=== PATIENT | male | born 1950 | race Hispanic/Latino ===

== ENCOUNTER 2019-02-09 10:57 | Inpatient (IN) | payer MEDICARE ==
[2019-02-09] MEDS ORDERED: SODIUM CHLORIDE 0.9% 500 ML 500 ML IV ONE (11:39)
[2019-02-09] MEDS ORDERED: SODIUM CHLORIDE 0.9% 1000 ML 2,000 ML ONE (11:43)
--- NOTE | 2019-02-09 11:48 | Emergency Department Report ---
ED Shortness of Breath HPI - General Chief Complaint: Nausea/Vomiting/Diarrhea Stated Complaint: FEVER/HYPOTENSION Time Seen by Provider: 02/09/19 11:35 Source: EMS Mode of arrival: Stretcher Limitations: No Limitations - History of Present Illness Initial Comments: 68-year-old male with history of hypertension, resting tremor, hairy cell leukemia (in remission) presents to ED with complaint of shortness of breath 3 days. Patient reports fever, denies cough. He reports episode of chest and abdominal pain 2 days ago which has resolved. Patient states pain was all across his chest and abdomen. He denies any leg pain or swelling. Reports episodes of nausea and vomiting. EMS reports patient was hypotensive, with O2 sats 93% on room air MD Complaint: shortness of breath -: days(s) (3) Severity: moderate Consistency: constant Improves With: nothing Worsens With: lying flat Associated Symptoms: chest pain, fever, nausea/vomiting - Related Data Home Oxygen Therapy: No Home Medications Medication Instructions Recorded Confirmed Last Taken Aspirin [Aspirin BABY CHEW TAB] 81 mg PO QDAY 02/09/19 02/09/19 02/09/19 Desvenlafaxine Succinate 100 mg PO QDAY 02/09/19 02/09/19 02/09/19 [Desvenlafaxine Succinate ER] Doxazosin Mesylate [Cardura] 2.5 mg PO DAILY 02/09/19 02/09/19 02/09/19 Finasteride [Proscar] 5 mg PO QHS 02/09/19 02/09/19 02/09/19 Propranolol HCl 20 mg PO QDAY 02/09/19 02/09/19 02/09/19 Trazodone HCl 150 mg PO QHS 02/09/19 02/09/19 02/09/19 Allergies Allergy/AdvReac Type Severity Reaction Status Date / Time cefepime Allergy Rash Verified 02/10/19 11:24 ED Review of Systems ROS: Stated complaint: FEVER/HYPOTENSION Other details as noted in HPI Comment: All other systems reviewed and negative Constitutional: fever Respiratory: orthopnea, shortness of breath. denies: cough Cardiovascular: chest pain Gastrointestinal: nausea, vomiting Musculoskeletal: other (denies leg pain and swelling) ED Past Medical Hx - Past Medical History Previous Medical History?: Yes Hx Hypertension: Yes - Surgical History Past Surgical History?: No - Social History Smoking Status: Unknown if ever smoked Substance Use Type: None - Medications Home Medications: Home Medications Medication Instructions Recorded Confirmed Last Taken Type Aspirin [Aspirin BABY CHEW TAB] 81 mg PO QDAY 02/09/19 02/09/19 02/09/19 History Desvenlafaxine Succinate 100 mg PO QDAY 02/09/19 02/09/19 02/09/19 History [Desvenlafaxine Succinate ER] Doxazosin Mesylate [Cardura] 2.5 mg PO DAILY 02/09/19 02/09/19 02/09/19 History Finasteride [Proscar] 5 mg PO QHS 02/09/19 02/09/19 02/09/19 History Propranolol HCl 20 mg PO QDAY 02/09/19 02/09/19 02/09/19 History Trazodone HCl 150 mg PO QHS 02/09/19 02/09/19 02/09/19 History ED Physical Exam - General Limitations: No Limitations General appearance: alert - Head Head exam: Present: atraumatic, normocephalic - Eye Eye exam: Present: normal appearance - ENT ENT exam: Present: mucous membranes dry - Neck Neck exam: Present: normal inspection - Respiratory Respiratory exam: Present: decreased breath sounds (right lung field), other (tachypneic) - Cardiovascular Cardiovascular Exam: Present: normal rhythm, tachycardia - GI/Abdominal GI/Abdominal exam: Present: soft. Absent: distended, tenderness - Extremities Exam Extremities exam: Present: normal inspection. Absent: pedal edema, calf tenderness - Neurological Exam Neurological exam: Present: alert, oriented X3 - Psychiatric Psychiatric exam: Present: normal affect, normal mood - Skin Skin exam: Present: warm, dry, intact, normal color ED Course Vital Signs 02/09/19 02/09/19 02/09/19 11:00 11:31 11:38 Temperature 98.9 F Pulse Rate 106 H 103 H Respiratory 30 H 24 Rate Blood Pressure 120/95 Blood Pressure 68/41 [Right] O2 Sat by Pulse 95 97 95 Oximetry 02/09/19 02/09/19 02/09/19 11:50 12:48 13:37 Temperature Pulse Rate 114 H 93 H 87 Respiratory 20 18 33 H Rate Blood Pressure 78/46 Blood Pressure 70/38 75/40 [Right] O2 Sat by Pulse 2 L 95 98 Oximetry 02/09/19 02/09/19 02/09/19 14:04 15:26 16:00 Temperature 98.3 F Pulse Rate 82 92 H Respiratory 16 12 Rate Blood Pressure Blood Pressure 82/62 99/40 [Right] O2 Sat by Pulse 97 97 Oximetry - Reevaluation(s) Reevaluation #1: 02/09/19 13:22 Pt states he has had PCN before and is not allergic. States had cefepime in the past and developed a rash. - Central Line Placement Right Femoral Consent Obtained: verbal consent Time Out Performed: Yes Patient Placed on Monitor/Pulse Ox: Yes Prep: mask, gown, gloves Central Line Prep: Chlorhexidine scrub, sterile drapes applied Local Anesthesia Used: Lidocaine 1% Amount of Anesthesia Used (mls): 3 Ultrasound Used for Placement: No Central Line Lumen Inserted: triple Bloods Obtained for Lab: No Central Line Position: good blood return, all ports aspirated, flus, sutured in place with nyl Dressing Applied: Tegaderm Patient Tolerated Procedure: well Complications: none ED Medical Decision Making - Lab Data Result diagrams: 02/10/19 04:30 02/10/19 04:30 - EKG Data -: EKG Interpreted by [facility] EKG shows normal: sinus rhythm, axis, QRS complexes Rate: tachycardia (rate 110) - Radiology Data Radiology results: report reviewed, image reviewed - Medical Decision Making 68-year-old male presents to ED with complaint of shortness of breath. Patient denies any chest pain at this time, although reports he had generalized chest and abdominal pain 2 days ago, which has currently resolved. Patient with O2 sats of 92% on room air, tachypneic on exam. Patient hypotensive, tachycardic, afebrile. Sepsis alert was called, patient given 30/kg normal saline bolus due to his hypotension. Patient denies history of congestive heart failure. Blood pressure did not respond to saline bolus, so right femoral central line was placed, and levofed was initiated. WBCs normal, however, bandemia present. Patient also shows signs of acute renal failure, with normal potassium. Lactic acid is 5.3. Platelet count is 63. Patient reports previous history of thrombocytopenia when he was diagnosed with hairy cell leukemia, which he reports is currently in remission. Blood culture, urine cultures sent. Zosyn administered due to patient's cefepime allergy. Chest x-ray shows no infiltrates, pulmonary edema, or effusion. Patient was however, placed on BiPAP, due to his tachypnea and mild respiratory distress. Unable to obtain CTA chest with contrast to rule out PE, so VQ scan was ordered. CT chest without contrast also ordered to evaluate for infiltrate or edema not seen on plain film. CT abdomen and pelvis without contrast also ordered due to history of vomiting, although no emesis or abdominal pain here in the ED currently. Patient will require admission, and has been signed out to Dr. Curiel, hospitalist, who agrees to follow-up on his pending radiologic studies. - Differential Diagnosis PE, CHF, infection Critical Care Time: Yes Critical care time in (mins) excluding proc time.: 35 Critical care attestation.: If time is entered above; I have spent that time in minutes in the direct care of this critically ill patient, excluding procedure time. Critical Care Time: 35 minutes ED Disposition Clinical Impression: Thrombocytopenia, Acute respiratory failure with hypoxia, Acute renal failure, Lactic acidosis, Hypotension Disposition: OP ADMIT IP TO THIS HOSP Is pt being admited?: Yes Condition: Stable Time of Disposition: 14:40
[2019-02-09] MEDS ORDERED: SODIUM CHLORIDE 0.9% 1000 ML IV SOLN IV ONE (12:19)
[2019-02-09 12:24] LABS: Hematocrit 40.3 % (35.5-45.6); Hemoglobin 13.3 gm/dl (11.8-15.2); Mean Corpuscular HGB Conc 33 % (32-34); Mean Corpuscular Volume 84 fl (84-94); Red Blood Count 4.78 M/mm3 (3.65-5.03); Red Cell Distribution Width 15.1 % (13.2-15.2)
[2019-02-09 12:25] LABS: Platelet Count 63 K/mm3 (140-440)
[2019-02-09 12:33] LABS: INR 1.29 (0.87-1.13)
--- NOTE | 2019-02-09 12:40 | XRay Report ---
CHEST 1 VIEW INDICATION: possible Sepsis. COMPARISON: None. FINDINGS: Support devices: None. Heart: Normal. Lungs/Pleura: Minimal bibasilar opacities may be atelectatic. Lungs are otherwise clear. No significa nt effusion, no pneumothorax. IMPRESSION: 1. Presumed atelectatic changes in the bases. Signer Name: Carroll Vega MD Signed: 02/09/2019 12:35 PM Workstation Name: [id number]
[2019-02-09 13:18] LABS: Alanine Aminotransferase 12 units/L (7-56); Albumin 3.1 g/dL (3.9-5); BUN/Creatinine Ratio 13; Blood Urea Nitrogen 59 mg/dL (9-20); Calcium 8.4 mg/dL (8.4-10.2); Hemolysis Index 16
[2019-02-09] MEDS ORDERED: PIPERACIL/TAZOBACTA 4.5/NS 100 4.5 GM/100 ML VIAL IV ONE (13:19)
[2019-02-09] MEDS ORDERED: NORepinephrine/NS 4 MG-250 ML 4 MG/250 ML BAG IV ONE (13:19)
[2019-02-09] MEDS: NORepinephrine/NS 4 MG-250 ML 4 MG/250 ML BAG IV SCH ×3 (13:26→20:45)
--- NOTE | 2019-02-09 14:24 | History and Physical Report ---
History of Present Illness Chief complaint: Im hurting, and I cant breathe History of present illness: 68 YO Male with HTN, Obesity, Hairy Cell Leukemia(In remission) presents to ED for evaluatio. Pt on NIPPV and unable to provide history at time of my evaluation. Pt history taken from ED staff as medical record. As per staff, patient reports shortness of breath over the past 3 days with persistent symptoms over the same time frame. pt also reports subjective fever, and abdominal pain. Pt localized left flank as source of pain. Pain is associated with nausea and multiple episodes of vomiting. EMS notified and upon arrival the patient found to be in distress and transported to [facility]. Pt seen and evaluated in ED and found to have Severe Sepsis complicated by Shock with blood pressure of 68/41. Pt initiated on sepsis protocol. Pt treated with IVF resuscitation as well as pressor support. Pt found to have worsening dypsnea after fluid resuscitation which resulted in Acute Hypoxemic Respiratory Failure. Pt init iated on NIPPV and admitted to ICU. No further history obtainable. All listed medication reconciled at time of admission. No further history obtainable. Past History Past Medical History: other (see hpi) Past Surgical History: No surgical history, Other (reviewed) Social history: single. denies: smoking, alcohol abuse, prescription drug abuse Family history: no significant family history (reviewed) Medications and Allergies Allergies Allergy/AdvReac Type Severity Reaction Status Date / Time cefepime Allergy Unknown Verified 02/09/19 11:34 Home Medications Medication Instructions Recorded Confirmed Last Taken Type Aspirin [Aspirin BABY CHEW TAB] 81 mg PO QDAY 02/09/19 02/09/19 02/09/19 History Desvenlafaxine Succinate 100 mg PO QDAY 02/09/19 02/09/19 02/09/19 History [Desvenlafaxine Succinate ER] Doxazosin Mesylate [Cardura] 2.5 mg PO DAILY 02/09/19 02/09/19 02/09/19 History Finasteride [Proscar] 5 mg PO QHS 02/09/19 02/09/19 02/09/19 History Propranolol HCl 20 mg PO QDAY 02/09/19 02/09/19 02/09/19 History Trazodone HCl 150 mg PO QHS 02/09/19 02/09/19 02/09/19 History Active Meds: Active Medications Norepinephrine (Levophed Drip 4 Mg/Ns 250 Ml) 4 mg in 250 mls @ 7.5 mls/hr IV TITR REY; Protocol Last Titration: 02/09/19 13:51 Dose: 20 mcg/min, 75 mls/hr Documented by: Review of Systems ROS unobtainable: due to mental status Exam - Constitutional Vitals: Temp Pulse Resp BP Pulse Ox 98.9 F 82 16 82/62 97 02/09/19 11:00 02/09/19 14:04 02/09/19 14:04 02/09/19 14:04 02/09/19 14:04 General appearance: Present: severe distress - EENT Eyes: Present: PERRL ENT: hearing intact, clear oral mucosa - Neck Neck: Present: supple, normal ROM - Respiratory Respiratory effort: labored Respiratory: bilateral: diminished, rhonchi - Cardiovascular Rhythm: other (tachycardia, hypotension) Heart Sounds: Present: S1 & S2. Absent: rub, click - Extremities Extremities: pulses symmetrical, No edema Peripheral Pulses: abnormal (capillary refill greater than 3.5 seconds) - Abdominal General gastrointestinal: Present: soft, non-tender, non-distended, normal bowel sounds Male genitourinary: Present: normal - Integumentary Integumentary: Present: clear, dry, clammy, decreased turgor - Musculoskeletal Musculoskeletal: generalized weakness - Psychiatric Psychiatric: no appropriate mood/affect, no intact judgment & insight, no memory intact - Neurologic Neurologic: CNII-XII intact, no focal deficits, moves all extremities, no gait normal Results - Labs CBC & Chem 7: 02/09/19 Unknown 02/09/19 Unknown Labs: Abnormal lab results 02/09/19 02/09/19 02/09/19 Range/Units Unknown Unknown Unknown Plt Count 63 L (140-440) K/mm3 PT 15.8 H (12.2-14.9) Sec. INR 1.29 H (0.87-1.13) Carbon Dioxide 19 L (22-30) mmol/L BUN 59 H (9-20) mg/dL Creatinine 4.4 H (0.8-1.5) mg/dL Glucose 101 H (75-100) mg/dL Lactic Acid (0.7-2.0) mmol/L AST < 5 L (5-40) units/L NT-Pro-B Natriuret Pep (0-900) pg/mL Total Protein 5.1 L (6.3-8.2) g/dL Albumin 3.1 L (3.9-5) g/dL 02/09/19 02/09/19 Range/Units Unknown Unknown Plt Count (140-440) K/mm3 PT (12.2-14.9) Sec. INR (0.87-1.13) Carbon Dioxide (22-30) mmol/L BUN (9-20) mg/dL Creatinine (0.8-1.5) mg/dL Glucose (75-100) mg/dL Lactic Acid 5.30 H* (0.7-2.0) mmol/L AST (5-40) units/L NT-Pro-B Natriuret Pep 6998 H (0-900) pg/mL Total Protein (6.3-8.2) g/dL Albumin (3.9-5) g/dL Assessment and Plan - Patient Problems (1) Sepsis Current Visit: Yes Status: Acute Qualifiers: Sepsis acute organ dysfunction status: with acute organ dysfunction Severe sepsis shock status: with septic shock Plan to address problem: Sepsis protocol: Admit to ICU, IV antibiotic therapy, IVF resuscitation therapy, serial lactic acid, monitor uop q shift, IV pressor support, Pulmonary team co nsulted, CBC, CMP, urinalysis, CT Abdomen/Pelvis, CT chest, Chest x ray, blood cultures. The high probability of a clinically significant, sudden or life threatening deterioration of the [cardiac, renal, pulmonary, renal, ID] system(s) required my full and direct attention, intervention and personal management. The aggregate critical care time was [95] minutes. This time is in addition to time spent performing reported procedures but includes the following: [x] Data Review and interpretation [x] Patient assessment and monitoring of vital signs [x] Documentation [x] Medication orders and management (2) KEVIN (acute kidney injury) Current Visit: Yes Status: Acute Plan to address problem: IVF resuscitation therapy, Nephrology consulted, monitor uop q shift, urine electrolytes, (3) Acidosis Current Visit: Yes Status: Acute Plan to address problem: IVF resuscitation therapy, IV bicarbonate, supportive care. (4) UTI (urinary tract infection) Current Visit: Yes Status: Acute Qualifiers: Encounter type: initial encounter Plan to address problem: IV antibiotic therapy, urinalysis, CBC,CMP, (5) Urinary obstruction Current Visit: Yes Status: Acute Plan to address problem: 7MM Left UPJ obstructing stone with mild hydronephrosis, supportive care. IR consulted pending perc nephrostomy tube placement, Urology consulted. (6) CHF (congestive heart failure) Current Visit: Yes Status: Acute Qualifiers: Heart failure type: systolic Plan to address problem: Cardiology consulted in ED, IV ionotropic support, continue current care, monitor daily weight, uop q shift, echo, (7) Acute respiratory failure with hypoxia Current Visit: Yes Status: Acute Plan to address problem: Supplemental oxygen, ABG, pulse oximetry, CT chest, NIPPV as clinically in dicated, nebulizer therapy prn, chest x ray. (8) Lactic acidosis Current Visit: Yes Status: Acute Plan to address problem: Treat sepsis, serial lactic acid, IV bicarbonate, supportive care. (9) DVT prophylaxis Current Visit: Yes Status: Acute Plan to address problem: SCD to BLE while in bed, prophylactic heparin
[2019-02-09] MEDS ORDERED: ONDANSETRON 4 MG/2 ML INJ IV PRN (14:29)
[2019-02-09 14:56] LABS: Band Neutrophils # (Manual) 2.1 K/mm3; Basophils % (Manual) 0 % (0.0-1.8); Eosinophils % (Manual) 0 % (0.0-4.3); Large Platelets Few; Platelet Estimate Consistent w Auto; Total Cells Counted 100
[2019-02-09] MEDS ORDERED: VANCOMYCIN PHARMACY TO DOSE IV SCH (15:00)
[2019-02-09] MEDS ORDERED: VANCOMYCIN 2,000 MG in SODIUM CHLORIDE 0.9% 500 ML 500 ML IV ONE (15:29)
--- NOTE | 2019-02-09 15:35 | Cat Scan Report ---
CT CHEST WITHOUT CONTRAST INDICATION / CLINICAL INFORMATION: Shortness of breath. TECHNIQUE: Axial CT images were obtained through the chest without contrast. Sagittal and coronal reformatted im ages. All CT scans at this location are performed using CT dose reduction for ALARA by means of autom ated exposure control. COMPARISON: None available. FINDINGS: HEART: No significant abnormality. THORACIC AORTA: No significant abnormality. MEDIASTINUM and NINO: No significant abnormality. Calcified right hilar lymph nodes are noted. LUNGS: Mild deep dependent subpleural atelectatic changes in both lower lobes. No evidence for inters titial lung disease, mass or infiltrate. PLEURA: No significant pleural effusion. No pneumothorax. SKELETAL SYSTEM: Osteopenia. Moderate multilevel thoracic spondylosis. UPPER ABDOMEN: No significant abnormality. ADDITIONAL FINDINGS: None. IMPRESSION: No acute process is identified in the chest. CT ABDOMEN AND PELVIS WITHOUT CONTRAST HISTORY: Abdominal pain COMPARISON: None. TECHNIQUE: Axial CT images were obtained through the abdomen and pelvis without IV contrast. Sagittal and coronal reformatted images. All CT scans at this location are performed using CT dose reduction for ALARA by means of automated exposure control. FINDINGS: CT ABDOMEN: Liver: No significant abnormality. Biliary: No significant abnormality. Spleen: No significant abnormality. Unenlarged. Pancreas: No significant abnormality. Adrenals: 1 cm fat-containing lesion in the right adrenal gland is most consistent with a small lipom a or less likely a myelolipoma. The left adrenal gland is normal. Kidneys: The kidneys are normal size, contour and position. Bilateral renal stones are identified, le ft greater than right. There are approximately 3 or 4 punctate stones in the right kidney. Approximat christian 10 stones are identified in the left kidney ranging from 1 mm to 4 mm. A 7-8mm calculus is identi fied at the left ureteropelvic junction resulting in mild left hydronephrosis. The ureters are normal course and caliber. The bladder is decompressed with a Agarwal catheter. Lymphatics: No lymphadenopathy. Vasculature: No significant abnormality. Bowel/Peritoneum: No obstruction or focal inflammation. Mild diverticulosis of the distal colon is no onofre.. No free air. No free fluid. Normal appendix. CT PELVIS: : No significant abnormality. Osseous Structures: Osteopenia. Moderate multilevel lumbar spondylosis. Chronic compression deformity at L2 is suspected. Additional Findings: None IMPRESSION: Bilateral nephrolithiasis. 7-8 mm stone at the left ureteropelvic junction, mildly obstructing. No acute inflammatory process is identified. Signer Name: Yinka De Los Santos Jr, MD Signed: 02/09/2019 3:31 PM Workstation Name: [id number]
[2019-02-09 15:56] LABS: Creatinine,Urine 350.2 mg/dL (0.1-20.0)
[2019-02-09 15:59] LABS: Bacteria,Urine 1+ /HPF (Negative); Bilirubin,Urine NEG (Negative); Blood,Urine LG (Negative); Color,Urine Amber (Yellow)
[2019-02-09 16:02] LABS: RBC,Urine > 182.0 /HPF (0.0-6.0)
--- NOTE | 2019-02-09 16:36 | Nuclear Medicine Report ---
NUCLEAR MEDICINE VENTILATION/PERFUSION LUNG SCAN INDICATION: Shortness of breath. TECHNIQUE: 15 mCi of Xe-133 were given by inhalation. 5 mCi of Tc-99m MAA were given by IV. COMPARISON: CT chest without contrast from earlier today. FINDINGS: VENTILATION: No significant ventilation defects. PERFUSION: No significant perfusion defects. ADDITIONAL FINDINGS: None. IMPRESSION: Low probability for pulmonary embolism. Signer Name: Tulio Warren MD Signed: 02/09/2019 4:32 PM Workstation Name: [id number]
[2019-02-09] MEDS ORDERED: SODIUM BICARB 8.4% 50 MEQ/50 ML SYRINGE IV ONE (17:52)
--- NOTE | 2019-02-09 18:33 | Consultation ---
History of Present Illness - Reason for Consult Consult date: 02/09/19 left hydronephrosis - History of Present Illness Patient presents to history of hypertension, hairy cell leukemia, a single episode of a kidney stone previously, shortness of breath, fatigue, episodic nausea and vomiting and intermittent abdominal pain. He presented with sepsis and hypotension requiring Levophed drip. A CT scan of the abdomen and pelvis was performed which straight an obstructing 7 mm stone at the left UPJ. Minimal inflammatory stranding is present. Additionally, the patient has acute renal failure Patient is currently on broad-spectrum antibiotics. Past History Past Medical History: other (see hpi) Past Surgical History: No surgical history, Other (reviewed) Social history: single. denies: smoking, alcohol abuse, prescription drug abuse Family history: no significant family history (reviewed) Medications and Allergies Allergies Allergy/AdvReac Type Severity Reaction Status Date / Time cefepime Allergy Unknown Verified 02/09/19 11:34 Home Medications Medication Instructions Recorded Confirmed Last Taken Type Aspirin [Aspirin BABY CHEW TAB] 81 mg PO QDAY 02/09/19 02/09/19 02/09/19 History Desvenlafaxine Succinate 100 mg PO QDAY 02/09/19 02/09/19 02/09/19 History [Desvenlafaxine Succinate ER] Doxazosin Mesylate [Cardura] 2.5 mg PO DAILY 02/09/19 02/09/19 02/09/19 History Finasteride [Proscar] 5 mg PO QHS 02/09/19 02/09/19 02/09/19 History Propranolol HCl 20 mg PO QDAY 02/09/19 02/09/19 02/09/19 History Trazodone HCl 150 mg PO QHS 02/09/19 02/09/19 02/09/19 History Active Meds: Active Medications Acetaminophen (Tylenol) 650 mg PO Q4H PRN PRN Reason: Pain MILD(1-3)/Fever >100.5/KAMARA Aspirin (Baby Aspirin) 81 mg PO QDAY REY Finasteride (Proscar) 5 mg PO QHS REY Heparin Sodium (Porcine) (Heparin) 5,000 unit SUB-Q Q12HR REY Norepinephrine (Levophed Drip 4 Mg/Ns 250 Ml) 4 mg in 250 mls @ 7.5 mls/hr IV TITR REY; Protocol Last Titration: 02/09/19 18:12 Dose: 16 mcg/min, 60 mls/hr Documented by: Sodium Chloride (Nacl 0.9% 1000 Ml) 1,000 mls @ 125 mls/hr IV DIRECT REY Levofloxacin/Dextrose (Levaquin 750mg/150ml) 750 mg in 150 mls @ 100 mls/hr IV ONCE ONE; Protocol Stop: 02/09/19 19:29 Last Admin: 02/09/19 18:00 Dose: 100 mls/hr Documented by: Levofloxacin/Dextrose (Levaquin 500mg/100ml) 500 mg in 100 mls @ 66.667 mls/hr IV Q48H REY; Protocol Miscellaneous Medication (Desvenlafaxine Succinate [Desvenlafaxine Succinate Er]) 100 mg PO QDAY REY Ondansetron HCl (Zofran) 4 mg IV Q8H PRN PRN Reason: Nausea And Vomiting Sodium Chloride (Sodium Chloride Flush Syringe 10 Ml) 10 ml IV BID REY Sodium Chloride (Sodium Chloride Flush Syringe 10 Ml) 10 ml IV PRN PRN PRN Reason: LINE FLUSH Trazodone HCl (Desyrel) 150 mg PO QHS REY Review of Systems All systems: negative Exam - Constitutional Vitals: Temp Pulse Resp BP Pulse Ox 98.3 F 79 21 104/65 97 02/09/19 16:00 02/09/19 18:00 02/09/19 18:00 02/09/19 18:00 02/09/19 18:00 General appearance: Present: no acute distress - EENT Eyes: Present: EOM intact ENT: hearing intact - Neck Neck: Present: supple, normal ROM - Respiratory Respiratory effort: normal - Extremities Extremities: no ischemia - Abdominal General gastrointestinal: Present: soft Male genitourinary: Present: deferred - Rectal Rectal Exam: deferred - Psychiatric Psychiatric: appropriate mood/affect, cooperative Results - Labs CBC & Chem 7: 02/09/19 Unknown 02/09/19 Unknown Labs: Abnormal lab results 02/09/19 02/09/19 02/09/19 Range/Units 07:28 13:50 15:20 Plt Count (140-440) K/mm3 Lymphocytes % (Manual) (13.4-35.0) % Nucleated RBC % (0.0-0.9) % Lymphocytes # (Manual) (1.2-5.4) K/mm3 PT (12.2-14.9) Sec. INR (0.87-1.13) Carbon Dioxide (22-30) mmol/L BUN (9-20) mg/dL Creatinine (0.8-1.5) mg/dL Glucose (75-100) mg/dL Lactic Acid 3.50 H* (0.7-2.0) mmol/L AST (5-40) units/L NT-Pro-B Natriuret Pep (0-900) pg/mL Total Protein (6.3-8.2) g/dL Albumin (3.9-5) g/dL Urine WBC (Auto) 35.0 H (0.0-6.0) /HPF Urine Creatinine 350.2 H (0.1-20.0) mg/dL 02/09/19 02/09/19 02/09/19 Range/Units 17:13 Unknown Unknown Plt Count 63 L (140-440) K/mm3 Lymphocytes % (Manual) 2.0 L (13.4-35.0) % Nucleated RBC % 1.0 H (0.0-0.9) % Lymphocytes # (Manual) 0.1 L (1.2-5.4) K/mm3 PT 15.8 H (12.2-14.9) Sec. INR 1.29 H (0.87-1.13) Carbon Dioxide (22-30) mmol/L BUN (9-20) mg/dL Creatinine (0.8-1.5) mg/dL Glucose (75-100) mg/dL Lactic Acid 2.10 H* (0.7-2.0) mmol/L AST (5-40) units/L NT-Pro-B Natriuret Pep (0-900) pg/mL Total Protein (6.3-8.2) g/dL Albumin (3.9-5) g/dL Urine WBC (Auto) (0.0-6.0) /HPF Urine Creatinine (0.1-20.0) mg/dL 02/09/19 02/09/19 02/09/19 Range/Units Unknown Unknown Unknown Plt Count (140-440) K/mm3 Lymphocytes % (Manual) (13.4-35.0) % Nucleated RBC % (0.0-0.9) % Lymphocytes # (Manual) (1.2-5.4) K/mm3 PT (12.2-14.9) Sec. INR (0.87-1.13) Carbon Dioxide 19 L (22-30) mmol/L BUN 59 H (9-20) mg/dL Creatinine 4.4 H (0.8-1.5) mg/dL Glucose 101 H (75-100) mg/dL Lactic Acid 5.30 H* (0.7-2.0) mmol/L AST < 5 L (5-40) units/L NT-Pro-B Natriuret Pep 6998 H (0-900) pg/mL Total Protein 5.1 L (6.3-8.2) g/dL Albumin 3.1 L (3.9-5) g/dL Urine WBC (Auto) (0.0-6.0) /HPF Urine Creatinine (0.1-20.0) mg/dL - Imaging and Cardiology CT scan - abdomen: report reviewed, image reviewed CT scan - pelvis: report reviewed, image reviewed Assessment and Plan We'll plan on placing left nephrostomy tube. The risks and benefits discussed with the patient including risk of bleeding given his decreased platelets.
[2019-02-09] MEDS ORDERED: MIDAZOLAM 2 MG/2 ML INJ ONE (18:42)
[2019-02-09] MEDS ORDERED: fentaNYL 100 MCG/2 ML INJ ONE (18:42)
[2019-02-09] MEDS ORDERED: SODIUM CHLORIDE IRRI 500 ML 500 ML IR ONE (18:43)
[2019-02-09] MEDS ORDERED: LIDOCAINE (2%) 20 MG/1 ML VIAL 20 ML MDV INFILTRATI ONE (18:43)
[2019-02-09] MEDS ORDERED: SODIUM CHLORIDE 0.9% 250ML 0 ML ONE (18:44)
--- NOTE | 2019-02-09 19:44 | Operative Report ---
Operative Report Operative Report: Exam: Ultrasound and fluoroscopic guided placement of left nephrostomy tube Clinical indication: Patient with obstructing left UPJ stone and sepsis Date: 02/09/2019 Procedure: Following an explanation of the risks, benefits and alternatives; written informed consent was obtained. The patient was brought to the angiographic suite and placed in prone position on the examination table. Initial ultrasound evaluation of the patient's left kidney demonstrated moderate left hydronephrosis. The patient's left back and flank were prepped and draped in the usual sterile fashion. 1% lidocaine was used for anesthesia. Under ultrasound guidance, a posterior middle calyx was cannulated with a 15 cm 21-gauge needle. A 0.018 guidewire was advanced to the renal pelvis. The needle was removed and an Accustick transition dilator placed over the guidewire and advanced to the renal pelvis. The trocar and guidewire were removed. A gentle injection of contrast was performed which demonstrates opacification of the renal pelvis and calyces. A 0.035 guidewire was then advanced through the Accustick transition dilator past the obstructing stone into the bladder. The transition dilator was removed and a vertebral catheter advanced over the guidewire to the bladder. Contrast was injected which demonstrates prompt opacification of the bladder with drainage and the Agarwal catheter. A 0.035 guidewire was then advanced through the vertebral catheter. The vertebral catheter was removed and following serial dilation over the guidewire under fluoroscopy, an 8 Sinhala nephrostomy tube was advanced over the guidewire under fluoroscopy. The pigtail was formed around the stone. There was prompt return of bloody urine. A sample was sent for laboratory analysis. Contrast was injected which demonstrates prompt opacification of the renal calyces and pelvis to demonstrate appropriate positioning of the nephrostomy tube. The catheter was securely fastened of the skin surface using 3-0 Ethilon suture and a stay fix device. A sterile dressing was applied. The catheter was then placed to dependent drainage. The patient tolerated the procedure well. There were no immediate post procedure complications. A minimal amount of sedation was utilized secondary to patient's cardiopulmonary status. Continuous cardiopulmonary monitoring was utilized. Impression: Ultrasound and fluoroscopic guided placement of left nephrostomy tube with a sample of urine sent for laboratory analysis.
[2019-02-09] MEDS: SODIUM CHLORIDE 0.9% 1000 ML 1,000 ML IV SCH (20:32)
[2019-02-09] MEDS: traZODone 100 MG TAB PO SCH (21:43)
[2019-02-09] MEDS: FINASTERIDE 5 MG TAB PO SCH (21:43)
[2019-02-09] MEDS: HEPARIN 5,000 UNIT/1 ML VIAL SUB-Q SCH (21:43)
[2019-02-09] MEDS ORDERED: TRAZODONE HCL 150 MG PO SCH (22:00)
[2019-02-10] MEDS: NORepinephrine/NS 4 MG-250 ML 4 MG/250 ML BAG IV SCH ×3 (01:09→08:00)
--- NOTE | 2019-02-10 01:47 | Consultation ---
History of Present Illness - Reason for Consult Consult date: 02/09/19 Sepsis / hydro / stone Requesting physician: YADY SMITH - History of Present Illness 68 yo w/ c/o abd/chest pain past few days then 2 days left flank pain. pt w/ Bip unable give all history. hypotensions. started onpressors. admit to ICU. pain mod w/ some rad left anterior. h/o stone several years ago. tx by Dr. Santamaria for bph/incont. stopped meds recent.. Past History Past Medical History: other (see hpi) Past Surgical History: No surgical history, Other (reviewed) Social history: single. denies: smoking, alcohol abuse, prescription drug abuse Family history: no significant family history (reviewed) Medications and Allergies Allergies Allergy/AdvReac Type Severity Reaction Status Date / Time cefepime Allergy Unknown Verified 02/09/19 11:34 Home Medications Medication Instructions Recorded Confirmed Last Taken Type Aspirin [Aspirin BABY CHEW TAB] 81 mg PO QDAY 02/09/19 02/09/19 02/09/19 History Desvenlafaxine Succinate 100 mg PO QDAY 02/09/19 02/09/19 02/09/19 History [Desvenlafaxine Succinate ER] Doxazosin Mesylate [Cardura] 2.5 mg PO DAILY 02/09/19 02/09/19 02/09/19 History Finasteride [Proscar] 5 mg PO QHS 02/09/19 02/09/19 02/09/19 History Propranolol HCl 20 mg PO QDAY 02/09/19 02/09/19 02/09/19 History Trazodone HCl 150 mg PO QHS 02/09/19 02/09/19 02/09/19 History Active Meds: Active Medications Acetaminophen (Tylenol) 650 mg PO Q4H PRN PRN Reason: Pain MILD(1-3)/Fever >100.5/KAMARA Aspirin (Baby Aspirin) 81 mg PO QDAY [facility] Finasteride (Proscar) 5 mg PO QHS [facility] Last Admin: 02/09/19 21:43 Dose: 5 mg Documented by: Heparin Sodium (Porcine) (Heparin) 5,000 unit SUB-Q Q12HR [facility] Last Admin: 02/09/19 21:43 Dose: 5,000 unit Documented by: Norepinephrine (Levophed Drip 4 Mg/Ns 250 Ml) 4 mg in 250 mls @ 7.5 mls/hr IV TITR REY; Protocol Last Admin: 02/10/19 01:09 Dose: 16 mcg/min, 60 mls/hr Documented by: Sodium Chloride (Nacl 0.9% 1000 Ml) 1,000 mls @ 125 mls/hr IV DIRECT REY Last Admin: 02/09/19 20:32 Dose: 125 mls/hr Documented by: Levofloxacin/Dextrose (Levaquin 500mg/100ml) 500 mg in 100 mls @ 66.667 mls/hr IV Q48H [facility]; Protocol Miscellaneous Medication (Desvenlafaxine Succinate [Desvenlafaxine Succinate Er]) 100 mg PO QDAY REY Ondansetron HCl (Zofran) 4 mg IV Q8H PRN PRN Reason: Nausea And Vomiting Last Admin: 02/09/19 20:27 Dose: 4 mg Documented by: Sodium Chloride (Sodium Chloride Flush Syringe 10 Ml) 10 ml IV BID [facility] Last Admin: 02/09/19 23:42 Dose: 10 ml Documented by: Sodium Chloride (Sodium Chloride Flush Syringe 10 Ml) 10 ml IV PRN PRN PRN Reason: LINE FLUSH Trazodone HCl (Desyrel) 150 mg PO QHS [facility] Last Admin: 02/09/19 21:43 Dose: 150 mg Documented by: Review of Systems Constitutional: fever, chills, fatigue, malaise, no weight loss, no weight gain Ears, nose, mouth and throat: no ear pain, no ear discharge, no tinnitis, no nose pain Cardiovascular: chest pain (resolved), shortness of breath Respiratory: no cough, no cough with sputum, no congestion Gastrointestinal: nausea, vomiting, no diarrhea, no constipation, no melena, no hematochezia, no loss of appetite Genitourinary Male: flank pain, urinary frequency, incontinence, kidney stones Rectal: no pain, no incontinence, no itching Musculoskeletal: low back pain, no neck stiffness, no neck pain Neurological: no head injury, no transient paralysis, no paralysis Psychiatric: no anxiety, no memory loss, no change in sleep habits Endocrine: no cold intolerance, no heat intolerance, no polyphagia, no excessive thirst Hematologic/Lymphatic: no easy bruising, no easy bleeding Allergic/Immunologic: no urticaria, no allergic rhinitis, no persistent infections Exam - Constitutional Vitals: Temp Pulse Resp BP Pulse Ox 99.4 F 152 H 35 H 93/57 94 02/09/19 20:30 02/10/19 01:00 02/10/19 01:00 02/10/19 01:00 02/10/19 01:00 General appearance: Present: no acute distress, mild distress - EENT Eyes: Present: PERRL, EOM intact ENT: hearing intact, clear oral mucosa, dentition normal - Neck Neck: Present: supple - Respiratory Respiratory effort: labored - Extremities Extremities: no ischemia, No edema - Abdominal General gastrointestinal: Present: soft, non-tender Male genitourinary: Present: normal (cather pink ting urine) - Integumentary Integumentary: Present: clear, warm, dry - Psychiatric Psychiatric: appropriate mood/affect Results - Labs CBC & Chem 7: 02/09/19 Unknown 02/09/19 Unknown Labs: Abnormal lab results 02/09/19 02/09/19 02/09/19 Range/Units 07:28 13:50 15:20 Plt Count (140-440) K/mm3 Lymphocytes % (Manual) (13.4-35.0) % Nucleated RBC % (0.0-0.9) % Lymphocytes # (Manual) (1.2-5.4) K/mm3 PT (12.2-14.9) Sec. INR (0.87-1.13) Carbon Dioxide (22-30) mmol/L BUN (9-20) mg/dL Creatinine (0.8-1.5) mg/dL Glucose (75-100) mg/dL Lactic Acid 3.50 H* (0.7-2.0) mmol/L AST (5-40) units/L NT-Pro-B Natriuret Pep (0-900) pg/mL Total Protein (6.3-8.2) g/dL Albumin (3.9-5) g/dL Urine WBC (Auto) 35.0 H (0.0-6.0) /HPF Urine Creatinine 350.2 H (0.1-20.0) mg/dL 02/09/19 02/09/19 02/09/19 Range/Units 17:13 21:53 Unknown Plt Count 63 L (140-440) K/mm3 Lymphocytes % (Manual) 2.0 L (13.4-35.0) % Nucleated RBC % 1.0 H (0.0-0.9) % Lymphocytes # (Manual) 0.1 L (1.2-5.4) K/mm3 PT (12.2-14.9) Sec. INR (0.87-1.13) Carbon Dioxide (22-30) mmol/L BUN (9-20) mg/dL Creatinine (0.8-1.5) mg/dL Glucose (75-100) mg/dL Lactic Acid 2.10 H* 3.00 H* (0.7-2.0) mmol/L AST (5-40) units/L NT-Pro-B Natriuret Pep (0-900) pg/mL Total Protein (6.3-8.2) g/dL Albumin (3.9-5) g/dL Urine WBC (Auto) (0.0-6.0) /HPF Urine Creatinine (0.1-20.0) mg/dL 02/09/19 02/09/19 02/09/19 Range/Units Unknown Unknown Unknown Plt Count (140-440) K/mm3 Lymphocytes % (Manual) (13.4-35.0) % Nucleated RBC % (0.0-0.9) % Lymphocytes # (Manual) (1.2-5.4) K/mm3 PT 15.8 H (12.2-14.9) Sec. INR 1.29 H (0.87-1.13) Carbon Dioxide 19 L (22-30) mmol/L BUN 59 H (9-20) mg/dL Creatinine 4.4 H (0.8-1.5) mg/dL Glucose 101 H (75-100) mg/dL Lactic Acid 5.30 H* (0.7-2.0) mmol/L AST < 5 L (5-40) units/L NT-Pro-B Natriuret Pep (0-900) pg/mL Total Protein 5.1 L (6.3-8.2) g/dL Albumin 3.1 L (3.9-5) g/dL Urine WBC (Auto) (0.0-6.0) /HPF Urine Creatinine (0.1-20.0) mg/dL 02/09/19 Range/Units Unknown Plt Count (140-440) K/mm3 Lymphocytes % (Manual) (13.4-35.0) % Nucleated RBC % (0.0-0.9) % Lymphocytes # (Manual) (1.2-5.4) K/mm3 PT (12.2-14.9) Sec. INR (0.87-1.13) Carbon Dioxide (22-30) mmol/L BUN (9-20) mg/dL Creatinine (0.8-1.5) mg/dL Glucose (75-100) mg/dL Lactic Acid (0.7-2.0) mmol/L AST (5-40) units/L NT-Pro-B Natriuret Pep 6998 H (0-900) pg/mL Total Protein (6.3-8.2) g/dL Albumin (3.9-5) g/dL Urine WBC (Auto) (0.0-6.0) /HPF Urine Creatinine (0.1-20.0) mg/dL Assessment and Plan SEPSIS LEFT UPJ STONE / HYDRO HYPOTENSION - Admit from ER to ICU - Disc w/ Dr. Smith late today , since on pressors, ICU pt will need eval for nephrostomy tube placement. - Dr. Davidson was consulted and Left Nephrostomy tube placed - When improved antegrade stent then future outpt treatment of stone discussed w/ pt.
[2019-02-10] MEDS: SODIUM CHLORIDE 0.9% 1000 ML 1,000 ML IV SCH ×7 (04:14→20:55)
[2019-02-10] MEDS: ACETAMINOPHEN 325 MG TAB PO PRN (04:23)
[2019-02-10 04:45] LABS: Hematocrit 37.3 % (35.5-45.6); Hemoglobin 12.5 gm/dl (11.8-15.2); Mean Corpuscular HGB Conc 34 % (32-34); Mean Corpuscular Volume 84 fl (84-94); Red Blood Count 4.42 M/mm3 (3.65-5.03)
[2019-02-10 05:14] LABS: Alanine Aminotransferase 17 units/L (7-56); Albumin 2.3 g/dL (3.9-5); BUN/Creatinine Ratio 17; Blood Urea Nitrogen 60 mg/dL (9-20); Calcium 7.4 mg/dL (8.4-10.2)
[2019-02-10 05:29] LABS: Basophils % (Manual) 0 % (0.0-1.8); Eosinophils % (Manual) 0 % (0.0-4.3); Large Platelets 1+; Platelet Estimate Appears Decreased; RBC Morphology Normal; Total Cells Counted 100
[2019-02-10 05:40] LABS: Platelet Count 30 K/mm3 (140-440)
--- NOTE | 2019-02-10 08:49 | Progress Note ---
Assessment and Plan Assessment and plan: Sepsis due to complicated UTI Admitted to ICU Continue Levaquin consult ID Septic shock On Levophed KEVIN (acute kidney injury) IVF resuscitation therapy, Nephrology consulted, monitor uop q shift, urine electrolytes, Metabolic Acidosis due to KEVIN IVF resuscitation therapy, IV bicarbonate, supportive care. Complicated UTI On Levaquin IV antibiotic therapy, urinalysis, CBC,CMP, Urinary obstruction 7MM Left UPJ obstructing stone with mild hydronephrosis, supportive care. IR consulted s/p left perc nephrostomy tube placement, Urology consulted. CHF (congestive heart failure) Cardiology consulted in ED, IV ionotropic support, continue current care, monitor daily weight, uop q shift, echo, Acute respiratory failure with hypoxia Supplemental oxygen, ABG, pulse oximetry, CT chest, NIPPV as clinically indicated, nebulizer therapy prn, chest x ray. Lactic acidosis due to sepsis Treat sepsis, serial lactic acid, IV bicarbonate, supportive care. DVT prophylaxis SCD to BLE while in bed, prophylactic heparin The high probability of a clinically significant, sudden or life threatening deterioration of the [3] system(s) required my full and direct attention, intervention and personal management. The aggregate critical care time was [35] minutes. This time is in addition to time spent performing reported procedures but includes the following: [] Data Review and interpretation [] Patient assessment and monitoring of vital signs [] Documentation [] Medication orders and management History Interval history: Generalized weakness Shortness of breath improved Fever Hospitalist Physical - Physical exam Narrative exam: Gen: Not in acute distress, lying in bed, obese, ill looking HEENT: Normocephalic, atraumatic Neck: supple, no JVD Heart: S1 and S2 reg, no murmurs, rubs or gallop Lungs: Clear to auscultation, no rhonchi, no wheeze Abd: soft, non tender, non distended, normal BS, left nephrostomy tube Ext: No edema, no clubbing, no cyanosis Neuro: Awake, alert, oriented X 3, no focal neurological signs - Constitutional Vitals: Temp Pulse Resp BP Pulse Ox 101.5 F H 110 H 30 H 73/50 96 02/10/19 04:00 02/10/19 06:15 02/10/19 06:15 02/10/19 06:15 02/10/19 08:36 General appearance: Present: no acute distress, mild distress Results - Labs CBC & Chem 7: 02/10/19 04:30 02/10/19 04:30 Labs: Laboratory Last Values WBC 7.5 K/mm3 (4.5-11.0) 02/10/19 04:30 RBC 4.42 M/mm3 (3.65-5.03) 02/10/19 04:30 Hgb 12.5 gm/dl (11.8-15.2) 02/10/19 04:30 Hct 37.3 % (35.5-45.6) 02/10/19 04:30 MCV 84 fl (84-94) 02/10/19 04:30 MCH 28 pg (28-32) 02/10/19 04:30 MCHC 34 % (32-34) 02/10/19 04:30 RDW 15.0 % (13.2-15.2) 02/10/19 04:30 Plt Count 30 K/mm3 (140-440) L 02/10/19 04:30 Eos % (Auto) Territory Manager 02/10/19 04:30 Add Manual Diff Complete 02/10/19 04:30 Total Counted 100 02/10/19 04:30 Seg Neutrophils % Territory Manager 02/09/19 Unknown Seg Neuts % (Manual) 75.0 % (40.0-70.0) H 02/10/19 04:30 Band Neutrophils % 13.0 % 02/10/19 04:30 Lymphocytes % (Manual) 5.0 % (13.4-35.0) L 02/10/19 04:30 Reactive Lymphs % (Man) 0 % 02/10/19 04:30 Monocytes % (Manual) 7.0 % (0.0-7.3) 02/10/19 04:30 Eosinophils % (Manual) 0 % (0.0-4.3) 02/10/19 04:30 Basophils % (Manual) 0 % (0.0-1.8) 02/10/19 04:30 Metamyelocytes % 0 % 02/10/19 04:30 Myelocytes % 0 % 02/10/19 04:30 Promyelocytes % 0 % 02/10/19 04:30 Blast Cells % 0 % 02/10/19 04:30 Nucleated RBC % Not Reportable 02/10/19 04:30 Seg Neutrophils # Man 5.6 K/mm3 (1.8-7.7) 02/10/19 04:30 Band Neutrophils # 1.0 K/mm3 02/10/19 04:30 Lymphocytes # (Manual) 0.4 K/mm3 (1.2-5.4) L 02/10/19 04:30 Abs React Lymphs (Man) 0.0 K/mm3 02/10/19 04:30 Monocytes # (Manual) 0.5 K/mm3 (0.0-0.8) 02/10/19 04:30 Eosinophils # (Manual) 0.0 K/mm3 (0.0-0.4) 02/10/19 04:30 Basophils # (Manual) 0.0 K/mm3 (0.0-0.1) 02/10/19 04:30 Metamyelocytes # 0.0 K/mm3 02/10/19 04:30 Myelocytes # 0.0 K/mm3 02/10/19 04:30 Promyelocytes # 0.0 K/mm3 02/10/19 04:30 Blast Cells # 0.0 K/mm3 02/10/19 04:30 WBC Morphology Not Reportable 02/10/19 04:30 Hypersegmented Neuts Not Reportable 02/10/19 04:30 Hyposegmented Neuts Not Reportable 02/10/19 04:30 Hypogranular Neuts Not Reportable 02/10/19 04:30 Smudge Cells Not Reportable 02/10/19 04:30 Toxic Granulation Not Reportable 02/10/19 04:30 Toxic Vacuolation Not Reportable 02/10/19 04:30 Dohle Bodies Not Reportable 02/10/19 04:30 Pelger-Huet Anomaly Not Reportable 02/10/19 04:30 Jagdish Rods Not Reportable 02/10/19 04:30 Platelet Estimate Appears decreased 02/10/19 04:30 Clumped Platelets Not Reportable 02/10/19 04:30 Plt Clumps, EDTA Not Reportable 02/10/19 04:30 Large Platelets 1+ 02/10/19 04:30 Giant Platelets Not Reportable 02/10/19 04:30 Platelet Satelliting Not Reportable 02/10/19 04:30 Plt Morphology Comment Not Reportable 02/10/19 04:30 RBC Morphology Normal 02/10/19 04:30 Dimorphic RBCs Not Reportable 02/10/19 04:30 Polychromasia Not Reportable 02/10/19 04:30 Hypochromasia Not Reportable 02/10/19 04:30 Poikilocytosis Not Reportable 02/10/19 04:30 Anisocytosis Not Reportable 02/10/19 04:30 Microcytosis Not Reportable 02/10/19 04:30 Macrocytosis Not Reportable 02/10/19 04:30 Spherocytes Not Reportable 02/10/19 04:30 Pappenheimer Bodies Not Reportable 02/10/19 04:30 Sickle Cells Not Reportable 02/10/19 04:30 Target Cells Not Reportable 02/10/19 04:30 Tear Drop Cells Not Reportable 02/10/19 04:30 Ovalocytes Not Reportable 02/10/19 04:30 Helmet Cells Not Reportable 02/10/19 04:30 [place] Bodies Not Reportable 02/10/19 04:30 Mora Rings Not Reportable 02/10/19 04:30 Buckeye Cells Not Reportable 02/10/19 04:30 Bite Cells Not Reportable 02/10/19 04:30 Crenated Cell Not Reportable 02/10/19 04:30 Elliptocytes Not Reportable 02/10/19 04:30 Acanthocytes (Spur) Not Reportable 02/10/19 04:30 Rouleaux Not Reportable 02/10/19 04:30 Hemoglobin C Crystals Not Reportable 02/10/19 04:30 Schistocytes Not Reportable 02/10/19 04:30 Malaria parasites Not Reportable 02/10/19 04:30 Arnie Bodies Not Reportable 02/10/19 04:30 Hem Pathologist Commnt No 02/10/19 04:30 PT 15.8 Sec. (12.2-14.9) H 02/09/19 Unknown INR 1.29 (0.87-1.13) H 02/09/19 Unknown POC ABG pH 7.356 (7.35-7.45) 02/09/19 17:29 POC ABG pCO2 37.1 (35-45) 02/09/19 17:29 POC ABG pO2 97 (80-105) 02/09/19 17:29 POC ABG HCO3 20.8 (22-26 mml/L) 02/09/19 17:29 POC ABG Total CO2 22 (23-27mmol/L) 02/09/19 17:29 POC ABG O2 Sat 97 02/09/19 17:29 POC ABG Base Excess -5 ((-2) - (+3)mmol/L) 02/09/19 17:29 VBG pH 7.379 (7.320-7.420) 02/09/19 11:45 FiO2 28 % 02/09/19 17:29 Sodium 145 mmol/L (137-145) 02/10/19 04:30 Potassium 3.5 mmol/L (3.6-5.0) L 02/10/19 04:30 Chloride 106.3 mmol/L (98-107) 02/10/19 04:30 Carbon Dioxide 21 mmol/L (22-30) L 02/10/19 04:30 Anion Gap 21 mmol/L 02/10/19 04:30 BUN 60 mg/dL (9-20) H 02/10/19 04:30 Creatinine 3.6 mg/dL (0.8-1.5) H 02/10/19 04:30 Estimated GFR 17 ml/min 02/10/19 04:30 BUN/Creatinine Ratio 17 % 02/10/19 04:30 Glucose 67 mg/dL (75-100) L 02/10/19 04:30 Lactic Acid 2.10 mmol/L (0.7-2.0) H* 02/10/19 06:38 Calcium 7.4 mg/dL (8.4-10.2) L 02/10/19 04:30 Total Bilirubin 1.40 mg/dL (0.1-1.2) H 02/10/19 04:30 AST 31 units/L (5-40) 02/10/19 04:30 ALT 17 units/L (7-56) 02/10/19 04:30 Alkaline Phosphatase 67 units/L (35-129) 02/10/19 04:30 Troponin T 0.017 ng/mL (0.00-0.029) 02/09/19 Unknown NT-Pro-B Natriuret Pep 6998 pg/mL (0-900) H 02/09/19 Unknown Total Protein 5.2 g/dL (6.3-8.2) L 02/10/19 04:30 Albumin 2.3 g/dL (3.9-5) L 02/10/19 04:30 Albumin/Globulin Ratio 0.8 % 02/10/19 04:30 Urine Color Madeline (Yellow) 02/09/19 07:28 Urine Turbidity Cloudy (Clear) 02/09/19 07:28 Urine pH 5.0 (5.0-7.0) 02/09/19 07:28 Ur Specific [place] 1.019 (1.003-1.030) 02/09/19 07:28 Urine Protein 100 mg/dl mg/dL (Negative) 02/09/19 07:28 Urine Glucose (UA) Neg mg/dL (Negative) 02/09/19 07:28 Urine Ketones Neg mg/dL (Negative) 02/09/19 07:28 Urine Blood Lg (Negative) 02/09/19 07:28 Urine Nitrite Neg (Negative) 02/09/19 07:28 Urine Bilirubin Neg (Negative) 02/09/19 07:28 Urine Urobilinogen 4.0 mg/dL (<2.0) 02/09/19 07:28 Ur Leukocyte Esterase Mod (Negative) 02/09/19 07:28 Urine WBC (Auto) 35.0 /HPF (0.0-6.0) H 02/09/19 07:28 Urine RBC (Auto) > 182.0 /HPF (0.0-6.0) 02/09/19 07:28 U Epithel Cells (Auto) 1.0 /HPF (0-13.0) 02/09/19 07:28 Urine Bacteria (Auto) 1+ /HPF (Negative) 02/09/19 07:28 Urine Creatinine 350.2 mg/dL (0.1-20.0) H 02/09/19 15:20 Urine Sodium 46 mmol/L 02/09/19 15:20 Blood Type A POSITIVE 02/09/19 17:15 Antibody Screen Negative 02/09/19 17:15 Active Medications - Current Medications Current Medications: Generic Name Dose Route Start Last Admin Trade Name Freq PRN Reason Stop Dose Admin Acetaminophen 650 mg 02/09/19 14:29 02/10/19 04:23 Tylenol PO 650 mg Q4H PRN Administration Pain MILD(1-3)/Fever >100.5/KAMARA Aspirin 81 mg 02/10/19 10:00 Baby Aspirin PO QDAY REY Finasteride 5 mg 02/09/19 22:00 02/09/19 21:43 Proscar PO 5 mg QHS REY Administration Heparin Sodium (Porcine) 5,000 unit 02/09/19 22:00 02/09/19 21:43 Heparin SUB-Q 5,000 unit Q12HR REY Administration Norepinephrine 4 mg in 250 mls @ 7.5 mls/hr 02/09/19 13:25 02/10/19 08:00 Levophed Drip 4 Mg/Ns 250 Ml IV 30 mcg/min TITR REY 112.5 mls/hr Administration Protocol 2 MCG/MIN Sodium Chloride 1,000 mls @ 125 mls/hr 02/09/19 15:00 02/10/19 04:14 Nacl 0.9% 1000 Ml IV 125 mls/hr DIRECT REY Administration Levofloxacin/Dextrose 500 mg in 100 mls @ 66.667 mls/hr 02/11/19 18:00 Levaquin 500mg/100ml IV Q48H REY Protocol Sodium Chloride 1,000 mls @ 999 mls/hr 02/10/19 09:00 Nacl 0.9% 1000 Ml IV 02/10/19 10:59 Q1H REY As Directed Miscellaneous Medication 100 mg 02/10/19 10:00 Desvenlafaxine Succinate [Desvenlafaxine Succinate Er] PO QDAY REY Ondansetron HCl 4 mg 02/09/19 14:29 02/09/19 20:27 Zofran IV 4 mg Q8H PRN Administration Nausea And Vomiting Sodium Chloride 10 ml 02/09/19 22:00 02/09/19 23:42 Sodium Chloride Flush Syringe 10 Ml IV 10 ml BID REY Administration Sodium Chloride 10 ml 02/09/19 14:29 Sodium Chloride Flush Syringe 10 Ml IV PRN PRN LINE FLUSH Trazodone HCl 150 mg 02/09/19 22:00 02/09/19 21:43 Desyrel PO 150 mg QHS REY Administration
[2019-02-10] MEDS: ASPIRIN 81 MG TAB CHEW PO SCH (09:04)
[2019-02-10] MEDS: HEPARIN 5,000 UNIT/1 ML VIAL SUB-Q SCH (09:05)
[2019-02-10] MEDS ORDERED: PANTOPRAZOLE 40 MG INJ IV SCH (10:00)
[2019-02-10] MEDS ORDERED: DESVENLAFAXINE SUCCINATE 100 MG PO SCH (10:00)
[2019-02-10] MEDS: NORepinephrine 8 MG in SODIUM CHLORIDE 0.9% 250ML 242 ML IV SCH ×3 (10:17→19:30)
[2019-02-10] MEDS: FAMOTIDINE 20 MG/2 ML INJ IV SCH (10:44)
[2019-02-10] MEDS ORDERED: VASOPRESSIN 20 UNIT in SODIUM CHLORIDE 0.9% 100 ML IV SCH (11:00)
--- NOTE | 2019-02-10 11:15 | Progress Note ---
Assessment and Plan 68 year old male with left UPJ obstruction on pressors s/p L PCN. 150 mL output overnight. Some hawk urine in bag. Suboptimal ability to flush tube. Obtaining XRAY of abdomen. Will continue to monitor output. Subjective Date of service: 02/10/19 Principal diagnosis: Left hydronephrosis Interval history: Reviewed CT scan with left renal stone at UPJ. Stone manipulated during procedure and pulled out of UPJ. Flushed suboptimally today when attempted to flush at bedside. 150 mL hawk urine present in bag. Objective - Constitutional Vitals: Vital Signs - 12hr 02/09/19 02/09/19 02/09/19 23:15 23:30 23:45 Temperature Pulse Rate 147 H 153 H 112 H Pulse Rate [ From Monitor] Respiratory 32 H 27 H 38 H Rate Blood Pressure 104/57 113/56 96/55 O2 Sat by Pulse 96 96 96 Oximetry 02/10/19 02/10/19 02/10/19 00:00 00:04 00:15 Temperature 99.9 F H Pulse Rate 129 H 128 H 127 H Pulse Rate [ 120 H From Monitor] Respiratory 30 H 41 H 35 H Rate Blood Pressure 94/64 94/64 95/56 O2 Sat by Pulse 96 96 96 Oximetry 02/10/19 02/10/19 02/10/19 00:30 00:38 00:45 Temperature Pulse Rate 124 H 88 125 H Pulse Rate [ From Monitor] Respiratory 39 H 26 H 33 H Rate Blood Pressure 87/50 101/52 80/43 O2 Sat by Pulse 96 99 94 Oximetry 02/10/19 02/10/19 02/10/19 00:50 01:00 01:15 Temperature Pulse Rate 89 152 H 130 H Pulse Rate [ From Monitor] Respiratory 26 H 35 H 35 H Rate Blood Pressure 101/52 93/57 97/50 O2 Sat by Pulse 99 94 94 Oximetry 02/10/19 02/10/19 02/10/19 01:30 01:46 02:00 Temperature Pulse Rate 123 H 120 H 124 H Pulse Rate [ From Monitor] Respiratory 34 H 39 H 36 H Rate Blood Pressure 86/51 87/32 86/57 O2 Sat by Pulse 97 96 97 Oximetry 02/10/19 02/10/19 02/10/19 02:16 02:30 02:45 Temperature Pulse Rate 134 H 129 H 137 H Pulse Rate [ From Monitor] Respiratory 17 38 H 31 H Rate Blood Pressure 64/37 95/54 91/48 O2 Sat by Pulse 97 95 98 Oximetry 02/10/19 02/10/19 02/10/19 03:00 03:15 03:30 Temperature Pulse Rate 153 H 128 H 129 H Pulse Rate [ From Monitor] Respiratory 42 H 43 H 36 H Rate Blood Pressure 84/50 89/51 88/41 O2 Sat by Pulse 96 97 95 Oximetry 02/10/19 02/10/19 02/10/19 03:45 04:00 04:15 Temperature 101.5 F H Pulse Rate 120 H 157 H 118 H Pulse Rate [ 116 H From Monitor] Respiratory 35 H 38 H 25 H Rate Blood Pressure 85/47 91/53 79/55 O2 Sat by Pulse 96 97 95 Oximetry 02/10/19 02/10/19 02/10/19 04:30 04:46 05:00 Temperature Pulse Rate 121 H 152 H 115 H Pulse Rate [ From Monitor] Respiratory 41 H 39 H 36 H Rate Blood Pressure 75/44 75/44 80/51 O2 Sat by Pulse 98 97 97 Oximetry 02/10/19 02/10/19 02/10/19 05:15 05:30 05:45 Temperature Pulse Rate 129 H 110 H 111 H Pulse Rate [ From Monitor] Respiratory 36 H 32 H 33 H Rate Blood Pressure 86/51 85/58 89/51 O2 Sat by Pulse 98 97 97 Oximetry 02/10/19 02/10/19 02/10/19 06:00 06:15 06:30 Temperature Pulse Rate 110 H 110 H 117 H Pulse Rate [ From Monitor] Respiratory 33 H 30 H 34 H Rate Blood Pressure 82/45 73/50 80/53 O2 Sat by Pulse 97 97 97 Oximetry 02/10/19 02/10/19 02/10/19 06:45 07:00 07:15 Temperature Pulse Rate 110 H 112 H 107 H Pulse Rate [ From Monitor] Respiratory 31 H 31 H 30 H Rate Blood Pressure 87/53 80/50 82/53 O2 Sat by Pulse 98 98 98 Oximetry 02/10/19 02/10/19 02/10/19 07:30 07:45 08:00 Temperature 99.7 F H Pulse Rate 109 H 101 H 117 H Pulse Rate [ 106 H From Monitor] Respiratory 31 H 27 H 19 Rate Blood Pressure 88/52 96/59 84/51 O2 Sat by Pulse 97 97 98 Oximetry 02/10/19 02/10/19 02/10/19 08:16 08:30 08:36 Temperature Pulse Rate 110 H 114 H Pulse Rate [ From Monitor] Respiratory 18 24 Rate Blood Pressure 94/61 99/55 O2 Sat by Pulse 97 96 96 Oximetry 02/10/19 08:45 Temperature Pulse Rate 117 H Pulse Rate [ From Monitor] Respiratory 29 H Rate Blood Pressure 95/52 O2 Sat by Pulse 97 Oximetry General appearance: Present: no acute distress - Respiratory Respiratory effort: labored, other (tachypnea) - Gastrointestinal General gastrointestinal: Present: other (hawk urine) - Labs CBC & Chem 7: 02/10/19 04:30 02/10/19 04:30 Labs: Abnormal lab results 02/09/19 02/09/19 02/09/19 Range/Units 04:30 07:28 13:50 Plt Count (140-440) K/mm3 Seg Neuts % (Manual) (40.0-70.0) % Lymphocytes % (Manual) (13.4-35.0) % Nucleated RBC % (0.0-0.9) % Lymphocytes # (Manual) (1.2-5.4) K/mm3 PT (12.2-14.9) Sec. INR (0.87-1.13) Potassium (3.6-5.0) mmol/L Carbon Dioxide (22-30) mmol/L BUN (9-20) mg/dL Creatinine (0.8-1.5) mg/dL Glucose (75-100) mg/dL Lactic Acid 2.40 H* 3.50 H* (0.7-2.0) mmol/L Calcium (8.4-10.2) mg/dL Total Bilirubin (0.1-1.2) mg/dL AST (5-40) units/L NT-Pro-B Natriuret Pep (0-900) pg/mL Total Protein (6.3-8.2) g/dL Albumin (3.9-5) g/dL Urine WBC (Auto) 35.0 H (0.0-6.0) /HPF Urine Creatinine (0.1-20.0) mg/dL 02/09/19 02/09/19 02/09/19 Range/Units 15:20 17:13 21:53 Plt Count (140-440) K/mm3 Seg Neuts % (Manual) (40.0-70.0) % Lymphocytes % (Manual) (13.4-35.0) % Nucleated RBC % (0.0-0.9) % Lymphocytes # (Manual) (1.2-5.4) K/mm3 PT (12.2-14.9) Sec. INR (0.87-1.13) Potassium (3.6-5.0) mmol/L Carbon Dioxide (22-30) mmol/L BUN (9-20) mg/dL Creatinine (0.8-1.5) mg/dL Glucose (75-100) mg/dL Lactic Acid 2.10 H* 3.00 H* (0.7-2.0) mmol/L Calcium (8.4-10.2) mg/dL Total Bilirubin (0.1-1.2) mg/dL AST (5-40) units/L NT-Pro-B Natriuret Pep (0-900) pg/mL Total Protein (6.3-8.2) g/dL Albumin (3.9-5) g/dL Urine WBC (Auto) (0.0-6.0) /HPF Urine Creatinine 350.2 H (0.1-20.0) mg/dL 02/09/19 02/09/19 02/09/19 Range/Units Unknown Unknown Unknown Plt Count 63 L (140-440) K/mm3 Seg Neuts % (Manual) (40.0-70.0) % Lymphocytes % (Manual) 2.0 L (13.4-35.0) % Nucleated RBC % 1.0 H (0.0-0.9) % Lymphocytes # (Manual) 0.1 L (1.2-5.4) K/mm3 PT 15.8 H (12.2-14.9) Sec. INR 1.29 H (0.87-1.13) Potassium (3.6-5.0) mmol/L Carbon Dioxide 19 L (22-30) mmol/L BUN 59 H (9-20) mg/dL Creatinine 4.4 H (0.8-1.5) mg/dL Glucose 101 H (75-100) mg/dL Lactic Acid (0.7-2.0) mmol/L Calcium (8.4-10.2) mg/dL Total Bilirubin (0.1-1.2) mg/dL AST < 5 L (5-40) units/L NT-Pro-B Natriuret Pep (0-900) pg/mL Total Protein 5.1 L (6.3-8.2) g/dL Albumin 3.1 L (3.9-5) g/dL Urine WBC (Auto) (0.0-6.0) /HPF Urine Creatinine (0.1-20.0) mg/dL 02/09/19 02/09/19 02/10/19 Range/Units Unknown Unknown 04:30 Plt Count 30 L (140-440) K/mm3 Seg Neuts % (Manual) 75.0 H (40.0-70.0) % Lymphocytes % (Manual) 5.0 L (13.4-35.0) % Nucleated RBC % (0.0-0.9) % Lymphocytes # (Manual) 0.4 L (1.2-5.4) K/mm3 PT (12.2-14.9) Sec. INR (0.87-1.13) Potassium (3.6-5.0) mmol/L Carbon Dioxide (22-30) mmol/L BUN (9-20) mg/dL Creatinine (0.8-1.5) mg/dL Glucose (75-100) mg/dL Lactic Acid 5.30 H* (0.7-2.0) mmol/L Calcium (8.4-10.2) mg/dL Total Bilirubin (0.1-1.2) mg/dL AST (5-40) units/L NT-Pro-B Natriuret Pep 6998 H (0-900) pg/mL Total Protein (6.3-8.2) g/dL Albumin (3.9-5) g/dL Urine WBC (Auto) (0.0-6.0) /HPF Urine Creatinine (0.1-20.0) mg/dL 02/10/19 02/10/19 02/10/19 Range/Units 04:30 06:38 08:44 Plt Count (140-440) K/mm3 Seg Neuts % (Manual) (40.0-70.0) % Lymphocytes % (Manual) (13.4-35.0) % Nucleated RBC % (0.0-0.9) % Lymphocytes # (Manual) (1.2-5.4) K/mm3 PT (12.2-14.9) Sec. INR (0.87-1.13) Potassium 3.5 L (3.6-5.0) mmol/L Carbon Dioxide 21 L (22-30) mmol/L BUN 60 H (9-20) mg/dL Creatinine 3.6 H (0.8-1.5) mg/dL Glucose 67 L (75-100) mg/dL Lactic Acid 2.10 H* 2.50 H* (0.7-2.0) mmol/L Calcium 7.4 L (8.4-10.2) mg/dL Total Bilirubin 1.40 H (0.1-1.2) mg/dL AST (5-40) units/L NT-Pro-B Natriuret Pep (0-900) pg/mL Total Protein 5.2 L (6.3-8.2) g/dL Albumin 2.3 L (3.9-5) g/dL Urine WBC (Auto) (0.0-6.0) /HPF Urine Creatinine (0.1-20.0) mg/dL Medications & Allergies - Medications Allergies/Adverse Reactions: Allergies cefepime Allergy (Verified 02/09/19 11:34) Unknown Home Medications: Home Medications Medication Instructions Recorded Confirmed Last Taken Type Aspirin [Aspirin BABY CHEW TAB] 81 mg PO QDAY 02/09/19 02/09/19 02/09/19 History Desvenlafaxine Succinate 100 mg PO QDAY 02/09/19 02/09/19 02/09/19 History [Desvenlafaxine Succinate ER] Doxazosin Mesylate [Cardura] 2.5 mg PO DAILY 02/09/19 02/09/19 02/09/19 History Finasteride [Proscar] 5 mg PO QHS 02/09/19 02/09/19 02/09/19 History Propranolol HCl 20 mg PO QDAY 02/09/19 02/09/19 02/09/19 History Trazodone HCl 150 mg PO QHS 02/09/19 02/09/19 02/09/19 History Active Medications: Generic Name Dose Route Start Last Admin Trade Name Freq PRN Reason Stop Dose Admin Acetaminophen 650 mg 02/09/19 14:29 02/10/19 04:23 Tylenol PO 650 mg Q4H PRN Administration Pain MILD(1-3)/Fever >100.5/KAMARA Aspirin 81 mg 02/10/19 10:00 02/10/19 09:04 Baby Aspirin PO 81 mg QDAY REY Administration Famotidine 20 mg 02/10/19 11:00 02/10/19 10:44 Pepcid IV 20 mg DAILY REY Administration Finasteride 5 mg 02/09/19 22:00 02/09/19 21:43 Proscar PO 5 mg QHS REY Administration Sodium Chloride 1,000 mls @ 125 mls/hr 02/09/19 15:00 02/10/19 04:14 Nacl 0.9% 1000 Ml IV 125 mls/hr DIRECT REY Administration Levofloxacin/Dextrose 500 mg in 100 mls @ 66.667 mls/hr 02/11/19 18:00 Levaquin 500mg/100ml IV Q48H REY Protocol Norepinephrine 8 mg/ Sodium 250 mls @ 3.75 mls/hr 02/10/19 11:00 02/10/19 11:02 Chloride IV 22 mcg/min TITR REY 41.25 mls/hr Titration Protocol 2 MCG/MIN Sodium Chloride 1,000 mls @ 999 mls/hr 02/10/19 11:00 02/10/19 11:01 Nacl 0.9% 1000 Ml IV 02/10/19 12:59 999 mls/hr Q1H REY Administration As Directed Vasopressin 20 unit/ Sodium 101 mls @ 9.09 mls/hr 02/10/19 11:00 Chloride IV TITR REY Protocol 0.03 UNITS/MIN Desmopressin Acetate 20 mcg/ 55 mls @ 100 mls/hr 02/10/19 11:05 Sodium Chloride IV 02/10/19 11:34 ONCE ONE Miscellaneous Medication 100 mg 02/10/19 10:00 Desvenlafaxine Succinate [Desvenlafaxine Succinate Er] PO QDAY REY Ondansetron HCl 4 mg 02/09/19 14:29 02/09/19 20:27 Zofran IV 4 mg Q8H PRN Administration Nausea And Vomiting Sodium Chloride 10 ml 02/09/19 22:00 02/10/19 09:04 Sodium Chloride Flush Syringe 10 Ml IV 10 ml BID REY Administration Sodium Chloride 10 ml 02/09/19 14:29 Sodium Chloride Flush Syringe 10 Ml IV PRN PRN LINE FLUSH Trazodone HCl 150 mg 02/09/19 22:00 02/09/19 21:43 Desyrel PO 150 mg QHS REY Administration
--- NOTE | 2019-02-10 11:54 | XRay Report ---
ABDOMEN SINGLE VIEW HISTORY: left renal stone, left PCN. COMPARISON: CT abdomen and pelvis without contrast 03/12/2019 FINDINGS: Lung bases are clear. Nonobstructive bowel gas pattern. A left nephrostomy tube is identi fied at the L3 level. A subcentimeter left upper pole calculus correlates with a calculus identified on the recent CT and a 7 mm medial calculus at the L3 level correlates with a 9 mm calculus identifie d at the UPJ on the previous CT. A 2 to 3 cm opacity more lateral at the level of the kidney is new c ompared to the previous CT. IMPRESSION: A residual 9 mm calculus at the left UPJ. A 2 to 3 cm opacity at the level of the kidney is of uncertain etiology but probably represents contrast in the central kidney or an opacity in the colon. Signer Name: Merrill Burt MD Signed: 02/10/2019 11:50 AM Workstation Name: [id number]
[2019-02-10] MEDS ORDERED: DESMOPRESSIN ACETATE 20 MCG in SODIUM CHLORIDE 0.9% 50 ML IV ONE (12:00)
--- NOTE | 2019-02-10 12:02 | Consultation ---
History of Present Illness Consult date: 02/10/19 Consult reason: congestive heart failure History of present illness: This is a 68-year old male who is admitted to CCU with Sepsis, severe thromb ocytopenia, hypoxia, nephrolithiasis status post left nephrostomy tube and acute renal failure. Patient is also on pressors for support. A cardiac consultation has been requested for CHF evaluation. This is no prior cardiac history. There is no evidence of interstitial edema on his chest x-ray. He has no lower extremity edema. An ECG is multifocal atrial tachycardia. Past History Past Medical History: other (see hpi) Past Surgical History: No surgical history, Other (reviewed) Social history: single. denies: smoking, alcohol abuse, prescription drug abuse Family history: no significant family history (reviewed) Medications and Allergies Allergies Allergy/AdvReac Type Severity Reaction Status Date / Time cefepime Allergy Rash Verified 02/10/19 11:24 Home Medications Medication Instructions Recorded Confirmed Last Taken Type Aspirin [Aspirin BABY CHEW TAB] 81 mg PO QDAY 02/09/19 02/09/19 02/09/19 History Desvenlafaxine Succinate 100 mg PO QDAY 02/09/19 02/09/19 02/09/19 History [Desvenlafaxine Succinate ER] Doxazosin Mesylate [Cardura] 2.5 mg PO DAILY 02/09/19 02/09/19 02/09/19 History Finasteride [Proscar] 5 mg PO QHS 02/09/19 02/09/19 02/09/19 History Propranolol HCl 20 mg PO QDAY 02/09/19 02/09/19 02/09/19 History Trazodone HCl 150 mg PO QHS 02/09/19 02/09/19 02/09/19 History Active Meds: Active Medications Acetaminophen (Tylenol) 650 mg PO Q4H PRN PRN Reason: Pain MILD(1-3)/Fever >100.5/KAMARA Last Admin: 02/10/19 04:23 Dose: 650 mg Documented by: Aspirin (Baby Aspirin) 81 mg PO QDAY [facility] Last Admin: 02/10/19 09:04 Dose: 81 mg Documented by: Famotidine (Pepcid) 20 mg IV DAILY [facility] Last Admin: 02/10/19 10:44 Dose: 20 mg Documented by: Finasteride (Proscar) 5 mg PO QHS [facility] Last Admin: 02/09/19 21:43 Dose: 5 mg Documented by: Sodium Chloride (Nacl 0.9% 1000 Ml) 1,000 mls @ 125 mls/hr IV DIRECT REY Last Admin: 02/10/19 04:14 Dose: 125 mls/hr Documented by: Levofloxacin/Dextrose (Levaquin 500mg/100ml) 500 mg in 100 mls @ 66.667 mls/hr IV Q48H REY; Protocol Norepinephrine 8 mg/ Sodium (Chloride) 250 mls @ 3.75 mls/hr IV TITR REY; Protocol Last Titration: 02/10/19 11:02 Dose: 22 mcg/min, 41.25 mls/hr Documented by: Sodium Chloride (Nacl 0.9% 1000 Ml) 1,000 mls @ 999 mls/hr IV Q1H [facility] Stop: 02/10/19 12:59 Last Admin: 02/10/19 11:01 Dose: 999 mls/hr Documented by: Vasopressin 20 unit/ Sodium (Chloride) 101 mls @ 9.09 mls/hr IV TITR REY; Protocol Desmopressin Acetate 20 mcg/ (Sodium Chloride) 55 mls @ 100 mls/hr IV ONCE ONE Stop: 02/10/19 12:32 Miscellaneous Medication (Desvenlafaxine Succinate [Desvenlafaxine Succinate Er]) 100 mg PO QDAY [facility] Ondansetron HCl (Zofran) 4 mg IV Q8H PRN PRN Reason: Nausea And Vomiting Last Admin: 02/09/19 20:27 Dose: 4 mg Documented by: Sodium Chloride (Sodium Chloride Flush Syringe 10 Ml) 10 ml IV BID [facility] Last Admin: 02/10/19 09:04 Dose: 10 ml Documented by: Sodium Chloride (Sodium Chloride Flush Syringe 10 Ml) 10 ml IV PRN PRN PRN Reason: LINE FLUSH Trazodone HCl (Desyrel) 150 mg PO QHS [facility] Last Admin: 02/09/19 21:43 Dose: 150 mg Documented by: Physical Examination Vital Signs Temp Pulse Resp BP Pulse Ox 98.9 F 106 H 30 H 120/95 95 02/09/19 11:00 02/09/19 11:00 02/09/19 11:00 02/09/19 11:00 02/09/19 11:00 General appearance: no acute distress HEENT: Positive: PERRL Neck: Positive: trachea midline Cardiac: Positive: Irregularly Regular Lungs: Positive: Decreased Breath Sounds Results 02/10/19 04:30 02/10/19 04:30 Cardiac Enzymes 02/09/19 02/10/19 Range/Units Unknown 04:30 AST < 5 L 31 (5-40) units/L Coagulation 02/09/19 Range/Units Unknown PT 15.8 H (12.2-14.9) Sec. INR 1.29 H (0.87-1.13) CBC 02/09/19 02/10/19 Range/Units Unknown 04:30 WBC 7.4 7.5 (4.5-11.0) K/mm3 RBC 4.78 4.42 (3.65-5.03) M/mm3 Hgb 13.3 12.5 (11.8-15.2) gm/dl Hct 40.3 37.3 (35.5-45.6) % Plt Count 63 L 30 L (140-440) K/mm3 Comprehensive Metabolic Panel 02/09/19 02/10/19 Range/Units Unknown 04:30 Sodium 142 145 (137-145) mmol/L Potassium 3.7 3.5 L (3.6-5.0) mmol/L Chloride 101.0 106.3 (98-107) mmol/L Carbon Dioxide 19 L 21 L (22-30) mmol/L BUN 59 H 60 H (9-20) mg/dL Creatinine 4.4 H 3.6 H (0.8-1.5) mg/dL Glucose 101 H 67 L (75-100) mg/dL Calcium 8.4 7.4 L (8.4-10.2) mg/dL AST < 5 L 31 (5-40) units/L ALT 12 17 (7-56) units/L Alkaline Phosphatase 57 67 (35-129) units/L Total Protein 5.1 L 5.2 L (6.3-8.2) g/dL Albumin 3.1 L 2.3 L (3.9-5) g/dL
[2019-02-10] MEDS ORDERED: SODIUM CHLORIDE 0.9% 500 ML 500 ML IV ONE (12:11)
--- NOTE | 2019-02-10 12:16 | Consultation ---
History of Present Illness - Reason for Consult Consult date: 02/10/19 Bilateral Hydronephrosis, with sepsis Requesting physician: YADY SMITH Past History Past Medical History: other (see hpi) Past Surgical History: No surgical history, Other (reviewed) Social history: single. denies: smoking, alcohol abuse, prescription drug abuse Family history: no significant family history (reviewed) Medications and Allergies Allergies Allergy/AdvReac Type Severity Reaction Status Date / Time cefepime Allergy Rash Verified 02/10/19 11:24 Home Medications Medication Instructions Recorded Confirmed Last Taken Type Aspirin [Aspirin BABY CHEW TAB] 81 mg PO QDAY 02/09/19 02/09/19 02/09/19 History Desvenlafaxine Succinate 100 mg PO QDAY 02/09/19 02/09/19 02/09/19 History [Desvenlafaxine Succinate ER] Doxazosin Mesylate [Cardura] 2.5 mg PO DAILY 02/09/19 02/09/19 02/09/19 History Finasteride [Proscar] 5 mg PO QHS 02/09/19 02/09/19 02/09/19 History Propranolol HCl 20 mg PO QDAY 02/09/19 02/09/19 02/09/19 History Trazodone HCl 150 mg PO QHS 02/09/19 02/09/19 02/09/19 History Active Meds: Active Medications Acetaminophen (Tylenol) 650 mg PO Q4H PRN PRN Reason: Pain MILD(1-3)/Fever >100.5/KAMARA Last Admin: 02/10/19 04:23 Dose: 650 mg Documented by: Aspirin (Baby Aspirin) 81 mg PO QDAY [facility] Last Admin: 02/10/19 09:04 Dose: 81 mg Documented by: Famotidine (Pepcid) 20 mg IV DAILY [facility] Last Admin: 02/10/19 10:44 Dose: 20 mg Documented by: Finasteride (Proscar) 5 mg PO QHS [facility] Last Admin: 02/09/19 21:43 Dose: 5 mg Documented by: Sodium Chloride (Nacl 0.9% 1000 Ml) 1,000 mls @ 125 mls/hr IV DIRECT [facility] Last Admin: 02/10/19 12:08 Dose: 125 mls/hr Documented by: Levofloxacin/Dextrose (Levaquin 500mg/100ml) 500 mg in 100 mls @ 66.667 mls/hr IV Q48H RE[facility]; Protocol Norepinephrine 8 mg/ Sodium (Chloride) 250 mls @ 3.75 mls/hr IV TITR REY; Protocol Last Titration: 02/10/19 11:02 Dose: 22 mcg/min, 41.25 mls/hr Documented by: Sodium Chloride (Nacl 0.9% 1000 Ml) 1,000 mls @ 999 mls/hr IV Q1H REY Stop: 02/10/19 12:59 Last Admin: 02/10/19 11:01 Dose: 999 mls/hr Documented by: Vasopressin 20 unit/ Sodium (Chloride) 101 mls @ 9.09 mls/hr IV TITR REY; Protocol Desmopressin Acetate 20 mcg/ (Sodium Chloride) 55 mls @ 100 mls/hr IV ONCE ONE Stop: 02/10/19 12:32 Last Admin: 02/10/19 12:09 Dose: 100 mls/hr Documented by: Sodium Chloride (Nacl 0.9% 500 Ml) 500 mls @ 0 mls/hr IV ONCE ONE Stop: 02/10/19 12:12 Miscellaneous Medication (Desvenlafaxine Succinate [Desvenlafaxine Succinate Er]) 100 mg PO QDAY REY Ondansetron HCl (Zofran) 4 mg IV Q8H PRN PRN Reason: Nausea And Vomiting Last Admin: 02/09/19 20:27 Dose: 4 mg Documented by: Sodium Chloride (Sodium Chloride Flush Syringe 10 Ml) 10 ml IV BID [facility] Last Admin: 02/10/19 09:04 Dose: 10 ml Documented by: Sodium Chloride (Sodium Chloride Flush Syringe 10 Ml) 10 ml IV PRN PRN PRN Reason: LINE FLUSH Trazodone HCl (Desyrel) 150 mg PO QHS [facility] Last Admin: 02/09/19 21:43 Dose: 150 mg Documented by: Exam - Constitutional Vitals: Temp Pulse Resp BP Pulse Ox 99.7 F H 110 H 29 H 88/53 98 02/10/19 08:00 02/10/19 11:30 02/10/19 11:30 02/10/19 11:30 02/10/19 11:30 Results - Labs CBC & Chem 7: 02/10/19 04:30 02/10/19 04:30 Labs: Abnormal lab results 02/09/19 02/09/19 02/09/19 Range/Units 04:30 07:28 13:50 Plt Count (140-440) K/mm3 Seg Neuts % (Manual) (40.0-70.0) % Lymphocytes % (Manual) (13.4-35.0) % Nucleated RBC % (0.0-0.9) % Lymphocytes # (Manual) (1.2-5.4) K/mm3 PT (12.2-14.9) Sec. INR (0.87-1.13) Potassium (3.6-5.0) mmol/L Carbon Dioxide (22-30) mmol/L BUN (9-20) mg/dL Creatinine (0.8-1.5) mg/dL Glucose (75-100) mg/dL Lactic Acid 2.40 H* 3.50 H* (0.7-2.0) mmol/L Calcium (8.4-10.2) mg/dL Total Bilirubin (0.1-1.2) mg/dL AST (5-40) units/L NT-Pro-B Natriuret Pep (0-900) pg/mL Total Protein (6.3-8.2) g/dL Albumin (3.9-5) g/dL Urine WBC (Auto) 35.0 H (0.0-6.0) /HPF Urine Creatinine (0.1-20.0) mg/dL 02/09/19 02/09/19 02/09/19 Range/Units 15:20 17:13 21:53 Plt Count (140-440) K/mm3 Seg Neuts % (Manual) (40.0-70.0) % Lymphocytes % (Manual) (13.4-35.0) % Nucleated RBC % (0.0-0.9) % Lymphocytes # (Manual) (1.2-5.4) K/mm3 PT (12.2-14.9) Sec. INR (0.87-1.13) Potassium (3.6-5.0) mmol/L Carbon Dioxide (22-30) mmol/L BUN (9-20) mg/dL Creatinine (0.8-1.5) mg/dL Glucose (75-100) mg/dL Lactic Acid 2.10 H* 3.00 H* (0.7-2.0) mmol/L Calcium (8.4-10.2) mg/dL Total Bilirubin (0.1-1.2) mg/dL AST (5-40) units/L NT-Pro-B Natriuret Pep (0-900) pg/mL Total Protein (6.3-8.2) g/dL Albumin (3.9-5) g/dL Urine WBC (Auto) (0.0-6.0) /HPF Urine Creatinine 350.2 H (0.1-20.0) mg/dL 02/09/19 02/09/19 02/09/19 Range/Units Unknown Unknown Unknown Plt Count 63 L (140-440) K/mm3 Seg Neuts % (Manual) (40.0-70.0) % Lymphocytes % (Manual) 2.0 L (13.4-35.0) % Nucleated RBC % 1.0 H (0.0-0.9) % Lymphocytes # (Manual) 0.1 L (1.2-5.4) K/mm3 PT 15.8 H (12.2-14.9) Sec. INR 1.29 H (0.87-1.13) Potassium (3.6-5.0) mmol/L Carbon Dioxide 19 L (22-30) mmol/L BUN 59 H (9-20) mg/dL Creatinine 4.4 H (0.8-1.5) mg/dL Glucose 101 H (75-100) mg/dL Lactic Acid (0.7-2.0) mmol/L Calcium (8.4-10.2) mg/dL Total Bilirubin (0.1-1.2) mg/dL AST < 5 L (5-40) units/L NT-Pro-B Natriuret Pep (0-900) pg/mL Total Protein 5.1 L (6.3-8.2) g/dL Albumin 3.1 L (3.9-5) g/dL Urine WBC (Auto) (0.0-6.0) /HPF Urine Creatinine (0.1-20.0) mg/dL 02/09/19 02/09/19 02/10/19 Range/Units Unknown Unknown 04:30 Plt Count 30 L (140-440) K/mm3 Seg Neuts % (Manual) 75.0 H (40.0-70.0) % Lymphocytes % (Manual) 5.0 L (13.4-35.0) % Nucleated RBC % (0.0-0.9) % Lymphocytes # (Manual) 0.4 L (1.2-5.4) K/mm3 PT (12.2-14.9) Sec. INR (0.87-1.13) Potassium (3.6-5.0) mmol/L Carbon Dioxide (22-30) mmol/L BUN (9-20) mg/dL Creatinine (0.8-1.5) mg/dL Glucose (75-100) mg/dL Lactic Acid 5.30 H* (0.7-2.0) mmol/L Calcium (8.4-10.2) mg/dL Total Bilirubin (0.1-1.2) mg/dL AST (5-40) units/L NT-Pro-B Natriuret Pep 6998 H (0-900) pg/mL Total Protein (6.3-8.2) g/dL Albumin (3.9-5) g/dL Urine WBC (Auto) (0.0-6.0) /HPF Urine Creatinine (0.1-20.0) mg/dL 02/10/19 02/10/19 02/10/19 Range/Units 04:30 06:38 08:44 Plt Count (140-440) K/mm3 Seg Neuts % (Manual) (40.0-70.0) % Lymphocytes % (Manual) (13.4-35.0) % Nucleated RBC % (0.0-0.9) % Lymphocytes # (Manual) (1.2-5.4) K/mm3 PT (12.2-14.9) Sec. INR (0.87-1.13) Potassium 3.5 L (3.6-5.0) mmol/L Carbon Dioxide 21 L (22-30) mmol/L BUN 60 H (9-20) mg/dL Creatinine 3.6 H (0.8-1.5) mg/dL Glucose 67 L (75-100) mg/dL Lactic Acid 2.10 H* 2.50 H* (0.7-2.0) mmol/L Calcium 7.4 L (8.4-10.2) mg/dL Total Bilirubin 1.40 H (0.1-1.2) mg/dL AST (5-40) units/L NT-Pro-B Natriuret Pep (0-900) pg/mL Total Protein 5.2 L (6.3-8.2) g/dL Albumin 2.3 L (3.9-5) g/dL Urine WBC (Auto) (0.0-6.0) /HPF Urine Creatinine (0.1-20.0) mg/dL
--- NOTE | 2019-02-10 12:26 | Progress Note ---
Subjective Date of service: 02/10/19 Principal diagnosis: Left hydronephrosis Interval history: NEW TO OUR SERVICE 68-year-old male with history of hypertension, resting tremor, hairy cell [facility] (in remission) presents to ED with complaint of shortness of breath 3 days. Patient reports fever, denies cough. He reports episode of chest and abdominal pain 2 days ago which has resolved. Patient states pain was all across his chest and abdomen. He denies any leg pain or swelling. Reports episodes of nausea and vomiting. EMS reports patient was hypotensive, with O2 sats 93% on room air. h/o stone several years ago. tx by Dr. Santamaria for bph/incont. stopped meds recent. abd soft palma---bloody, no clots CTAP---bilat renal stone, left ureteral stone perc placed by Dr. Davidson A/p spoke with Drs. Wheeler & Meena will proceed with cysto , stent thrombocytopenia Objective - Constitutional Vitals: Vital Signs - 12hr 02/10/19 02/10/19 02/10/19 00:30 00:38 00:45 Temperature Pulse Rate 124 H 88 125 H Pulse Rate [ From Monitor] Respiratory 39 H 26 H 33 H Rate Blood Pressure 87/50 101/52 80/43 O2 Sat by Pulse 96 99 94 Oximetry 02/10/19 02/10/19 02/10/19 00:50 01:00 01:15 Temperature Pulse Rate 89 152 H 130 H Pulse Rate [ From Monitor] Respiratory 26 H 35 H 35 H Rate Blood Pressure 101/52 93/57 97/50 O2 Sat by Pulse 99 94 94 Oximetry 02/10/19 02/10/19 02/10/19 01:30 01:46 02:00 Temperature Pulse Rate 123 H 120 H 124 H Pulse Rate [ From Monitor] Respiratory 34 H 39 H 36 H Rate Blood Pressure 86/51 87/32 86/57 O2 Sat by Pulse 97 96 97 Oximetry 02/10/19 02/10/19 02/10/19 02:16 02:30 02:45 Temperature Pulse Rate 134 H 129 H 137 H Pulse Rate [ From Monitor] Respiratory 17 38 H 31 H Rate Blood Pressure 64/37 95/54 91/48 O2 Sat by Pulse 97 95 98 Oximetry 02/10/19 02/10/19 02/10/19 03:00 03:15 03:30 Temperature Pulse Rate 153 H 128 H 129 H Pulse Rate [ From Monitor] Respiratory 42 H 43 H 36 H Rate Blood Pressure 84/50 89/51 88/41 O2 Sat by Pulse 96 97 95 Oximetry 02/10/19 02/10/19 02/10/19 03:45 04:00 04:15 Temperature 101.5 F H Pulse Rate 120 H 157 H 118 H Pulse Rate [ 116 H From Monitor] Respiratory 35 H 38 H 25 H Rate Blood Pressure 85/47 91/53 79/55 O2 Sat by Pulse 96 97 95 Oximetry 02/10/19 02/10/19 02/10/19 04:30 04:46 05:00 Temperature Pulse Rate 121 H 152 H 115 H Pulse Rate [ From Monitor] Respiratory 41 H 39 H 36 H Rate Blood Pressure 75/44 75/44 80/51 O2 Sat by Pulse 98 97 97 Oximetry 02/10/19 02/10/19 02/10/19 05:15 05:30 05:45 Temperature Pulse Rate 129 H 110 H 111 H Pulse Rate [ From Monitor] Respiratory 36 H 32 H 33 H Rate Blood Pressure 86/51 85/58 89/51 O2 Sat by Pulse 98 97 97 Oximetry 02/10/19 02/10/19 02/10/19 06:00 06:15 06:30 Temperature Pulse Rate 110 H 110 H 117 H Pulse Rate [ From Monitor] Respiratory 33 H 30 H 34 H Rate Blood Pressure 82/45 73/50 80/53 O2 Sat by Pulse 97 97 97 Oximetry 02/10/19 02/10/19 02/10/19 06:45 07:00 07:15 Temperature Pulse Rate 110 H 112 H 107 H Pulse Rate [ From Monitor] Respiratory 31 H 31 H 30 H Rate Blood Pressure 87/53 80/50 82/53 O2 Sat by Pulse 98 98 98 Oximetry 02/10/19 02/10/19 02/10/19 07:30 07:45 08:00 Temperature 99.7 F H Pulse Rate 109 H 101 H 117 H Pulse Rate [ 106 H From Monitor] Respiratory 31 H 27 H 19 Rate Blood Pressure 88/52 96/59 84/51 O2 Sat by Pulse 97 97 98 Oximetry 02/10/19 02/10/19 02/10/19 08:16 08:30 08:36 Temperature Pulse Rate 110 H 114 H Pulse Rate [ From Monitor] Respiratory 18 24 Rate Blood Pressure 94/61 99/55 O2 Sat by Pulse 97 96 96 Oximetry 02/10/19 02/10/19 02/10/19 08:45 09:00 09:15 Temperature Pulse Rate 117 H 98 H 106 H Pulse Rate [ From Monitor] Respiratory 29 H 32 H 29 H Rate Blood Pressure 95/52 96/57 92/59 O2 Sat by Pulse 97 98 98 Oximetry 02/10/19 02/10/19 02/10/19 09:30 09:45 10:00 Temperature Pulse Rate 115 H 106 H 116 H Pulse Rate [ From Monitor] Respiratory 32 H 31 H 31 H Rate Blood Pressure 99/55 99/56 99/62 O2 Sat by Pulse 98 98 97 Oximetry 02/10/19 02/10/19 02/10/19 10:15 10:30 10:45 Temperature Pulse Rate 107 H 119 H 106 H Pulse Rate [ From Monitor] Respiratory 29 H 29 H 16 Rate Blood Pressure 94/53 100/58 99/60 O2 Sat by Pulse 97 98 97 Oximetry 02/10/19 02/10/19 02/10/19 11:00 11:16 11:30 Temperature Pulse Rate 107 H 108 H 110 H Pulse Rate [ From Monitor] Respiratory 23 12 29 H Rate Blood Pressure 92/61 85/53 88/53 O2 Sat by Pulse 97 98 98 Oximetry - Labs CBC & Chem 7: 02/10/19 04:30 02/10/19 04:30 Labs: Abnormal lab results 02/09/19 02/09/19 02/09/19 Range/Units 04:30 07:28 13:50 Plt Count (140-440) K/mm3 Seg Neuts % (Manual) (40.0-70.0) % Lymphocytes % (Manual) (13.4-35.0) % Nucleated RBC % (0.0-0.9) % Lymphocytes # (Manual) (1.2-5.4) K/mm3 PT (12.2-14.9) Sec. INR (0.87-1.13) Potassium (3.6-5.0) mmol/L Carbon Dioxide (22-30) mmol/L BUN (9-20) mg/dL Creatinine (0.8-1.5) mg/dL Glucose (75-100) mg/dL Lactic Acid 2.40 H* 3.50 H* (0.7-2.0) mmol/L Calcium (8.4-10.2) mg/dL Total Bilirubin (0.1-1.2) mg/dL AST (5-40) units/L NT-Pro-B Natriuret Pep (0-900) pg/mL Total Protein (6.3-8.2) g/dL Albumin (3.9-5) g/dL Urine WBC (Auto) 35.0 H (0.0-6.0) /HPF Urine Creatinine (0.1-20.0) mg/dL 02/09/19 02/09/19 02/09/19 Range/Units 15:20 17:13 21:53 Plt Count (140-440) K/mm3 Seg Neuts % (Manual) (40.0-70.0) % Lymphocytes % (Manual) (13.4-35.0) % Nucleated RBC % (0.0-0.9) % Lymphocytes # (Manual) (1.2-5.4) K/mm3 PT (12.2-14.9) Sec. INR (0.87-1.13) Potassium (3.6-5.0) mmol/L Carbon Dioxide (22-30) mmol/L BUN (9-20) mg/dL Creatinine (0.8-1.5) mg/dL Glucose (75-100) mg/dL Lactic Acid 2.10 H* 3.00 H* (0.7-2.0) mmol/L Calcium (8.4-10.2) mg/dL Total Bilirubin (0.1-1.2) mg/dL AST (5-40) units/L NT-Pro-B Natriuret Pep (0-900) pg/mL Total Protein (6.3-8.2) g/dL Albumin (3.9-5) g/dL Urine WBC (Auto) (0.0-6.0) /HPF Urine Creatinine 350.2 H (0.1-20.0) mg/dL 02/09/19 02/09/19 02/09/19 Range/Units Unknown Unknown Unknown Plt Count 63 L (140-440) K/mm3 Seg Neuts % (Manual) (40.0-70.0) % Lymphocytes % (Manual) 2.0 L (13.4-35.0) % Nucleated RBC % 1.0 H (0.0-0.9) % Lymphocytes # (Manual) 0.1 L (1.2-5.4) K/mm3 PT 15.8 H (12.2-14.9) Sec. INR 1.29 H (0.87-1.13) Potassium (3.6-5.0) mmol/L Carbon Dioxide 19 L (22-30) mmol/L BUN 59 H (9-20) mg/dL Creatinine 4.4 H (0.8-1.5) mg/dL Glucose 101 H (75-100) mg/dL Lactic Acid (0.7-2.0) mmol/L Calcium (8.4-10.2) mg/dL Total Bilirubin (0.1-1.2) mg/dL AST < 5 L (5-40) units/L NT-Pro-B Natriuret Pep (0-900) pg/mL Total Protein 5.1 L (6.3-8.2) g/dL Albumin 3.1 L (3.9-5) g/dL Urine WBC (Auto) (0.0-6.0) /HPF Urine Creatinine (0.1-20.0) mg/dL 02/09/19 02/09/19 02/10/19 Range/Units Unknown Unknown 04:30 Plt Count 30 L (140-440) K/mm3 Seg Neuts % (Manual) 75.0 H (40.0-70.0) % Lymphocytes % (Manual) 5.0 L (13.4-35.0) % Nucleated RBC % (0.0-0.9) % Lymphocytes # (Manual) 0.4 L (1.2-5.4) K/mm3 PT (12.2-14.9) Sec. INR (0.87-1.13) Potassium (3.6-5.0) mmol/L Carbon Dioxide (22-30) mmol/L BUN (9-20) mg/dL Creatinine (0.8-1.5) mg/dL Glucose (75-100) mg/dL Lactic Acid 5.30 H* (0.7-2.0) mmol/L Calcium (8.4-10.2) mg/dL Total Bilirubin (0.1-1.2) mg/dL AST (5-40) units/L NT-Pro-B Natriuret Pep 6998 H (0-900) pg/mL Total Protein (6.3-8.2) g/dL Albumin (3.9-5) g/dL Urine WBC (Auto) (0.0-6.0) /HPF Urine Creatinine (0.1-20.0) mg/dL 02/10/19 02/10/19 02/10/19 Range/Units 04:30 06:38 08:44 Plt Count (140-440) K/mm3 Seg Neuts % (Manual) (40.0-70.0) % Lymphocytes % (Manual) (13.4-35.0) % Nucleated RBC % (0.0-0.9) % Lymphocytes # (Manual) (1.2-5.4) K/mm3 PT (12.2-14.9) Sec. INR (0.87-1.13) Potassium 3.5 L (3.6-5.0) mmol/L Carbon Dioxide 21 L (22-30) mmol/L BUN 60 H (9-20) mg/dL Creatinine 3.6 H (0.8-1.5) mg/dL Glucose 67 L (75-100) mg/dL Lactic Acid 2.10 H* 2.50 H* (0.7-2.0) mmol/L Calcium 7.4 L (8.4-10.2) mg/dL Total Bilirubin 1.40 H (0.1-1.2) mg/dL AST (5-40) units/L NT-Pro-B Natriuret Pep (0-900) pg/mL Total Protein 5.2 L (6.3-8.2) g/dL Albumin 2.3 L (3.9-5) g/dL Urine WBC (Auto) (0.0-6.0) /HPF Urine Creatinine (0.1-20.0) mg/dL Medications & Allergies - Medications Allergies/Adverse Reactions: Allergies cefepime Allergy (Verified 02/10/19 11:24) Rash Home Medications: Home Medications Medication Instructions Recorded Confirmed Last Taken Type Aspirin [Aspirin BABY CHEW TAB] 81 mg PO QDAY 02/09/19 02/09/19 02/09/19 History Desvenlafaxine Succinate 100 mg PO QDAY 02/09/19 02/09/19 02/09/19 History [Desvenlafaxine Succinate ER] Doxazosin Mesylate [Cardura] 2.5 mg PO DAILY 02/09/19 02/09/19 02/09/19 History Finasteride [Proscar] 5 mg PO QHS 02/09/19 02/09/19 02/09/19 History Propranolol HCl 20 mg PO QDAY 02/09/19 02/09/19 02/09/19 History Trazodone HCl 150 mg PO QHS 02/09/19 02/09/19 02/09/19 History Active Medications: Generic Name Dose Route Start Last Admin Trade Name Freq PRN Reason Stop Dose Admin Acetaminophen 650 mg 02/09/19 14:29 02/10/19 04:23 Tylenol PO 650 mg Q4H PRN Administration Pain MILD(1-3)/Fever >100.5/KAMARA Aspirin 81 mg 02/10/19 10:00 02/10/19 09:04 Baby Aspirin PO 81 mg QDAY REY Administration Famotidine 20 mg 02/10/19 11:00 02/10/19 10:44 Pepcid IV 20 mg DAILY REY Administration Finasteride 5 mg 02/09/19 22:00 02/09/19 21:43 Proscar PO 5 mg QHS REY Administration Sodium Chloride 1,000 mls @ 125 mls/hr 02/09/19 15:00 02/10/19 12:08 Nacl 0.9% 1000 Ml IV 125 mls/hr DIRECT REY Administration Levofloxacin/Dextrose 500 mg in 100 mls @ 66.667 mls/hr 02/11/19 18:00 Levaquin 500mg/100ml IV Q48H REY Protocol Norepinephrine 8 mg/ Sodium 250 mls @ 3.75 mls/hr 02/10/19 11:00 02/10/19 11:02 Chloride IV 22 mcg/min TITR REY 41.25 mls/hr Titration Protocol 2 MCG/MIN Sodium Chloride 1,000 mls @ 999 mls/hr 02/10/19 11:00 02/10/19 11:01 Nacl 0.9% 1000 Ml IV 02/10/19 12:59 999 mls/hr Q1H REY Administration As Directed Vasopressin 20 unit/ Sodium 101 mls @ 9.09 mls/hr 02/10/19 11:00 Chloride IV TITR REY Protocol 0.03 UNITS/MIN Desmopressin Acetate 20 mcg/ 55 mls @ 100 mls/hr 02/10/19 12:00 02/10/19 12:09 Sodium Chloride IV 02/10/19 12:32 100 mls/hr ONCE ONE Administration Sodium Chloride 500 mls @ 0 mls/hr 02/10/19 12:11 Nacl 0.9% 500 Ml IV 02/10/19 12:12 ONCE ONE As Directed Miscellaneous Medication 100 mg 02/10/19 10:00 Desvenlafaxine Succinate [Desvenlafaxine Succinate Er] PO QDAY REY Ondansetron HCl 4 mg 02/09/19 14:29 02/09/19 20:27 Zofran IV 4 mg Q8H PRN Administration Nausea And Vomiting Sodium Chloride 10 ml 02/09/19 22:00 02/10/19 09:04 Sodium Chloride Flush Syringe 10 Ml IV 10 ml BID REY Administration Sodium Chloride 10 ml 02/09/19 14:29 Sodium Chloride Flush Syringe 10 Ml IV PRN PRN LINE FLUSH Trazodone HCl 150 mg 02/09/19 22:00 02/09/19 21:43 Desyrel PO 150 mg QHS REY Administration
--- NOTE | 2019-02-10 12:54 | Ultrasound Report ---
. ULTRASOUND RENAL INDICATION / CLINICAL INFORMATION: Left percutaneous nephrostomy tube displacement. COMPARISON: CT abdomen and pelvis dated 02/09/2019 FINDINGS: RIGHT KIDNEY: Length = 13.4 cm. [normal > 9 cm] - Parenchymal Thickness = 1.7 cm. [normal > 1.5 cm] - Echogenicity: Increased - Hydronephrosis: None. - Cyst or mass: No significant abnormality. - Stones: None seen. LEFT KIDNEY: Length = 14.5 cm. [normal > 9 cm] - Parenchymal Thickness = 1.5 cm. [normal > 1.5 cm] - Echogenicity: Increased - Hydronephrosis: None. - Cyst or mass: No significant abnormality. - Stones: None seen. URINARY BLADDER: Empty FREE FLUID: None. ADDITIONAL FINDINGS: No nephrostomy tube is identified on ultrasound. There is suggestion of echogeni c material in the visualized left ureter which may represent gas bubbles or less likely a ureteral st ent. Please correlate with the patient's history. IMPRESSION: Nonspecific renal parenchymal disease. No nephrostomy tube is visualized. See above. Signer Name: Yinka De Los Santos Jr, MD Signed: 02/10/2019 12:49 PM Workstation Name: [id number]
--- NOTE | 2019-02-10 13:39 | Consultation ---
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 Pain was mainly located in the left flank region. Patient was noted to have severe sepsis. CT abdomen and pelvis revealed findings of left- sided hydronephrosis with partially obstructive calculus. He was seen by interventional radiology and underwent left-sided nephrostomy tube placement. Is also being seen by urology concerns about possible displacement of his left nephrostomy. He shouldn't currently is in ICU, in septic shock, on pressors, on levofloxacin. He received 1 dose of Zosyn in the ER. Currently seems to have a rash. Review of Systems: General: fever, chills HEENT: no new visual disturbance Respiratory: No cough, sputum, hemoptysis. shortness of breath + Cardiovascular: No chest pain, syncope Gastrointestinal: No nausea, vomiting or diarrhea Genitourinary: No dysuria or hematuria. Left flank pain Musculoskeletal: No new or worsening neck pain or back pain Neurologic: No headaches, seizures Hematologic: No easy bruising or bleeding Endocrine: No night sweats or acute weight loss Skin: negative for jaundice. 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 denies: smoking, alcohol abuse, prescription drug abuse Family history: no significant family history (reviewed), hypertension Medications and Allergies Allergies Allergy/AdvReac Type Severity Reaction Status Date / Time cefepime Allergy Rash Verified 02/10/19 11:24 Home Medications Medication Instructions Recorded Confirmed Last Taken Type Aspirin [Aspirin BABY CHEW TAB] 81 mg PO QDAY 02/09/19 02/09/19 02/09/19 History Desvenlafaxine Succinate 100 mg PO QDAY 02/09/19 02/09/19 02/09/19 History [Desvenlafaxine Succinate ER] Doxazosin Mesylate [Cardura] 2.5 mg PO DAILY 02/09/19 02/09/19 02/09/19 History Finasteride [Proscar] 5 mg PO QHS 02/09/19 02/09/19 02/09/19 History Propranolol HCl 20 mg PO QDAY 02/09/19 02/09/19 02/09/19 History Trazodone HCl 150 mg PO QHS 02/09/19 02/09/19 02/09/19 History Active Meds: Active Medications Acetaminophen (Tylenol) 650 mg PO Q4H PRN PRN Reason: Pain MILD(1-3)/Fever >100.5/KAMARA Last Admin: 02/10/19 04:23 Dose: 650 mg Documented by: Aspirin (Baby Aspirin) 81 mg PO QDAY [facility] Last Admin: 02/10/19 09:04 Dose: 81 mg Documented by: Famotidine (Pepcid) 20 mg IV DAILY [facility] Last Admin: 02/10/19 10:44 Dose: 20 mg Documented by: Finasteride (Proscar) 5 mg PO QHS [facility] Last Admin: 02/09/19 21:43 Dose: 5 mg Documented by: Sodium Chloride (Nacl 0.9% 1000 Ml) 1,000 mls @ 125 mls/hr IV DIRECT [facility] Last Admin: 02/10/19 12:08 Dose: 125 mls/hr Documented by: Levofloxacin/Dextrose (Levaquin 500mg/100ml) 500 mg in 100 mls @ 66.667 mls/hr IV Q48H [facility]; Protocol Norepinephrine 8 mg/ Sodium (Chloride) 250 mls @ 3.75 mls/hr IV TITR [facility]; Protocol Last Titration: 02/10/19 11:02 Dose: 22 mcg/min, 41.25 mls/hr Documented by: Vasopressin 20 unit/ Sodium (Chloride) 101 mls @ 9.09 mls/hr IV TITR [facility]; Protocol Ondansetron HCl (Zofran) 4 mg IV Q8H PRN PRN Reason: Nausea And Vomiting Last Admin: 02/09/19 20:27 Dose: 4 mg Documented by: Sodium Chloride (Sodium Chloride Flush Syringe 10 Ml) 10 ml IV BID [facility] Last Admin: 02/10/19 09:04 Dose: 10 ml Documented by: Sodium Chloride (Sodium Chloride Flush Syringe 10 Ml) 10 ml IV PRN PRN PRN Reason: LINE FLUSH Trazodone HCl (Desyrel) 150 mg PO QHS [facility] Last Admin: 02/09/19 21:43 Dose: 150 mg Documented by: Physical Examination - Physical Exam Narrative exam: Physical Exam: Constitutional: Alert, cooperative. No acute distress Head, Ears, Nose: Normocephalic, atraumatic. External ears, nose normal Eyes: Conjunctivae/corneas clear. No icterus. No ptosis. Neck: Supple, no meningeal signs Oral: no thrush Cardiovascular: S1, S2 normal. Respiratory: Good air entry, clear to auscultation bilaterally GI: Soft, non-tender; bowel sounds normal. No peritoneal signs. Left nephrostomy tube + Musculoskeletal: No pedal edema, no cyanosis. Skin: erythematous rash, blanchable on upper trunk and face. no abscess Hem/Lymphatic: No palpable cervical or supraclavicular nodes. No lymphangitis Psych: Mood ok. Affect normal Neurological: Awake, alert, oriented. No gross abnormality - Constitutional Vitals: Vital Signs Temp Pulse Resp BP Pulse Ox 99.7 F H 102 H 27 H 106/68 97 02/10/19 08:00 02/10/19 13:15 02/10/19 13:15 02/10/19 13:15 02/10/19 13:15 Temperature -Last 24 Hours Temperature 99.7 F Temperature 101.5 F Temperature 99.9 F Temperature 99.4 F Temperature 98.3 F Results - Labs CBC & Chem 7: 02/10/19 04:30 02/10/19 04:30 Labs: Abnormal lab results 02/09/19 02/09/19 02/09/19 Range/Units 04:30 07:28 13:50 Plt Count (140-440) K/mm3 Seg Neuts % (Manual) (40.0-70.0) % Lymphocytes % (Manual) (13.4-35.0) % Nucleated RBC % (0.0-0.9) % Lymphocytes # (Manual) (1.2-5.4) K/mm3 Potassium (3.6-5.0) mmol/L Carbon Dioxide (22-30) mmol/L BUN (9-20) mg/dL Creatinine (0.8-1.5) mg/dL Glucose (75-100) mg/dL Lactic Acid 2.40 H* 3.50 H* (0.7-2.0) mmol/L Calcium (8.4-10.2) mg/dL Total Bilirubin (0.1-1.2) mg/dL Total Protein (6.3-8.2) g/dL Albumin (3.9-5) g/dL Urine WBC (Auto) 35.0 H (0.0-6.0) /HPF Urine Creatinine (0.1-20.0) mg/dL 02/09/19 02/09/19 02/09/19 Range/Units 15:20 17:13 21:53 Plt Count (140-440) K/mm3 Seg Neuts % (Manual) (40.0-70.0) % Lymphocytes % (Manual) (13.4-35.0) % Nucleated RBC % (0.0-0.9) % Lymphocytes # (Manual) (1.2-5.4) K/mm3 Potassium (3.6-5.0) mmol/L Carbon Dioxide (22-30) mmol/L BUN (9-20) mg/dL Creatinine (0.8-1.5) mg/dL Glucose (75-100) mg/dL Lactic Acid 2.10 H* 3.00 H* (0.7-2.0) mmol/L Calcium (8.4-10.2) mg/dL Total Bilirubin (0.1-1.2) mg/dL Total Protein (6.3-8.2) g/dL Albumin (3.9-5) g/dL Urine WBC (Auto) (0.0-6.0) /HPF Urine Creatinine 350.2 H (0.1-20.0) mg/dL 02/09/19 02/10/19 02/10/19 Range/Units Unknown 04:30 04:30 Plt Count 30 L (140-440) K/mm3 Seg Neuts % (Manual) 75.0 H (40.0-70.0) % Lymphocytes % (Manual) 2.0 L 5.0 L (13.4-35.0) % Nucleated RBC % 1.0 H (0.0-0.9) % Lymphocytes # (Manual) 0.1 L 0.4 L (1.2-5.4) K/mm3 Potassium 3.5 L (3.6-5.0) mmol/L Carbon Dioxide 21 L (22-30) mmol/L BUN 60 H (9-20) mg/dL Creatinine 3.6 H (0.8-1.5) mg/dL Glucose 67 L (75-100) mg/dL Lactic Acid (0.7-2.0) mmol/L Calcium 7.4 L (8.4-10.2) mg/dL Total Bilirubin 1.40 H (0.1-1.2) mg/dL Total Protein 5.2 L (6.3-8.2) g/dL Albumin 2.3 L (3.9-5) g/dL Urine WBC (Auto) (0.0-6.0) /HPF Urine Creatinine (0.1-20.0) mg/dL 02/10/19 02/10/19 Range/Units 06:38 08:44 Plt Count (140-440) K/mm3 Seg Neuts % (Manual) (40.0-70.0) % Lymphocytes % (Manual) (13.4-35.0) % Nucleated RBC % (0.0-0.9) % Lymphocytes # (Manual) (1.2-5.4) K/mm3 Potassium (3.6-5.0) mmol/L Carbon Dioxide (22-30) mmol/L BUN (9-20) mg/dL Creatinine (0.8-1.5) mg/dL Glucose (75-100) mg/dL Lactic Acid 2.10 H* 2.50 H* (0.7-2.0) mmol/L Calcium (8.4-10.2) mg/dL Total Bilirubin (0.1-1.2) mg/dL Total Protein (6.3-8.2) g/dL Albumin (3.9-5) g/dL Urine WBC (Auto) (0.0-6.0) /HPF Urine Creatinine (0.1-20.0) mg/dL - Imaging and Cardiology Chest x-ray: report reviewed, image reviewed (no pneumonia) CT scan - abdomen: report reviewed, image reviewed (left UPJ stone, partially obstructive) CT scan - chest: report reviewed, image reviewed (no pneumonia seen) Assessment and Plan Cultures: 02/09/2019 Blood culture: GNR in both sets 02/09/2019 urine culture: in process A/P: 68-year-old male with hypertension, obesity, hairy cell leukemia currently belie jostin to be in remission, admitted with: 1) Septic shock, GNR bacteremia, UTI, left hydronephrosis: s/p L nephrostomy by IR on 02/09/2019. Urology also following. 2) Acute renal failure: renally dose abx. 3) Rash? from Zosyn given h/o Cefepime allergy. 4) Acute thrombocytopenia: ?sepsis related. Monitor. Recs: - started IV Aztreonam 1 gm q12 hrs - added 1 dose of IV Amikacin to cover for MDR till culture results available - continue levofloxacin renally adjusted - avoid cefepime and zosyn due to rash d/w Dr. Aguilar and with ICU pharmacist. Mel Tuttle MD, FACP [facility] ([facility] C: [phone] O: [phone] F: [phone]
[2019-02-10] MEDS ORDERED: AMIKACIN 500 MG/2 ML IV ONE (14:00)
--- NOTE | 2019-02-10 14:59 | Anesthesia Consultation ---
Anesthesia Consult and Med Hx Date of service: 02/10/19 - Airway Anesthetic Teeth Evaluation: Poor ROM Head & Neck: Adequate Mental/Hyoid Distance: Inadequate Mallampati Class: Class II - Pulmonary Exam CTA: Yes (SOB. On O2 via nasal cannula.) - Cardiac Exam Cardiac Exam: RRR Anesthetic Concerns: Tachypnea with shortness of breath - Pre-Operative Health Status ASA Pre-Surgery Classification: ASA3 Proposed Anesthetic Plan: General - Pulmonary Hx Smoking: No SOB: Yes Home Oxygen Therapy: No Hx Sleep Apnea: No - Cardiovascular System Hx Hypertension: Yes (Denied Hx. of CHF) - Central Nervous System Hx Psychiatric Problems: Yes (Depression) - Gastrointestinal Hx Gastroesophageal Reflux Disease: No - Endocrine Hx Renal Disease: Yes (BPH; Hx. of Kidney Stones) Hx Insulin Dependent Diabetes: No - Other Systems Hx Alcohol Use: No Hx Cancer: Yes (hairy cell leukemia (in remission)) Hx Obesity: Yes (BMI 34.7) - Additional Comments Anesthesia Medical History Comments: Echocardiogram result pending.
[2019-02-10] MEDS ORDERED: AMIKACIN 500 MG in SODIUM CHLORIDE 0.9% 100 ML IV ONE (15:00)
--- NOTE | 2019-02-10 15:05 | Anesthesia Day of Surgery ---
Anesthesia Day of Surgery - Day of Surgery Patient Examined: Yes Patient H&P Reviewed: Yes Patient is NPO: Yes Cardiac Clearance: No Pulmonary Clearance: No
[2019-02-10] MEDS: AZTREONAM/NS 1 GM/50 ML 1 GM/50 ML VIAL IV SCH ×2 (15:27→21:03)
[2019-02-10] MEDS: MORPHINE 2 MG/1 ML INJ IV PRN ×2 (16:23→19:26)
[2019-02-10] MEDS ORDERED: fentaNYL 100 MCG/2 ML INJ ONE (17:22)
[2019-02-10] MEDS ORDERED: PROPOFOL 200 MG/20 ML VIAL IV ONE (17:22)
[2019-02-10] MEDS ORDERED: SODIUM CHLORIDE P/F VIAL 10 ML 10 ML ONE (17:25)
[2019-02-10] MEDS ORDERED: ETOMIDATE 20 MG/10 ML INJ IV ONE (17:30)
[2019-02-10] MEDS ORDERED: VASOPRESSIN 20 UNIT/1 ML INJ ONE (17:30)
[2019-02-10] MEDS ORDERED: ceFAZolin 1 GM VIAL ONE ×2 (17:36)
[2019-02-10] MEDS ORDERED: WATER FOR IRRIG STERILE 2000 ML IR ONE (17:49)
--- NOTE | 2019-02-10 17:59 | Post Operative Note ---
Date of procedure: 02/10/19 Pre-op diagnosis: bilat renal stone, left ureteral stone Post-op diagnosis: same Procedure: cysto, rpg, bilat stent---6x 24cm Anesthesia: CHERI Surgeon: MONIE WEEMS Estimated blood loss: none Pathology: none Condition: stable Disposition: PACU (pt has 20F 3way palma with plug)
--- NOTE | 2019-02-10 18:15 | Operative Report ---
PREOPERATIVE DIAGNOSIS: Left ureteral stone, left hydronephrosis, bilateral renal stones, status post left nephrostomy tube placement and dislodgement. POSTOPERATIVE DIAGNOSIS: Left ureteral stone, left hydronephrosis, bilateral renal stones, status post left nephrostomy tube placement and dislodgement. PROCEDURE: Cystoscopy, bilateral retrograde pyelograms, bilateral double-J stent placement (6-Russian 24 cm with a short internal string). SURGEON: Frederic Perez MD ANESTHESIA: General. ESTIMATED BLOOD LOSS: Minimal. FLUIDS: Crystalloid. COMPLICATIONS: No complications. INDICATIONS: This patient is a 68-year-old gentleman we were consulted. He was in the Emergency Room hypotensive and septic. He has thrombocytopenia. He has had a hairy cell leukemia, has been in remission, platelet count of 60. CT revealed bilateral renal stones, left hydronephrosis with proximal ureteral stone. Based on this, he underwent nephrostomy tube placement by Dr. Davidson. further evaluation overnight determined catheter was not draining. Nephrostogram, it was dislodged. His platelet count was now 30. Interventional Radiology was uncomfortable proceeding with manipulation again and therefore after discussion with Dr. Wheeler and Dr. Robledo, the care worker, we agreed to proceed with surgical intervention. Risks, benefits, and complications were explained to the patient. DESCRIPTION OF PROCEDURE: The patient was taken to the operative suite, placed in a supine position. After adequate general anesthesia, he was placed in a dorsal lithotomy position, prepped and draped in a sterile fashion. Pancystourethroscopy was performed with a 22-Russian Storz cystoscope, no acute urethral abnormalities. Prostate, mild trilobar obstruction. Bladder, mild trabeculation. Both ureteral orifices in normal position. Urine was sent for culture. Bilateral retrograde pyelograms were obtained with an 8 Russian Paramjit catheter and 8 mL of contrast. There was still contrast in the left renal pelvis. Nephrostomy tube could be seen in malposition. Small stones could be appreciated bilaterally. A 0.035 Glidewire was placed on the right side; 6-Russian 24 cm double-J stent was placed. Similar procedure was done on the right without difficulty. Fluoroscopy confirmed adequate position. A 20-Russian 3-way catheter site port plug was inserted, 10 mL cystogram to confirm adequate position was performed and position was confirmed. Rectal exam was benign. The patient tolerated the procedure well. JOB# [id number] MERY/RON
--- NOTE | 2019-02-10 18:17 | Fluoroscopy Report ---
Retrograde myelogram INDICATION: Left ureteral stone, hydronephrosis FINDINGS: Intraoperative spot images were obtained. The initial image shows collection of contrast pr ojecting at expected location of the left kidney. Pigtail catheter projects in the left abdomen at th e level of the kidney lateral to the collecting system. On injection of contrast into the left ureter there are filling defects noted in the left renal pelvi s possibly representing clot. There is a 8 mm radiopacity projecting over the left renal pelvis possi walter representing a stone within the pelvis. No discrete filling defects are seen within either ureter There is injection of contrast into the right collecting system with questionable tiny filling defect at the level the renal pelvis. Final images show placement of bilateral double-J ureteral stents. IMPRESSION: There is diffuse filling defect in the left renal pelvis possibly representing clot. There is an 8 mm stone injecting in the left renal pelvis. There is a pigtail catheter which projects lateral to the left renal collecting system. The distal en d of the catheter does not appear to be in the collecting system. Bilateral double-J ureteral stents were placed Fluoroscopy Time: 18 seconds. Fluoroscopy Images: 5. Signer Name: Sher Ryan MD Signed: 02/10/2019 6:12 PM Workstation Name: [id number]
[2019-02-10] MEDS ORDERED: dexAMETHasone 20 MG/5 ML VIAL ONE (18:49)
[2019-02-10] MEDS ORDERED: ONDANSETRON 4 MG/2 ML INJ ONE (18:49)
--- NOTE | 2019-02-10 20:15 | Consultation ---
History of Present Illness - Reason for Consult Consult date: 02/10/19 acute renal failure - History of Present Illness The patient is a 68 YO male with history significant for HTN, Obesity, Hairy Cell Leukemia(in remission) who presented to [facility] ED on 02/09/2019 with complaints of feeling unwell, generalized weakness, shortness of breath, subjective fever, N, V and abdominal pain of [address] abdomen and pelvis showed left-sided hydronephrosis with partially obstructive calculus. He underwent left-sided nephrostomy tube placement. The nephrostomy tube appears to be dislodged. Currently he is in ICU being treated for septic shock with multiple pressors and Levofloxacin. Urology planned to place ureteral stents. Labs significant for creat 4.4 and Lactate 5.3. Nephrology was consulted for further evaluation. Past History Past Medical History: cancer, hypertension, other (hypertension, obesity, hairy cell leukemia currently believed to be in remission) Past Surgical History: No surgical history, Other (reviewed) Social history: single. denies: smoking, alcohol abuse, prescription drug abuse Family history: no significant family history (reviewed), hypertension Medications and Allergies Allergies Allergy/AdvReac Type Severity Reaction Status Date / Time cefepime Allergy Rash Verified 02/10/19 11:24 Home Medications Medication Instructions Recorded Confirmed Last Taken Type Aspirin [Aspirin BABY CHEW TAB] 81 mg PO QDAY 02/09/19 02/09/19 02/09/19 History Desvenlafaxine Succinate 100 mg PO QDAY 02/09/19 02/09/19 02/09/19 History [Desvenlafaxine Succinate ER] Doxazosin Mesylate [Cardura] 2.5 mg PO DAILY 02/09/19 02/09/19 02/09/19 History Finasteride [Proscar] 5 mg PO QHS 02/09/19 02/09/19 02/09/19 History Propranolol HCl 20 mg PO QDAY 02/09/19 02/09/19 02/09/19 History Trazodone HCl 150 mg PO QHS 02/09/19 02/09/19 02/09/19 History Active Meds: Active Medications Acetaminophen (Tylenol) 650 mg PO Q4H PRN PRN Reason: Pain MILD(1-3)/Fever >100.5/KAMARA Last Admin: 02/10/19 04:23 Dose: 650 mg Documented by: Aspirin (Baby Aspirin) 81 mg PO QDAY [facility] Last Admin: 02/10/19 09:04 Dose: 81 mg Documented by: Famotidine (Pepcid) 20 mg IV DAILY [facility] Last Admin: 02/10/19 10:44 Dose: 20 mg Documented by: Finasteride (Proscar) 5 mg PO QHS [facility] Last Admin: 02/09/19 21:43 Dose: 5 mg Documented by: Sodium Chloride (Nacl 0.9% 1000 Ml) 1,000 mls @ 125 mls/hr IV DIRECT REY Last Admin: 02/10/19 12:08 Dose: 125 mls/hr Documented by: Levofloxacin/Dextrose (Levaquin 500mg/100ml) 500 mg in 100 mls @ 66.667 mls/hr IV Q48H [facility]; Protocol Norepinephrine 8 mg/ Sodium (Chloride) 250 mls @ 3.75 mls/hr IV TITR [facility]; Protocol Last Titration: 02/10/19 15:39 Dose: 26 mcg/min, 48.75 mls/hr Documented by: Vasopressin 20 unit/ Sodium (Chloride) 101 mls @ 9.09 mls/hr IV TITR REY; Protocol Last Titration: 02/10/19 15:39 Dose: 0 units/min, 0 mls/hr Documented by: Aztreonam (Azactam/Ns 1 Gm/50 Ml) 1 gm in 50 mls @ 50 mls/hr IV Q12HR [facility]; Protocol Last Admin: 02/10/19 15:27 Dose: 50 mls/hr Documented by: Morphine Sulfate (Morphine) 2 mg IV Q4H PRN PRN Reason: Pain, Moderate (4-6) Last Admin: 02/10/19 19:26 Dose: 2 mg Documented by: Ondansetron HCl (Zofran) 4 mg IV Q8H PRN PRN Reason: Nausea And Vomiting Last Admin: 02/09/19 20:27 Dose: 4 mg Documented by: Sodium Chloride (Sodium Chloride Flush Syringe 10 Ml) 10 ml IV BID [facility] Last Admin: 02/10/19 09:04 Dose: 10 ml Documented by: Sodium Chloride (Sodium Chloride Flush Syringe 10 Ml) 10 ml IV PRN PRN PRN Reason: LINE FLUSH Trazodone HCl (Desyrel) 150 mg PO QHS [facility] Last Admin: 02/09/19 21:43 Dose: 150 mg Documented by: Review of Systems Constitutional: fever, chills, anorexia, fatigue, weakness, poor appetite, no weight loss, no weight gain Cardiovascular: shortness of breath, no chest pain, no edema, no syncope, no lightheadedness, no leg edema Respiratory: shortness of breath, no cough Gastrointestinal: abdominal pain, nausea, vomiting, constipation, no diarrhea Genitourinary Male: no dysuria, no hematuria Musculoskeletal: muscle weakness, no muscle cramps Integumentary: no rash, no jaundice Neurological: no convulsions, no change in speech, no change in mentation Exam - Vital Signs Vital signs: Vital Signs Temp Pulse Resp BP Pulse Ox 98.9 F 106 H 30 H 120/95 95 02/09/19 11:00 02/09/19 11:00 02/09/19 11:00 02/09/19 11:00 02/09/19 11:00 - General Appearance General appearance: well-developed, well-nourished, appears stated age, obese, other (tachypnea noted) EENT: ATNC, PERRL, mucous membranes dry, hearing intact, vision intact Neck: Present: neck supple, trachea midline Respiratory: Clear to Ascultation Heart: regular, S1S2, no murmurs Gastrointestinal: Present: normoactive bowel sounds, obese. Absent: tenderness, distended Integumentary: no rash, warm and dry Neurologic: no focal deficit, no asterixis, alert and oriented x3 Musculoskeletal: Present: other (no edema) Psychiatric: cooperative Results - Lab Results 02/10/19 04:30 02/10/19 04:30 Most recent lab results Calcium 7.4 mg/dL (8.4-10.2) L 02/10/19 04:30 Urine Creatinine 350.2 mg/dL (0.1-20.0) H 02/09/19 15:20 Urine Sodium 46 mmol/L 02/09/19 15:20 Assessment and Plan 1. Acute kidney injury: Vasomotor KEVIN in the setting of septic shock. Patient is on multiple pressors. CT abdomen showed b/l nephrolithiasis. Renal US was negative for hydronephrosis. Continue IV fluids. Monitor renal function. Avoid nephrotoxic agents. Meds dosage based on GFR. 2. FEN: Metabolic acidosis, monitor. Monitor lytes. 3. Bilateral nephrolithiasis: S/p L perc nephrostomy tube, now dislodged. Plan to place bilateral ureteral stent. Followed by Urologist. 4. Septic shock: On multiple pressors and Abx.
[2019-02-10] MEDS: traZODone 100 MG TAB PO SCH (21:03)
[2019-02-10] MEDS: FINASTERIDE 5 MG TAB PO SCH (21:03)
--- NOTE | 2019-02-10 21:06 | Post Anesthesia Evaluation ---
- Post Anesthesia Evaluation Patient Participated: Yes Airway Patent: Yes Stable Respiratory Function: Yes Nausea/Vomiting: No Temp > 96.8F: Yes Pain Manageable: Yes Adequeate Hydration: Yes Anesthesia Complications: No Block Receding Appropriately: Not Applicable Patient on Ventilator: No
[2019-02-11] MEDS: NORepinephrine 8 MG in SODIUM CHLORIDE 0.9% 250ML 242 ML IV SCH ×4 (00:28→17:22)
[2019-02-11] MEDS: SODIUM CHLORIDE 0.9% 1000 ML 1,000 ML IV SCH ×6 (04:51→17:21)
[2019-02-11 05:50] LABS: Hemoglobin 11.4 gm/dl (11.8-15.2); Mean Corpuscular HGB Conc 33 % (32-34); Mean Corpuscular Volume 85 fl (84-94); Red Cell Distribution Width 15.4 % (13.2-15.2)
[2019-02-11 05:59] LABS: Platelet Count 52 K/mm3 (140-440)
[2019-02-11 06:12] LABS: Calcium 7.2 mg/dL (8.4-10.2)
--- NOTE | 2019-02-11 08:32 | Event Note ---
Date: 02/11/19 [id number]
--- NOTE | 2019-02-11 09:16 | Progress Note ---
Assessment and Plan Assessment and plan: Sepsis due to complicated UTI Admitted to ICU Continue Levaquin consulted ID discussed with ID Physician Septic shock On Levophed drip KEVIN (acute kidney injury) due to ATN improving IVF resuscitation therapy, Nephrology consulted, monitor uop q shift, urine electrolytes, Metabolic Acidosis due to KEVIN IVF resuscitation therapy, IV bicarbonate, supportive care. Complicated UTI On Levaquin, Aztreonam IV antibiotic therapy, urinalysis, CBC,CMP, Urinary obstruction 7MM Left UPJ obstructing stone with mild hydronephrosis, supportive care. IR consulted s/p left perc nephrostomy tube placement, Urology consulted. CHF (congestive heart failure) Cardiology consulted in ED, IV ionotropic support, continue current care, monitor daily weight, uop q shift, echo, Acute respiratory failure with hypoxia Supplemental oxygen, ABG, pulse oximetry, CT chest, NIPPV as clinically indicated, nebulizer therapy prn, chest x ray. Lactic acidosis due to sepsis Treat sepsis, serial lactic acid, IV bicarbonate, supportive care. DVT prophylaxis SCD to BLE while in bed, prophylactic heparin The high probability of a clinically significant, sudden or life threatening deterioration of the [3] system(s) required my full and direct attention, intervention and personal management. The aggregate critical care time was [34] minutes. This time is in addition to time spent performing reported procedures but includes the following: [] Data Review and interpretation [] Patient assessment and monitoring of vital signs [] Documentation [] Medication orders and management History Interval history: Generalized weakness Still has Shortness of breath Fever improved Hospitalist Physical - Physical exam Narrative exam: Gen: Not in acute distress, lying in bed, obese, ill looking HEENT: Normocephalic, atraumatic Neck: supple, no JVD Heart: S1 and S2 reg, no murmurs, rubs or gallop Lungs: Clear to auscultation, no rhonchi, no wheeze Abd: soft, non tender, non distended, normal BS, left nephrostomy tube Ext: No edema, no clubbing, no cyanosis Neuro: Awake, alert, oriented X 3, no focal neurological signs - Constitutional Vitals: Temp Pulse Resp BP Pulse Ox 99.5 F 91 H 21 125/81 97 02/11/19 08:00 02/11/19 06:45 02/11/19 06:45 02/11/19 06:45 02/11/19 08:35 General appearance: Present: no acute distress Results - Labs CBC & Chem 7: 02/11/19 04:55 02/11/19 04:55 Labs: Laboratory Last Values WBC 7.1 K/mm3 (4.5-11.0) 02/11/19 04:55 RBC 4.10 M/mm3 (3.65-5.03) 02/11/19 04:55 Hgb 11.4 gm/dl (11.8-15.2) L 02/11/19 04:55 Hct 35.0 % (35.5-45.6) L 02/11/19 04:55 MCV 85 fl (84-94) 02/11/19 04:55 MCH 28 pg (28-32) 02/11/19 04:55 MCHC 33 % (32-34) 02/11/19 04:55 RDW 15.4 % (13.2-15.2) H 02/11/19 04:55 Plt Count 52 K/mm3 (140-440) L 02/11/19 04:55 Eos % (Auto) [employer] Service Technician 02/10/19 04:30 Add Manual Diff Complete 02/10/19 04:30 Total Counted 100 02/10/19 04:30 Seg Neutrophils % Retail Service Technician 02/09/19 Unknown Seg Neuts % (Manual) 75.0 % (40.0-70.0) H 02/10/19 04:30 Band Neutrophils % 13.0 % 02/10/19 04:30 Lymphocytes % (Manual) 5.0 % (13.4-35.0) L 02/10/19 04:30 Reactive Lymphs % (Man) 0 % 02/10/19 04:30 Monocytes % (Manual) 7.0 % (0.0-7.3) 02/10/19 04:30 Eosinophils % (Manual) 0 % (0.0-4.3) 02/10/19 04:30 Basophils % (Manual) 0 % (0.0-1.8) 02/10/19 04:30 Metamyelocytes % 0 % 02/10/19 04:30 Myelocytes % 0 % 02/10/19 04:30 Promyelocytes % 0 % 02/10/19 04:30 Blast Cells % 0 % 02/10/19 04:30 Nucleated RBC % Not Reportable 02/10/19 04:30 Seg Neutrophils # Man 5.6 K/mm3 (1.8-7.7) 02/10/19 04:30 Band Neutrophils # 1.0 K/mm3 02/10/19 04:30 Lymphocytes # (Manual) 0.4 K/mm3 (1.2-5.4) L 02/10/19 04:30 Abs React Lymphs (Man) 0.0 K/mm3 02/10/19 04:30 Monocytes # (Manual) 0.5 K/mm3 (0.0-0.8) 02/10/19 04:30 Eosinophils # (Manual) 0.0 K/mm3 (0.0-0.4) 02/10/19 04:30 Basophils # (Manual) 0.0 K/mm3 (0.0-0.1) 02/10/19 04:30 Metamyelocytes # 0.0 K/mm3 02/10/19 04:30 Myelocytes # 0.0 K/mm3 02/10/19 04:30 Promyelocytes # 0.0 K/mm3 02/10/19 04:30 Blast Cells # 0.0 K/mm3 02/10/19 04:30 WBC Morphology Not Reportable 02/10/19 04:30 Hypersegmented Neuts Not Reportable 02/10/19 04:30 Hyposegmented Neuts Not Reportable 02/10/19 04:30 Hypogranular Neuts Not Reportable 02/10/19 04:30 Smudge Cells Not Reportable 02/10/19 04:30 Toxic Granulation Not Reportable 02/10/19 04:30 Toxic Vacuolation Not Reportable 02/10/19 04:30 Dohle Bodies Not Reportable 02/10/19 04:30 Pelger-Huet Anomaly Not Reportable 02/10/19 04:30 Jagdish Rods Not Reportable 02/10/19 04:30 Platelet Estimate Appears decreased 02/10/19 04:30 Clumped Platelets Not Reportable 02/10/19 04:30 Plt Clumps, EDTA Not Reportable 02/10/19 04:30 Large Platelets 1+ 02/10/19 04:30 Giant Platelets Not Reportable 02/10/19 04:30 Platelet Satelliting Not Reportable 02/10/19 04:30 Plt Morphology Comment Not Reportable 02/10/19 04:30 RBC Morphology Normal 02/10/19 04:30 Dimorphic RBCs Not Reportable 02/10/19 04:30 Polychromasia Not Reportable 02/10/19 04:30 Hypochromasia Not Reportable 02/10/19 04:30 Poikilocytosis Not Reportable 02/10/19 04:30 Anisocytosis Not Reportable 02/10/19 04:30 Microcytosis Not Reportable 02/10/19 04:30 Macrocytosis Not Reportable 02/10/19 04:30 Spherocytes Not Reportable 02/10/19 04:30 Pappenheimer Bodies Not Reportable 02/10/19 04:30 Sickle Cells Not Reportable 02/10/19 04:30 Target Cells Not Reportable 02/10/19 04:30 Tear Drop Cells Not Reportable 02/10/19 04:30 Ovalocytes Not Reportable 02/10/19 04:30 Helmet Cells Not Reportable 02/10/19 04:30 [place] Bodies Not Reportable 02/10/19 04:30 [place] Rings Not Reportable 02/10/19 04:30 Nathan Cells Not Reportable 02/10/19 04:30 Bite Cells Not Reportable 02/10/19 04:30 Crenated Cell Not Reportable 02/10/19 04:30 Elliptocytes Not Reportable 02/10/19 04:30 Acanthocytes (Spur) Not Reportable 02/10/19 04:30 Rouleaux Not Reportable 02/10/19 04:30 Hemoglobin C Crystals Not Reportable 02/10/19 04:30 Schistocytes Not Reportable 02/10/19 04:30 Malaria parasites Not Reportable 02/10/19 04:30 Arnie Bodies Not Reportable 02/10/19 04:30 Hem Pathologist Commnt No 02/10/19 04:30 PT 15.8 Sec. (12.2-14.9) H 02/09/19 Unknown INR 1.29 (0.87-1.13) H 02/09/19 Unknown POC ABG pH 7.356 (7.35-7.45) 02/09/19 17:29 POC ABG pCO2 37.1 (35-45) 02/09/19 17:29 POC ABG pO2 97 (80-105) 02/09/19 17:29 POC ABG HCO3 20.8 (22-26 mml/L) 02/09/19 17:29 POC ABG Total CO2 22 (23-27mmol/L) 02/09/19 17:29 POC ABG O2 Sat 97 02/09/19 17:29 POC ABG Base Excess -5 ((-2) - (+3)mmol/L) 02/09/19 17:29 VBG pH 7.379 (7.320-7.420) 02/09/19 11:45 FiO2 28 % 02/09/19 17:29 Sodium 147 mmol/L (137-145) H 02/11/19 04:55 Potassium 4.0 mmol/L (3.6-5.0) 02/11/19 04:55 Chloride 113.5 mmol/L (98-107) H 02/11/19 04:55 Carbon Dioxide 16 mmol/L (22-30) L 02/11/19 04:55 Anion Gap 22 mmol/L 02/11/19 04:55 BUN 54 mg/dL (9-20) H 02/11/19 04:55 Creatinine 2.1 mg/dL (0.8-1.5) H 02/11/19 04:55 Estimated GFR 31 ml/min 02/11/19 04:55 BUN/Creatinine Ratio 26 % 02/11/19 04:55 Glucose 114 mg/dL (75-100) H 02/11/19 04:55 Lactic Acid 2.50 mmol/L (0.7-2.0) H* 02/10/19 08:44 Calcium 7.2 mg/dL (8.4-10.2) L 02/11/19 04:55 Phosphorus 3.90 mg/dL (2.5-4.5) 02/11/19 04:55 Magnesium 1.80 mg/dL (1.7-2.3) 02/11/19 04:55 Total Bilirubin 1.40 mg/dL (0.1-1.2) H 02/10/19 04:30 AST 31 units/L (5-40) 02/10/19 04:30 ALT 17 units/L (7-56) 02/10/19 04:30 Alkaline Phosphatase 67 units/L (35-129) 02/10/19 04:30 Troponin T 0.017 ng/mL (0.00-0.029) 02/09/19 Unknown NT-Pro-B Natriuret Pep 6998 pg/mL (0-900) H 02/09/19 Unknown Total Protein 5.2 g/dL (6.3-8.2) L 02/10/19 04:30 Albumin 2.3 g/dL (3.9-5) L 02/10/19 04:30 Albumin/Globulin Ratio 0.8 % 02/10/19 04:30 Urine Color Madeline (Yellow) 02/09/19 07:28 Urine Turbidity Cloudy (Clear) 02/09/19 07:28 Urine pH 5.0 (5.0-7.0) 02/09/19 07:28 Ur Specific [place] 1.019 (1.003-1.030) 02/09/19 07:28 Urine Protein 100 mg/dl mg/dL (Negative) 02/09/19 07:28 Urine Glucose (UA) Neg mg/dL (Negative) 02/09/19 07:28 Urine Ketones Neg mg/dL (Negative) 02/09/19 07:28 Urine Blood Lg (Negative) 02/09/19 07:28 Urine Nitrite Neg (Negative) 02/09/19 07:28 Urine Bilirubin Neg (Negative) 02/09/19 07:28 Urine Urobilinogen 4.0 mg/dL (<2.0) 02/09/19 07:28 Ur Leukocyte Esterase Mod (Negative) 02/09/19 07:28 Urine WBC (Auto) 35.0 /HPF (0.0-6.0) H 02/09/19 07:28 Urine RBC (Auto) > 182.0 /HPF (0.0-6.0) 02/09/19 07:28 U Epithel Cells (Auto) 1.0 /HPF (0-13.0) 02/09/19 07:28 Urine Bacteria (Auto) 1+ /HPF (Negative) 02/09/19 07:28 Urine Creatinine 350.2 mg/dL (0.1-20.0) H 02/09/19 15:20 Urine Sodium 46 mmol/L 02/09/19 15:20 Blood Type A NEGATIVE 02/09/19 17:15 Antibody Screen Negative 02/09/19 17:15 Active Medications - Current Medications Current Medications: Generic Name Dose Route Start Last Admin Trade Name Freq PRN Reason Stop Dose Admin Acetaminophen 650 mg 02/09/19 14:29 02/10/19 04:23 Tylenol PO 650 mg Q4H PRN Administration Pain MILD(1-3)/Fever >100.5/AKMARA Aspirin 81 mg 02/10/19 10:00 02/10/19 09:04 Baby Aspirin PO 81 mg QDAY REY Administration Famotidine 20 mg 02/10/19 11:00 02/10/19 10:44 Pepcid IV 20 mg DAILY REY Administration Finasteride 5 mg 02/09/19 22:00 02/10/19 21:03 Proscar PO 5 mg QHS REY Administration Sodium Chloride 1,000 mls @ 125 mls/hr 02/09/19 15:00 02/11/19 04:51 Nacl 0.9% 1000 Ml IV 125 mls/hr DIRECT REY Administration Levofloxacin/Dextrose 500 mg in 100 mls @ 66.667 mls/hr 02/11/19 18:00 Levaquin 500mg/100ml IV Q48H REY Protocol Norepinephrine 8 mg/ Sodium 250 mls @ 3.75 mls/hr 02/10/19 11:00 02/11/19 08:32 Chloride IV 24 mcg/min TITR REY 45 mls/hr Titration Protocol 2 MCG/MIN Vasopressin 20 unit/ Sodium 101 mls @ 9.09 mls/hr 02/10/19 11:00 02/10/19 15:39 Chloride IV 0 units/min TITR REY 0 mls/hr Titration Protocol 0.03 UNITS/MIN Aztreonam 1 gm in 50 mls @ 50 mls/hr 02/10/19 15:00 02/10/19 21:03 Azactam/Ns 1 Gm/50 Ml IV 50 mls/hr Q12HR REY Administration Protocol Morphine Sulfate 2 mg 02/10/19 15:48 02/10/19 19:26 Morphine IV 2 mg Q4H PRN Administration Pain, Moderate (4-6) Ondansetron HCl 4 mg 02/09/19 14:29 02/09/19 20:27 Zofran IV 4 mg Q8H PRN Administration Nausea And Vomiting Sodium Chloride 10 ml 02/09/19 22:00 02/10/19 21:03 Sodium Chloride Flush Syringe 10 Ml IV 10 ml BID REY Administration Sodium Chloride 10 ml 02/09/19 14:29 Sodium Chloride Flush Syringe 10 Ml IV PRN PRN LINE FLUSH Trazodone HCl 150 mg 02/09/19 22:00 02/10/19 21:03 Desyrel PO 150 mg QHS REY Administration
[2019-02-11] MEDS: ASPIRIN 81 MG TAB CHEW PO SCH (10:19)
[2019-02-11] MEDS: FAMOTIDINE 20 MG/2 ML INJ IV SCH (10:20)
[2019-02-11] MEDS: AZTREONAM/NS 1 GM/50 ML 1 GM/50 ML VIAL IV SCH (10:20)
--- NOTE | 2019-02-11 10:47 | Consultation ---
REFERRED BY: Justen Day MD REASON FOR CONSULTATION: Thrombocytopenia. HISTORY OF PRESENT ILLNESS: I saw the patient, a 68-year-old male in the medical floor. The patient's sister was present in the room. The patient has a history of hairy cell leukemia, the patient states in 2018 and he went to [facility] and received chemotherapy. He does not remember the name of the physician. The patient came to the hospital as he was not feeling well, had nausea, vomiting, abdominal pain, fever and shortness of breath. As the BP was low, he came to the hospital. The patient also has a history of left hydronephrosis. Past history of hypertension and obesity. He was in ICU because of septic shock, was on pressors, antibiotics and on BiPAP support. PAST MEDICAL HISTORY: Includes hairy cell leukemia, hypertension and obesity. PAST SURGICAL HISTORY: Nil significant. SOCIAL HISTORY: Single, no history of tobacco usage. FAMILY HISTORY: Hypertension. ALLERGIES: CEFEPIME. HOME MEDICATIONS: Include aspirin, Cardura and Proscar. PHYSICAL EXAMINATION: VITAL SIGNS: Temperature 97.7, pulse 99, respirations 18, BP 115/72. The patient is on BiPAP. HEENT: No pallor, no icterus. NECK: No neck lymph nodes. HEART: S1, S2. LUNGS: Clear to auscultation anteriorly. ABDOMEN: Soft. EXTREMITIES: No calf tenderness. NEUROLOGIC: Alert, awake. LABORATORY DATA: White cell 7, hemoglobin 11.4, MCV 85, platelets 52. Potassium 4, creatinine 2.1, creatinine was higher in the past. Calcium 7.2, bilirubin 1.4. RADIOLOGY: CT chest, abdomen and pelvis was done. This shows nephrolithiasis, otherwise nil acute. Spleen is not enlarged. CT chest was also negative. ASSESSMENT AND PLAN: 1. Thrombocytopenia. This may be secondary to consumption/infection. The patient was on pressors. Supportive care for now. No bleeding at this time. 2. Renal impairment, being followed by Nephrology. 3. Nephrolithiasis, status post nephrostomy tube placement, which was dislodged. Urology followup for the ureteral stent. 4. Seen by ID team and Nephrology team. 5. Radiologically, there is no mention of splenomegaly. 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 We will follow the patient during inpatient stay. Follow the trend and he would need to be followed in the outpatient setting. JOB# [id number] KM/RON
--- NOTE | 2019-02-11 12:18 | Progress Note ---
Assessment and Plan Acute renal failure Severe sepsis due to complicated UTI Hypotension requiring pressor support Mild cardiomyopathy, LVEF 45-50% MAT - resolved Hairy cell leukemia in remission Thrombocytopenia Wheezing Recommendations: Continue supportive care Caution with overhydration Inhaler therapy for wheezing per pulmonary Follow-up on CXR findings from today No new cardiac recommendations Subjective Date of service: 02/11/19 Principal diagnosis: Left hydronephrosis Interval history: Patient denies chest pain Patient has audible wheezing on exam this morning Objective Vital Signs Temp Pulse Pulse Resp BP Pulse Ox 02/11/19 11:30 94 H 32 H 133/78 96 02/11/19 11:15 94 H 30 H 132/80 95 02/11/19 11:00 87 28 H 132/80 97 02/11/19 10:45 93 H 33 H 133/79 96 02/11/19 10:30 89 31 H 126/78 96 02/11/19 10:15 92 H 32 H 141/95 97 02/11/19 10:00 101 H 28 H 141/95 95 02/11/19 09:45 90 31 H 129/79 97 02/11/19 09:30 88 33 H 135/78 96 02/11/19 09:15 93 H 28 H 128/75 97 02/11/19 09:01 89 33 H 134/84 96 02/11/19 08:45 89 31 H 127/85 95 02/11/19 08:35 97 02/11/19 08:30 91 H 25 H 127/85 95 02/11/19 08:15 93 H 31 H 110/80 97 02/11/19 08:00 99.5 F 85 21 121/81 95 02/11/19 07:45 81 20 135/77 96 02/11/19 07:30 98 H 28 H 132/85 97 02/11/19 07:15 90 22 134/79 96 02/11/19 07:00 87 22 121/75 95 02/11/19 06:45 91 H 21 125/81 96 02/11/19 06:30 85 20 130/77 97 02/11/19 06:15 96 H 23 130/84 96 02/11/19 06:00 80 21 119/76 95 02/11/19 05:45 81 18 115/74 96 02/11/19 05:30 91 H 21 122/77 96 02/11/19 05:15 92 H 20 130/78 96 02/11/19 05:00 94 H 20 119/73 96 02/11/19 04:45 85 20 116/70 95 02/11/19 04:30 87 20 113/71 96 02/11/19 04:15 90 21 121/79 96 02/11/19 04:04 99 H 18 115/72 95 02/11/19 04:00 97.7 F 86 21 115/72 96 02/11/19 03:45 94 H 21 120/72 96 02/11/19 03:30 94 H 22 113/72 94 02/11/19 03:15 87 22 110/67 96 02/11/19 03:00 95 H 24 120/71 95 02/11/19 02:45 94 H 23 117/68 96 02/11/19 02:30 91 H 22 115/68 96 02/11/19 02:15 90 23 110/67 96 02/11/19 02:00 94 H 23 109/68 95 02/11/19 01:45 97 H 23 102/67 96 02/11/19 01:30 93 H 22 114/62 95 02/11/19 01:15 93 H 24 105/65 95 02/11/19 01:00 93 H 22 108/66 95 02/11/19 00:45 98 H 24 112/72 95 02/11/19 00:32 115 H 02/11/19 00:30 96 H 23 107/64 94 02/11/19 00:15 96 H 22 103/65 94 02/11/19 00:00 98.5 F 96 H 22 100/62 94 02/10/19 23:45 97 H 21 107/63 94 02/10/19 23:30 95 H 22 103/62 95 02/10/19 23:20 101 H 22 120/70 96 02/10/19 23:15 109 H 26 H 120/70 96 02/10/19 23:00 108 H 25 H 115/72 97 02/10/19 22:45 102 H 24 105/68 97 02/10/19 22:30 105 H 25 H 112/59 97 02/10/19 22:15 106 H 25 H 101/64 97 02/10/19 22:00 103 H 26 H 115/59 97 02/10/19 21:45 106 H 26 H 112/67 96 02/10/19 21:30 104 H 25 H 115/61 96 02/10/19 21:25 97.7 F 104 H 25 H 115/59 97 02/10/19 21:15 97.7 F 105 H 26 H 113/68 97 02/10/19 21:00 105 H 28 H 110/66 97 02/10/19 20:55 97.7 F 104 H 27 H 110/66 104 H 02/10/19 20:45 108 H 29 H 127/68 97 02/10/19 20:41 98.7 F 109 H 24 127/68 97 02/10/19 20:40 97 02/10/19 20:30 26 H 127/68 98 02/10/19 20:29 30 H 120/71 99 02/10/19 20:15 112 H 31 H 120/71 99 02/10/19 20:05 98.7 F 02/10/19 20:00 117 H 24 118/69 99 02/10/19 19:45 117 H 30 H 120/71 99 02/10/19 19:31 121 H 16 120/66 99 02/10/19 19:26 26 H 02/10/19 19:15 106 H 35 H 130/74 99 02/10/19 18:56 112 H 28 H 127/80 97 02/10/19 18:51 98.8 F 109 H 20 124/82 97 02/10/19 18:46 108 H 25 H 115/73 94 02/10/19 18:31 119 H 31 H 123/82 97 02/10/19 18:26 121 H 31 H 131/77 97 02/10/19 18:21 124 H 29 H 126/77 97 02/10/19 18:16 99.1 F 124 H 37 H 132/79 97 02/10/19 16:23 24 02/10/19 16:00 98.6 F 121 H 108 H 35 H 126/64 98 02/10/19 15:45 96 H 27 H 118/62 98 02/10/19 15:30 25 H 122/65 98 02/10/19 15:15 129 H 31 H 110/60 97 02/10/19 15:00 24 103/70 98 02/10/19 14:45 27 H 103/70 98 02/10/19 14:30 97 H 28 H 96/62 99 02/10/19 14:15 114 H 31 H 77/39 97 02/10/19 14:00 106 H 17 116/59 97 02/10/19 13:45 111 H 21 116/59 98 02/10/19 13:30 101 H 31 H 110/66 99 02/10/19 13:15 102 H 27 H 106/68 97 02/10/19 13:00 84/60 99 02/10/19 12:45 98/56 99 02/10/19 12:30 102/60 98 02/10/19 12:15 102 H 15 96/59 97 - Physical Examination HEENT: Positive: PERRL Neck: Positive: neck supple, trachea midline Cardiac: Positive: Reg Rate and Rhythm Lungs: Positive: Wheezes Abdomen: Positive: Soft - Labs and Meds CBC 02/11/19 Range/Units 04:55 WBC 7.1 (4.5-11.0) K/mm3 RBC 4.10 (3.65-5.03) M/mm3 Hgb 11.4 L (11.8-15.2) gm/dl Hct 35.0 L (35.5-45.6) % Plt Count 52 L (140-440) K/mm3 Comprehensive Metabolic Panel 02/11/19 Range/Units 04:55 Sodium 147 H (137-145) mmol/L Potassium 4.0 (3.6-5.0) mmol/L Chloride 113.5 H (98-107) mmol/L Carbon Dioxide 16 L (22-30) mmol/L BUN 54 H (9-20) mg/dL Creatinine 2.1 H (0.8-1.5) mg/dL Glucose 114 H (75-100) mg/dL Calcium 7.2 L (8.4-10.2) mg/dL
--- NOTE | 2019-02-11 12:23 | Progress Note ---
Assessment and Plan Obstructive nephrolithiasis s/p left nephrostomy tube Multifocal Atrial tachycardia Sepsis Severe Thrombocytopenia Hx of Leukemia prior chemotherapy Shortness of breath Echocardiogram shows evidence of moderate pulmonary hypertension, RVSP of 47 mmHG. LVEF 45-50%. We will repeat a chest x-ray. Medical treatment for the multifocal atrial tachycardia will be diltiazem, which we will start once the patient is hemodynamically stable and has been weaned off pressors. Subjective Date of service: 02/11/19 Principal diagnosis: Left hydronephrosis Interval history: Noted short of breath with active wheezing on exam. Patient denies chest pain. Remains on IV pressors for support. Objective Vital Signs Temp Pulse Pulse Resp BP Pulse Ox 02/11/19 11:30 94 H 32 H 133/78 96 02/11/19 11:15 94 H 30 H 132/80 95 02/11/19 11:00 87 28 H 132/80 97 02/11/19 10:45 93 H 33 H 133/79 96 02/11/19 10:30 89 31 H 126/78 96 02/11/19 10:15 92 H 32 H 141/95 97 02/11/19 10:00 101 H 28 H 141/95 95 02/11/19 09:45 90 31 H 129/79 97 02/11/19 09:30 88 33 H 135/78 96 02/11/19 09:15 93 H 28 H 128/75 97 02/11/19 09:01 89 33 H 134/84 96 02/11/19 08:45 89 31 H 127/85 95 02/11/19 08:35 97 02/11/19 08:30 91 H 25 H 127/85 95 02/11/19 08:15 93 H 31 H 110/80 97 02/11/19 08:00 99.5 F 85 21 121/81 95 02/11/19 07:45 81 20 135/77 96 02/11/19 07:30 98 H 28 H 132/85 97 02/11/19 07:15 90 22 134/79 96 02/11/19 07:00 87 22 121/75 95 02/11/19 06:45 91 H 21 125/81 96 02/11/19 06:30 85 20 130/77 97 02/11/19 06:15 96 H 23 130/84 96 02/11/19 06:00 80 21 119/76 95 02/11/19 05:45 81 18 115/74 96 02/11/19 05:30 91 H 21 122/77 96 02/11/19 05:15 92 H 20 130/78 96 02/11/19 05:00 94 H 20 119/73 96 02/11/19 04:45 85 20 116/70 95 02/11/19 04:30 87 20 113/71 96 02/11/19 04:15 90 21 121/79 96 02/11/19 04:04 99 H 18 115/72 95 02/11/19 04:00 97.7 F 86 21 115/72 96 02/11/19 03:45 94 H 21 120/72 96 02/11/19 03:30 94 H 22 113/72 94 02/11/19 03:15 87 22 110/67 96 02/11/19 03:00 95 H 24 120/71 95 02/11/19 02:45 94 H 23 117/68 96 02/11/19 02:30 91 H 22 115/68 96 02/11/19 02:15 90 23 110/67 96 02/11/19 02:00 94 H 23 109/68 95 02/11/19 01:45 97 H 23 102/67 96 02/11/19 01:30 93 H 22 114/62 95 02/11/19 01:15 93 H 24 105/65 95 02/11/19 01:00 93 H 22 108/66 95 02/11/19 00:45 98 H 24 112/72 95 02/11/19 00:32 115 H 02/11/19 00:30 96 H 23 107/64 94 02/11/19 00:15 96 H 22 103/65 94 02/11/19 00:00 98.5 F 96 H 22 100/62 94 02/10/19 23:45 97 H 21 107/63 94 02/10/19 23:30 95 H 22 103/62 95 02/10/19 23:20 101 H 22 120/70 96 02/10/19 23:15 109 H 26 H 120/70 96 02/10/19 23:00 108 H 25 H 115/72 97 02/10/19 22:45 102 H 24 105/68 97 02/10/19 22:30 105 H 25 H 112/59 97 02/10/19 22:15 106 H 25 H 101/64 97 02/10/19 22:00 103 H 26 H 115/59 97 02/10/19 21:45 106 H 26 H 112/67 96 02/10/19 21:30 104 H 25 H 115/61 96 02/10/19 21:25 97.7 F 104 H 25 H 115/59 97 02/10/19 21:15 97.7 F 105 H 26 H 113/68 97 02/10/19 21:00 105 H 28 H 110/66 97 02/10/19 20:55 97.7 F 104 H 27 H 110/66 104 H 02/10/19 20:45 108 H 29 H 127/68 97 02/10/19 20:41 98.7 F 109 H 24 127/68 97 02/10/19 20:40 97 02/10/19 20:30 26 H 127/68 98 02/10/19 20:29 30 H 120/71 99 02/10/19 20:15 112 H 31 H 120/71 99 02/10/19 20:05 98.7 F 02/10/19 20:00 117 H 24 118/69 99 02/10/19 19:45 117 H 30 H 120/71 99 02/10/19 19:31 121 H 16 120/66 99 02/10/19 19:26 26 H 02/10/19 19:15 106 H 35 H 130/74 99 02/10/19 18:56 112 H 28 H 127/80 97 02/10/19 18:51 98.8 F 109 H 20 124/82 97 02/10/19 18:46 108 H 25 H 115/73 94 02/10/19 18:31 119 H 31 H 123/82 97 02/10/19 18:26 121 H 31 H 131/77 97 02/10/19 18:21 124 H 29 H 126/77 97 02/10/19 18:16 99.1 F 124 H 37 H 132/79 97 02/10/19 16:23 24 02/10/19 16:00 98.6 F 121 H 108 H 35 H 126/64 98 02/10/19 15:45 96 H 27 H 118/62 98 02/10/19 15:30 25 H 122/65 98 02/10/19 15:15 129 H 31 H 110/60 97 02/10/19 15:00 24 103/70 98 02/10/19 14:45 27 H 103/70 98 02/10/19 14:30 97 H 28 H 96/62 99 02/10/19 14:15 114 H 31 H 77/39 97 02/10/19 14:00 106 H 17 116/59 97 02/10/19 13:45 111 H 21 116/59 98 02/10/19 13:30 101 H 31 H 110/66 99 02/10/19 13:15 102 H 27 H 106/68 97 02/10/19 13:00 84/60 99 02/10/19 12:45 98/56 99 02/10/19 12:30 102/60 98 - Physical Examination General: Other (mild distress) HEENT: Positive: PERRL Cardiac: Positive: Reg Rate and Rhythm Lungs: Positive: Decreased Breath Sounds, Wheezes Neuro: Positive: Grossly Intact - Labs and Meds CBC 02/11/19 Range/Units 04:55 WBC 7.1 (4.5-11.0) K/mm3 RBC 4.10 (3.65-5.03) M/mm3 Hgb 11.4 L (11.8-15.2) gm/dl Hct 35.0 L (35.5-45.6) % Plt Count 52 L (140-440) K/mm3 Comprehensive Metabolic Panel 02/11/19 Range/Units 04:55 Sodium 147 H (137-145) mmol/L Potassium 4.0 (3.6-5.0) mmol/L Chloride 113.5 H (98-107) mmol/L Carbon Dioxide 16 L (22-30) mmol/L BUN 54 H (9-20) mg/dL Creatinine 2.1 H (0.8-1.5) mg/dL Glucose 114 H (75-100) mg/dL Calcium 7.2 L (8.4-10.2) mg/dL
--- NOTE | 2019-02-11 12:26 | Progress Note ---
Assessment and Plan 68 y/o obese male admitted with sepsis secondary to urinary obstruction, s/p percutaneous nephrostomy tube and stent placement on yesterday. 1. Sepsis: hypotension now most likely related to this and volume depletion. Understand that patient has systolic heart failure but if baseline BP is known, would be helpful. For now will try to at least match output from [place]. 2. Abx therapy, IMS has consulted ID 3. IMS consulted Heme regarding the platelets and Hairy Cell Leukemia 4. Appreciate cardiology note CCT 31 minutes. Subjective Date of service: 02/11/19 Principal diagnosis: Left hydronephrosis Interval history: Had stents placed yesterday. Had improved output and renal function. Still on levophed. Objective - Constitutional Vitals: Vital Signs - 12hr 02/11/19 02/11/19 02/11/19 00:30 00:32 00:45 Temperature Pulse Rate 96 H 115 H 98 H Respiratory 23 24 Rate Blood Pressure 107/64 112/72 O2 Sat by Pulse 94 95 Oximetry 02/11/19 02/11/19 02/11/19 01:00 01:15 01:30 Temperature Pulse Rate 93 H 93 H 93 H Respiratory 22 24 22 Rate Blood Pressure 108/66 105/65 114/62 O2 Sat by Pulse 95 95 95 Oximetry 02/11/19 02/11/19 02/11/19 01:45 02:00 02:15 Temperature Pulse Rate 97 H 94 H 90 Respiratory 23 23 23 Rate Blood Pressure 102/67 109/68 110/67 O2 Sat by Pulse 96 95 96 Oximetry 02/11/19 02/11/19 02/11/19 02:30 02:45 03:00 Temperature Pulse Rate 91 H 94 H 95 H Respiratory 22 23 24 Rate Blood Pressure 115/68 117/68 120/71 O2 Sat by Pulse 96 96 95 Oximetry 02/11/19 02/11/19 02/11/19 03:15 03:30 03:45 Temperature Pulse Rate 87 94 H 94 H Respiratory 22 22 21 Rate Blood Pressure 110/67 113/72 120/72 O2 Sat by Pulse 96 94 96 Oximetry 02/11/19 02/11/19 02/11/19 04:00 04:04 04:15 Temperature 97.7 F Pulse Rate 86 99 H 90 Respiratory 21 18 21 Rate Blood Pressure 115/72 115/72 121/79 O2 Sat by Pulse 96 95 96 Oximetry 02/11/19 02/11/19 02/11/19 04:30 04:45 05:00 Temperature Pulse Rate 87 85 94 H Respiratory 20 20 20 Rate Blood Pressure 113/71 116/70 119/73 O2 Sat by Pulse 96 95 96 Oximetry 02/11/19 02/11/19 02/11/19 05:15 05:30 05:45 Temperature Pulse Rate 92 H 91 H 81 Respiratory 20 21 18 Rate Blood Pressure 130/78 122/77 115/74 O2 Sat by Pulse 96 96 96 Oximetry 02/11/19 02/11/19 02/11/19 06:00 06:15 06:30 Temperature Pulse Rate 80 96 H 85 Respiratory 21 23 20 Rate Blood Pressure 119/76 130/84 130/77 O2 Sat by Pulse 95 96 97 Oximetry 02/11/19 02/11/19 02/11/19 06:45 07:00 07:15 Temperature Pulse Rate 91 H 87 90 Respiratory 21 22 22 Rate Blood Pressure 125/81 121/75 134/79 O2 Sat by Pulse 96 95 96 Oximetry 02/11/19 02/11/19 02/11/19 07:30 07:45 08:00 Temperature 99.5 F Pulse Rate 98 H 81 85 Respiratory 28 H 20 21 Rate Blood Pressure 132/85 135/77 121/81 O2 Sat by Pulse 97 96 95 Oximetry 02/11/19 02/11/19 02/11/19 08:15 08:30 08:35 Temperature Pulse Rate 93 H 91 H Respiratory 31 H 25 H Rate Blood Pressure 110/80 127/85 O2 Sat by Pulse 97 95 97 Oximetry 02/11/19 02/11/19 02/11/19 08:45 09:01 09:15 Temperature Pulse Rate 89 89 93 H Respiratory 31 H 33 H 28 H Rate Blood Pressure 127/85 134/84 128/75 O2 Sat by Pulse 95 96 97 Oximetry 02/11/19 02/11/19 02/11/19 09:30 09:45 10:00 Temperature Pulse Rate 88 90 101 H Respiratory 33 H 31 H 28 H Rate Blood Pressure 135/78 129/79 141/95 O2 Sat by Pulse 96 97 95 Oximetry 02/11/19 02/11/19 02/11/19 10:15 10:30 10:45 Temperature Pulse Rate 92 H 89 93 H Respiratory 32 H 31 H 33 H Rate Blood Pressure 141/95 126/78 133/79 O2 Sat by Pulse 97 96 96 Oximetry 02/11/19 02/11/19 02/11/19 11:00 11:15 11:30 Temperature Pulse Rate 87 94 H 94 H Respiratory 28 H 30 H 32 H Rate Blood Pressure 132/80 132/80 133/78 O2 Sat by Pulse 97 95 96 Oximetry General appearance: Present: no acute distress, obese - EENT Eyes: PERRL, EOM intact ENT: hearing intact - Neck Neck: supple, other (large neck) - Respiratory Respiratory effort: normal Respiratory: negative: diminished - Cardiovascular Rhythm: regular Heart Sounds: Present: S1 & S2 - Gastrointestinal General gastrointestinal: Present: soft, non-tender, non-distended, normal bowel sounds Rectal Exam: deferred - Genitourinary Male genitourinary: deferred - Labs CBC & Chem 7: 02/11/19 04:55 02/11/19 04:55 Labs: Abnormal lab results 02/11/19 02/11/19 Range/Units 04:55 04:55 Hgb 11.4 L (11.8-15.2) gm/dl Hct 35.0 L (35.5-45.6) % RDW 15.4 H (13.2-15.2) % Plt Count 52 L (140-440) K/mm3 Sodium 147 H (137-145) mmol/L Chloride 113.5 H (98-107) mmol/L Carbon Dioxide 16 L (22-30) mmol/L BUN 54 H (9-20) mg/dL Creatinine 2.1 H (0.8-1.5) mg/dL Glucose 114 H (75-100) mg/dL Calcium 7.2 L (8.4-10.2) mg/dL Medications & Allergies - Medications Allergies/Adverse Reactions: Allergies cefepime Allergy (Verified 02/10/19 11:24) Rash Home Medications: Home Medications Medication Instructions Recorded Confirmed Last Taken Type Aspirin [Aspirin BABY CHEW TAB] 81 mg PO QDAY 02/09/19 02/09/19 02/09/19 History Desvenlafaxine Succinate 100 mg PO QDAY 02/09/19 02/09/19 02/09/19 History [Desvenlafaxine Succinate ER] Doxazosin Mesylate [Cardura] 2.5 mg PO DAILY 02/09/19 02/09/19 02/09/19 History Finasteride [Proscar] 5 mg PO QHS 02/09/19 02/09/19 02/09/19 History Propranolol HCl 20 mg PO QDAY 02/09/19 02/09/19 02/09/19 History Trazodone HCl 150 mg PO QHS 02/09/19 02/09/19 02/09/19 History Active Medications: Generic Name Dose Route Start Last Admin Trade Name Freq PRN Reason Stop Dose Admin Acetaminophen 650 mg 02/09/19 14:29 02/10/19 04:23 Tylenol PO 650 mg Q4H PRN Administration Pain MILD(1-3)/Fever >100.5/KAMARA Aspirin 81 mg 02/10/19 10:00 02/11/19 10:19 Baby Aspirin PO 81 mg QDAY REY Administration Famotidine 20 mg 02/10/19 11:00 02/11/19 10:20 Pepcid IV 20 mg DAILY REY Administration Finasteride 5 mg 02/09/19 22:00 02/10/19 21:03 Proscar PO 5 mg QHS REY Administration Sodium Chloride 1,000 mls @ 125 mls/hr 02/09/19 15:00 02/11/19 04:51 Nacl 0.9% 1000 Ml IV 125 mls/hr DIRECT REY Administration Levofloxacin/Dextrose 500 mg in 100 mls @ 66.667 mls/hr 02/11/19 18:00 Levaquin 500mg/100ml IV Q48H REY Protocol Norepinephrine 8 mg/ Sodium 250 mls @ 3.75 mls/hr 02/10/19 11:00 02/11/19 11:36 Chloride IV 18 mcg/min TITR REY 33.75 mls/hr Titration Protocol 2 MCG/MIN Vasopressin 20 unit/ Sodium 101 mls @ 9.09 mls/hr 02/10/19 11:00 02/10/19 15:39 Chloride IV 0 units/min TITR REY 0 mls/hr Titration Protocol 0.03 UNITS/MIN Aztreonam 1 gm in 50 mls @ 50 mls/hr 02/10/19 15:00 02/11/19 10:20 Azactam/Ns 1 Gm/50 Ml IV 50 mls/hr Q12HR REY Administration Protocol Sodium Chloride 1,000 mls @ 999 mls/hr 10/23/19 12:00 Nacl 0.9% 1000 Ml IV 02/11/19 13:59 Q1H REY As Directed Sodium Chloride 1,000 mls @ 999 mls/hr 02/11/19 14:00 Nacl 0.9% 1000 Ml IV 02/11/19 15:59 Q1H REY As Directed Morphine Sulfate 2 mg 02/10/19 15:48 02/10/19 19:26 Morphine IV 2 mg Q4H PRN Administration Pain, Moderate (4-6) Ondansetron HCl 4 mg 02/09/19 14:29 02/09/19 20:27 Zofran IV 4 mg Q8H PRN Administration Nausea And Vomiting Sodium Chloride 10 ml 02/09/19 22:00 02/11/19 10:21 Sodium Chloride Flush Syringe 10 Ml IV 10 ml BID REY Administration Sodium Chloride 10 ml 02/09/19 14:29 Sodium Chloride Flush Syringe 10 Ml IV PRN PRN LINE FLUSH Trazodone HCl 150 mg 02/09/19 22:00 02/10/19 21:03 Desyrel PO 150 mg QHS REY Administration
[2019-02-11] MEDS ORDERED: ALBUTEROL 2.5 MG/3 ML NEBU IH ONE (13:01)
[2019-02-11] MEDS ORDERED: IPRATROPIUM 0.02% NEBU 2.5 ML IH ONE (13:02)
--- NOTE | 2019-02-11 13:43 | XRay Report ---
CHEST 1 VIEW INDICATION: Shortness of breath and wheezing. COMPARISON: 02/09/2019 FINDINGS: Support devices: None. Heart: Borderline heart size. Lungs/Pleura: Mild central pulmonary venous congestion is suspected. The lungs are generally clear. N o consolidation, pleural effusion or pneumothorax is identified. Additional findings: None. IMPRESSION: Borderline heart size. Mild pulmonary venous congestion. Signer Name: Yinka De Los Santos Jr, MD Signed: 02/11/2019 1:38 PM Workstation Name: [id number]
--- NOTE | 2019-02-11 15:37 | Progress Note ---
Assessment and Plan Cultures: 02/09/2019 Blood culture: GNR in both sets 02/09/2019 urine culture: GNR A/P: 68-year-old male with hypertension, obesity, hairy cell leukemia currently believed to be in remission, admitted with: 1) Septic shock, GNR bacteremia, UTI, left hydronephrosis: s/p L nephrostomy by IR on 02/09/2019. Urology also following. 2) Acute renal failure: renally dose abx. 3) Rash? from Zosyn given h/o Cefepime allergy. 4) Acute thrombocytopenia: ?sepsis related v/s h/o hairy cell leukemia. Monitor. Recs: - given improvement in renal function, increase IV Aztreonam dose to 2 gm q12 hrs - continue levofloxacin renally adjusted till culture results available - avoid cefepime and zosyn due to rash Mel Tuttle MD, FACP [facility] ([facility]) C: [phone] O: [phone] F: [phone] Subjective Date of service: 02/11/19 Principal diagnosis: Left hydronephrosis Interval history: No fever. Patient states he is feeling better. Also weaned off pressors. Making urine. Objective - Exam Narrative Exam: Physical Exam: Constitutional: Alert, cooperative. No acute distress Head, Ears, Nose: Normocephalic, atraumatic. External ears, nose normal Eyes: Conjunctivae/corneas clear. No icterus. No ptosis. Neck: Supple, no meningeal signs Oral: no thrush Cardiovascular: S1, S2 normal. Respiratory: Good air entry, clear to auscultation bilaterally GI: Soft, non-tender; bowel sounds normal. No peritoneal signs. Left nephrostomy tube +, Agarwal + Musculoskeletal: No pedal edema, no cyanosis. Skin: erythematous rash, blanchable on upper trunk and face. no abscess Hem/Lymphatic: No palpable cervical or supraclavicular nodes. No lymphangitis Psych: Mood ok. Affect normal Neurological: Awake, alert, oriented. No gross abnormality - Constitutional Vitals: Vital Signs Temp Pulse Resp BP Pulse Ox 97.9 F 91 H 29 H 117/61 96 02/11/19 12:00 02/11/19 15:15 02/11/19 15:15 02/11/19 15:15 02/11/19 15:18 Temperature -Last 24 Hours Temperature 97.9 F Temperature 99.5 F Temperature 97.7 F Temperature 98.5 F Temperature 97.7 F Temperature 97.7 F Temperature 97.7 F Temperature 98.7 F Temperature 98.7 F Temperature 98.8 F Temperature 99.1 F Temperature 98.6 F - Labs CBC & Chem 7: 02/11/19 04:55 02/11/19 04:55 Labs: Abnormal lab results 02/11/19 02/11/19 Range/Units 04:55 04:55 Hgb 11.4 L (11.8-15.2) gm/dl Hct 35.0 L (35.5-45.6) % RDW 15.4 H (13.2-15.2) % Plt Count 52 L (140-440) K/mm3 Sodium 147 H (137-145) mmol/L Chloride 113.5 H (98-107) mmol/L Carbon Dioxide 16 L (22-30) mmol/L BUN 54 H (9-20) mg/dL Creatinine 2.1 H (0.8-1.5) mg/dL Glucose 114 H (75-100) mg/dL Calcium 7.2 L (8.4-10.2) mg/dL
[2019-02-11] MEDS: ACETAMINOPHEN 325 MG TAB PO PRN (16:52)
--- NOTE | 2019-02-11 18:00 | Progress Note ---
Assessment and Plan 1. Acute kidney injury: Vasomotor KEVIN in the setting of septic shock. CT abdomen showed b/l nephrolithiasis. Renal US was negative for hydronephrosis. Continue IV fluids. Renal function is improving. Monitor renal function. Avoid nephrotoxic agents. Meds dosage based on GFR. 2. FEN: Metabolic acidosis, start on bicarbonate drip. Hypernatremia, monitor. Monitor lytes. 3. Bilateral nephrolithiasis: S/p bilateral ureteral stent. Followed by Urologist. S/p L perc nephrostomy tube, now dislodged. 4. Septic shock: On Levophed and Abx. 5. Respiratory distress: On BIPAP. Examination: General appearance: well-developed, well-nourished, appears stated age, obese, on BIPAP, tachypnea noted HEENT: ATNC, PERRL, hearing intact, vision intact Neck: neck supple, trachea midline Respiratory: Clear to Ascultation Heart: regular, S1S2, no murmur Gastrointestinal: normoactive bowel sounds, obese, not tender Integumentary: no rash, warm and dry Neurologic: no focal deficit, no asterixis, alert and oriented x3 Musculoskeletal: no edema Psychiatric: cooperative Subjective Date of service: 02/11/19 Principal diagnosis: Left hydronephrosis Interval history: Patient was seen and examined at the bedside. Doing better today. Objective - Vital Signs Vital signs: Vital Signs - 12hr 02/11/19 02/11/19 02/11/19 06:15 06:30 06:45 Temperature Pulse Rate 96 H 85 91 H Pulse Rate [ Bilateral] Respiratory 23 20 21 Rate Respiratory Rate [Bilateral ] Blood Pressure 130/84 130/77 125/81 O2 Sat by Pulse 96 97 96 Oximetry 02/11/19 02/11/19 02/11/19 07:00 07:15 07:30 Temperature Pulse Rate 87 90 98 H Pulse Rate [ Bilateral] Respiratory 22 22 28 H Rate Respiratory Rate [Bilateral ] Blood Pressure 121/75 134/79 132/85 O2 Sat by Pulse 95 96 97 Oximetry 02/11/19 02/11/19 02/11/19 07:45 08:00 08:15 Temperature 99.5 F Pulse Rate 81 90 93 H Pulse Rate [ Bilateral] Respiratory 20 21 31 H Rate Respiratory Rate [Bilateral ] Blood Pressure 135/77 121/81 110/80 O2 Sat by Pulse 96 95 97 Oximetry 02/11/19 02/11/19 02/11/19 08:30 08:35 08:45 Temperature Pulse Rate 91 H 89 Pulse Rate [ Bilateral] Respiratory 25 H 31 H Rate Respiratory Rate [Bilateral ] Blood Pressure 127/85 127/85 O2 Sat by Pulse 95 97 95 Oximetry 02/11/19 02/11/19 02/11/19 09:01 09:15 09:30 Temperature Pulse Rate 89 93 H 88 Pulse Rate [ Bilateral] Respiratory 33 H 28 H 33 H Rate Respiratory Rate [Bilateral ] Blood Pressure 134/84 128/75 135/78 O2 Sat by Pulse 96 97 96 Oximetry 02/11/19 02/11/19 02/11/19 09:45 10:00 10:15 Temperature Pulse Rate 90 101 H 92 H Pulse Rate [ Bilateral] Respiratory 31 H 28 H 32 H Rate Respiratory Rate [Bilateral ] Blood Pressure 129/79 141/95 141/95 O2 Sat by Pulse 97 95 97 Oximetry 02/11/19 02/11/19 02/11/19 10:30 10:45 11:00 Temperature Pulse Rate 89 93 H 87 Pulse Rate [ Bilateral] Respiratory 31 H 33 H 28 H Rate Respiratory Rate [Bilateral ] Blood Pressure 126/78 133/79 132/80 O2 Sat by Pulse 96 96 97 Oximetry 02/11/19 02/11/19 02/11/19 11:15 11:30 11:45 Temperature Pulse Rate 94 H 94 H 89 Pulse Rate [ Bilateral] Respiratory 30 H 32 H 31 H Rate Respiratory Rate [Bilateral ] Blood Pressure 132/80 133/78 125/74 O2 Sat by Pulse 95 96 97 Oximetry 02/11/19 02/11/19 02/11/19 12:00 12:01 12:15 Temperature 97.9 F Pulse Rate 84 88 89 Pulse Rate [ Bilateral] Respiratory 30 H 30 H Rate Respiratory Rate [Bilateral ] Blood Pressure 126/78 129/74 O2 Sat by Pulse 97 97 Oximetry 02/11/19 02/11/19 02/11/19 12:30 12:45 13:00 Temperature Pulse Rate 95 H 92 H 85 Pulse Rate [ Bilateral] Respiratory 30 H 31 H 25 H Rate Respiratory Rate [Bilateral ] Blood Pressure 132/74 124/85 132/89 O2 Sat by Pulse 96 96 97 Oximetry 02/11/19 02/11/19 02/11/19 13:14 13:15 13:30 Temperature Pulse Rate 90 99 H Pulse Rate [ 106 H Bilateral] Respiratory 33 H 32 H Rate Respiratory 20 Rate [Bilateral ] Blood Pressure 120/81 129/74 O2 Sat by Pulse 97 95 Oximetry 02/11/19 02/11/19 02/11/19 13:45 14:01 14:15 Temperature Pulse Rate 101 H 109 H 100 H Pulse Rate [ Bilateral] Respiratory 30 H 29 H 32 H Rate Respiratory Rate [Bilateral ] Blood Pressure 129/74 124/70 125/75 O2 Sat by Pulse 96 94 95 Oximetry 02/11/19 02/11/19 02/11/19 14:30 14:45 15:00 Temperature Pulse Rate 94 H 94 H 101 H Pulse Rate [ Bilateral] Respiratory 29 H 28 H 31 H Rate Respiratory Rate [Bilateral ] Blood Pressure 124/72 121/68 110/62 O2 Sat by Pulse 96 96 95 Oximetry 02/11/19 02/11/19 02/11/19 15:15 15:18 15:30 Temperature Pulse Rate 92 H 86 Pulse Rate [ Bilateral] Respiratory 27 H 23 Rate Respiratory Rate [Bilateral ] Blood Pressure 117/67 102/63 O2 Sat by Pulse 96 96 95 Oximetry 02/11/19 02/11/19 02/11/19 15:45 16:00 16:15 Temperature 100.0 F H Pulse Rate 82 84 81 Pulse Rate [ Bilateral] Respiratory 22 24 22 Rate Respiratory Rate [Bilateral ] Blood Pressure 101/60 101/63 107/62 O2 Sat by Pulse 95 95 95 Oximetry 02/11/19 02/11/19 02/11/19 16:30 16:45 17:00 Temperature Pulse Rate 89 83 85 Pulse Rate [ Bilateral] Respiratory 30 H 30 H 29 H Rate Respiratory Rate [Bilateral ] Blood Pressure 119/74 117/75 115/77 O2 Sat by Pulse 95 95 96 Oximetry 02/11/19 17:15 Temperature Pulse Rate 81 Pulse Rate [ Bilateral] Respiratory 32 H Rate Respiratory Rate [Bilateral ] Blood Pressure 117/76 O2 Sat by Pulse 97 Oximetry - Lab 02/11/19 04:55 02/11/19 04:55 Most recent lab results Calcium 7.2 mg/dL (8.4-10.2) L 02/11/19 04:55 Phosphorus 3.90 mg/dL (2.5-4.5) 02/11/19 04:55 Magnesium 1.80 mg/dL (1.7-2.3) 02/11/19 04:55 Urine Creatinine 350.2 mg/dL (0.1-20.0) H 02/09/19 15:20 Urine Sodium 46 mmol/L 02/09/19 15:20 Medications & Allergies - Medications Allergies/Adverse Reactions: Allergies cefepime Allergy (Verified 02/10/19 11:24) Rash Home Medications: Home Medications Medication Instructions Recorded Confirmed Last Taken Type Aspirin [Aspirin BABY CHEW TAB] 81 mg PO QDAY 02/09/19 02/09/19 02/09/19 History Desvenlafaxine Succinate 100 mg PO QDAY 02/09/19 02/09/19 02/09/19 History [Desvenlafaxine Succinate ER] Doxazosin Mesylate [Cardura] 2.5 mg PO DAILY 02/09/19 02/09/19 02/09/19 History Finasteride [Proscar] 5 mg PO QHS 02/09/19 02/09/19 02/09/19 History Propranolol HCl 20 mg PO QDAY 02/09/19 02/09/19 02/09/19 History Trazodone HCl 150 mg PO QHS 02/09/19 02/09/19 02/09/19 History Active Medications: Generic Name Dose Route Start Last Admin Trade Name Freq PRN Reason Stop Dose Admin Acetaminophen 650 mg 02/09/19 14:29 02/11/19 16:52 Tylenol PO 650 mg Q4H PRN Administration Pain MILD(1-3)/Fever >100.5/KAMARA Albuterol/Ipratropium 1 ampul 02/11/19 20:00 Duoneb *Not For Prn Use* IH TIDRT REY Aspirin 81 mg 02/10/19 10:00 02/11/19 10:19 Baby Aspirin PO 81 mg QDAY REY Administration Famotidine 20 mg 02/10/19 11:00 02/11/19 10:20 Pepcid IV 20 mg DAILY REY Administration Finasteride 5 mg 02/09/19 22:00 02/10/19 21:03 Proscar PO 5 mg QHS REY Administration Sodium Chloride 1,000 mls @ 125 mls/hr 02/09/19 15:00 02/11/19 17:21 Nacl 0.9% 1000 Ml IV 125 mls/hr DIRECT REY Administration Levofloxacin/Dextrose 500 mg in 100 mls @ 66.667 mls/hr 02/11/19 18:00 02/11/19 17:21 Levaquin 500mg/100ml IV 66.667 mls/hr Q48H REY Administration Protocol Norepinephrine 8 mg/ Sodium 250 mls @ 3.75 mls/hr 02/10/19 11:00 02/11/19 17:22 Chloride IV 10 mcg/min TITR REY 18.75 mls/hr Administration Protocol 2 MCG/MIN Vasopressin 20 unit/ Sodium 101 mls @ 9.09 mls/hr 02/10/19 11:00 02/10/19 15:39 Chloride IV 0 units/min TITR REY 0 mls/hr Titration Protocol 0.03 UNITS/MIN Aztreonam 2 gm in 100 mls @ 100 mls/hr 02/11/19 22:00 Azactam/Ns 2 Gm/100 Ml IV Q12HR [facility] Protocol Morphine Sulfate 2 mg 02/10/19 15:48 02/10/19 19:26 Morphine IV 2 mg Q4H PRN Administration Pain, Moderate (4-6) Ondansetron HCl 4 mg 02/09/19 14:29 02/09/19 20:27 Zofran IV 4 mg Q8H PRN Administration Nausea And Vomiting Sodium Chloride 10 ml 02/09/19 22:00 02/11/19 10:21 Sodium Chloride Flush Syringe 10 Ml IV 10 ml BID REY Administration Sodium Chloride 10 ml 02/09/19 14:29 Sodium Chloride Flush Syringe 10 Ml IV PRN PRN LINE FLUSH Trazodone HCl 150 mg 02/09/19 22:00 02/10/19 21:03 Desyrel PO 150 mg QHS REY Administration
[2019-02-11] MEDS: IPRATROPIUM/ALBUTEROL SULFATE 3 ML AMPUL.NEB IH SCH (20:11)
[2019-02-11] MEDS: traZODone 100 MG TAB PO SCH (21:14)
[2019-02-11] MEDS: FINASTERIDE 5 MG TAB PO SCH (21:15)
[2019-02-11] MEDS: SODIUM BICARBONATE 75 MEQ in /WATER, STERILE 1,000 SYR IV SCH (21:20)
[2019-02-11] MEDS ORDERED: AZTREONAM/NS 2 GM/100 ML 2 GM/100 ML VIAL IV SCH (22:00)
[2019-02-12] MEDS: NORepinephrine 8 MG in SODIUM CHLORIDE 0.9% 250ML 242 ML IV SCH (05:15)
[2019-02-12 06:14] LABS: Calcium 7.8 mg/dL (8.4-10.2)
--- NOTE | 2019-02-12 06:35 | Hem/Onc Progress Note ---
Assessment and Plan 1. Thrombocytopenia. This may be secondary to consumption/infection. The patient was on pressors. Supportive care for now. No bleeding at this time. 2. Renal impairment, being followed by Nephrology. 3. Nephrolithiasis, status post nephrostomy tube placement, which was dislodged. Urology followup for the ureteral stent. 4. Seen by ID team and Nephrology team. 5. Radiologically, there is no mention of splenomegaly. 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 We will follow the patient during inpatient stay. Follow the trend and he would need to be followed in the outpatient setting. pt received 3 platelets transfusions pt appears SOB - Patient Problems (1) Thrombocytopenia Current Visit: Yes Status: Acute Subjective Date of service: 02/12/19 Principal diagnosis: low platelets Interval history: s/p plt transfusion Objective - Exam Narrative Exam: Pain - none now General appearance - awake Performance status limited self care - on o2 Eyes - no icterus ENT - no thrush LNs cervical not palpable Neck - no LN Respiratory Normal Breath sounds - CTA anteriorly CVS S1 S2 + Extremities no calf tenderness General GI Soft Rectal deferred male - deferred Skin warm Musculoskeletal moves limbs neuro - awake - Constitutional Vitals: Last Vital Signs Temp 99.9 F H 02/12/19 04:00 Pulse 67 02/12/19 05:00 Resp 32 H 02/12/19 05:00 BP 117/59 02/12/19 05:00 Pulse Ox 97 02/12/19 05:00 - Labs Lab Results: Laboratory Results - last 24 hr 02/09/19 02/12/19 17:15 05:10 Sodium 148 H Potassium 3.8 Chloride 114.9 H Carbon Dioxide 21 L Anion Gap 16 BUN 46 H Creatinine 1.4 Estimated GFR 50 BUN/Creatinine Ratio 33 Glucose 150 H Calcium 7.8 L Blood Type A NEGATIVE Antibody Screen Negative Medications & Allergies - Medications Allergies/Adverse Reactions: Allergies cefepime Allergy (Verified 02/10/19 11:24) Rash Home Medications: Home Medications Medication Instructions Recorded Confirmed Last Taken Type Aspirin [Aspirin BABY CHEW TAB] 81 mg PO QDAY 02/09/19 02/09/19 02/09/19 History Desvenlafaxine Succinate 100 mg PO QDAY 02/09/19 02/09/19 02/09/19 History [Desvenlafaxine Succinate ER] Doxazosin Mesylate [Cardura] 2.5 mg PO DAILY 02/09/19 02/09/19 02/09/19 History Finasteride [Proscar] 5 mg PO QHS 02/09/19 02/09/19 02/09/19 History Propranolol HCl 20 mg PO QDAY 02/09/19 02/09/19 02/09/19 History Trazodone HCl 150 mg PO QHS 02/09/19 02/09/19 02/09/19 History Active Medications: Generic Name Dose Route Start Last Admin Trade Name Freq PRN Reason Stop Dose Admin Acetaminophen 650 mg 02/09/19 14:29 02/11/19 16:52 Tylenol PO 650 mg Q4H PRN Administration Pain MILD(1-3)/Fever >100.5/KAMARA Albuterol/Ipratropium 1 ampul 02/11/19 20:00 02/11/19 20:11 Duoneb *Not For Prn Use* IH 1 ampul TIDRT REY Administration Aspirin 81 mg 02/10/19 10:00 02/11/19 10:19 Baby Aspirin PO 81 mg QDAY REY Administration Famotidine 20 mg 02/10/19 11:00 02/11/19 10:20 Pepcid IV 20 mg DAILY REY Administration Finasteride 5 mg 02/09/19 22:00 02/11/19 21:15 Proscar PO 5 mg QHS REY Administration Levofloxacin/Dextrose 500 mg in 100 mls @ 66.667 mls/hr 02/11/19 18:00 02/11/19 17:21 Levaquin 500mg/100ml IV 66.667 mls/hr Q48H REY Administration Protocol Norepinephrine 8 mg/ Sodium 250 mls @ 3.75 mls/hr 02/10/19 11:00 02/12/19 05:15 Chloride IV 10 mcg/min TITR REY 18.75 mls/hr Administration Protocol 2 MCG/MIN Vasopressin 20 unit/ Sodium 101 mls @ 9.09 mls/hr 02/10/19 11:00 02/10/19 15:39 Chloride IV 0 units/min TITR REY 0 mls/hr Titration Protocol 0.03 UNITS/MIN Aztreonam 2 gm in 100 mls @ 100 mls/hr 02/11/19 22:00 02/11/19 21:24 Azactam/Ns 2 Gm/100 Ml IV 100 mls/hr Q12HR REY Administration Protocol Sodium Bicarbonate 75 meq/ 75 mls @ 75 mls/hr 02/11/19 19:00 02/11/19 21:20 Sterile Water IV 75 mls/hr DIRECT REY Administration Morphine Sulfate 2 mg 02/10/19 15:48 02/10/19 19:26 Morphine IV 2 mg Q4H PRN Administration Pain, Moderate (4-6) Ondansetron HCl 4 mg 02/09/19 14:29 02/09/19 20:27 Zofran IV 4 mg Q8H PRN Administration Nausea And Vomiting Sodium Chloride 10 ml 02/09/19 22:00 02/11/19 21:21 Sodium Chloride Flush Syringe 10 Ml IV 10 ml BID REY Administration Sodium Chloride 10 ml 02/09/19 14:29 Sodium Chloride Flush Syringe 10 Ml IV PRN PRN LINE FLUSH Trazodone HCl 150 mg 02/09/19 22:00 02/11/19 21:14 Desyrel PO 150 mg QHS REY Administration
[2019-02-12] MEDS: IPRATROPIUM/ALBUTEROL SULFATE 3 ML AMPUL.NEB IH SCH ×3 (08:10→19:59)
--- NOTE | 2019-02-12 08:49 | Progress Note ---
Assessment and Plan Assessment and plan: Sepsis due to complicated UTI Admitted to ICU Continue Levaquin ID Physician following Septic shock On Levophed drip KEVIN (acute kidney injury) due to ATN improving Cr 1.4 today IVF resuscitation therapy, Nephrology consulted, monitor uop q shift, urine electrolytes, Metabolic Acidosis due to KEVIN IVF resuscitation therapy, IV bicarbonate, supportive care. Complicated UTI On Levaquin, Aztreonam IV antibiotic therapy, urinalysis, CBC,CMP, Urinary obstruction 7MM Left UPJ obstructing stone with mild hydronephrosis, supportive care. IR consulted s/p left perc nephrostomy tube placement, Urology consulted. CHF (congestive heart failure) Cardiology consulted in ED, IV ionotropic support, continue current care, monitor daily weight, uop q shift, echo, Acute respiratory failure with hypoxia Supplemental oxygen, ABG, pulse oximetry, CT chest, NIPPV as clinically indicated, nebulizer therapy prn, chest x ray. Lactic acidosis due to sepsis Treat sepsis, serial lactic acid, IV bicarbonate, supportive care. DVT prophylaxis SCD to BLE while in bed, prophylactic heparin The high probability of a clinically significant, sudden or life threatening deterioration of the [3] system(s) required my full and direct attention, intervention and personal management. The aggregate critical care time was [32] minutes. This time is in addition to time spent performing reported procedures but includes the following: [] Data Review and interpretation [] Patient assessment and monitoring of vital signs [] Documentation [] Medication orders and management History Interval history: Generalized weakness Still has Shortness of breath Fever Hospitalist Physical - Physical exam Narrative exam: Gen: Not in acute distress, lying in bed, obese, ill looking HEENT: Normocephalic, atraumatic Neck: supple, no JVD Heart: S1 and S2 reg, no murmurs, rubs or gallop Lungs: Clear to auscultation, no rhonchi, no wheeze Abd: soft, non tender, non distended, normal BS, left nephrostomy tube Ext: No edema, no clubbing, no cyanosis Neuro: Awake, alert, oriented X 3, no focal neurological signs - Constitutional Vitals: Temp Pulse Resp BP Pulse Ox 100.0 F H 91 H 32 H 113/73 98 02/12/19 08:00 02/12/19 08:01 02/12/19 08:01 02/12/19 08:01 02/12/19 08:01 General appearance: Present: no acute distress, obese Results - Labs CBC & Chem 7: 02/11/19 04:55 02/12/19 05:10 Labs: Laboratory Last Values WBC 7.1 K/mm3 (4.5-11.0) 02/11/19 04:55 RBC 4.10 M/mm3 (3.65-5.03) 02/11/19 04:55 Hgb 11.4 gm/dl (11.8-15.2) L 02/11/19 04:55 Hct 35.0 % (35.5-45.6) L 02/11/19 04:55 MCV 85 fl (84-94) 02/11/19 04:55 MCH 28 pg (28-32) 02/11/19 04:55 MCHC 33 % (32-34) 02/11/19 04:55 RDW 15.4 % (13.2-15.2) H 02/11/19 04:55 Plt Count 52 K/mm3 (140-440) L 02/11/19 04:55 Eos % (Auto) [employer] Walker 02/10/19 04:30 Add Manual Diff Complete 02/10/19 04:30 Total Counted 100 02/10/19 04:30 Seg Neutrophils % Circuit Walker 02/09/19 Unknown Seg Neuts % (Manual) 75.0 % (40.0-70.0) H 02/10/19 04:30 Band Neutrophils % 13.0 % 02/10/19 04:30 Lymphocytes % (Manual) 5.0 % (13.4-35.0) L 02/10/19 04:30 Reactive Lymphs % (Man) 0 % 02/10/19 04:30 Monocytes % (Manual) 7.0 % (0.0-7.3) 02/10/19 04:30 Eosinophils % (Manual) 0 % (0.0-4.3) 02/10/19 04:30 Basophils % (Manual) 0 % (0.0-1.8) 02/10/19 04:30 Metamyelocytes % 0 % 02/10/19 04:30 Myelocytes % 0 % 02/10/19 04:30 Promyelocytes % 0 % 02/10/19 04:30 Blast Cells % 0 % 02/10/19 04:30 Nucleated RBC % Not Reportable 02/10/19 04:30 Seg Neutrophils # Man 5.6 K/mm3 (1.8-7.7) 02/10/19 04:30 Band Neutrophils # 1.0 K/mm3 02/10/19 04:30 Lymphocytes # (Manual) 0.4 K/mm3 (1.2-5.4) L 02/10/19 04:30 Abs React Lymphs (Man) 0.0 K/mm3 02/10/19 04:30 Monocytes # (Manual) 0.5 K/mm3 (0.0-0.8) 02/10/19 04:30 Eosinophils # (Manual) 0.0 K/mm3 (0.0-0.4) 02/10/19 04:30 Basophils # (Manual) 0.0 K/mm3 (0.0-0.1) 02/10/19 04:30 Metamyelocytes # 0.0 K/mm3 02/10/19 04:30 Myelocytes # 0.0 K/mm3 02/10/19 04:30 Promyelocytes # 0.0 K/mm3 02/10/19 04:30 Blast Cells # 0.0 K/mm3 02/10/19 04:30 WBC Morphology Not Reportable 02/10/19 04:30 Hypersegmented Neuts Not Reportable 02/10/19 04:30 Hyposegmented Neuts Not Reportable 02/10/19 04:30 Hypogranular Neuts Not Reportable 02/10/19 04:30 Smudge Cells Not Reportable 02/10/19 04:30 Toxic Granulation Not Reportable 02/10/19 04:30 Toxic Vacuolation Not Reportable 02/10/19 04:30 Dohle Bodies Not Reportable 02/10/19 04:30 Pelger-Huet Anomaly Not Reportable 02/10/19 04:30 Jagdish Rods Not Reportable 02/10/19 04:30 Platelet Estimate Appears decreased 02/10/19 04:30 Clumped Platelets Not Reportable 02/10/19 04:30 Plt Clumps, EDTA Not Reportable 02/10/19 04:30 Large Platelets 1+ 02/10/19 04:30 Giant Platelets Not Reportable 02/10/19 04:30 Platelet Satelliting Not Reportable 02/10/19 04:30 Plt Morphology Comment Not Reportable 02/10/19 04:30 RBC Morphology Normal 02/10/19 04:30 Dimorphic RBCs Not Reportable 02/10/19 04:30 Polychromasia Not Reportable 02/10/19 04:30 Hypochromasia Not Reportable 02/10/19 04:30 Poikilocytosis Not Reportable 02/10/19 04:30 Anisocytosis Not Reportable 02/10/19 04:30 Microcytosis Not Reportable 02/10/19 04:30 Macrocytosis Not Reportable 02/10/19 04:30 Spherocytes Not Reportable 02/10/19 04:30 Pappenheimer Bodies Not Reportable 02/10/19 04:30 Sickle Cells Not Reportable 02/10/19 04:30 Target Cells Not Reportable 02/10/19 04:30 Tear Drop Cells Not Reportable 02/10/19 04:30 Ovalocytes Not Reportable 02/10/19 04:30 Helmet Cells Not Reportable 02/10/19 04:30 Pay[place]-Larned Bodies Not Reportable 02/10/19 04:30 [place] Rings Not Reportable 02/10/19 04:30 [place] Cells Not Reportable 02/10/19 04:30 Bite Cells Not Reportable 02/10/19 04:30 Crenated Cell Not Reportable 02/10/19 04:30 Elliptocytes Not Reportable 02/10/19 04:30 Acanthocytes (Spur) Not Reportable 02/10/19 04:30 Rouleaux Not Reportable 02/10/19 04:30 Hemoglobin C Crystals Not Reportable 02/10/19 04:30 Schistocytes Not Reportable 02/10/19 04:30 Malaria parasites Not Reportable 02/10/19 04:30 Arnie Bodies Not Reportable 02/10/19 04:30 Hem Pathologist Commnt No 02/10/19 04:30 PT 15.8 Sec. (12.2-14.9) H 02/09/19 Unknown INR 1.29 (0.87-1.13) H 02/09/19 Unknown POC ABG pH 7.356 (7.35-7.45) 02/09/19 17:29 POC ABG pCO2 37.1 (35-45) 02/09/19 17:29 POC ABG pO2 97 (80-105) 02/09/19 17:29 POC ABG HCO3 20.8 (22-26 mml/L) 02/09/19 17:29 POC ABG Total CO2 22 (23-27mmol/L) 02/09/19 17:29 POC ABG O2 Sat 97 02/09/19 17:29 POC ABG Base Excess -5 ((-2) - (+3)mmol/L) 02/09/19 17:29 VBG pH 7.379 (7.320-7.420) 02/09/19 11:45 FiO2 28 % 02/09/19 17:29 Sodium 148 mmol/L (137-145) H 02/12/19 05:10 Potassium 3.8 mmol/L (3.6-5.0) 02/12/19 05:10 Chloride 114.9 mmol/L (98-107) H 02/12/19 05:10 Carbon Dioxide 21 mmol/L (22-30) L 02/12/19 05:10 Anion Gap 16 mmol/L 02/12/19 05:10 BUN 46 mg/dL (9-20) H 02/12/19 05:10 Creatinine 1.4 mg/dL (0.8-1.5) 02/12/19 05:10 Estimated GFR 50 ml/min 02/12/19 05:10 BUN/Creatinine Ratio 33 % 02/12/19 05:10 Glucose 150 mg/dL (75-100) H 02/12/19 05:10 POC Glucose 146 (70-105) H 02/11/19 12:05 Lactic Acid 2.50 mmol/L (0.7-2.0) H* 02/10/19 08:44 Calcium 7.8 mg/dL (8.4-10.2) L 02/12/19 05:10 Phosphorus 3.90 mg/dL (2.5-4.5) 02/11/19 04:55 Magnesium 1.80 mg/dL (1.7-2.3) 02/11/19 04:55 Total Bilirubin 1.40 mg/dL (0.1-1.2) H 02/10/19 04:30 AST 31 units/L (5-40) 02/10/19 04:30 ALT 17 units/L (7-56) 02/10/19 04:30 Alkaline Phosphatase 67 units/L (35-129) 02/10/19 04:30 Troponin T 0.017 ng/mL (0.00-0.029) 02/09/19 Unknown NT-Pro-B Natriuret Pep 6998 pg/mL (0-900) H 02/09/19 Unknown Total Protein 5.2 g/dL (6.3-8.2) L 02/10/19 04:30 Albumin 2.3 g/dL (3.9-5) L 02/10/19 04:30 Albumin/Globulin Ratio 0.8 % 02/10/19 04:30 Urine Color Madeline (Yellow) 02/09/19 07:28 Urine Turbidity Cloudy (Clear) 02/09/19 07:28 Urine pH 5.0 (5.0-7.0) 02/09/19 07:28 Ur Specific [place] 1.019 (1.003-1.030) 02/09/19 07:28 Urine Protein 100 mg/dl mg/dL (Negative) 02/09/19 07:28 Urine Glucose (UA) Neg mg/dL (Negative) 02/09/19 07:28 Urine Ketones Neg mg/dL (Negative) 02/09/19 07:28 Urine Blood Lg (Negative) 02/09/19 07:28 Urine Nitrite Neg (Negative) 02/09/19 07:28 Urine Bilirubin Neg (Negative) 02/09/19 07:28 Urine Urobilinogen 4.0 mg/dL (<2.0) 02/09/19 07:28 Ur Leukocyte Esterase Mod (Negative) 02/09/19 07:28 Urine WBC (Auto) 35.0 /HPF (0.0-6.0) H 02/09/19 07:28 Urine RBC (Auto) > 182.0 /HPF (0.0-6.0) 02/09/19 07:28 U Epithel Cells (Auto) 1.0 /HPF (0-13.0) 02/09/19 07:28 Urine Bacteria (Auto) 1+ /HPF (Negative) 02/09/19 07:28 Urine Creatinine 350.2 mg/dL (0.1-20.0) H 02/09/19 15:20 Urine Sodium 46 mmol/L 02/09/19 15:20 Blood Type A NEGATIVE 02/09/19 17:15 Antibody Screen Negative 02/09/19 17:15 Active Medications - Current Medications Current Medications: Generic Name Dose Route Start Last Admin Trade Name Freq PRN Reason Stop Dose Admin Acetaminophen 650 mg 02/09/19 14:29 02/11/19 16:52 Tylenol PO 650 mg Q4H PRN Administration Pain MILD(1-3)/Fever >100.5/KAMARA Albuterol/Ipratropium 1 ampul 02/11/19 20:00 02/12/19 08:10 Duoneb *Not For Prn Use* IH 1 ampul TIDRT REY Administration Aspirin 81 mg 02/10/19 10:00 02/11/19 10:19 Baby Aspirin PO 81 mg QDAY REY Administration Famotidine 20 mg 02/10/19 11:00 02/11/19 10:20 Pepcid IV 20 mg DAILY REY Administration Finasteride 5 mg 02/09/19 22:00 02/11/19 21:15 Proscar PO 5 mg QHS REY Administration Levofloxacin/Dextrose 500 mg in 100 mls @ 66.667 mls/hr 02/11/19 18:00 02/11/19 17:21 Levaquin 500mg/100ml IV 66.667 mls/hr Q48H REY Administration Protocol Norepinephrine 8 mg/ Sodium 250 mls @ 3.75 mls/hr 02/10/19 11:00 02/12/19 05:15 Chloride IV 10 mcg/min TITR ERY 18.75 mls/hr Administration Protocol 2 MCG/MIN Vasopressin 20 unit/ Sodium 101 mls @ 9.09 mls/hr 02/10/19 11:00 02/10/19 15:39 Chloride IV 0 units/min TITR REY 0 mls/hr Titration Protocol 0.03 UNITS/MIN Aztreonam 2 gm in 100 mls @ 100 mls/hr 02/11/19 22:00 02/11/19 21:24 Azactam/Ns 2 Gm/100 Ml IV 100 mls/hr Q12HR REY Administration Protocol Sodium Bicarbonate 75 meq/ 75 mls @ 75 mls/hr 02/11/19 19:00 02/11/19 21:20 Sterile Water IV 75 mls/hr DIRECT REY Administration Morphine Sulfate 2 mg 02/10/19 15:48 02/10/19 19:26 Morphine IV 2 mg Q4H PRN Administration Pain, Moderate (4-6) Ondansetron HCl 4 mg 02/09/19 14:29 02/09/19 20:27 Zofran IV 4 mg Q8H PRN Administration Nausea And Vomiting Sodium Chloride 10 ml 02/09/19 22:00 02/11/19 21:21 Sodium Chloride Flush Syringe 10 Ml IV 10 ml BID REY Administration Sodium Chloride 10 ml 02/09/19 14:29 Sodium Chloride Flush Syringe 10 Ml IV PRN PRN LINE FLUSH Trazodone HCl 150 mg 02/09/19 22:00 02/11/19 21:14 Desyrel PO 150 mg QHS REY Administration
--- NOTE | 2019-02-12 09:17 | Progress Note ---
Assessment and Plan Patient clinically improving. Will remove nephrostomy tube in approximately 2 weeks to allow tract to tamponade. Subjective Date of service: 02/12/19 Principal diagnosis: low platelets Interval history: Patient status post placement of nephrostomy tube which was dislodged in the ICU, status post placement of ureteral stent. Patient with what appears to be urosepsis. Objective - Constitutional Vitals: Vital Signs - 12hr 02/11/19 02/11/19 02/11/19 21:30 22:00 22:30 Temperature 99.8 F H Pulse Rate 74 73 74 Pulse Rate [ Bilateral] Respiratory 31 H 23 30 H Rate Respiratory Rate [Bilateral ] Blood Pressure 114/62 108/57 108/60 O2 Sat by Pulse 98 95 96 Oximetry 02/11/19 02/11/19 02/11/19 23:00 23:26 23:27 Temperature 99.8 F H Pulse Rate 69 85 73 Pulse Rate [ Bilateral] Respiratory 28 H 28 H Rate Respiratory Rate [Bilateral ] Blood Pressure 114/60 102/63 O2 Sat by Pulse 96 96 Oximetry 02/11/19 02/11/19 02/12/19 23:30 23:38 00:00 Temperature 100.4 F H Pulse Rate 69 70 75 Pulse Rate [ Bilateral] Respiratory 23 25 H 27 H Rate Respiratory Rate [Bilateral ] Blood Pressure 104/58 104/58 106/61 O2 Sat by Pulse 96 96 97 Oximetry 02/12/19 02/12/19 02/12/19 00:30 01:00 01:30 Temperature Pulse Rate 78 65 64 Pulse Rate [ Bilateral] Respiratory 25 H 22 23 Rate Respiratory Rate [Bilateral ] Blood Pressure 104/62 105/60 107/65 O2 Sat by Pulse 97 97 96 Oximetry 02/12/19 02/12/19 02/12/19 02:00 02:30 03:00 Temperature Pulse Rate 62 69 70 Pulse Rate [ Bilateral] Respiratory 21 18 32 H Rate Respiratory Rate [Bilateral ] Blood Pressure 110/65 98/73 120/76 O2 Sat by Pulse 97 97 96 Oximetry 02/12/19 02/12/19 02/12/19 03:30 04:00 04:22 Temperature 99.9 F H Pulse Rate 69 71 69 Pulse Rate [ Bilateral] Respiratory 22 32 H 24 Rate Respiratory Rate [Bilateral ] Blood Pressure 112/73 121/64 106/65 O2 Sat by Pulse 97 97 95 Oximetry 02/12/19 02/12/19 02/12/19 04:30 05:00 05:30 Temperature Pulse Rate 71 67 74 Pulse Rate [ Bilateral] Respiratory 38 H 32 H 30 H Rate Respiratory Rate [Bilateral ] Blood Pressure 114/67 117/59 115/80 O2 Sat by Pulse 97 97 97 Oximetry 02/12/19 02/12/19 02/12/19 06:00 06:31 07:01 Temperature Pulse Rate 70 91 H 76 Pulse Rate [ Bilateral] Respiratory 34 H 25 H 31 H Rate Respiratory Rate [Bilateral ] Blood Pressure 112/75 108/69 114/74 O2 Sat by Pulse 98 97 98 Oximetry 02/12/19 02/12/19 02/12/19 07:30 08:00 08:01 Temperature 100.0 F H Pulse Rate 76 91 H Pulse Rate [ 89 Bilateral] Respiratory 19 32 H Rate Respiratory 35 H Rate [Bilateral ] Blood Pressure 133/65 113/73 O2 Sat by Pulse 97 96 98 Oximetry 02/12/19 08:58 Temperature Pulse Rate 73 Pulse Rate [ Bilateral] Respiratory 30 H Rate Respiratory Rate [Bilateral ] Blood Pressure 115/59 O2 Sat by Pulse 94 Oximetry General appearance: Present: no acute distress - EENT Eyes: EOM intact ENT: hearing intact - Neck Neck: supple, normal ROM - Respiratory Respiratory effort: normal (breathing treatment at time of examination) - Breasts Breasts: deferred Extremities: no ischemia - Gastrointestinal General gastrointestinal: Present: deferred - Genitourinary Male genitourinary: deferred - Psychiatric Psychiatric: cooperative - Labs CBC & Chem 7: 02/11/19 04:55 02/12/19 05:10 Labs: Abnormal lab results 02/11/19 02/12/19 Range/Units 12:05 05:10 Sodium 148 H (137-145) mmol/L Chloride 114.9 H (98-107) mmol/L Carbon Dioxide 21 L (22-30) mmol/L BUN 46 H (9-20) mg/dL Glucose 150 H (75-100) mg/dL POC Glucose 146 H (70-105) Calcium 7.8 L (8.4-10.2) mg/dL Medications & Allergies - Medications Allergies/Adverse Reactions: Allergies cefepime Allergy (Verified 02/10/19 11:24) Rash Home Medications: Home Medications Medication Instructions Recorded Confirmed Last Taken Type Aspirin [Aspirin BABY CHEW TAB] 81 mg PO QDAY 02/09/19 02/09/19 02/09/19 History Desvenlafaxine Succinate 100 mg PO QDAY 02/09/19 02/09/19 02/09/19 History [Desvenlafaxine Succinate ER] Doxazosin Mesylate [Cardura] 2.5 mg PO DAILY 02/09/19 02/09/19 02/09/19 History Finasteride [Proscar] 5 mg PO QHS 02/09/19 02/09/19 02/09/19 History Propranolol HCl 20 mg PO QDAY 02/09/19 02/09/19 02/09/19 History Trazodone HCl 150 mg PO QHS 02/09/19 02/09/19 02/09/19 History Docusate Sodium [Colace] 100 mg PO QDAY 02/12/19 02/12/19 02/07/19 09:00 History Active Medications: Generic Name Dose Route Start Last Admin Trade Name Freq PRN Reason Stop Dose Admin Acetaminophen 650 mg 02/09/19 14:29 02/11/19 16:52 Tylenol PO 650 mg Q4H PRN Administration Pain MILD(1-3)/Fever >100.5/KAMARA Albuterol/Ipratropium 1 ampul 02/11/19 20:00 02/12/19 08:10 Duoneb *Not For Prn Use* IH 1 ampul TIDRT REY Administration Aspirin 81 mg 02/10/19 10:00 02/11/19 10:19 Baby Aspirin PO 81 mg QDAY REY Administration Famotidine 20 mg 02/10/19 11:00 02/11/19 10:20 Pepcid IV 20 mg DAILY REY Administration Finasteride 5 mg 02/09/19 22:00 02/11/19 21:15 Proscar PO 5 mg QHS REY Administration Levofloxacin/Dextrose 500 mg in 100 mls @ 66.667 mls/hr 02/11/19 18:00 02/11/19 17:21 Levaquin 500mg/100ml IV 66.667 mls/hr Q48H REY Administration Protocol Norepinephrine 8 mg/ Sodium 250 mls @ 3.75 mls/hr 02/10/19 11:00 02/12/19 05:15 Chloride IV 10 mcg/min TITR REY 18.75 mls/hr Administration Protocol 2 MCG/MIN Vasopressin 20 unit/ Sodium 101 mls @ 9.09 mls/hr 02/10/19 11:00 02/10/19 15:39 Chloride IV 0 units/min TITR REY 0 mls/hr Titration Protocol 0.03 UNITS/MIN Aztreonam 2 gm in 100 mls @ 100 mls/hr 02/11/19 22:00 02/11/19 21:24 Azactam/Ns 2 Gm/100 Ml IV 100 mls/hr Q12HR REY Administration Protocol Sodium Bicarbonate 75 meq/ 75 mls @ 75 mls/hr 02/11/19 19:00 02/11/19 21:20 Sterile Water IV 75 mls/hr DIRECT REY Administration Morphine Sulfate 2 mg 02/10/19 15:48 02/10/19 19:26 Morphine IV 2 mg Q4H PRN Administration Pain, Moderate (4-6) Ondansetron HCl 4 mg 02/09/19 14:29 02/09/19 20:27 Zofran IV 4 mg Q8H PRN Administration Nausea And Vomiting Sodium Chloride 10 ml 02/09/19 22:00 02/11/19 21:21 Sodium Chloride Flush Syringe 10 Ml IV 10 ml BID REY Administration Sodium Chloride 10 ml 02/09/19 14:29 Sodium Chloride Flush Syringe 10 Ml IV PRN PRN LINE FLUSH Trazodone HCl 150 mg 02/09/19 22:00 02/11/19 21:14 Desyrel PO 150 mg QHS REY Administration
--- NOTE | 2019-02-12 09:36 | Progress Note ---
Assessment and Plan 1. Acute kidney injury: Vasomotor KEVIN in the setting of septic shock. CT abdomen showed b/l nephrolithiasis. Renal US was negative for hydronephrosis. Renal function is improving. Monitor renal function. Avoid nephrotoxic agents. Meds dosage based on GFR. 2. FEN: Metabolic acidosis, improving. Hypernatremia, monitor. Monitor lytes. 3. Bilateral nephrolithiasis: S/p bilateral ureteral stent. S/p L perc nephrostomy tube, now dislodged. 4. Septic shock: On Levophed and Abx. 5. Respiratory distress: On BIPAP. Will stop IV fluids. Examination: General appearance: well-developed, well-nourished, appears stated age, obese, on BIPAP, tachypnea noted HEENT: ATNC, PERRL, hearing intact, vision intact Neck: neck supple, trachea midline Respiratory: Clear to Ascultation, decreased breath sounds Heart: regular, S1S2, no murmur Gastrointestinal: normoactive bowel sounds, obese, not tender Integumentary: no rash, warm and dry Neurologic: no focal deficit, no asterixis, alert Musculoskeletal: no edema Psychiatric: cooperative Subjective Date of service: 02/12/19 Principal diagnosis: low platelets Interval history: Patient was seen and examined at the bedside. Remain on BIPAP. Objective - Vital Signs Vital signs: Vital Signs - 12hr 02/11/19 02/11/19 02/11/19 22:00 22:30 23:00 Temperature 99.8 F H 99.8 F H Pulse Rate 73 74 69 Pulse Rate [ Bilateral] Respiratory 23 30 H 28 H Rate Respiratory Rate [Bilateral ] Blood Pressure 108/57 108/60 114/60 O2 Sat by Pulse 95 96 96 Oximetry 02/11/19 02/11/19 02/11/19 23:26 23:27 23:30 Temperature Pulse Rate 85 73 69 Pulse Rate [ Bilateral] Respiratory 28 H 23 Rate Respiratory Rate [Bilateral ] Blood Pressure 102/63 104/58 O2 Sat by Pulse 96 96 Oximetry 02/11/19 02/12/19 02/12/19 23:38 00:00 00:30 Temperature 100.4 F H Pulse Rate 70 75 78 Pulse Rate [ Bilateral] Respiratory 25 H 27 H 25 H Rate Respiratory Rate [Bilateral ] Blood Pressure 104/58 106/61 104/62 O2 Sat by Pulse 96 97 97 Oximetry 02/12/19 02/12/19 02/12/19 01:00 01:30 02:00 Temperature Pulse Rate 65 64 62 Pulse Rate [ Bilateral] Respiratory 22 23 21 Rate Respiratory Rate [Bilateral ] Blood Pressure 105/60 107/65 110/65 O2 Sat by Pulse 97 96 97 Oximetry 02/12/19 02/12/19 02/12/19 02:30 03:00 03:30 Temperature Pulse Rate 69 70 69 Pulse Rate [ Bilateral] Respiratory 18 32 H 22 Rate Respiratory Rate [Bilateral ] Blood Pressure 98/73 120/76 112/73 O2 Sat by Pulse 97 96 97 Oximetry 02/12/19 02/12/19 02/12/19 04:00 04:22 04:30 Temperature 99.9 F H Pulse Rate 71 69 71 Pulse Rate [ Bilateral] Respiratory 32 H 24 38 H Rate Respiratory Rate [Bilateral ] Blood Pressure 121/64 106/65 114/67 O2 Sat by Pulse 97 95 97 Oximetry 02/12/19 02/12/19 02/12/19 05:00 05:30 06:00 Temperature Pulse Rate 67 74 70 Pulse Rate [ Bilateral] Respiratory 32 H 30 H 34 H Rate Respiratory Rate [Bilateral ] Blood Pressure 117/59 115/80 112/75 O2 Sat by Pulse 97 97 98 Oximetry 02/12/19 02/12/19 02/12/19 06:31 07:01 07:30 Temperature Pulse Rate 91 H 76 76 Pulse Rate [ Bilateral] Respiratory 25 H 31 H 19 Rate Respiratory Rate [Bilateral ] Blood Pressure 108/69 114/74 133/65 O2 Sat by Pulse 97 98 97 Oximetry 02/12/19 02/12/19 02/12/19 08:00 08:01 08:58 Temperature 100.0 F H Pulse Rate 91 H 73 Pulse Rate [ 89 Bilateral] Respiratory 32 H 30 H Rate Respiratory 35 H Rate [Bilateral ] Blood Pressure 113/73 115/59 O2 Sat by Pulse 96 98 94 Oximetry - Lab 02/11/19 04:55 02/12/19 05:10 Most recent lab results Calcium 7.8 mg/dL (8.4-10.2) L 02/12/19 05:10 Phosphorus 3.90 mg/dL (2.5-4.5) 02/11/19 04:55 Magnesium 1.80 mg/dL (1.7-2.3) 02/11/19 04:55 Urine Creatinine 350.2 mg/dL (0.1-20.0) H 02/09/19 15:20 Urine Sodium 46 mmol/L 02/09/19 15:20 Medications & Allergies - Medications Allergies/Adverse Reactions: Allergies cefepime Allergy (Verified 02/10/19 11:24) Rash Home Medications: Home Medications Medication Instructions Recorded Confirmed Last Taken Type Aspirin [Aspirin BABY CHEW TAB] 81 mg PO QDAY 02/09/19 02/09/19 02/09/19 History Desvenlafaxine Succinate 100 mg PO QDAY 02/09/19 02/09/19 02/09/19 History [Desvenlafaxine Succinate ER] Doxazosin Mesylate [Cardura] 2.5 mg PO DAILY 02/09/19 02/09/19 02/09/19 History Finasteride [Proscar] 5 mg PO QHS 02/09/19 02/09/19 02/09/19 History Propranolol HCl 20 mg PO QDAY 02/09/19 02/09/19 02/09/19 History Trazodone HCl 150 mg PO QHS 02/09/19 02/09/19 02/09/19 History Docusate Sodium [Colace] 100 mg PO QDAY 02/12/19 02/12/19 02/07/19 09:00 History Active Medications: Generic Name Dose Route Start Last Admin Trade Name Freq PRN Reason Stop Dose Admin Acetaminophen 650 mg 02/09/19 14:29 02/11/19 16:52 Tylenol PO 650 mg Q4H PRN Administration Pain MILD(1-3)/Fever >100.5/KAMARA Albuterol/Ipratropium 1 ampul 02/11/19 20:00 02/12/19 08:10 Duoneb *Not For Prn Use* IH 1 ampul TIDRT REY Administration Aspirin 81 mg 02/10/19 10:00 02/11/19 10:19 Baby Aspirin PO 81 mg QDAY REY Administration Famotidine 20 mg 02/10/19 11:00 02/11/19 10:20 Pepcid IV 20 mg DAILY REY Administration Finasteride 5 mg 02/09/19 22:00 02/11/19 21:15 Proscar PO 5 mg QHS RYE Administration Levofloxacin/Dextrose 500 mg in 100 mls @ 66.667 mls/hr 02/11/19 18:00 02/11/19 17:21 Levaquin 500mg/100ml IV 66.667 mls/hr Q48H REY Administration Protocol Norepinephrine 8 mg/ Sodium 250 mls @ 3.75 mls/hr 02/10/19 11:00 02/12/19 05:15 Chloride IV 10 mcg/min TITR REY 18.75 mls/hr Administration Protocol 2 MCG/MIN Vasopressin 20 unit/ Sodium 101 mls @ 9.09 mls/hr 02/10/19 11:00 02/10/19 15:39 Chloride IV 0 units/min TITR REY 0 mls/hr Titration Protocol 0.03 UNITS/MIN Aztreonam 2 gm in 100 mls @ 100 mls/hr 02/11/19 22:00 02/11/19 21:24 Azactam/Ns 2 Gm/100 Ml IV 100 mls/hr Q12HR REY Administration Protocol Sodium Bicarbonate 75 meq/ 75 mls @ 75 mls/hr 02/11/19 19:00 02/11/19 21:20 Sterile Water IV 75 mls/hr DIRECT REY Administration Morphine Sulfate 2 mg 02/10/19 15:48 02/10/19 19:26 Morphine IV 2 mg Q4H PRN Administration Pain, Moderate (4-6) Ondansetron HCl 4 mg 02/09/19 14:29 02/09/19 20:27 Zofran IV 4 mg Q8H PRN Administration Nausea And Vomiting Sodium Chloride 10 ml 02/09/19 22:00 02/11/19 21:21 Sodium Chloride Flush Syringe 10 Ml IV 10 ml BID REY Administration Sodium Chloride 10 ml 02/09/19 14:29 Sodium Chloride Flush Syringe 10 Ml IV PRN PRN LINE FLUSH Trazodone HCl 150 mg 02/09/19 22:00 02/11/19 21:14 Desyrel PO 150 mg QHS REY Administration
--- NOTE | 2019-02-12 10:51 | Progress Note ---
Assessment and Plan Acute renal failure Severe sepsis due to complicated UTI Bilateral nephrolithiasis s/p ureteral stent s/p nephrostomy tube Hypotension requiring pressor support MAT - resolved Hx of Hairy cell leukemia Thrombocytopenia LVEF 45-50% by echocardiogram. Supportive cardiac management. Subjective Date of service: 02/12/19 Principal diagnosis: low platelets Interval history: On Bipap therapy. Objective Vital Signs Temp Pulse Pulse Resp Resp BP Pulse Ox 02/12/19 08:58 73 30 H 115/59 94 02/12/19 08:01 91 H 32 H 113/73 98 02/12/19 08:00 100.0 F H 89 35 H 96 02/12/19 07:30 76 19 133/65 97 02/12/19 07:01 76 31 H 114/74 98 02/12/19 06:31 91 H 25 H 108/69 97 02/12/19 06:00 70 34 H 112/75 98 02/12/19 05:30 74 30 H 115/80 97 02/12/19 05:00 67 32 H 117/59 97 02/12/19 04:30 71 38 H 114/67 97 02/12/19 04:22 69 24 106/65 95 02/12/19 04:00 99.9 F H 71 32 H 121/64 97 02/12/19 03:30 69 22 112/73 97 02/12/19 03:00 70 32 H 120/76 96 02/12/19 02:30 69 18 98/73 97 02/12/19 02:00 62 21 110/65 97 02/12/19 01:30 64 23 107/65 96 02/12/19 01:00 65 22 105/60 97 02/12/19 00:30 78 25 H 104/62 97 02/12/19 00:00 100.4 F H 75 27 H 106/61 97 02/11/19 23:38 70 25 H 104/58 96 02/11/19 23:30 69 23 104/58 96 02/11/19 23:27 73 28 H 102/63 96 02/11/19 23:26 85 02/11/19 23:00 99.8 F H 69 28 H 114/60 96 02/11/19 22:30 99.8 F H 74 30 H 108/60 96 02/11/19 22:00 73 23 108/57 95 02/11/19 21:30 74 31 H 114/62 98 02/11/19 21:00 79 32 H 118/68 97 02/11/19 20:33 97 H 16 02/11/19 20:30 87 24 117/67 98 02/11/19 20:08 83 33 H 114/68 97 02/11/19 20:00 99.8 F H 83 36 H 114/68 96 02/11/19 19:30 87 26 H 104/64 96 02/11/19 19:00 85 26 H 104/66 96 02/11/19 18:01 87 28 H 104/68 96 02/11/19 17:45 109 H 20 117/76 94 02/11/19 17:31 103 H 16 117/76 96 02/11/19 17:15 81 32 H 117/76 97 02/11/19 17:00 85 29 H 115/77 96 02/11/19 16:45 83 30 H 117/75 95 02/11/19 16:30 89 30 H 119/74 95 02/11/19 16:15 81 22 107/62 95 02/11/19 16:00 100.0 F H 84 24 101/63 95 02/11/19 15:45 82 22 101/60 95 02/11/19 15:30 86 23 102/63 95 02/11/19 15:18 96 02/11/19 15:15 92 H 27 H 117/67 96 02/11/19 15:00 101 H 31 H 110/62 95 02/11/19 14:45 94 H 28 H 121/68 96 02/11/19 14:30 94 H 29 H 124/72 96 02/11/19 14:15 100 H 32 H 125/75 95 02/11/19 14:01 109 H 29 H 124/70 94 02/11/19 13:45 101 H 30 H 129/74 96 02/11/19 13:30 99 H 32 H 129/74 95 02/11/19 13:15 90 33 H 120/81 97 02/11/19 13:14 106 H 20 02/11/19 13:00 85 25 H 132/89 97 02/11/19 12:45 92 H 31 H 124/85 96 02/11/19 12:30 95 H 30 H 132/74 96 02/11/19 12:15 89 30 H 129/74 97 02/11/19 12:01 88 30 H 126/78 97 02/11/19 12:00 97.9 F 84 02/11/19 11:45 89 31 H 125/74 97 02/11/19 11:30 94 H 32 H 133/78 96 02/11/19 11:15 94 H 30 H 132/80 95 02/11/19 11:00 87 28 H 132/80 97 - Physical Examination General: No Apparent Distress HEENT: Positive: PERRL Cardiac: Positive: Reg Rate and Rhythm Lungs: Positive: Decreased Breath Sounds, Wheezes Neuro: Positive: Grossly Intact - Labs and Meds Comprehensive Metabolic Panel 02/12/19 Range/Units 05:10 Sodium 148 H (137-145) mmol/L Potassium 3.8 (3.6-5.0) mmol/L Chloride 114.9 H (98-107) mmol/L Carbon Dioxide 21 L (22-30) mmol/L BUN 46 H (9-20) mg/dL Creatinine 1.4 (0.8-1.5) mg/dL Glucose 150 H (75-100) mg/dL Calcium 7.8 L (8.4-10.2) mg/dL
[2019-02-12] MEDS ORDERED: AZTREONAM/NS 2 GM/100 ML 2 GM/100 ML VIAL IV SCH (11:00)
--- NOTE | 2019-02-12 11:29 | Progress Note ---
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 2) Acute renal failure: renally dose abx. Creatinine improving. 3) Rash? from Zosyn given h/o Cefepime allergy. 4) Acute thrombocytopenia: ?sepsis related v/s h/o hairy cell leukemia. Monitor. Recs: - E.coli isolate is myers-susceptible, so will d/c Aztreonam - given improvement in renal function, increase Levofloxacin dose to q24 hrs - avoiding cefepime and zosyn due to rash D/W Dr. Meena Tuttle MD, FACP [facility] C: [phone] O: [phone] F: [phone] Subjective Date of service: 02/12/19 Principal diagnosis: low platelets Interval history: Low grade fever +. Complaining of pain. Remains on levophed. Objective - Exam Narrative Exam: Physical Exam: Constitutional: Alert, cooperative. No acute distress Head, Ears, Nose: Normocephalic, atraumatic. External ears, nose normal Eyes: Conjunctivae/corneas clear. No icterus. No ptosis. Neck: Supple, no meningeal signs Oral: no thrush Cardiovascular: S1, S2 normal. Respiratory: Good air entry, clear to auscultation bilaterally GI: Soft, non-tender; bowel sounds normal. No peritoneal signs. Left nephrostomy tube +, Agarwal + Musculoskeletal: No pedal edema, no cyanosis. Skin: erythematous rash, blanchable on upper trunk and face. no abscess Hem/Lymphatic: No palpable cervical or supraclavicular nodes. No lymphangitis Psych: Mood ok. Affect normal Neurological: Awake, alert, oriented. No gross abnormality - Constitutional Vitals: Vital Signs Temp Pulse Resp BP Pulse Ox 100.0 F H 73 30 H 115/59 94 02/12/19 08:00 02/12/19 08:58 02/12/19 08:58 02/12/19 08:58 02/12/19 08:58 Temperature -Last 24 Hours Temperature 100.0 F Temperature 99.9 F Temperature 100.4 F Temperature 99.8 F Temperature 99.8 F Temperature 99.8 F Temperature 100.0 F Temperature 97.9 F Temperature 97.9 F - Labs CBC & Chem 7: 02/11/19 04:55 02/12/19 05:10 Labs: Abnormal lab results 02/11/19 02/12/19 Range/Units 12:05 05:10 Sodium 148 H (137-145) mmol/L Chloride 114.9 H (98-107) mmol/L Carbon Dioxide 21 L (22-30) mmol/L BUN 46 H (9-20) mg/dL Glucose 150 H (75-100) mg/dL POC Glucose 146 H (70-105) Calcium 7.8 L (8.4-10.2) mg/dL
[2019-02-12] MEDS: MORPHINE 2 MG/1 ML INJ IV PRN ×3 (11:41→22:34)
[2019-02-12] MEDS: FAMOTIDINE 20 MG/2 ML INJ IV SCH (11:41)
[2019-02-12] MEDS: ASPIRIN 81 MG TAB CHEW PO SCH (11:41)
[2019-02-12] MEDS: DOCUSATE SODIUM 100 MG CAP PO SCH ×2 (11:51→22:00)
[2019-02-12] MEDS: POLYETHYLENE GLYCOL 3350 17 GM POWDER PO PRN (11:51)
[2019-02-12] MEDS: SODIUM BICARBONATE 75 MEQ in /WATER, STERILE 1,000 SYR IV SCH (11:52)
--- NOTE | 2019-02-12 12:00 | Progress Note ---
Assessment and Plan 68 y/o obese male admitted with sepsis secondary to urinary obstruction, s/p percutaneous nephrostomy tube and stent placement on yesterday. 1. Check CXR today. Continue bipap therapy. If needed will give a low dose of lasix to help breathing status if necessary. 2. Abx therapy, IMS has consulted ID 3. 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 No CBC checked today 4. Appreciate cardiology note CCT 31 minutes. Subjective Date of service: 02/12/19 Principal diagnosis: low platelets Interval history: Still on levophed but down to 10. Having some respiratory distress this am. Back on bipap therapy. Objective - Constitutional Vitals: Vital Signs - 12hr 02/12/19 02/12/19 02/12/19 00:00 00:30 01:00 Temperature 100.4 F H Pulse Rate 75 78 65 Pulse Rate [ Bilateral] Respiratory 27 H 25 H 22 Rate Respiratory Rate [Bilateral ] Blood Pressure 106/61 104/62 105/60 O2 Sat by Pulse 97 97 97 Oximetry 02/12/19 02/12/19 02/12/19 01:30 02:00 02:30 Temperature Pulse Rate 64 62 69 Pulse Rate [ Bilateral] Respiratory 23 21 18 Rate Respiratory Rate [Bilateral ] Blood Pressure 107/65 110/65 98/73 O2 Sat by Pulse 96 97 97 Oximetry 02/12/19 02/12/19 02/12/19 03:00 03:30 04:00 Temperature 99.9 F H Pulse Rate 70 69 71 Pulse Rate [ Bilateral] Respiratory 32 H 22 32 H Rate Respiratory Rate [Bilateral ] Blood Pressure 120/76 112/73 121/64 O2 Sat by Pulse 96 97 97 Oximetry 02/12/19 02/12/19 02/12/19 04:22 04:30 05:00 Temperature Pulse Rate 69 71 67 Pulse Rate [ Bilateral] Respiratory 24 38 H 32 H Rate Respiratory Rate [Bilateral ] Blood Pressure 106/65 114/67 117/59 O2 Sat by Pulse 95 97 97 Oximetry 02/12/19 02/12/19 02/12/19 05:30 06:00 06:31 Temperature Pulse Rate 74 70 91 H Pulse Rate [ Bilateral] Respiratory 30 H 34 H 25 H Rate Respiratory Rate [Bilateral ] Blood Pressure 115/80 112/75 108/69 O2 Sat by Pulse 97 98 97 Oximetry 02/12/19 02/12/1902/12/19 07:01 07:30 08:00 Temperature 100.0 F H Pulse Rate 76 76 Pulse Rate [ 89 Bilateral] Respiratory 31 H 19 Rate Respiratory 35 H Rate [Bilateral ] Blood Pressure 114/74 133/65 O2 Sat by Pulse 98 97 96 Oximetry 02/12/19 02/12/19 08:01 08:58 Temperature Pulse Rate 91 H 73 Pulse Rate [ Bilateral] Respiratory 32 H 30 H Rate Respiratory Rate [Bilateral ] Blood Pressure 113/73 115/59 O2 Sat by Pulse 98 94 Oximetry - Labs CBC & Chem 7: 02/11/19 04:55 02/12/19 05:10 Labs: Abnormal lab results 02/11/19 02/12/19 Range/Units 12:05 05:10 Sodium 148 H (137-145) mmol/L Chloride 114.9 H (98-107) mmol/L Carbon Dioxide 21 L (22-30) mmol/L BUN 46 H (9-20) mg/dL Glucose 150 H (75-100) mg/dL POC Glucose 146 H (70-105) Calcium 7.8 L (8.4-10.2) mg/dL Medications & Allergies - Medications Allergies/Adverse Reactions: Allergies cefepime Allergy (Verified 02/10/19 11:24) Rash Home Medications: Home Medications Medication Instructions Recorded Confirmed Last Taken Type Aspirin [Aspirin BABY CHEW TAB] 81 mg PO QDAY 02/09/19 02/09/19 02/09/19 History Desvenlafaxine Succinate 100 mg PO QDAY 02/09/19 02/09/19 02/09/19 History [Desvenlafaxine Succinate ER] Doxazosin Mesylate [Cardura] 2.5 mg PO DAILY 02/09/19 02/09/19 02/09/19 History Finasteride [Proscar] 5 mg PO QHS 02/09/19 02/09/19 02/09/19 History Propranolol HCl 20 mg PO QDAY 02/09/19 02/09/19 02/09/19 History Trazodone HCl 150 mg PO QHS 02/09/19 02/09/19 02/09/19 History Docusate Sodium [Colace] 100 mg PO QDAY 02/12/19 02/12/19 02/07/19 09:00 History Active Medications: Generic Name Dose Route Start Last Admin Trade Name Freq PRN Reason Stop Dose Admin Acetaminophen 650 mg 02/09/19 14:29 02/11/19 16:52 Tylenol PO 650 mg Q4H PRN Administration Pain MILD(1-3)/Fever >100.5/KAMARA Albuterol/Ipratropium 1 ampul 02/11/19 20:00 02/12/19 08:10 Duoneb *Not For Prn Use* IH 1 ampul TIDRT REY Administration Aspirin 81 mg 02/10/19 10:00 02/12/19 11:41 Baby Aspirin PO 81 mg QDAY REY Administration Docusate Sodium 100 mg 02/12/19 12:00 02/12/19 11:51 Colace PO 100 mg BID REY Administration Famotidine 20 mg 02/10/19 11:00 02/12/19 11:41 Pepcid IV 20 mg DAILY REY Administration Finasteride 5 mg 02/09/19 22:00 02/11/19 21:15 Proscar PO 5 mg QHS REY Administration Norepinephrine 8 mg/ Sodium 250 mls @ 3.75 mls/hr 02/10/19 11:00 02/12/19 11:39 Chloride IV 9 mcg/min TITR REY 16.875 mls/hr Titration Protocol 2 MCG/MIN Vasopressin 20 unit/ Sodium 101 mls @ 9.09 mls/hr 02/10/19 11:00 02/10/19 15:39 Chloride IV 0 units/min TITR REY 0 mls/hr Titration Protocol 0.03 UNITS/MIN Sodium Bicarbonate 75 meq/ 75 mls @ 75 mls/hr 02/11/19 19:00 02/12/19 11:52 Sterile Water IV 75 mls/hr DIRECT REY Administration Levofloxacin/Dextrose 750 mg in 150 mls @ 100 mls/hr 02/12/19 12:00 02/12/19 11:51 Levaquin 750mg/150ml IV 100 mls/hr Q24HR REY Administration Protocol Morphine Sulfate 2 mg 02/10/19 15:48 02/12/19 11:41 Morphine IV 2 mg Q4H PRN Administration Pain, Moderate (4-6) Ondansetron HCl 4 mg 02/09/19 14:29 02/09/19 20:27 Zofran IV 4 mg Q8H PRN Administration Nausea And Vomiting Polyethylene Glycol 17 gm 02/12/19 11:19 02/12/19 11:51 Miralax 3350 PO 17 gm QDAY PRN Administration Constipation Sodium Chloride 10 ml 02/09/19 22:00 02/11/19 21:21 Sodium Chloride Flush Syringe 10 Ml IV 10 ml BID REY Administration Sodium Chloride 10 ml 02/09/19 14:29 Sodium Chloride Flush Syringe 10 Ml IV PRN PRN LINE FLUSH Trazodone HCl 150 mg 02/09/19 22:00 02/11/19 21:14 Desyrel PO 150 mg QHS REY Administration Venlafaxine HCl 50 mg 02/12/19 11:00 Effexor PO BID REY
[2019-02-12] MEDS: VENLAFAXINE 25 MG TAB PO SCH ×2 (12:16→21:59)
--- NOTE | 2019-02-12 17:57 | Progress Note ---
Subjective Date of service: 02/05/19 Principal diagnosis: low platelets Interval history: NEW TO OUR SERVICE 68-year-old male with history of hypertension, resting tremor, hairy cell leukemia (in remission) presents to ED with complaint of shortness of breath 3 days. Patient reports fever, denies cough. He reports episode of chest and abdominal pain 2 days ago which has resolved. Patient states pain was all across his chest and abdomen. He denies any leg pain or swelling. Reports epi sodes of nausea and vomiting. EMS reports patient was hypotensive, with O2 sats 93% on room air. h/o stone several years ago. tx by Dr. Santamaria for bph/incont. stopped meds recent. pt feels better abd soft palma---bloody, no clots CTAP---bilat renal stone, left ureteral stone perc placed by Dr. Davidson-----can remove perc tube anytime A/p s/p cysto , stent, bilat (02-10-19) thrombocytopenia pt can f/u with us or his primary urologist for stone & stent mgmt Objective - Constitutional Vitals: Vital Signs - 12hr 02/12/19 02/12/19 02/12/19 06:00 06:31 07:01 Temperature Pulse Rate 70 91 H 76 Pulse Rate [ Bilateral] Respiratory 34 H 25 H 31 H Rate Respiratory Rate [Bilateral ] Blood Pressure 112/75 108/69 114/74 O2 Sat by Pulse 98 97 98 Oximetry 02/12/19 02/12/19 02/12/19 07:30 08:00 08:01 Temperature 100.0 F H Pulse Rate 76 91 H Pulse Rate [ 84 Bilateral] Respiratory 19 32 H Rate Respiratory 18 Rate [Bilateral ] Blood Pressure 133/65 113/73 O2 Sat by Pulse 97 96 98 Oximetry 02/12/19 02/12/19 02/12/19 08:31 08:58 09:00 Temperature Pulse Rate 90 73 79 Pulse Rate [ Bilateral] Respiratory 32 H 30 H 33 H Rate Respiratory Rate [Bilateral ] Blood Pressure 109/66 115/59 115/59 O2 Sat by Pulse 96 94 95 Oximetry 02/12/19 02/12/19 02/12/19 09:31 10:00 10:31 Temperature Pulse Rate 77 69 78 Pulse Rate [ Bilateral] Respiratory 30 H 24 29 H Rate Respiratory Rate [Bilateral ] Blood Pressure 109/60 78/40 87/50 O2 Sat by Pulse 96 95 97 Oximetry 02/12/19 02/12/19 02/12/19 11:01 11:30 12:00 Temperature 98.0 F Pulse Rate 81 79 78 Pulse Rate [ Bilateral] Respiratory 29 H 31 H 16 Rate Respiratory Rate [Bilateral ] Blood Pressure 115/61 122/64 123/70 O2 Sat by Pulse 97 96 96 Oximetry 02/12/19 02/12/19 02/12/19 12:31 13:00 13:30 Temperature Pulse Rate 104 H 73 66 Pulse Rate [ Bilateral] Respiratory 37 H 22 20 Rate Respiratory Rate [Bilateral ] Blood Pressure 119/72 136/64 109/59 O2 Sat by Pulse 97 96 97 Oximetry 02/12/19 02/12/19 02/12/19 14:00 14:30 15:00 Temperature Pulse Rate 74 78 74 Pulse Rate [ 73 Bilateral] Respiratory 21 25 H 21 Rate Respiratory 21 Rate [Bilateral ] Blood Pressure 111/61 117/63 115/59 O2 Sat by Pulse 93 96 95 Oximetry 02/12/19 02/12/19 15:30 15:52 Temperature 98.6 F Pulse Rate 72 Pulse Rate [ Bilateral] Respiratory 22 Rate Respiratory Rate [Bilateral ] Blood Pressure 112/61 O2 Sat by Pulse 95 Oximetry - Labs CBC & Chem 7: 02/11/19 04:55 02/12/19 05:10 Labs: Abnormal lab results 02/11/19 02/12/19 Range/Units 12:05 05:10 Sodium 148 H (137-145) mmol/L Chloride 114.9 H (98-107) mmol/L Carbon Dioxide 21 L (22-30) mmol/L BUN 46 H (9-20) mg/dL Glucose 150 H (75-100) mg/dL POC Glucose 146 H (70-105) Calcium 7.8 L (8.4-10.2) mg/dL Medications & Allergies - Medications Allergies/Adverse Reactions: Allergies cefepime Allergy (Verified 02/10/19 11:24) Rash Home Medications: Home Medications Medication Instructions Recorded Confirmed Last Taken Type Aspirin [Aspirin BABY CHEW TAB] 81 mg PO QDAY 02/09/19 02/09/19 02/09/19 History Desvenlafaxine Succinate 100 mg PO QDAY 02/09/19 02/09/19 02/09/19 History [Desvenlafaxine Succinate ER] Doxazosin Mesylate [Cardura] 2.5 mg PO DAILY 02/09/19 02/09/19 02/09/19 History Finasteride [Proscar] 5 mg PO QHS 02/09/19 02/09/19 02/09/19 History Propranolol HCl 20 mg PO QDAY 02/09/19 02/09/19 02/09/19 History Trazodone HCl 150 mg PO QHS 02/09/19 02/09/19 02/09/19 History Docusate Sodium [Colace] 100 mg PO QDAY 02/12/19 02/12/19 02/07/19 09:00 History Active Medications: Generic Name Dose Route Start Last Admin Trade Name Freq PRN Reason Stop Dose Admin Acetaminophen 650 mg 02/09/19 14:29 02/11/19 16:52 Tylenol PO 650 mg Q4H PRN Administration Pain MILD(1-3)/Fever >100.5/KAMARA Albuterol/Ipratropium 1 ampul 02/11/19 20:00 02/12/19 14:18 Duoneb *Not For Prn Use* IH 1 ampul TIDRT REY Administration Aspirin 81 mg 02/10/19 10:00 02/12/19 11:41 Baby Aspirin PO 81 mg QDAY REY Administration Docusate Sodium 100 mg 02/12/19 12:00 02/12/19 11:51 Colace PO 100 mg BID REY Administration Famotidine 20 mg 02/10/19 11:00 02/12/19 11:41 Pepcid IV 20 mg DAILY REY Administration Finasteride 5 mg 02/09/19 22:00 02/11/19 21:15 Proscar PO 5 mg QHS REY Administration Norepinephrine 8 mg/ Sodium 250 mls @ 3.75 mls/hr 02/10/19 11:00 02/12/19 15:41 Chloride IV 3 mcg/min TITR REY 5.625 mls/hr Titration Protocol 2 MCG/MIN Vasopressin 20 unit/ Sodium 101 mls @ 9.09 mls/hr 02/10/19 11:00 02/10/19 15:39 Chloride IV 0 units/min TITR REY 0 mls/hr Titration Protocol 0.03 UNITS/MIN Levofloxacin/Dextrose 750 mg in 150 mls @ 100 mls/hr 02/12/19 12:00 02/12/19 11:51 Levaquin 750mg/150ml IV 100 mls/hr Q24HR REY Administration Protocol Morphine Sulfate 2 mg 02/10/19 15:48 02/12/19 11:41 Morphine IV 2 mg Q4H PRN Administration Pain, Moderate (4-6) Ondansetron HCl 4 mg 02/09/19 14:29 02/09/19 20:27 Zofran IV 4 mg Q8H PRN Administration Nausea And Vomiting Polyethylene Glycol 17 gm 02/12/19 11:19 02/12/19 11:51 Miralax 3350 PO 17 gm QDAY PRN Administration Constipation Sodium Chloride 10 ml 02/09/19 22:00 02/12/19 11:05 Sodium Chloride Flush Syringe 10 Ml IV 10 ml BID REY Administration Sodium Chloride 10 ml 02/09/19 14:29 Sodium Chloride Flush Syringe 10 Ml IV PRN PRN LINE FLUSH Trazodone HCl 150 mg 02/09/19 22:00 02/11/19 21:14 Desyrel PO 150 mg QHS REY Administration Venlafaxine HCl 50 mg 02/12/19 11:00 02/12/19 12:16 Effexor PO 50 mg BID REY Administration
[2019-02-12] MEDS: traZODone 100 MG TAB PO SCH (21:59)
[2019-02-12] MEDS: FINASTERIDE 5 MG TAB PO SCH (22:00)
[2019-02-13] MEDS: MORPHINE 2 MG/1 ML INJ IV PRN ×2 (02:35→09:21)
[2019-02-13 07:11] LABS: BUN/Creatinine Ratio 36; Blood Urea Nitrogen 36 mg/dL (9-20); Calcium 8.1 mg/dL (8.4-10.2); Hemolysis Index 9
[2019-02-13] MEDS: IPRATROPIUM/ALBUTEROL SULFATE 3 ML AMPUL.NEB IH SCH ×3 (08:43→20:38)
--- NOTE | 2019-02-13 09:05 | Progress Note ---
Assessment and Plan Assessment and plan: Sepsis due to complicated UTI Admitted to ICU Continue Levaquin ID Physician following Septic shock Still on Levophed drip KEVIN (acute kidney injury) due to ATN Now resolved Cr 1.0 today IVF resuscitation therapy, Nephrology consulted, monitor uop q shift, urine electrolytes, Metabolic Acidosis due to KEVIN IVF resuscitation therapy, IV bicarbonate, supportive care. Complicated UTI On Levaquin, Aztreonam IV antibiotic therapy, urinalysis, CBC,CMP, Urinary obstruction 7MM Left UPJ obstructing stone with mild hydronephrosis, supportive care. IR consulted s/p left perc nephrostomy tube placement, Urology consulted. CHF (congestive heart failure) Cardiology consulted in ED, IV ionotropic support, continue current care, monitor daily weight, uop q shift, echo, Acute respiratory failure with hypoxia Supplemental oxygen, ABG, pulse oximetry, CT chest, NIPPV as clinically indic ated, nebulizer therapy prn, chest x ray. Lactic acidosis due to sepsis Treat sepsis, serial lactic acid, IV bicarbonate, supportive care. DVT prophylaxis SCD to BLE while in bed, prophylactic heparin The high probability of a clinically significant, sudden or life threatening deterioration of the [3] system(s) required my full and direct attention, intervention and personal management. The aggregate critical care time was [31] minutes. This time is in addition to time spent performing reported procedures but includes the following: [] Data Review and interpretation [] Patient assessment and monitoring of vital signs [] Documentation [] Medication orders and management History Interval history: Generalized weakness Less Shortness of breath Fever yesterday Hospitalist Physical - Physical exam Narrative exam: Gen: Not in acute distress, lying in bed, obese, ill looking HEENT: Normocephalic, atraumatic Neck: supple, no JVD Heart: S1 and S2 reg, no murmurs, rubs or gallop Lungs: Clear to auscultation, no rhonchi, no wheeze Abd: soft, non tender, non distended, normal BS, left nephrostomy tube Ext: No edema, no clubbing, no cyanosis Neuro: Awake, alert, oriented X 3, no focal neurological signs - Constitutional Vitals: Temp Pulse Resp BP Pulse Ox 97.7 F 93 H 20 122/61 97 02/13/19 07:48 02/13/19 09:02 02/13/19 09:02 02/13/19 08:00 02/13/19 08:40 General appearance: Present: no acute distress, obese Results - Labs CBC & Chem 7: 02/11/19 04:55 02/13/19 06:10 Labs: Laboratory Last Values WBC 7.1 K/mm3 (4.5-11.0) 02/11/19 04:55 RBC 4.10 M/mm3 (3.65-5.03) 02/11/19 04:55 Hgb 11.4 gm/dl (11.8-15.2) L 02/11/19 04:55 Hct 35.0 % (35.5-45.6) L 02/11/19 04:55 MCV 85 fl (84-94) 02/11/19 04:55 MCH 28 pg (28-32) 02/11/19 04:55 MCHC 33 % (32-34) 02/11/19 04:55 RDW 15.4 % (13.2-15.2) H 02/11/19 04:55 Plt Count 52 K/mm3 (140-440) L 02/11/19 04:55 Eos % (Auto) Water Project Engineer 02/10/19 04:30 Add Manual Diff Complete 02/10/19 04:30 Total Counted 100 02/10/19 04:30 Seg Neutrophils % Water Project Engineer 02/09/19 Unknown Seg Neuts % (Manual) 75.0 % (40.0-70.0) H 02/10/19 04:30 Band Neutrophils % 13.0 % 02/10/19 04:30 Lymphocytes % (Manual) 5.0 % (13.4-35.0) L 02/10/19 04:30 Reactive Lymphs % (Man) 0 % 02/10/19 04:30 Monocytes % (Manual) 7.0 % (0.0-7.3) 02/10/19 04:30 Eosinophils % (Manual) 0 % (0.0-4.3) 02/10/19 04:30 Basophils % (Manual) 0 % (0.0-1.8) 02/10/19 04:30 Metamyelocytes % 0 % 02/10/19 04:30 Myelocytes % 0 % 02/10/19 04:30 Promyelocytes % 0 % 02/10/19 04:30 Blast Cells % 0 % 02/10/19 04:30 Nucleated RBC % Not Reportable 02/10/19 04:30 Seg Neutrophils # Man 5.6 K/mm3 (1.8-7.7) 02/10/19 04:30 Band Neutrophils # 1.0 K/mm3 02/10/19 04:30 Lymphocytes # (Manual) 0.4 K/mm3 (1.2-5.4) L 02/10/19 04:30 Abs React Lymphs (Man) 0.0 K/mm3 02/10/19 04:30 Monocytes # (Manual) 0.5 K/mm3 (0.0-0.8) 02/10/19 04:30 Eosinophils # (Manual) 0.0 K/mm3 (0.0-0.4) 02/10/19 04:30 Basophils # (Manual) 0.0 K/mm3 (0.0-0.1) 02/10/19 04:30 Metamyelocytes # 0.0 K/mm3 02/10/19 04:30 Myelocytes # 0.0 K/mm3 02/10/19 04:30 Promyelocytes # 0.0 K/mm3 02/10/19 04:30 Blast Cells # 0.0 K/mm3 02/10/19 04:30 WBC Morphology Not Reportable 02/10/19 04:30 Hypersegmented Neuts Not Reportable 02/10/19 04:30 Hyposegmented Neuts Not Reportable 02/10/19 04:30 Hypogranular Neuts Not Reportable 02/10/19 04:30 Smudge Cells Not Reportable 02/10/19 04:30 Toxic Granulation Not Reportable 02/10/19 04:30 Toxic Vacuolation Not Reportable 02/10/19 04:30 Dohle Bodies Not Reportable 02/10/19 04:30 Pelger-Huet Anomaly Not Reportable 02/10/19 04:30 Jagdish Rods Not Reportable 02/10/19 04:30 Platelet Estimate Appears decreased 02/10/19 04:30 Clumped Platelets Not Reportable 02/10/19 04:30 Plt Clumps, EDTA Not Reportable 02/10/19 04:30 Large Platelets 1+ 02/10/19 04:30 Giant Platelets Not Reportable 02/10/19 04:30 Platelet Satelliting Not Reportable 02/10/19 04:30 Plt Morphology Comment Not Reportable 02/10/19 04:30 RBC Morphology Normal 02/10/19 04:30 Dimorphic RBCs Not Reportable 02/10/19 04:30 Polychromasia Not Reportable 02/10/19 04:30 Hypochromasia Not Reportable 02/10/19 04:30 Poikilocytosis Not Reportable 02/10/19 04:30 Anisocytosis Not Reportable 02/10/19 04:30 Microcytosis Not Reportable 02/10/19 04:30 Macrocytosis Not Reportable 02/10/19 04:30 Spherocytes Not Reportable 02/10/19 04:30 Pappenheimer Bodies Not Reportable 02/10/19 04:30 Sickle Cells Not Reportable 02/10/19 04:30 Target Cells Not Reportable 02/10/19 04:30 Tear Drop Cells Not Reportable 02/10/19 04:30 Ovalocytes Not Reportable 02/10/19 04:30 Helmet Cells Not Reportable 02/10/19 04:30 [place] Bodies Not Reportable 02/10/19 04:30 Hanson Rings Not Reportable 02/10/19 04:30 Nathan Cells Not Reportable 02/10/19 04:30 Bite Cells Not Reportable 02/10/19 04:30 Crenated Cell Not Reportable 02/10/19 04:30 Elliptocytes Not Reportable 02/10/19 04:30 Acanthocytes (Spur) Not Reportable 02/10/19 04:30 Rouleaux Not Reportable 02/10/19 04:30 Hemoglobin C Crystals Not Reportable 02/10/19 04:30 Schistocytes Not Reportable 02/10/19 04:30 Malaria parasites Not Reportable 02/10/19 04:30 Arnie Bodies Not Reportable 02/10/19 04:30 Hem Pathologist Commnt No 02/10/19 04:30 PT 15.8 Sec. (12.2-14.9) H 02/09/19 Unknown INR 1.29 (0.87-1.13) H 02/09/19 Unknown POC ABG pH 7.356 (7.35-7.45) 02/09/19 17:29 POC ABG pCO2 37.1 (35-45) 02/09/19 17:29 POC ABG pO2 97 (80-105) 02/09/19 17:29 POC ABG HCO3 20.8 (22-26 mml/L) 02/09/19 17:29 POC ABG Total CO2 22 (23-27mmol/L) 02/09/19 17:29 POC ABG O2 Sat 97 02/09/19 17:29 POC ABG Base Excess -5 ((-2) - (+3)mmol/L) 02/09/19 17:29 VBG pH 7.379 (7.320-7.420) 02/09/19 11:45 FiO2 28 % 02/09/19 17:29 Sodium 146 mmol/L (137-145) H 02/13/19 06:10 Potassium 3.7 mmol/L (3.6-5.0) 02/13/19 06:10 Chloride 116.1 mmol/L (98-107) H 02/13/19 06:10 Carbon Dioxide 23 mmol/L (22-30) 02/13/19 06:10 Anion Gap 11 mmol/L 02/13/19 06:10 BUN 36 mg/dL (9-20) H 02/13/19 06:10 Creatinine 1.0 mg/dL (0.8-1.5) 02/13/19 06:10 Estimated GFR > 60 ml/min 02/13/19 06:10 BUN/Creatinine Ratio 36 % 02/13/19 06:10 Glucose 98 mg/dL (75-100) 02/13/19 06:10 POC Glucose 146 (70-105) H 02/11/19 12:05 Lactic Acid 2.50 mmol/L (0.7-2.0) H* 02/10/19 08:44 Calcium 8.1 mg/dL (8.4-10.2) L 02/13/19 06:10 Phosphorus 3.90 mg/dL (2.5-4.5) 02/11/19 04:55 Magnesium 1.80 mg/dL (1.7-2.3) 02/11/19 04:55 Total Bilirubin 1.40 mg/dL (0.1-1.2) H 02/10/19 04:30 AST 31 units/L (5-40) 02/10/19 04:30 ALT 17 units/L (7-56) 02/10/19 04:30 Alkaline Phosphatase 67 units/L (35-129) 02/10/19 04:30 Troponin T 0.017 ng/mL (0.00-0.029) 02/09/19 Unknown NT-Pro-B Natriuret Pep 6998 pg/mL (0-900) H 02/09/19 Unknown Total Protein 5.2 g/dL (6.3-8.2) L 02/10/19 04:30 Albumin 2.3 g/dL (3.9-5) L 02/10/19 04:30 Albumin/Globulin Ratio 0.8 % 02/10/19 04:30 Urine Color Madeline (Yellow) 02/09/19 07:28 Urine Turbidity Cloudy (Clear) 02/09/19 07:28 Urine pH 5.0 (5.0-7.0) 02/09/19 07:28 Ur Specific [place] 1.019 (1.003-1.030) 02/09/19 07:28 Urine Protein 100 mg/dl mg/dL (Negative) 02/09/19 07:28 Urine Glucose (UA) Neg mg/dL (Negative) 02/09/19 07:28 Urine Ketones Neg mg/dL (Negative) 02/09/19 07:28 Urine Blood Lg (Negative) 02/09/19 07:28 Urine Nitrite Neg (Negative) 02/09/19 07:28 Urine Bilirubin Neg (Negative) 02/09/19 07:28 Urine Urobilinogen 4.0 mg/dL (<2.0) 02/09/19 07:28 Ur Leukocyte Esterase Mod (Negative) 02/09/19 07:28 Urine WBC (Auto) 35.0 /HPF (0.0-6.0) H 02/09/19 07:28 Urine RBC (Auto) > 182.0 /HPF (0.0-6.0) 02/09/19 07:28 U Epithel Cells (Auto) 1.0 /HPF (0-13.0) 02/09/19 07:28 Urine Bacteria (Auto) 1+ /HPF (Negative) 02/09/19 07:28 Urine Creatinine 350.2 mg/dL (0.1-20.0) H 02/09/19 15:20 Urine Sodium 46 mmol/L 02/09/19 15:20 Blood Type A NEGATIVE 02/09/19 17:15 Antibody Screen Negative 02/09/19 17:15 Active Medications - Current Medications Current Medications: Generic Name Dose Route Start Last Admin Trade Name Darrynq PRN Reason Stop Dose Admin Acetaminophen 650 mg 02/09/19 14:29 02/11/19 16:52 Tylenol PO 650 mg Q4H PRN Administration Pain MILD(1-3)/Fever >100.5/KAMARA Albuterol/Ipratropium 1 ampul 02/11/19 20:00 02/13/19 08:43 Duoneb *Not For Prn Use* IH 1 ampul TIDRT REY Administration Aspirin 81 mg 02/10/19 10:00 02/12/19 11:41 Baby Aspirin PO 81 mg QDAY REY Administration Docusate Sodium 100 mg 02/12/19 12:00 02/12/19 22:00 Colace PO 100 mg BID REY Administration Famotidine 20 mg 02/10/19 11:00 02/12/19 11:41 Pepcid IV 20 mg DAILY REY Administration Finasteride 5 mg 02/09/19 22:00 02/12/19 22:00 Proscar PO 5 mg QHS REY Administration Norepinephrine 8 mg/ Sodium 250 mls @ 3.75 mls/hr 02/10/19 11:00 02/12/19 16:35 Chloride IV 0 mcg/min TITR REY 0 mls/hr Titration Protocol 2 MCG/MIN Vasopressin 20 unit/ Sodium 101 mls @ 9.09 mls/hr 02/10/19 11:00 02/10/19 15:39 Chloride IV 0 units/min TITR REY 0 mls/hr Titration Protocol 0.03 UNITS/MIN Levofloxacin/Dextrose 750 mg in 150 mls @ 100 mls/hr 02/12/19 12:00 02/12/19 11:51 Levaquin 750mg/150ml IV 100 mls/hr Q24HR REY Administration Protocol Morphine Sulfate 2 mg 02/10/19 15:48 02/13/19 02:35 Morphine IV 2 mg Q4H PRN Administration Pain, Moderate (4-6) Ondansetron HCl 4 mg 02/09/19 14:29 02/09/19 20:27 Zofran IV 4 mg Q8H PRN Administration Nausea And Vomiting Polyethylene Glycol 17 gm 02/12/19 11:19 02/12/19 11:51 Miralax 3350 PO 17 gm QDAY PRN Administration Constipation Sodium Chloride 10 ml 02/09/19 22:00 02/12/19 22:01 Sodium Chloride Flush Syringe 10 Ml IV 10 ml BID REY Administration Sodium Chloride 10 ml 02/09/19 14:29 Sodium Chloride Flush Syringe 10 Ml IV PRN PRN LINE FLUSH Trazodone HCl 150 mg 02/09/19 22:00 02/12/19 21:59 Desyrel PO 150 mg QHS REY Administration Venlafaxine HCl 50 mg 02/12/19 11:00 02/12/19 21:59 Effexor PO 50 mg BID REY Administration
[2019-02-13] MEDS: FAMOTIDINE 20 MG/2 ML INJ IV SCH (09:20)
[2019-02-13] MEDS: VENLAFAXINE 25 MG TAB PO SCH ×2 (09:20→21:27)
[2019-02-13] MEDS: ASPIRIN 81 MG TAB CHEW PO SCH (09:21)
[2019-02-13] MEDS: DOCUSATE SODIUM 100 MG CAP PO SCH ×2 (09:21→21:27)
--- NOTE | 2019-02-13 10:23 | Progress Note ---
Assessment and Plan Acute renal failure Severe sepsis due to complicated UTI Obstructing left nephrolithiasis s/p ureteral stent s/p nephrostomy tube Hypotension -resolved MAT - resolved Hx of Hairy cell leukemia Thrombocytopenia LVEF 45-50% by echocardiogram. Conservative cardiac management. Subjective Date of service: 02/13/19 Principal diagnosis: low platelets Interval history: Patient is resting in bed comfortably. No distress noted. Objective Vital Signs Temp Pulse Pulse Resp Resp BP Pulse Ox 02/13/19 09:02 93 H 20 02/13/19 08:40 97 02/13/19 08:00 81 25 H 122/61 96 02/13/19 07:48 97.7 F 02/13/19 07:30 87 29 H 118/62 96 02/13/19 07:00 86 28 H 111/59 96 02/13/19 06:30 82 24 116/59 98 02/13/19 06:00 76 17 109/62 96 02/13/19 05:30 89 24 116/69 98 02/13/19 05:00 83 21 107/62 95 02/13/19 04:30 75 18 120/54 97 02/13/19 04:00 83 19 99/53 95 02/13/19 03:30 85 24 105/51 95 02/13/19 03:00 77 20 108/54 97 02/13/19 02:30 74 22 111/60 97 02/13/19 02:00 84 19 109/64 96 02/13/19 01:30 81 21 117/74 97 02/13/19 01:26 72 19 106/59 97 02/13/19 01:00 69 18 106/59 97 02/13/19 00:30 81 18 91/54 96 02/13/19 00:00 82 21 89/47 93 02/12/19 23:30 77 21 94/58 93 02/12/19 23:00 76 19 92/56 95 02/12/19 22:30 75 25 H 111/61 97 02/12/19 22:24 80 26 H 103/61 98 02/12/19 22:00 89 19 106/63 97 02/12/19 21:30 80 20 105/54 96 02/12/19 21:00 79 23 105/56 95 02/12/19 20:46 80 26 H 113/66 96 02/12/19 20:30 80 27 H 113/66 97 02/12/19 20:17 88 18 02/12/19 20:00 77 24 114/60 96 02/12/19 19:59 96 02/12/19 19:30 78 28 H 106/63 97 02/12/19 19:01 82 28 H 96/66 97 02/12/19 18:31 90 31 H 96/69 98 02/12/19 18:00 68 21 104/57 96 02/12/19 17:30 69 21 107/62 97 02/12/19 17:00 67 20 111/58 98 02/12/19 16:30 64 22 103/53 96 02/12/19 16:00 67 20 107/67 96 02/12/19 15:52 98.6 F 02/12/19 15:30 72 22 112/61 95 02/12/19 15:00 74 21 115/59 95 02/12/19 14:30 78 25 H 117/63 96 02/12/19 14:00 74 73 21 21 111/61 93 02/12/19 13:30 66 20 109/59 97 02/12/19 13:00 73 22 136/64 96 02/12/19 12:31 104 H 37 H 119/72 97 02/12/19 12:00 98.0 F 78 16 123/70 96 02/12/19 11:30 79 31 H 122/64 96 02/12/19 11:01 81 29 H 115/61 97 02/12/19 10:31 78 29 H 87/50 97 - Physical Examination General: No Apparent Distress HEENT: Positive: PERRL Neck: Positive: trachea midline Cardiac: Positive: Reg Rate and Rhythm Lungs: Positive: Decreased Breath Sounds, Wheezes Neuro: Positive: Grossly Intact Abdomen: Positive: Soft - Labs and Meds Comprehensive Metabolic Panel 02/13/19 Range/Units 06:10 Sodium 146 H (137-145) mmol/L Potassium 3.7 (3.6-5.0) mmol/L Chloride 116.1 H (98-107) mmol/L Carbon Dioxide 23 (22-30) mmol/L BUN 36 H (9-20) mg/dL Creatinine 1.0 (0.8-1.5) mg/dL Glucose 98 (75-100) mg/dL Calcium 8.1 L (8.4-10.2) mg/dL
--- NOTE | 2019-02-13 10:55 | Progress Note ---
Assessment and Plan 1. Acute kidney injury: Vasomotor KEVIN in the setting of septic shock. CT abdomen showed b/l nephrolithiasis. Renal US was negative for hydronephrosis. Renal function is improving. Monitor renal function. Avoid nephrotoxic agents. Meds dosage based on GFR. 2. FEN: Metabolic acidosis, improved. Hypernatremia, monitor. Monitor lytes. 3. Bilateral nephrolithiasis: S/p bilateral ureteral stent. S/p L perc nephrostomy tube, now dislodged. 4. Septic shock: On Levophed and Abx. 5. Respiratory distress: Was on BIPAP. Examination: General appearance: well-developed, well-nourished, appears stated age, obese, on BIPAP, tachypnea noted HEENT: ATNC, PERRL, hearing intact, vision intact Neck: neck supple, trachea midline Respiratory: Clear to Ascultation, decreased breath sounds Heart: regular, S1S2, no murmur Gastrointestinal: normoactive bowel sounds, obese, not tender Integumentary: no rash, warm and dry Neurologic: no focal deficit, no asterixis, alert Musculoskeletal: no edema Psychiatric: cooperative Subjective Date of service: 02/13/19 Principal diagnosis: low platelets Interval history: Patient was seen and examined at the bedside. Feeling better today. Objective - Vital Signs Vital signs: Vital Signs - 12hr 02/12/19 02/12/19 02/13/19 23:00 23:30 00:00 Temperature Pulse Rate 76 77 82 Pulse Rate [ Bilateral] Respiratory 19 21 21 Rate Respiratory Rate [Bilateral ] Blood Pressure 92/56 94/58 89/47 O2 Sat by Pulse 95 93 93 Oximetry 02/13/19 02/13/19 02/13/19 00:30 01:00 01:26 Temperature Pulse Rate 81 69 72 Pulse Rate [ Bilateral] Respiratory 18 18 19 Rate Respiratory Rate [Bilateral ] Blood Pressure 91/54 106/59 106/59 O2 Sat by Pulse 96 97 97 Oximetry 02/13/19 02/13/19 02/13/19 01:30 02:00 02:30 Temperature Pulse Rate 81 84 74 Pulse Rate [ Bilateral] Respiratory 21 19 22 Rate Respiratory Rate [Bilateral ] Blood Pressure 117/74 109/64 111/60 O2 Sat by Pulse 97 96 97 Oximetry 02/13/19 02/13/19 02/13/19 03:00 03:30 04:00 Temperature Pulse Rate 77 85 83 Pulse Rate [ Bilateral] Respiratory 20 24 19 Rate Respiratory Rate [Bilateral ] Blood Pressure 108/54 105/51 99/53 O2 Sat by Pulse 97 95 95 Oximetry 02/13/19 02/13/19 02/13/19 04:30 05:00 05:30 Temperature Pulse Rate 75 83 89 Pulse Rate [ Bilateral] Respiratory 18 21 24 Rate Respiratory Rate [Bilateral ] Blood Pressure 120/54 107/62 116/69 O2 Sat by Pulse 97 95 98 Oximetry 02/13/19 02/13/19 02/13/19 06:00 06:30 07:00 Temperature Pulse Rate 76 82 86 Pulse Rate [ Bilateral] Respiratory 17 24 28 H Rate Respiratory Rate [Bilateral ] Blood Pressure 109/62 116/59 111/59 O2 Sat by Pulse 96 98 96 Oximetry 02/13/19 02/13/19 02/13/19 07:30 07:48 08:00 Temperature 97.7 F Pulse Rate 87 81 Pulse Rate [ Bilateral] Respiratory 29 H 25 H Rate Respiratory Rate [Bilateral ] Blood Pressure 118/62 122/61 O2 Sat by Pulse 96 96 Oximetry 02/13/19 02/13/19 08:40 09:02 Temperature Pulse Rate Pulse Rate [ 93 H Bilateral] Respiratory Rate Respiratory 20 Rate [Bilateral ] Blood Pressure O2 Sat by Pulse 97 Oximetry - Lab 02/11/19 04:55 02/13/19 06:10 Most recent lab results Calcium 8.1 mg/dL (8.4-10.2) L 02/13/19 06:10 Phosphorus 3.90 mg/dL (2.5-4.5) 02/11/19 04:55 Magnesium 1.80 mg/dL (1.7-2.3) 02/11/19 04:55 Urine Creatinine 350.2 mg/dL (0.1-20.0) H 02/09/19 15:20 Urine Sodium 46 mmol/L 02/09/19 15:20 Medications & Allergies - Medications Allergies/Adverse Reactions: Allergies cefepime Allergy (Verified 02/10/19 11:24) Rash Home Medications: Home Medications Medication Instructions Recorded Confirmed Last Taken Type Aspirin [Aspirin BABY CHEW TAB] 81 mg PO QDAY 02/09/19 02/09/19 02/09/19 History Desvenlafaxine Succinate 100 mg PO QDAY 02/09/19 02/09/19 02/09/19 History [Desvenlafaxine Succinate ER] Doxazosin Mesylate [Cardura] 2.5 mg PO DAILY 02/09/19 02/09/19 02/09/19 History Finasteride [Proscar] 5 mg PO QHS 02/09/19 02/09/19 02/09/19 History Propranolol HCl 20 mg PO QDAY 02/09/19 02/09/19 02/09/19 History Trazodone HCl 150 mg PO QHS 02/09/19 02/09/19 02/09/19 History Docusate Sodium [Colace] 100 mg PO QDAY 02/12/19 02/12/19 02/07/19 09:00 History Pravastatin [Pravachol] 20 mg PO QHS 02/13/19 02/13/19 02/08/19 History Active Medications: Generic Name Dose Route Start Last Admin Trade Name Freq PRN Reason Stop Dose Admin Acetaminophen 650 mg 02/09/19 14:29 02/11/19 16:52 Tylenol PO 650 mg Q4H PRN Administration Pain MILD(1-3)/Fever >100.5/KAMARA Albuterol/Ipratropium 1 ampul 02/11/19 20:00 02/13/19 08:43 Duoneb *Not For Prn Use* IH 1 ampul TIDRT REY Administration Aspirin 81 mg 02/10/19 10:00 02/13/19 09:21 Baby Aspirin PO 81 mg QDAY REY Administration Docusate Sodium 100 mg 02/12/19 12:00 02/13/19 09:21 Colace PO 100 mg BID REY Administration Famotidine 20 mg 02/10/19 11:00 02/13/19 09:20 Pepcid IV 20 mg DAILY REY Administration Finasteride 5 mg 02/09/19 22:00 02/12/19 22:00 Proscar PO 5 mg QHS REY Administration Norepinephrine 8 mg/ Sodium 250 mls @ 3.75 mls/hr 02/10/19 11:00 02/12/19 16:35 Chloride IV 0 mcg/min TITR REY 0 mls/hr Titration Protocol 2 MCG/MIN Vasopressin 20 unit/ Sodium 101 mls @ 9.09 mls/hr 02/10/19 11:00 02/10/19 15:39 Chloride IV 0 units/min TITR REY 0 mls/hr Titration Protocol 0.03 UNITS/MIN Levofloxacin/Dextrose 750 mg in 150 mls @ 100 mls/hr 02/12/19 12:00 02/13/19 09:20 Levaquin 750mg/150ml IV 100 mls/hr Q24HR REY Administration Protocol Morphine Sulfate 2 mg 02/10/19 15:48 02/13/19 09:21 Morphine IV 2 mg Q4H PRN Administration Pain, Moderate (4-6) Ondansetron HCl 4 mg 02/09/19 14:29 02/09/19 20:27 Zofran IV 4 mg Q8H PRN Administration Nausea And Vomiting Polyethylene Glycol 17 gm 02/12/19 11:19 02/12/19 11:51 Miralax 3350 PO 17 gm QDAY PRN Administration Constipation Sodium Chloride 10 ml 02/09/19 22:00 02/13/19 09:21 Sodium Chloride Flush Syringe 10 Ml IV 10 ml BID REY Administration Sodium Chloride 10 ml 02/09/19 14:29 Sodium Chloride Flush Syringe 10 Ml IV PRN PRN LINE FLUSH Trazodone HCl 150 mg 02/09/19 22:00 02/12/19 21:59 Desyrel PO 150 mg QHS REY Administration Venlafaxine HCl 50 mg 02/12/19 11:00 02/13/19 09:20 Effexor PO 50 mg BID REY Administration
--- NOTE | 2019-02-13 11:28 | Progress Note ---
Assessment and Plan 68 y/o obese male admitted with sepsis secondary to urinary obstruction, s/p percutaneous nephrostomy tube and stent placement on yesterday. 1. CXR not done, but breathing is stable. 2. Abx therapy, IMS has consulted ID. Follow up new recs. Off pressors. 3. 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 No CBC checked today 4. Appreciate cardiology note 5. Appears stable for transfer to floor. Will send to tele given history of CHF. Subjective Date of service: 02/13/19 Principal diagnosis: low platelets Interval history: Off pressors now now. Breathing stable. NO CBC done this am. Objective - Constitutional Vitals: Vital Signs - 12hr 02/12/19 02/13/19 02/13/19 23:30 00:00 00:30 Temperature Pulse Rate 77 82 81 Pulse Rate [ Bilateral] Respiratory 21 21 18 Rate Respiratory Rate [Bilateral ] Blood Pressure 94/58 89/47 91/54 O2 Sat by Pulse 93 93 96 Oximetry 02/13/19 02/13/19 02/13/19 01:00 01:26 01:30 Temperature Pulse Rate 69 72 81 Pulse Rate [ Bilateral] Respiratory 18 19 21 Rate Respiratory Rate [Bilateral ] Blood Pressure 106/59 106/59 117/74 O2 Sat by Pulse 97 97 97 Oximetry 02/13/19 02/13/19 02/13/19 02:00 02:30 03:00 Temperature Pulse Rate 84 74 77 Pulse Rate [ Bilateral] Respiratory 19 22 20 Rate Respiratory Rate [Bilateral ] Blood Pressure 109/64 111/60 108/54 O2 Sat by Pulse 96 97 97 Oximetry 02/13/19 02/13/19 02/13/19 03:30 04:00 04:30 Temperature Pulse Rate 85 83 75 Pulse Rate [ Bilateral] Respiratory 24 19 18 Rate Respiratory Rate [Bilateral ] Blood Pressure 105/51 99/53 120/54 O2 Sat by Pulse 95 95 97 Oximetry 02/13/19 02/13/19 02/13/19 05:00 05:30 06:00 Temperature Pulse Rate 83 89 76 Pulse Rate [ Bilateral] Respiratory 21 24 17 Rate Respiratory Rate [Bilateral ] Blood Pressure 107/62 116/69 109/62 O2 Sat by Pulse 95 98 96 Oximetry 02/13/19 02/13/19 02/13/19 06:30 07:00 07:30 Temperature Pulse Rate 82 86 87 Pulse Rate [ Bilateral] Respiratory 24 28 H 29 H Rate Respiratory Rate [Bilateral ] Blood Pressure 116/59 111/59 118/62 O2 Sat by Pulse 98 96 96 Oximetry 02/13/19 02/13/19 02/13/19 07:48 08:00 08:40 Temperature 97.7 F Pulse Rate 81 Pulse Rate [ Bilateral] Respiratory 25 H Rate Respiratory Rate [Bilateral ] Blood Pressure 122/61 O2 Sat by Pulse 96 97 Oximetry 02/13/19 09:02 Temperature Pulse Rate Pulse Rate [ 93 H Bilateral] Respiratory Rate Respiratory 20 Rate [Bilateral ] Blood Pressure O2 Sat by Pulse Oximetry - Labs CBC & Chem 7: 02/11/19 04:55 02/13/19 06:10 Labs: Abnormal lab results 02/13/19 Range/Units 06:10 Sodium 146 H (137-145) mmol/L Chloride 116.1 H (98-107) mmol/L BUN 36 H (9-20) mg/dL Calcium 8.1 L (8.4-10.2) mg/dL Medications & Allergies - Medications Allergies/Adverse Reactions: Allergies cefepime Allergy (Verified 02/10/19 11:24) Rash Home Medications: Home Medications Medication Instructions Recorded Confirmed Last Taken Type Aspirin [Aspirin BABY CHEW TAB] 81 mg PO QDAY 02/09/19 02/09/19 02/09/19 History Desvenlafaxine Succinate 100 mg PO QDAY 02/09/19 02/09/19 02/09/19 History [Desvenlafaxine Succinate ER] Doxazosin Mesylate [Cardura] 2.5 mg PO DAILY 02/09/19 02/09/19 02/09/19 History Finasteride [Proscar] 5 mg PO QHS 02/09/19 02/09/19 02/09/19 History Propranolol HCl 20 mg PO QDAY 02/09/19 02/09/19 02/09/19 History Trazodone HCl 150 mg PO QHS 02/09/19 02/09/19 02/09/19 History Docusate Sodium [Colace] 100 mg PO QDAY 02/12/19 02/12/19 02/07/19 09:00 History Pravastatin [Pravachol] 20 mg PO QHS 02/13/19 02/13/19 02/08/19 History Active Medications: Generic Name Dose Route Start Last Admin Trade Name Freq PRN Reason Stop Dose Admin Acetaminophen 650 mg 02/09/19 14:29 02/11/19 16:52 Tylenol PO 650 mg Q4H PRN Administration Pain MILD(1-3)/Fever >100.5/KAMARA Albuterol/Ipratropium 1 ampul 02/11/19 20:00 02/13/19 08:43 Duoneb *Not For Prn Use* IH 1 ampul TIDRT REY Administration Aspirin 81 mg 02/10/19 10:00 02/13/19 09:21 Baby Aspirin PO 81 mg QDAY REY Administration Docusate Sodium 100 mg 02/12/19 12:00 02/13/19 09:21 Colace PO 100 mg BID REY Administration Famotidine 20 mg 02/10/19 11:00 02/13/19 09:20 Pepcid IV 20 mg DAILY REY Administration Finasteride 5 mg 02/09/19 22:00 02/12/19 22:00 Proscar PO 5 mg QHS REY Administration Norepinephrine 8 mg/ Sodium 250 mls @ 3.75 mls/hr 02/10/19 11:00 02/12/19 16:35 Chloride IV 0 mcg/min TITR REY 0 mls/hr Titration Protocol 2 MCG/MIN Vasopressin 20 unit/ Sodium 101 mls @ 9.09 mls/hr 02/10/19 11:00 02/10/19 15:39 Chloride IV 0 units/min TITR REY 0 mls/hr Titration Protocol 0.03 UNITS/MIN Levofloxacin/Dextrose 750 mg in 150 mls @ 100 mls/hr 02/12/19 12:00 02/13/19 09:20 Levaquin 750mg/150ml IV 100 mls/hr Q24HR REY Administration Protocol Morphine Sulfate 2 mg 02/10/19 15:48 02/13/19 09:21 Morphine IV 2 mg Q4H PRN Administration Pain, Moderate (4-6) Ondansetron HCl 4 mg 02/09/19 14:29 02/09/19 20:27 Zofran IV 4 mg Q8H PRN Administration Nausea And Vomiting Polyethylene Glycol 17 gm 02/12/19 11:19 02/12/19 11:51 Miralax 3350 PO 17 gm QDAY PRN Administration Constipation Sodium Chloride 10 ml 02/09/19 22:00 02/13/19 09:21 Sodium Chloride Flush Syringe 10 Ml IV 10 ml BID REY Administration Sodium Chloride 10 ml 02/09/19 14:29 Sodium Chloride Flush Syringe 10 Ml IV PRN PRN LINE FLUSH Trazodone HCl 150 mg 02/09/19 22:00 02/12/19 21:59 Desyrel PO 150 mg QHS REY Administration Venlafaxine HCl 50 mg 02/12/19 11:00 02/13/19 09:20 Effexor PO 50 mg BID REY Administration
--- NOTE | 2019-02-13 12:28 | Progress Note ---
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 2) Acute renal failure: renally dose abx. Creatinine improving. 3) Rash? from Zosyn: given h/o Cefepime allergy. Improving. 4) Acute thrombocytopenia: ?sepsis related v/s h/o hairy cell leukemia. Monitor. Recs: - off pressors. Continue Levofloxacin 750 mg q24 hrs, tentative end date 02/19/2019 - avoiding cefepime and zosyn due to rash D/W [facility] Meena Tuttle [facility], [facility] C: [phone] O: [phone] F: [phone] Subjective Date of service: 02/13/19 Principal diagnosis: low platelets Interval history: Low grade fevers + but clinically feels much better. Pain is well controlled. Off pressors since 1630 yesterday per RN. Objective - Exam Narrative Exam: Physical Exam: Constitutional: Alert, cooperative. No acute distress Head, Ears, Nose: Normocephalic, atraumatic. External ears, nose normal Eyes: Conjunctivae/corneas clear. No icterus. No ptosis. Neck: Supple, no meningeal signs Oral: no thrush Cardiovascular: S1, S2 normal. Respiratory: Good air entry, clear to auscultation bilaterally GI: Soft, non-tender; bowel sounds normal. No peritoneal signs. Left nephrostomy tube +, Agarwal + with bloody urine Musculoskeletal: No pedal edema, no cyanosis. Skin: upper trunk rash improving. no abscess Hem/Lymphatic: No palpable cervical or supraclavicular nodes. No lymphangitis Psych: Mood ok. Affect normal Neurological: Awake, alert, oriented. No gross abnormality - Constitutional Vitals: Vital Signs Temp Pulse Resp BP Pulse Ox 97.7 F 93 H 20 122/61 97 02/13/19 07:48 02/13/19 09:02 02/13/19 09:02 02/13/19 08:00 02/13/19 08:40 Temperature -Last 24 Hours Temperature 97.7 F Temperature 98.6 F - Labs CBC & Chem 7: 02/11/19 04:55 02/13/19 06:10 Labs: Abnormal lab results 02/13/19 Range/Units 06:10 Sodium 146 H (137-145) mmol/L Chloride 116.1 H (98-107) mmol/L BUN 36 H (9-20) mg/dL Calcium 8.1 L (8.4-10.2) mg/dL
[2019-02-13] MEDS: traZODone 100 MG TAB PO SCH (21:27)
[2019-02-13] MEDS: FINASTERIDE 5 MG TAB PO SCH (21:27)
[2019-02-14] MEDS: BUDESONIDE 0.5 MG/2 ML NEBU IH SCH ×2 (08:45→19:26)
[2019-02-14 09:36] LABS: Hematocrit 37.8 % (35.5-45.6); Hemoglobin 12.6 gm/dl (11.8-15.2); Mean Corpuscular HGB Conc 33 % (32-34); Mean Corpuscular Volume 85 fl (84-94); Red Blood Count 4.47 M/mm3 (3.65-5.03); Red Cell Distribution Width 15.3 % (13.2-15.2)
[2019-02-14 09:42] LABS: Platelet Count 64 K/mm3 (140-440)
[2019-02-14 10:05] LABS: BUN/Creatinine Ratio 33; Blood Urea Nitrogen 23 mg/dL (9-20); Calcium 8.3 mg/dL (8.4-10.2); Hemolysis Index 2
[2019-02-14] MEDS ORDERED: POTASSIUM CHLORIDE ER 20 MEQ TAB PO ONE (10:29)
--- NOTE | 2019-02-14 10:31 | Progress Note ---
Assessment and Plan 1. Acute kidney injury: Vasomotor KEVIN in the setting of septic shock. CT abdomen showed b/l nephrolithiasis. Renal US was negative for hydronephrosis. Renal function is better. Monitor renal function. Avoid nephrotoxic agents. 2. FEN: Metabolic acidosis, improved. Hypernatremia, encouraged PO fluids. Replete K. Monitor lytes. 3. Bilateral nephrolithiasis: S/p bilateral ureteral stent. S/p L perc nephrostomy tube. 4. Septic shock: On Abx. Off pressors. 5. Respiratory distress: Was on BIPAP. Examination: General appearance: well-developed, well-nourished, appears stated age, obese HEENT: ATNC, PERRL, hearing intact, vision intact Neck: neck supple, trachea midline Respiratory: Clear to Ascultation, decreased breath sounds Heart: regular, S1S2, no murmur Gastrointestinal: normoactive bowel sounds, obese, not tender Integumentary: no rash, warm and dry Neurologic: alert, no focal deficit, no asterixis Musculoskeletal: tarce LE edema : palma catheter and L nephrostomy tube noted Subjective Date of service: 02/14/19 Principal diagnosis: low platelets Interval history: Patient was seen and examined at the bedside. Doing ok. Objective - Vital Signs Vital signs: Vital Signs - 12hr 02/13/19 02/14/19 02/14/19 23:13 00:00 04:00 Temperature 97.7 F Pulse Rate 89 83 84 Respiratory 18 Rate Blood Pressure 147/73 O2 Sat by Pulse 96 Oximetry 02/14/19 02/14/19 02/14/19 05:01 07:57 08:36 Temperature 97.5 F L 97.5 F L Pulse Rate 84 92 H Respiratory 18 18 Rate Blood Pressure 151/68 135/79 O2 Sat by Pulse 97 94 96 Oximetry - Lab 02/14/19 09:02 02/14/19 09:02 Most recent lab results Calcium 8.3 mg/dL (8.4-10.2) L 02/14/19 09:02 Phosphorus 3.90 mg/dL (2.5-4.5) 02/11/19 04:55 Magnesium 1.80 mg/dL (1.7-2.3) 02/11/19 04:55 Urine Creatinine 350.2 mg/dL (0.1-20.0) H 02/09/19 15:20 Urine Sodium 46 mmol/L 02/09/19 15:20 Medications & Allergies - Medications Allergies/Adverse Reactions: Allergies cefepime Allergy (Verified 02/10/19 11:24) Rash Home Medications: Home Medications Medication Instructions Recorded Confirmed Last Taken Type Aspirin [Aspirin BABY CHEW TAB] 81 mg PO QDAY 02/09/19 02/09/19 02/09/19 History Desvenlafaxine Succinate 100 mg PO QDAY 02/09/19 02/09/19 02/09/19 History [Desvenlafaxine Succinate ER] Doxazosin Mesylate [Cardura] 2.5 mg PO DAILY 02/09/19 02/09/19 02/09/19 History Finasteride [Proscar] 5 mg PO QHS 02/09/19 02/09/19 02/09/19 History Propranolol HCl 20 mg PO QDAY 02/09/19 02/09/19 02/09/19 History Trazodone HCl 150 mg PO QHS 02/09/19 02/09/19 02/09/19 History Docusate Sodium [Colace] 100 mg PO QDAY 02/12/19 02/12/19 02/07/19 09:00 History Pravastatin [Pravachol] 20 mg PO QHS 02/13/19 02/13/19 02/08/19 History Active Medications: Generic Name Dose Route Start Last Admin Trade Name Freq PRN Reason Stop Dose Admin Acetaminophen 650 mg 02/09/19 14:29 02/11/19 16:52 Tylenol PO 650 mg Q4H PRN Administration Pain MILD(1-3)/Fever >100.5/KAMARA Albuterol/Ipratropium 1 ampul 02/11/19 20:00 02/13/19 20:38 Duoneb *Not For Prn Use* IH 1 ampul TIDRT REY Administration Aspirin 81 mg 02/10/19 10:00 02/13/19 09:21 Baby Aspirin PO 81 mg QDAY REY Administration Budesonide 0.5 mg 02/14/19 20:00 02/14/19 08:45 Pulmicort IH 0.5 mg Q12HRT REY Administration Docusate Sodium 100 mg 02/12/19 12:00 02/13/19 21:27 Colace PO 100 mg BID REY Administration Famotidine 20 mg 02/10/19 11:00 02/13/19 09:20 Pepcid IV 20 mg DAILY REY Administration Finasteride 5 mg 02/09/19 22:00 02/13/19 21:27 Proscar PO 5 mg QHS REY Administration Levofloxacin/Dextrose 750 mg in 150 mls @ 100 mls/hr 02/12/19 12:00 02/13/19 09:20 Levaquin 750mg/150ml IV 100 mls/hr Q24HR REY Administration Protocol Morphine Sulfate 2 mg 02/10/19 15:48 02/13/19 09:21 Morphine IV 2 mg Q4H PRN Administration Pain, Moderate (4-6) Ondansetron HCl 4 mg 02/09/19 14:29 02/09/19 20:27 Zofran IV 4 mg Q8H PRN Administration Nausea And Vomiting Polyethylene Glycol 17 gm 02/12/19 11:19 02/12/19 11:51 Miralax 3350 PO 17 gm QDAY PRN Administration Constipation Potassium Chloride 40 meq 02/14/19 10:29 K-Dur PO 02/14/19 10:30 ONCE ONE Sodium Chloride 10 ml 02/09/19 22:00 02/13/19 21:28 Sodium Chloride Flush Syringe 10 Ml IV 10 ml BID REY Administration Sodium Chloride 10 ml 02/09/19 14:29 Sodium Chloride Flush Syringe 10 Ml IV PRN PRN LINE FLUSH Trazodone HCl 150 mg 02/09/19 22:00 02/13/19 21:27 Desyrel PO 150 mg QHS REY Administration Venlafaxine HCl 50 mg 02/12/19 11:00 02/13/19 21:27 Effexor PO 50 mg BID REY Administration
[2019-02-14] MEDS: VENLAFAXINE 25 MG TAB PO SCH ×2 (11:08→21:35)
[2019-02-14] MEDS: FAMOTIDINE 20 MG/2 ML INJ IV SCH (11:09)
[2019-02-14] MEDS: ASPIRIN 81 MG TAB CHEW PO SCH (11:09)
[2019-02-14] MEDS: DOCUSATE SODIUM 100 MG CAP PO SCH ×2 (11:09→21:35)
[2019-02-14] MEDS: MORPHINE 2 MG/1 ML INJ IV PRN (11:13)
[2019-02-14] MEDS: IPRATROPIUM/ALBUTEROL SULFATE 3 ML AMPUL.NEB IH SCH ×3 (11:14→19:25)
--- NOTE | 2019-02-14 12:18 | Progress Note ---
Assessment and Plan - Patient Problems (1) Multifocal atrial tachycardia Current Visit: Yes Status: Acute Plan to address problem: MAT has resolved, patient has no further cardiac complaints. Cardiac status is stable. Subjective Date of service: 02/14/19 Principal diagnosis: low platelets Interval history: Patient is comfortable, no new cardiac complaints. Objective Vital Signs Temp Pulse Pulse Resp Resp BP Pulse Ox 02/14/19 11:15 96 H 26 H 02/14/19 08:36 96 02/14/19 08:00 95 H 20 02/14/19 07:57 97.5 F L 92 H 18 135/79 94 02/14/19 05:01 97.5 F L 84 18 151/68 97 02/14/19 04:00 84 02/14/19 00:00 83 02/13/19 23:13 97.7 F 89 18 147/73 96 02/13/19 20:42 95 H 20 02/13/19 20:41 97 02/13/19 20:00 101 H 02/13/19 15:00 97.6 F 110 H 18 122/65 93 02/13/19 14:35 95 H 20 02/13/19 13:30 109 H 39 H 118/71 96 02/13/19 13:00 106 H 25 H 125/80 96 02/13/19 12:30 94 H 25 H 124/74 98 - Physical Examination General: No Apparent Distress HEENT: Positive: PERRL Neck: Positive: trachea midline Cardiac: Positive: Reg Rate and Rhythm Lungs: Positive: Decreased Breath Sounds Neuro: Positive: Grossly Intact Abdomen: Positive: Soft Skin: Positive: Clear Extremities: Absent: edema - Labs and Meds CBC 02/14/19 Range/Units 09:02 WBC 8.9 (4.5-11.0) K/mm3 RBC 4.47 (3.65-5.03) M/mm3 Hgb 12.6 (11.8-15.2) gm/dl Hct 37.8 (35.5-45.6) % Plt Count 64 L (140-440) K/mm3 Comprehensive Metabolic Panel 02/14/19 Range/Units 09:02 Sodium 146 H (137-145) mmol/L Potassium 3.4 L (3.6-5.0) mmol/L Chloride 108.6 H (98-107) mmol/L Carbon Dioxide 29 (22-30) mmol/L BUN 23 H (9-20) mg/dL Creatinine 0.7 L (0.8-1.5) mg/dL Glucose 100 (75-100) mg/dL Calcium 8.3 L (8.4-10.2) mg/dL
--- NOTE | 2019-02-14 12:50 | Progress Note ---
Assessment and Plan Assessment and plan: Patient is 68 YO Male with HTN, Obesity, Hairy Cell Leukemia(In remission) presented to ED for evaluation. He complained of shortness of breath for 3 days, subjective fever, and left flank pain. he also complained of nausea and multiple episodes of vomiting. EMS notified and upon arrival the patient found to be in distress and transported to [facility]. Pt seen and evaluated in ED and found to have Severe Sepsis complicated by Shock with blood pressure of 68/41. Pt initiated on sepsis protocol. Pt treated with IVF resuscitation as well as pressor support. Pt found to have worsening dypsnea after fluid resuscitation which resulted in Acute Hypoxemic Respiratory Failure. Pt initiated on NIPPV and admitted to ICU. CT Abdomen revealed bilateral nephrolithiasis and 7-8mm left ureteropelvic junction stone. He was started on iv Antibiotic and admitted. ID physician, pulmonology, interventional radiology, nephrology and vascular surgery were consulted. IR placed a left percutaneous nephrostomy tube on 02/09/2019. On following day, 02/10, Dr. Perez, Urology did cystoscopy , retrograde pyelogram and bilateral double J stent placement. Creatinine level improved and now normal. He was initially placed on Levaquin and Aztreonam. Blood cultures and Urine cultures grew Escherichia coli and Aztreonam was discontinued. He was on Levophed for several days was discontinued 02/13/2019 and he was transferred to telemetry. Sepsis due to complicated UTI Admitted to ICU Continue Levaquin ID Physician following Septic shock Now off Levophed KEVIN (acute kidney injury) due to ATN Now resolved IVF resuscitation therapy, Nephrology following, monitor uop q shift, urine electrolytes, Metabolic Acidosis due to KEVIN now resolved IVF resuscitation therapy, IV bicarbonate, supportive care. Complicated UTI On Levaquin, Aztreonam IV antibiotic therapy, urinalysis, CBC,CMP, Urinary obstruction 7MM Left UPJ obstructing stone with mild hydronephrosis, supportive care. IR consulted s/p left perc nephrostomy tube placement, Urology consulted did cystoscopy, RPG, bilat double j-stent placement MAT resolved Cardiomyopathy EF 45-50% patient does not have CHF Acute respiratory failure with hypoxia Oxygen buy NC NIPPV Pulm following Supplemental oxygen, ABG, pulse oximetry, NIPPV as clinically indicated, nebulizer therapy prn, Lactic acidosis due to sepsis Thrombocytopenia Dr. Tapia following Platelet transfused DVT prophylaxis SCDs. No chemical anticoag because of low platelets History Interval history: Feels better Transferred to tele yesterday 02/13 Generalized weakness Less Shortness of breath Hospitalist Physical - Physical exam Narrative exam: Gen: Not in acute distress, lying in bed, obese, ill looking HEENT: Normocephalic, atraumatic Neck: supple, no JVD Heart: S1 and S2 reg, no murmurs, rubs or gallop Lungs: Clear to auscultation, no rhonchi, no wheeze Abd: soft, non tender, non distended, normal BS, left nephrostomy tube Ext: No edema, no clubbing, no cyanosis Neuro: Awake, alert, oriented X 3, no focal neurological signs - Constitutional Vitals: Temp Pulse Resp BP Pulse Ox 99.2 F 68 18 129/81 94 02/14/19 11:49 02/14/19 11:49 02/14/19 11:49 02/14/19 11:49 02/14/19 11:49 General appearance: Present: no acute distress, obese Results - Labs CBC & Chem 7: 02/14/19 09:02 02/14/19 09:02 Labs: Laboratory Last Values WBC 8.9 K/mm3 (4.5-11.0) 02/14/19 09:02 RBC 4.47 M/mm3 (3.65-5.03) 02/14/19 09:02 Hgb 12.6 gm/dl (11.8-15.2) 02/14/19 09:02 Hct 37.8 % (35.5-45.6) 02/14/19 09:02 MCV 85 fl (84-94) 02/14/19 09:02 MCH 28 pg (28-32) 02/14/19 09:02 MCHC 33 % (32-34) 02/14/19 09:02 RDW 15.3 % (13.2-15.2) H 02/14/19 09:02 Plt Count 64 K/mm3 (140-440) L 02/14/19 09:02 Eos % (Auto) Burr Sander 02/10/19 04:30 Add Manual Diff Complete 02/10/19 04:30 Total Counted 100 02/10/19 04:30 Seg Neutrophils % Burr Sander 02/09/19 Unknown Seg Neuts % (Manual) 75.0 % (40.0-70.0) H 02/10/19 04:30 Band Neutrophils % 13.0 % 02/10/19 04:30 Lymphocytes % (Manual) 5.0 % (13.4-35.0) L 02/10/19 04:30 Reactive Lymphs % (Man) 0 % 02/10/19 04:30 Monocytes % (Manual) 7.0 % (0.0-7.3) 02/10/19 04:30 Eosinophils % (Manual) 0 % (0.0-4.3) 02/10/19 04:30 Basophils % (Manual) 0 % (0.0-1.8) 02/10/19 04:30 Metamyelocytes % 0 % 02/10/19 04:30 Myelocytes % 0 % 02/10/19 04:30 Promyelocytes % 0 % 02/10/19 04:30 Blast Cells % 0 % 02/10/19 04:30 Nucleated RBC % Not Reportable 02/10/19 04:30 Seg Neutrophils # Man 5.6 K/mm3 (1.8-7.7) 02/10/19 04:30 Band Neutrophils # 1.0 K/mm3 02/10/19 04:30 Lymphocytes # (Manual) 0.4 K/mm3 (1.2-5.4) L 02/10/19 04:30 Abs React Lymphs (Man) 0.0 K/mm3 02/10/19 04:30 Monocytes # (Manual) 0.5 K/mm3 (0.0-0.8) 02/10/19 04:30 Eosinophils # (Manual) 0.0 K/mm3 (0.0-0.4) 02/10/19 04:30 Basophils # (Manual) 0.0 K/mm3 (0.0-0.1) 02/10/19 04:30 Metamyelocytes # 0.0 K/mm3 02/10/19 04:30 Myelocytes # 0.0 K/mm3 02/10/19 04:30 Promyelocytes # 0.0 K/mm3 02/10/19 04:30 Blast Cells # 0.0 K/mm3 02/10/19 04:30 WBC Morphology Not Reportable 02/10/19 04:30 Hypersegmented Neuts Not Reportable 02/10/19 04:30 Hyposegmented Neuts Not Reportable 02/10/19 04:30 Hypogranular Neuts Not Reportable 02/10/19 04:30 Smudge Cells Not Reportable 02/10/19 04:30 Toxic Granulation Not Reportable 02/10/19 04:30 Toxic Vacuolation Not Reportable 02/10/19 04:30 Dohle Bodies Not Reportable 02/10/19 04:30 Pelger-Huet Anomaly Not Reportable 02/10/19 04:30 Jagdish Rods Not Reportable 02/10/19 04:30 Platelet Estimate Appears decreased 02/10/19 04:30 Clumped Platelets Not Reportable 02/10/19 04:30 Plt Clumps, EDTA Not Reportable 02/10/19 04:30 Large Platelets 1+ 02/10/19 04:30 Giant Platelets Not Reportable 02/10/19 04:30 Platelet Satelliting Not Reportable 02/10/19 04:30 Plt Morphology Comment Not Reportable 02/10/19 04:30 RBC Morphology Normal 02/10/19 04:30 Dimorphic RBCs Not Reportable 02/10/19 04:30 Polychromasia Not Reportable 02/10/19 04:30 Hypochromasia Not Reportable 02/10/19 04:30 Poikilocytosis Not Reportable 02/10/19 04:30 Anisocytosis Not Reportable 02/10/19 04:30 Microcytosis Not Reportable 02/10/19 04:30 Macrocytosis Not Reportable 02/10/19 04:30 Spherocytes Not Reportable 02/10/19 04:30 Pappenheimer Bodies Not Reportable 02/10/19 04:30 Sickle Cells Not Reportable 02/10/19 04:30 Target Cells Not Reportable 02/10/19 04:30 Tear Drop Cells Not Reportable 02/10/19 04:30 Ovalocytes Not Reportable 02/10/19 04:30 Helmet Cells Not Reportable 02/10/19 04:30 [place] Bodies Not Reportable 02/10/19 04:30 [place] Rings Not Reportable 02/10/19 04:30 [place] Cells Not Reportable 02/10/19 04:30 Bite Cells Not Reportable 02/10/19 04:30 Crenated Cell Not Reportable 02/10/19 04:30 Elliptocytes Not Reportable 02/10/19 04:30 Acanthocytes (Spur) Not Reportable 02/10/19 04:30 Rouleaux Not Reportable 02/10/19 04:30 Hemoglobin C Crystals Not Reportable 02/10/19 04:30 Schistocytes Not Reportable 02/10/19 04:30 Malaria parasites Not Reportable 02/10/19 04:30 Arnie Bodies Not Reportable 02/10/19 04:30 Hem Pathologist Commnt No 02/10/19 04:30 PT 15.8 Sec. (12.2-14.9) H 02/09/19 Unknown INR 1.29 (0.87-1.13) H 02/09/19 Unknown POC ABG pH 7.356 (7.35-7.45) 02/09/19 17:29 POC ABG pCO2 37.1 (35-45) 02/09/19 17:29 POC ABG pO2 97 (80-105) 02/09/19 17:29 POC ABG HCO3 20.8 (22-26 mml/L) 02/09/19 17:29 POC ABG Total CO2 22 (23-27mmol/L) 02/09/19 17:29 POC ABG O2 Sat 97 02/09/19 17:29 POC ABG Base Excess -5 ((-2) - (+3)mmol/L) 02/09/19 17:29 VBG pH 7.379 (7.320-7.420) 02/09/19 11:45 FiO2 28 % 02/09/19 17:29 Sodium 146 mmol/L (137-145) H 02/14/19 09:02 Potassium 3.4 mmol/L (3.6-5.0) L 02/14/19 09:02 Chloride 108.6 mmol/L (98-107) H 02/14/19 09:02 Carbon Dioxide 29 mmol/L (22-30) 02/14/19 09:02 Anion Gap 12 mmol/L 02/14/19 09:02 BUN 23 mg/dL (9-20) H 02/14/19 09:02 Creatinine 0.7 mg/dL (0.8-1.5) L 02/14/19 09:02 Estimated GFR > 60 ml/min 02/14/19 09:02 BUN/Creatinine Ratio 33 % 02/14/19 09:02 Glucose 100 mg/dL (75-100) 02/14/19 09:02 POC Glucose 146 (70-105) H 02/11/19 12:05 Lactic Acid 2.50 mmol/L (0.7-2.0) H* 02/10/19 08:44 Calcium 8.3 mg/dL (8.4-10.2) L 02/14/19 09:02 Phosphorus 3.90 mg/dL (2.5-4.5) 02/11/19 04:55 Magnesium 1.80 mg/dL (1.7-2.3) 02/11/19 04:55 Total Bilirubin 1.40 mg/dL (0.1-1.2) H 02/10/19 04:30 AST 31 units/L (5-40) 02/10/19 04:30 ALT 17 units/L (7-56) 02/10/19 04:30 Alkaline Phosphatase 67 units/L (35-129) 02/10/19 04:30 Troponin T 0.017 ng/mL (0.00-0.029) 02/09/19 Unknown NT-Pro-B Natriuret Pep 6998 pg/mL (0-900) H 02/09/19 Unknown Total Protein 5.2 g/dL (6.3-8.2) L 02/10/19 04:30 Albumin 2.3 g/dL (3.9-5) L 02/10/19 04:30 Albumin/Globulin Ratio 0.8 % 02/10/19 04:30 Urine Color Madeline (Yellow) 02/09/19 07:28 Urine Turbidity Cloudy (Clear) 02/09/19 07:28 Urine pH 5.0 (5.0-7.0) 02/09/19 07:28 Ur Specific [place] 1.019 (1.003-1.030) 02/09/19 07:28 Urine Protein 100 mg/dl mg/dL (Negative) 02/09/19 07:28 Urine Glucose (UA) Neg mg/dL (Negative) 02/09/19 07:28 Urine Ketones Neg mg/dL (Negative) 02/09/19 07:28 Urine Blood Lg (Negative) 02/09/19 07:28 Urine Nitrite Neg (Negative) 02/09/19 07:28 Urine Bilirubin Neg (Negative) 02/09/19 07:28 Urine Urobilinogen 4.0 mg/dL (<2.0) 02/09/19 07:28 Ur Leukocyte Esterase Mod (Negative) 02/09/19 07:28 Urine WBC (Auto) 35.0 /HPF (0.0-6.0) H 02/09/19 07:28 Urine RBC (Auto) > 182.0 /HPF (0.0-6.0) 02/09/19 07:28 U Epithel Cells (Auto) 1.0 /HPF (0-13.0) 02/09/19 07:28 Urine Bacteria (Auto) 1+ /HPF (Negative) 02/09/19 07:28 Urine Creatinine 350.2 mg/dL (0.1-20.0) H 02/09/19 15:20 Urine Sodium 46 mmol/L 02/09/19 15:20 Blood Type A NEGATIVE 02/09/19 17:15 Antibody Screen Negative 02/09/19 17:15 Active Medications - Current Medications Current Medications: Generic Name Dose Route Start Last Admin Trade Name Freq PRN Reason Stop Dose Admin Acetaminophen 650 mg 02/09/19 14:29 02/11/19 16:52 Tylenol PO 650 mg Q4H PRN Administration Pain MILD(1-3)/Fever >100.5/KAMARA Albuterol/Ipratropium 1 ampul 02/11/19 20:00 02/14/19 11:14 Duoneb *Not For Prn Use* IH 1 ampul TIDRT REY Administration Aspirin 81 mg 02/10/19 10:00 02/14/19 11:09 Baby Aspirin PO 81 mg QDAY REY Administration Budesonide 0.5 mg 02/14/19 20:00 02/14/19 08:45 Pulmicort IH 0.5 mg Q12HRT REY Administration Docusate Sodium 100 mg 02/12/19 12:00 02/14/19 11:09 Colace PO 100 mg BID REY Administration Famotidine 20 mg 02/10/19 11:00 02/14/19 11:09 Pepcid IV 20 mg DAILY REY Administration Finasteride 5 mg 02/09/19 22:00 02/13/19 21:27 Proscar PO 5 mg QHS REY Administration Levofloxacin/Dextrose 750 mg in 150 mls @ 100 mls/hr 02/12/19 12:00 02/14/19 11:08 Levaquin 750mg/150ml IV 100 mls/hr Q24HR REY Administration Protocol Morphine Sulfate 2 mg 02/10/19 15:48 02/14/19 11:13 Morphine IV 2 mg Q4H PRN Administration Pain, Moderate (4-6) Ondansetron HCl 4 mg 02/09/19 14:29 02/09/19 20:27 Zofran IV 4 mg Q8H PRN Administration Nausea And Vomiting Polyethylene Glycol 17 gm 02/12/19 11:19 02/12/19 11:51 Miralax 3350 PO 17 gm QDAY PRN Administration Constipation Sodium Chloride 10 ml 02/09/19 22:00 02/14/19 11:09 Sodium Chloride Flush Syringe 10 Ml IV 10 ml BID REY Administration Sodium Chloride 10 ml 02/09/19 14:29 Sodium Chloride Flush Syringe 10 Ml IV PRN PRN LINE FLUSH Trazodone HCl 150 mg 02/09/19 22:00 02/13/19 21:27 Desyrel PO 150 mg QHS REY Administration Venlafaxine HCl 50 mg 02/12/19 11:00 02/14/19 11:08 Effexor PO 50 mg BID REY Administration
--- NOTE | 2019-02-14 15:13 | Hem/Onc Progress Note ---
Assessment and Plan 1. Thrombocytopenia. This may be secondary to consumption/infection. The patient was on pressors. Supportive care for now. No bleeding at this time. 2. Renal impairment, being followed by Nephrology. 3. Nephrolithiasis, status post nephrostomy tube placement, which was dislodged. Urology followup for the ureteral stent. 4. Seen by ID team and Nephrology team. 5. Radiologically, there is no mention of splenomegaly. 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 We will follow the patient during inpatient stay. Follow the trend and he would need to be followed in the outpatient setting. pt received 3 platelets transfusions clinically better - no bleeding - Patient Problems (1) Thrombocytopenia Current Visit: Yes Status: Acute Subjective Date of service: 02/14/19 Principal diagnosis: lung ca Interval history: breathing better Objective - Exam Narrative Exam: Pain - none now General appearance - awake Performance status limited self care - on o2 Eyes - no icterus ENT - no thrush LNs cervical not palpable Neck - no LN Respiratory Normal Breath sounds - CTA anteriorly CVS S1 S2 + Extremities no calf tenderness General GI Soft Rectal deferred male - deferred Skin warm Musculoskeletal moves limbs neuro - awake - Constitutional Vitals: Last Vital Signs Temp 99.2 F 02/14/19 11:49 Pulse 91 H 02/14/19 12:00 Resp 18 02/14/19 11:49 BP 129/81 02/14/19 11:49 Pulse Ox 94 02/14/19 11:49 - Labs Lab Results: Laboratory Results - last 24 hr 02/14/19 02/14/19 09:02 09:02 WBC 8.9 RBC 4.47 Hgb 12.6 Hct 37.8 MCV 85 MCH 28 MCHC 33 RDW 15.3 H Plt Count 64 L Sodium 146 H Potassium 3.4 L Chloride 108.6 H Carbon Dioxide 29 Anion Gap 12 BUN 23 H Creatinine 0.7 L Estimated GFR > 60 BUN/Creatinine Ratio 33 Glucose 100 Calcium 8.3 L Medications & Allergies - Medications Allergies/Adverse Reactions: Allergies cefepime Allergy (Verified 02/10/19 11:24) Rash Home Medications: Home Medications Medication Instructions Recorded Confirmed Last Taken Type Aspirin [Aspirin BABY CHEW TAB] 81 mg PO QDAY 02/09/19 02/09/19 02/09/19 History Desvenlafaxine Succinate 100 mg PO QDAY 10/02/09/19 02/09/19 History [Desvenlafaxine Succinate ER] Doxazosin Mesylate [Cardura] 2.5 mg PO DAILY 02/09/19 02/09/19 02/09/19 History Finasteride [Proscar] 5 mg PO QHS 02/09/19 02/09/19 02/09/19 History Propranolol HCl 20 mg PO QDAY 02/09/19 02/09/19 02/09/19 History Trazodone HCl 150 mg PO QHS 02/09/19 02/09/19 02/09/19 History Docusate Sodium [Colace] 100 mg PO QDAY 02/12/19 02/12/19 02/07/19 09:00 History Pravastatin [Pravachol] 20 mg PO QHS 02/13/19 02/13/19 02/08/19 History Active Medications: Generic Name Dose Route Start Last Admin Trade Name Freq PRN Reason Stop Dose Admin Acetaminophen 650 mg 02/09/19 14:29 02/11/19 16:52 Tylenol PO 650 mg Q4H PRN Administration Pain MILD(1-3)/Fever >100.5/KAMARA Albuterol/Ipratropium 1 ampul 02/11/19 20:00 02/14/19 11:14 Duoneb *Not For Prn Use* IH 1 ampul TIDRT REY Administration Aspirin 81 mg 02/10/19 10:00 02/14/19 11:09 Baby Aspirin PO 81 mg QDAY REY Administration Budesonide 0.5 mg 02/14/19 20:00 02/14/19 08:45 Pulmicort IH 0.5 mg Q12HRT REY Administration Docusate Sodium 100 mg 02/12/19 12:00 02/14/19 11:09 Colace PO 100 mg BID REY Administration Famotidine 20 mg 02/10/19 11:00 02/14/19 11:09 Pepcid IV 20 mg DAILY REY Administration Finasteride 5 mg 02/09/19 22:00 02/13/19 21:27 Proscar PO 5 mg QHS REY Administration Levofloxacin/Dextrose 750 mg in 150 mls @ 100 mls/hr 02/12/19 12:00 02/14/19 11:08 Levaquin 750mg/150ml IV 100 mls/hr Q24HR REY Administration Protocol Morphine Sulfate 2 mg 02/10/19 15:48 02/14/19 11:13 Morphine IV 2 mg Q4H PRN Administration Pain, Moderate (4-6) Ondansetron HCl 4 mg 02/09/19 14:29 02/09/19 20:27 Zofran IV 4 mg Q8H PRN Administration Nausea And Vomiting Polyethylene Glycol 17 gm 02/12/19 11:19 02/12/19 11:51 Miralax 3350 PO 17 gm QDAY PRN Administration Constipation Sodium Chloride 10 ml 02/09/19 22:00 02/14/19 11:09 Sodium Chloride Flush Syringe 10 Ml IV 10 ml BID REY Administration Sodium Chloride 10 ml 02/09/19 14:29 Sodium Chloride Flush Syringe 10 Ml IV PRN PRN LINE FLUSH Trazodone HCl 150 mg 02/09/19 22:00 02/13/19 21:27 Desyrel PO 150 mg QHS REY Administration Venlafaxine HCl 50 mg 02/12/19 11:00 02/14/19 11:08 Effexor PO 50 mg BID REY Administration
[2019-02-14] MEDS ORDERED: ALBUTEROL 2.5 MG/3 ML NEBU IH PRN (16:09)
[2019-02-14] MEDS: POLYETHYLENE GLYCOL 3350 17 GM POWDER PO PRN (18:15)
[2019-02-14] MEDS: traZODone 100 MG TAB PO SCH (21:35)
[2019-02-14] MEDS: FINASTERIDE 5 MG TAB PO SCH (21:35)
[2019-02-15 06:28] LABS: BUN/Creatinine Ratio 29; Blood Urea Nitrogen 20 mg/dL (9-20); Calcium 8.2 mg/dL (8.4-10.2); Hemolysis Index 11
[2019-02-15] MEDS: IPRATROPIUM/ALBUTEROL SULFATE 3 ML AMPUL.NEB IH SCH ×3 (07:58→20:51)
[2019-02-15] MEDS: BUDESONIDE 0.5 MG/2 ML NEBU IH SCH ×2 (07:58→20:51)
--- NOTE | 2019-02-15 09:34 | Progress Note ---
Assessment and Plan 1. Acute kidney injury: Vasomotor KEVIN in the setting of septic shock. CT abdomen showed b/l nephrolithiasis. Renal US was negative for hydronephrosis. Renal function is better. Monitor renal function. Avoid nephrotoxic agents. 2. FEN: Metabolic acidosis, improved. Hypernatremia, monitor. Volume overload, started on HCTZ. Replete K. Monitor lytes. 3. Bilateral nephrolithiasis: S/p bilateral ureteral stent. S/p L perc nephrostomy tube. 4. Septic shock: On Abx. Off pressors. 5. Respiratory distress: Was on BIPAP. Examination: General appearance: well-developed, well-nourished, appears stated age, obese HEENT: ATNC, PERRL, hearing intact, vision intact Neck: neck supple, trachea midline Respiratory: bibasal rales noted Heart: regular, S1S2, no murmur Gastrointestinal: normoactive bowel sounds, obese, not tender Integumentary: no rash, warm and dry Neurologic: alert, no focal deficit, no asterixis Musculoskeletal: trace LE edema : palma catheter and L nephrostomy tube noted Subjective Date of service: 02/15/19 Principal diagnosis: low platelets Interval history: Patient was seen and examined at the bedside. Doing ok. Objective - Vital Signs Vital signs: Vital Signs - 12hr 02/15/19 02/15/19 02/15/19 00:00 00:48 04:00 Temperature 98.5 F Pulse Rate 80 81 90 Respiratory 24 Rate Blood Pressure 164/83 O2 Sat by Pulse 96 Oximetry 02/15/19 02/15/19 02/15/19 04:55 08:00 08:48 Temperature 98.4 F 98.4 F Pulse Rate 83 87 89 Respiratory 20 18 Rate Blood Pressure 151/92 145/95 O2 Sat by Pulse 93 93 Oximetry - Lab 02/14/19 09:02 02/15/19 05:39 Most recent lab results Calcium 8.2 mg/dL (8.4-10.2) L 02/15/19 05:39 Phosphorus 3.90 mg/dL (2.5-4.5) 02/11/19 04:55 Magnesium 1.80 mg/dL (1.7-2.3) 02/11/19 04:55 Urine Creatinine 350.2 mg/dL (0.1-20.0) H 02/09/19 15:20 Urine Sodium 46 mmol/L 02/09/19 15:20 Medications & Allergies - Medications Allergies/Adverse Reactions: Allergies cefepime Allergy (Verified 02/10/19 11:24) Rash Home Medications: Home Medications Medication Instructions Recorded Confirmed Last Taken Type Aspirin [Aspirin BABY CHEW TAB] 81 mg PO QDAY 02/09/19 02/09/19 02/09/19 History Desvenlafaxine Succinate 100 mg PO QDAY 02/09/19 02/09/19 02/09/19 History [Desvenlafaxine Succinate ER] Doxazosin Mesylate [Cardura] 2.5 mg PO DAILY 02/09/19 02/09/19 02/09/19 History Finasteride [Proscar] 5 mg PO QHS 02/09/19 02/09/19 02/09/19 History Propranolol HCl 20 mg PO QDAY 02/09/19 02/09/19 02/09/19 History Trazodone HCl 150 mg PO QHS 02/09/19 02/09/19 02/09/19 History Docusate Sodium [Colace] 100 mg PO QDAY 02/12/19 02/12/19 02/07/19 09:00 History Pravastatin [Pravachol] 20 mg PO QHS 02/13/19 02/13/19 02/08/19 History Active Medications: Generic Name Dose Route Start Last Admin Trade Name Freq PRN Reason Stop Dose Admin Acetaminophen 650 mg 02/09/19 14:29 02/11/19 16:52 Tylenol PO 650 mg Q4H PRN Administration Pain MILD(1-3)/Fever >100.5/KAMARA Albuterol 2.5 mg 02/14/19 16:09 02/14/19 16:22 Proventil IH 2.5 mg PRN PRN Administration Shortness Of Breath Albuterol/Ipratropium 1 ampul 02/11/19 20:00 02/15/19 07:58 Duoneb *Not For Prn Use* IH 1 ampul TIDRT REY Administration Aspirin 81 mg 02/10/19 10:00 02/14/19 11:09 Baby Aspirin PO 81 mg QDAY REY Administration Budesonide 0.5 mg 02/14/19 20:00 02/15/19 07:58 Pulmicort IH 0.5 mg Q12HRT REY Administration Docusate Sodium 100 mg 02/12/19 12:00 02/14/19 21:35 Colace PO 100 mg BID REY Administration Famotidine 20 mg 02/10/19 11:00 02/14/19 11:09 Pepcid IV 20 mg DAILY REY Administration Finasteride 5 mg 02/09/19 22:00 02/14/19 21:35 Proscar PO 5 mg QHS REY Administration Levofloxacin/Dextrose 750 mg in 150 mls @ 100 mls/hr 02/12/19 12:00 02/14/19 11:08 Levaquin 750mg/150ml IV 100 mls/hr Q24HR REY Administration Protocol Morphine Sulfate 2 mg 02/10/19 15:48 02/14/19 11:13 Morphine IV 2 mg Q4H PRN Administration Pain, Moderate (4-6) Ondansetron HCl 4 mg 02/09/19 14:29 02/09/19 20:27 Zofran IV 4 mg Q8H PRN Administration Nausea And Vomiting Polyethylene Glycol 17 gm 02/12/19 11:19 02/14/19 18:15 Miralax 3350 PO 17 gm QDAY PRN Administration Constipation Sodium Chloride 10 ml 02/09/19 22:00 02/14/19 21:36 Sodium Chloride Flush Syringe 10 Ml IV 10 ml BID REY Administration Sodium Chloride 10 ml 02/09/19 14:29 Sodium Chloride Flush Syringe 10 Ml IV PRN PRN LINE FLUSH Trazodone HCl 150 mg 02/09/19 22:00 02/14/19 21:35 Desyrel PO 150 mg QHS REY Administration Venlafaxine HCl 50 mg 02/12/19 11:00 02/14/19 21:35 Effexor PO 50 mg BID REY Administration
[2019-02-15] MEDS: VENLAFAXINE 25 MG TAB PO SCH ×2 (10:31→22:16)
[2019-02-15] MEDS: DOCUSATE SODIUM 100 MG CAP PO SCH ×2 (10:32→22:17)
[2019-02-15] MEDS: ASPIRIN 81 MG TAB CHEW PO SCH (10:32)
[2019-02-15] MEDS: FAMOTIDINE 20 MG/2 ML INJ IV SCH (10:33)
[2019-02-15] MEDS ORDERED: FUROSEMIDE 40 MG TAB PO SCH (12:00)
[2019-02-15] MEDS: hydroCHLOROthiazide 25 MG TAB PO SCH (13:28)
[2019-02-15] MEDS: POTASSIUM CHLORIDE ER 20 MEQ TAB PO SCH (13:28)
[2019-02-15] MEDS: FLEET ENEMA PR PRN (13:32)
--- NOTE | 2019-02-15 14:13 | Progress Note ---
Assessment and Plan - Patient Problems (1) Multifocal atrial tachycardia Current Visit: Yes Status: Acute Plan to address problem: MAT has resolved, patient has no further cardiac complaints. Cardiac status is stable. Subjective Date of service: 02/15/19 Principal diagnosis: low platelets Interval history: Patient is comfortable, no new cardiac complaints. Objective Vital Signs Temp Pulse Pulse Resp Resp BP BP 02/15/19 11:59 97.9 F 81 18 150/93 02/15/19 10:00 02/15/19 08:48 98.4 F 89 18 145/95 02/15/19 08:10 82 96 H 02/15/19 08:00 87 02/15/19 04:55 98.4 F 83 20 151/92 02/15/19 04:00 90 02/15/19 00:48 98.5 F 81 24 164/83 02/15/19 00:00 80 02/14/19 20:07 99.2 F 96 H 20 149/78 02/14/19 20:00 90 02/14/19 19:28 02/14/19 19:27 92 H 22 02/14/19 18:09 98.0 F 103 H 20 149/78 02/14/19 16:48 97.5 F L 93 H 18 148/82 02/14/19 16:24 92 H 22 Pulse Ox 02/15/19 11:59 96 02/15/19 10:00 96 02/15/19 08:48 93 02/15/19 08:10 02/15/19 08:00 02/15/19 04:55 93 02/15/19 04:00 02/15/19 00:48 96 02/15/19 00:00 02/14/19 20:07 95 02/14/19 20:00 02/14/19 19:28 96 02/14/19 19:27 02/14/19 18:09 96 02/14/19 16:48 95 02/14/19 16:24 - Physical Examination General: No Apparent Distress HEENT: Positive: PERRL Neck: Positive: trachea midline Cardiac: Positive: Reg Rate and Rhythm Lungs: Positive: Decreased Breath Sounds Neuro: Positive: Grossly Intact Abdomen: Positive: Soft Skin: Positive: Clear Extremities: Absent: edema - Labs and Meds Comprehensive Metabolic Panel 02/15/19 Range/Units 05:39 Sodium 145 (137-145) mmol/L Potassium 3.6 (3.6-5.0) mmol/L Chloride 107.0 (98-107) mmol/L Carbon Dioxide 30 (22-30) mmol/L BUN 20 (9-20) mg/dL Creatinine 0.7 L (0.8-1.5) mg/dL Glucose 120 H (75-100) mg/dL Calcium 8.2 L (8.4-10.2) mg/dL
--- NOTE | 2019-02-15 16:56 | Progress Note ---
Assessment and Plan Patient is 68 YO Male with HTN, Obesity, Hairy Cell Leukemia(In remission) presented to ED for evaluation. He complained of shortness of breath for 3 days, subjective fever, and left flank pain. he also complained of nausea and multiple episodes of vomiting. EMS notified and upon arrival the patient found to be in distress and transported to [facility]. Pt seen and evaluated in ED and found to have Severe Sepsis complicated by Shock with blood pressure of 68/41. Pt initiated on sepsis protocol. Pt treated with IVF resuscitation as well as pressor support. Pt found to have worsening dypsnea after fluid resuscitation which resulted in Acute Hypoxemic Respiratory Failure. Pt initiated on NIPPV and admitted to ICU. CT Abdomen revealed bilateral nephrolithiasis and 7-8mm left ureteropelvic junction stone. He was started on iv Antibiotic and admitted. ID physician, pulmonology, interventional radiology, nephrology and vascular surgery were consulted. IR placed a left percutaneous nephrostomy tube on 02/09/2019. On following day, 02/10, Dr. Perez, Urology did cystoscopy , retrograde pyelogram and bilateral double J stent placement. Creatinine level improved and now normal. He was initially placed on Levaquin and Aztreonam. Blood cultures and Urine cultures grew Escherichia coli and Aztreonam was discontinued. He was on Levophed for several days was discontinued 02/13/2019 and he was transferred to telemetry. Sepsis due to complicated UTI Continue Levaquin ID Physician following Septic shock - resolved Now off Levophed KEVIN (acute kidney injury) due to ATN Now resolved IVF resuscitation therapy, Nephrology following, monitor uop q shift, urine electrolytes, Metabolic Acidosis due to KEVIN - resolved now resolved supportive care. Complicated UTI On Levaquin, Aztreonam Urinary obstruction 7MM Left UPJ obstructing stone with mild hydronephrosis, supportive care. IR consulted s/p left perc nephrostomy tube placement, Urology consulted did cystoscopy, RPG, bilat double j-stent placement MAT resolved Cardiomyopathy EF 45-50% patient does not have CHF Acute respiratory failure with hypoxia Oxygen buy NC NIPPV Pulm following Supplemental oxygen, ABG, pulse oximetry, NIPPV as clinically indicated, nebu lizer therapy prn, Constipation: Fleet enema Thrombocytopenia Dr. Tapia following Platelet transfused DVT prophylaxis SCDs. No chemical anticoag because of low platele Disposition: Will discharge home when medically stable Subjective Date of service: 02/15/19 Principal diagnosis: sepsis with shock, UTI, VANITA, CMP, low platelets Interval history: Patient seen and examined. Denies any chest pain. No shortness of breath. Complains of constipation. Uses Fleet Enema at home. Requested the same. Objective - Exam Narrative Exam: Constitutional: Well-nourished well-developed. Obese, In no distress Head: Normocephalic atraumatic Eyes: Pupils are equal round and reactive to light Nose: No enlarged turbinates, no septal deviation. Mouth: Moist mucous membranes. Neck: Supple no thyromegaly. No bruit. No JVD Heart: Regular rate and rhythm, S1-S2 normal. No rubs murmurs or gallop Lungs: Clear to auscultation bilaterally. no rales or rhonchi Abdomen: Soft, nontender. Bowel sound are present. Extremities: No edema, no cyanosis, no clubbing. Neuro: Alert oriented Oriented x3. No focal sensory or motor deficit. Skin: No rashes or hyperpigmented spots Musculoskeletal system: No joint pain or swelling Hematological: No petechia or subcutanous hemorrhages. Immunological: No multiple septic spots on the skin Lymphatic: No generalized lymphadenopathy Psychiatry: Euthymic. Calm. - Constitutional Vitals: Vital Signs - 12hr 02/15/19 02/15/19 02/15/19 04:55 08:00 08:10 Temperature 98.4 F Pulse Rate 83 87 Pulse Rate [ 82 Anterior Bilateral] Pulse Rate [ Right Dorsalis Pedis] Respiratory 20 Rate Respiratory 96 H Rate [Anterior Bilateral] Blood Pressure 151/92 O2 Sat by Pulse 93 Oximetry 02/15/19 02/15/19 02/15/19 08:48 10:00 11:59 Temperature 98.4 F 97.9 F Pulse Rate 89 81 Pulse Rate [ Anterior Bilateral] Pulse Rate [ 87 Right Dorsalis Pedis] Respiratory 18 16 18 Rate Respiratory Rate [Anterior Bilateral] Blood Pressure 145/95 150/93 O2 Sat by Pulse 93 98 96 Oximetry 02/15/19 02/15/19 12:00 15:00 Temperature Pulse Rate 87 Pulse Rate [ 87 Anterior Bilateral] Pulse Rate [ Right Dorsalis Pedis] Respiratory Rate Respiratory 18 Rate [Anterior Bilateral] Blood Pressure O2 Sat by Pulse Oximetry - Labs CBC & Chem 7: 02/14/19 09:02 02/15/19 05:39 Labs: Abnormal lab results 02/15/19 Range/Units 05:39 Creatinine 0.7 L (0.8-1.5) mg/dL Glucose 120 H (75-100) mg/dL Calcium 8.2 L (8.4-10.2) mg/dL
[2019-02-15] MEDS: traZODone 100 MG TAB PO SCH (22:17)
[2019-02-15] MEDS: FINASTERIDE 5 MG TAB PO SCH (22:17)
[2019-02-16 06:37] LABS: BUN/Creatinine Ratio 27; Blood Urea Nitrogen 16 mg/dL (9-20); Calcium 8.5 mg/dL (8.4-10.2); Hemolysis Index 14
[2019-02-16] MEDS: MORPHINE 2 MG/1 ML INJ IV PRN ×3 (06:52→22:07)
[2019-02-16] MEDS: BUDESONIDE 0.5 MG/2 ML NEBU IH SCH ×2 (07:51→21:27)
[2019-02-16] MEDS: IPRATROPIUM/ALBUTEROL SULFATE 3 ML AMPUL.NEB IH SCH ×3 (07:51→21:27)
--- NOTE | 2019-02-16 07:55 | Hem/Onc Progress Note ---
Assessment and Plan 1. Thrombocytopenia. This may be secondary to consumption/infection. The patient was on pressors. Supportive care for now. No bleeding at this time. 2. Renal impairment, being followed by Nephrology. 3. Nephrolithiasis, status post nephrostomy tube placement, which was dislodged. Urology followup for the ureteral stent. 4. Seen by ID team and Nephrology team. 5. Radiologically, there is no mention of splenomegaly. 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 We will follow the patient during inpatient stay. Follow the trend and he would need to be followed in the outpatient setting. pt received 3 platelets transfusions clinically better - no bleeding will follow plt count - Patient Problems (1) Thrombocytopenia Current Visit: Yes Status: Acute Subjective Date of service: 02/16/19 Principal diagnosis: low plt Interval history: no bleeding Objective - Exam Narrative Exam: Pain - none now General appearance - awake Performance status limited self care - on o2 Eyes - no icterus ENT - no thrush LNs cervical not palpable Neck - no LN Respiratory Normal Breath sounds - CTA anteriorly CVS S1 S2 + Extremities no calf tenderness General GI Soft Rectal deferred male - deferred Skin warm Musculoskeletal moves limbs neuro - awake - Constitutional Vitals: Last Vital Signs Temp 98.9 F 02/16/19 03:53 Pulse 82 02/16/19 04:00 Resp 22 02/16/19 03:53 BP 143/80 02/16/19 03:53 Pulse Ox 96 02/16/19 03:53 - Labs Lab Results: Laboratory Results - last 24 hr 02/16/19 05:36 Sodium 141 Potassium 3.7 Chloride 101.0 Carbon Dioxide 29 Anion Gap 15 BUN 16 Creatinine 0.6 L Estimated GFR > 60 BUN/Creatinine Ratio 27 Glucose 113 H Calcium 8.5 Medications & Allergies - Medications Allergies/Adverse Reactions: Allergies cefepime Allergy (Verified 02/10/19 11:24) Rash Home Medications: Home Medications Medication Instructions Recorded Confirmed Last Taken Type Aspirin [Aspirin BABY CHEW TAB] 81 mg PO QDAY 02/09/19 02/09/19 02/09/19 History Desvenlafaxine Succinate 100 mg PO QDAY 02/09/19 02/09/19 02/09/19 History [Desvenlafaxine Succinate ER] Doxazosin Mesylate [Cardura] 2.5 mg PO DAILY 02/09/19 02/09/19 02/09/19 History Finasteride [Proscar] 5 mg PO QHS 02/09/19 02/09/19 02/09/19 History Propranolol HCl 20 mg PO QDAY 02/09/19 02/09/19 02/09/19 History Trazodone HCl 150 mg PO QHS 02/09/19 02/09/19 02/09/19 History Docusate Sodium [Colace] 100 mg PO QDAY 02/12/19 02/12/19 02/07/19 09:00 History Pravastatin [Pravachol] 20 mg PO QHS 02/13/19 02/13/19 02/08/19 History Active Medications: Generic Name Dose Route Start Last Admin Trade Name Freq PRN Reason Stop Dose Admin Acetaminophen 650 mg 02/09/19 14:29 02/11/19 16:52 Tylenol PO 650 mg Q4H PRN Administration Pain MILD(1-3)/Fever >100.5/KAMARA Albuterol 2.5 mg 02/14/19 16:09 02/14/19 16:22 Proventil IH 2.5 mg PRN PRN Administration Shortness Of Breath Albuterol/Ipratropium 1 ampul 02/11/19 20:00 02/16/19 07:51 Duoneb *Not For Prn Use* IH 1 ampul TIDRT REY Administration Aspirin 81 mg 02/10/19 10:00 02/15/19 10:32 Baby Aspirin PO 81 mg QDAY REY Administration Budesonide 0.5 mg 02/14/19 20:00 02/16/19 07:51 Pulmicort IH 0.5 mg Q12HRT REY Administration Docusate Sodium 100 mg 02/12/19 12:00 02/15/19 22:17 Colace PO 100 mg BID REY Administration Famotidine 20 mg 02/10/19 11:00 02/15/19 10:33 Pepcid IV 20 mg DAILY REY Administration Finasteride 5 mg 02/09/19 22:00 02/15/19 22:17 Proscar PO 5 mg QHS REY Administration Hydrochlorothiazide 25 mg 02/15/19 12:00 02/15/19 13:28 Hctz PO 25 mg QDAY REY Administration Levofloxacin/Dextrose 750 mg in 150 mls @ 100 mls/hr 02/12/19 12:00 02/15/19 10:23 Levaquin 750mg/150ml IV 100 mls/hr Q24HR REY Administration Protocol Morphine Sulfate 2 mg 02/10/19 15:48 02/16/19 06:52 Morphine IV 2 mg Q4H PRN Administration Pain, Moderate (4-6) Ondansetron HCl 4 mg 02/09/19 14:29 02/09/19 20:27 Zofran IV 4 mg Q8H PRN Administration Nausea And Vomiting Polyethylene Glycol 17 gm 02/12/19 11:19 02/14/19 18:15 Miralax 3350 PO 17 gm QDAY PRN Administration Constipation Potassium Chloride 40 meq 02/15/19 12:00 02/15/19 13:28 K-Dur PO 40 meq QDAY REY Administration Sodium Biphosphate/Sodium Phosphate 133 ml 02/15/19 13:15 02/15/19 13:32 Fleet [place] 133 ml QDAY PRN Administration Bowel Movement Sodium Chloride 10 ml 02/09/19 22:00 02/15/19 22:17 Sodium Chloride Flush Syringe 10 Ml IV 10 ml BID REY Administration Sodium Chloride 10 ml 02/09/19 14:29 Sodium Chloride Flush Syringe 10 Ml IV PRN PRN LINE FLUSH Trazodone HCl 150 mg 02/09/19 22:00 02/15/19 22:17 Desyrel PO 150 mg QHS REY Administration Venlafaxine HCl 50 mg 02/12/19 11:00 02/15/19 22:16 Effexor PO 50 mg BID REY Administration
[2019-02-16] MEDS: ASPIRIN 81 MG TAB CHEW PO SCH (10:22)
[2019-02-16] MEDS: POLYETHYLENE GLYCOL 3350 17 GM POWDER PO PRN (10:22)
[2019-02-16] MEDS: hydroCHLOROthiazide 25 MG TAB PO SCH (10:22)
[2019-02-16] MEDS: VENLAFAXINE 25 MG TAB PO SCH ×2 (10:23→22:06)
[2019-02-16] MEDS: FAMOTIDINE 20 MG/2 ML INJ IV SCH (10:23)
[2019-02-16] MEDS: DOCUSATE SODIUM 100 MG CAP PO SCH ×2 (10:23→22:06)
[2019-02-16] MEDS: POTASSIUM CHLORIDE ER 20 MEQ TAB PO SCH (10:24)
--- NOTE | 2019-02-16 11:59 | Progress Note ---
Assessment and Plan Acute renal failure Severe sepsis due to complicated UTI Obstructing left nephrolithiasis s/p ureteral stent s/p nephrostomy tube Hypotension -resolved MAT - resolved Hx of Hairy cell leukemia Thrombocytopenia LVEF 45-50% by echocardiogram. Conservative cardiac management. Subjective Date of service: 02/16/19 Principal diagnosis: low plt Interval history: Patient is resting in bed comfortably. No distress noted. Patient reports his breathing is better. Objective Vital Signs Temp Pulse Pulse Pulse Resp Resp BP 02/16/19 10:00 02/16/19 08:46 97.9 F 95 H 18 148/83 02/16/19 08:00 82 18 02/16/19 04:00 82 02/16/19 03:53 98.9 F 85 22 143/80 02/16/19 00:38 91 H 18 145/83 02/16/19 00:00 82 02/15/19 23:26 97.6 F 91 H 18 145/83 02/15/19 22:00 82 02/15/19 20:54 02/15/19 20:00 89 18 02/15/19 19:45 98.3 F 101 H 20 146/87 02/15/19 16:31 98.6 F 84 18 150/83 02/15/19 16:00 84 02/15/19 15:00 87 18 02/15/19 12:00 87 02/15/19 11:59 97.9 F 81 18 150/93 Pulse Ox 02/16/19 10:00 97 02/16/19 08:46 97 02/16/19 08:00 02/16/19 04:00 02/16/19 03:53 96 02/16/19 00:38 96 02/16/19 00:00 02/15/19 23:26 96 02/15/19 22:00 02/15/19 20:54 97 02/15/19 20:00 02/15/19 19:45 97 02/15/19 16:31 94 02/15/19 16:00 02/15/19 15:00 02/15/19 12:00 02/15/19 11:59 96 - Physical Examination General: No Apparent Distress HEENT: Positive: PERRL Neck: Positive: trachea midline Cardiac: Positive: Reg Rate and Rhythm Lungs: Positive: Decreased Breath Sounds Neuro: Positive: Grossly Intact Abdomen: Positive: Soft Extremities: Absent: edema - Labs and Meds Comprehensive Metabolic Panel 02/16/19 Range/Units 05:36 Sodium 141 (137-145) mmol/L Potassium 3.7 (3.6-5.0) mmol/L Chloride 101.0 (98-107) mmol/L Carbon Dioxide 29 (22-30) mmol/L BUN 16 (9-20) mg/dL Creatinine 0.6 L (0.8-1.5) mg/dL Glucose 113 H (75-100) mg/dL Calcium 8.5 (8.4-10.2) mg/dL
--- NOTE | 2019-02-16 12:06 | Progress Note ---
Assessment and Plan Patient is 68 YO Male with HTN, Obesity, Hairy Cell Leukemia(In remission) presented to ED for evaluation. He complained of shortness of breath for 3 days, subjective fever, and left flank pain. he also complained of nausea and multiple episodes of vomiting. EMS notified and upon arrival the patient found to be in distress and transported to [facility]. Pt seen and evaluated in ED and found to have Severe Sepsis complicated by Shock with blood pressure of 68/41. Pt initiated on sepsis protocol. Pt treated with IVF resuscitation as well as pressor support. Pt found to have worsening dypsnea after fluid resuscitation which resulted in Acute Hypoxemic Respiratory Failure. Pt initiated on NIPPV and admitted to ICU. CT Abdomen revealed bilateral nephrolithiasis and 7-8mm left ureteropelvic junction stone. He was started on iv Antibiotic and admitted. ID physician, pulmonology, interventional radiology, nephrology and vascular surgery were consulted. IR placed a left percutaneous nephrostomy tube on 02/09/2019. On following day, 02/10, Dr. Perez, Urology did cystoscopy , retrograde pyelogram and bilateral double J stent placement. Creatinine level improved and now normal. He was initially placed on Levaquin and Aztreonam. Blood cultures and Urine cultures grew Escherichia coli and Aztreonam was discontinued. He was on Levophed for several days was discontinued 02/13/2019 and he was transferred to telemetry. Sepsis due to complicated UTI Continue Levaquin ID Physician following Septic shock - resolved Now off Levophed KEVIN (acute kidney injury) due to ATN Now resolved IVF resuscitation therapy, Nephrology following, monitor uop q shift, urine electrolytes, Metabolic Acidosis due to KEVIN - resolved now resolved supportive care. Complicated UTI On Levaquin, Aztreonam Urinary obstruction 7MM Left UPJ obstructing stone with mild hydronephrosis, supportive care. IR consulted s/p left perc nephrostomy tube placement, Urology consulted did cystoscopy, RPG, bilat double j-stent placement MAT resolved Cardiomyopathy EF 45-50% patient does not have CHF Acute respiratory failure with hypoxia Oxygen buy NC NIPPV Pulm following Supplemental oxygen, ABG, pulse oximetry, NIPPV as clinically indicated, nebu lizer therapy prn, Constipation: resolved Thrombocytopenia Dr. Tapia following Platelet transfused Debiliation PT eval fro SNF DVT prophylaxis SCDs. No chemical anticoag because of low platelet Disposition: Will discharge to SNF. PT eval requested Subjective Date of service: 02/16/19 Principal diagnosis: Sepsis due to UTI, KEVIN, low plt, cadiomyopathy, Hairy cell Leukemia Interval history: Patient seen and examined. Denies any chest pain. No shortness of breath. Had good BM yesterday after Fleet Enema. Objective - Exam Narrative Exam: Constitutional: Well-nourished well-developed. Obese, In no distress Head: Normocephalic atraumatic Eyes: Pupils are equal round and reactive to light Nose: No enlarged turbinates, no septal deviation. Mouth: Moist mucous membranes. Neck: Supple no thyromegaly. No bruit. No JVD Heart: Regular rate and rhythm, S1-S2 normal. No rubs murmurs or gallop Lungs: Clear to auscultation bilaterally. no rales or rhonchi Abdomen: Soft, nontender. Bowel sound are present. Extremities: No edema, no cyanosis, no clubbing. Neuro: Alert oriented Oriented x3. No focal sensory or motor deficit. Skin: No rashes or hyperpigmented spots Musculoskeletal system: No joint pain or swelling Hematological: No petechia or subcutanous hemorrhages. Immunological: No multiple septic spots on the skin Lymphatic: No generalized lymphadenopathy Psychiatry: Euthymic. Calm. - Constitutional Vitals: Vital Signs - 12hr 02/16/19 02/16/19 02/16/19 00:38 03:53 04:00 Temperature 98.9 F Pulse Rate 91 H 85 82 Pulse Rate [ Anterior Bilateral] Respiratory 18 22 Rate Respiratory Rate [Anterior Bilateral] Blood Pressure 145/83 143/80 O2 Sat by Pulse 96 96 Oximetry 02/16/19 02/16/19 02/16/19 08:00 08:46 10:00 Temperature 97.9 F Pulse Rate 95 H Pulse Rate [ 82 Anterior Bilateral] Respiratory 18 Rate Respiratory 18 Rate [Anterior Bilateral] Blood Pressure 148/83 O2 Sat by Pulse 97 97 Oximetry - Labs CBC & Chem 7: 02/14/19 09:02 02/16/19 05:36 Labs: Abnormal lab results 02/16/19 Range/Units 05:36 Creatinine 0.6 L (0.8-1.5) mg/dL Glucose 113 H (75-100) mg/dL
--- NOTE | 2019-02-16 15:28 | Progress Note ---
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 2) Acute renal failure: renally dose abx. Creatinine improving. 3) Rash? from Zosyn: given h/o Cefepime allergy. Improving. 4) Acute thrombocytopenia: ?sepsis related v/s h/o hairy cell leukemia. Monitor. Recs: - Continue Levofloxacin 750 mg q24 hrs, tentative end date 02/19/2019 - avoiding cefepime and zosyn due to rash Horace Davenport MD [facility] ([facility]) M: [phone] O: [phone] F: [phone] Subjective Date of service: 02/16/19 Principal diagnosis: low plt Interval history: No acute change. Objective - Exam Narrative Exam: Constitutional: Alert, cooperative. No acute distress Head, Ears, Nose: Normocephalic, atraumatic. External ears, nose normal Eyes: Conjunctivae/corneas clear. No icterus. No ptosis. Neck: Supple, no meningeal signs Oral: no thrush Cardiovascular: S1, S2 normal. Respiratory: Good air entry, clear to auscultation bilaterally GI: Soft, non-tender; bowel sounds normal. No peritoneal signs. Left nephrostomy tube +, Agarwal + with bloody urine Musculoskeletal: No pedal edema, no cyanosis. Skin: upper trunk rash improving. no abscess Hem/Lymphatic: No palpable cervical or supraclavicular nodes. No lymphangitis Psych: Mood ok. Affect normal Neurological: Awake, alert, oriented. No gross abnormality - Constitutional Vitals: Vital Signs Temp Pulse Resp BP Pulse Ox 98 F 91 H 18 158/85 99 02/16/19 11:30 02/16/19 14:38 02/16/19 14:38 02/16/19 11:30 02/16/19 10:00 Temperature -Last 24 Hours Temperature 98 F Temperature 97.9 F Temperature 98.9 F Temperature 97.6 F Temperature 98.3 F Temperature 98.6 F - Labs CBC & Chem 7: 02/14/19 09:02 02/16/19 05:36 Labs: Abnormal lab results 02/16/19 Range/Units 05:36 Creatinine 0.6 L (0.8-1.5) mg/dL Glucose 113 H (75-100) mg/dL
[2019-02-16] MEDS: traZODone 100 MG TAB PO SCH (22:07)
[2019-02-16] MEDS: FINASTERIDE 5 MG TAB PO SCH (22:07)
--- NOTE | 2019-02-17 07:56 | Hem/Onc Progress Note ---
Assessment and Plan 1. Thrombocytopenia. This may be secondary to consumption/infection. The patient was on pressors. Supportive care for now. No bleeding at this time. 2. Renal impairment, being followed by Nephrology. 3. Nephrolithiasis, status post nephrostomy tube placement, which was dislodged. Urology followup for the ureteral stent. 4. Seen by ID team and Nephrology team. 5. Radiologically, there is no mention of splenomegaly. 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 We will follow the patient during inpatient stay. Follow the trend and he would need to be followed in the outpatient setting. pt received 3 platelets transfusions clinically better - no bleeding will follow plt count labs today - Patient Problems (1) Thrombocytopenia Current Visit: Yes Status: Acute Subjective Date of service: 02/17/19 Principal diagnosis: low plt Interval history: on o2 by NC Objective - Exam Narrative Exam: Pain - none now General appearance - awake Performance status limited self care - on o2 Eyes - no icterus ENT - no thrush LNs cervical not palpable Neck - no LN Respiratory Normal Breath sounds - CTA anteriorly CVS S1 S2 + Extremities no calf tenderness General GI Soft Rectal deferred male - deferred Skin warm Musculoskeletal moves limbs neuro - awake - Constitutional Vitals: Last Vital Signs Temp 98.2 F 02/17/19 04:41 Pulse 93 H 02/17/19 04:41 Resp 18 02/17/19 04:41 BP 123/75 02/17/19 04:41 Pulse Ox 96 02/17/19 04:41 Medications & Allergies - Medications Allergies/Adverse Reactions: Allergies cefepime Allergy (Verified 02/10/19 11:24) Rash Home Medications: Home Medications Medication Instructions Recorded Confirmed Last Taken Type Aspirin [Aspirin BABY CHEW TAB] 81 mg PO QDAY 02/09/19 02/09/19 02/09/19 History Desvenlafaxine Succinate 100 mg PO QDAY 02/09/19 02/09/19 02/09/19 History [Desvenlafaxine Succinate ER] Doxazosin Mesylate [Cardura] 2.5 mg PO DAILY 02/09/19 02/09/19 02/09/19 History Finasteride [Proscar] 5 mg PO QHS 02/09/19 02/09/19 02/09/19 History Propranolol HCl 20 mg PO QDAY 02/09/19 02/09/19 02/09/19 History Trazodone HCl 150 mg PO QHS 02/09/19 02/09/19 02/09/19 History Docusate Sodium [Colace] 100 mg PO QDAY 02/12/19 02/12/19 02/07/19 09:00 History Pravastatin [Pravachol] 20 mg PO QHS 02/13/19 02/13/19 02/08/19 History Active Medications: Generic Name Dose Route Start Last Admin Trade Name Freq PRN Reason Stop Dose Admin Acetaminophen 650 mg 02/09/19 14:29 02/11/19 16:52 Tylenol PO 650 mg Q4H PRN Administration Pain MILD(1-3)/Fever >100.5/KAMARA Albuterol 2.5 mg 02/17/19 08:00 Proventil IH Q4H PRN Shortness Of Breath Albuterol/Ipratropium 1 ampul 02/11/19 20:00 02/16/19 21:27 Duoneb *Not For Prn Use* IH 1 ampul TIDRT REY Administration Aspirin 81 mg 02/10/19 10:00 02/16/19 10:22 Baby Aspirin PO 81 mg QDAY REY Administration Budesonide 0.5 mg 02/14/19 20:00 02/16/19 21:27 Pulmicort IH 0.5 mg Q12HRT REY Administration Docusate Sodium 100 mg 02/12/19 12:00 02/16/19 22:06 Colace PO 100 mg BID REY Administration Famotidine 20 mg 02/17/19 10:00 Pepcid PO DAILY REY Finasteride 5 mg 02/09/19 22:00 02/16/19 22:07 Proscar PO 5 mg QHS REY Administration Hydrochlorothiazide 25 mg 02/15/19 12:00 02/16/19 10:22 Hctz PO 25 mg QDAY REY Administration Levofloxacin/Dextrose 750 mg in 150 mls @ 100 mls/hr 02/12/19 12:00 02/16/19 10:22 Levaquin 750mg/150ml IV 100 mls/hr Q24HR REY Administration Protocol Morphine Sulfate 2 mg 02/10/19 15:48 02/16/19 22:07 Morphine IV 2 mg Q4H PRN Administration Pain, Moderate (4-6) Ondansetron HCl 4 mg 02/09/19 14:29 02/09/19 20:27 Zofran IV 4 mg Q8H PRN Administration Nausea And Vomiting Polyethylene Glycol 17 gm 02/12/19 11:19 02/16/19 10:22 Miralax 3350 PO 17 gm QDAY PRN Administration Constipation Potassium Chloride 40 meq 02/15/19 12:00 02/16/19 10:24 K-Dur PO Not Given QDAY REY Sodium Biphosphate/Sodium Phosphate 133 ml 02/15/19 13:15 02/15/19 13:32 Fleet [place] 133 ml QDAY PRN Administration Bowel Movement Sodium Chloride 10 ml 02/09/19 22:00 02/16/19 22:07 Sodium Chloride Flush Syringe 10 Ml IV 10 ml BID REY Administration Sodium Chloride 10 ml 02/09/19 14:29 Sodium Chloride Flush Syringe 10 Ml IV PRN PRN LINE FLUSH Trazodone HCl 150 mg 02/09/19 22:00 02/16/19 22:07 Desyrel PO 150 mg QHS REY Administration Venlafaxine HCl 50 mg 02/12/19 11:00 02/16/19 22:06 Effexor PO 50 mg BID REY Administration
[2019-02-17] MEDS ORDERED: ALBUTEROL 2.5 MG/3 ML NEBU IH PRN (08:00)
[2019-02-17] MEDS: IPRATROPIUM/ALBUTEROL SULFATE 3 ML AMPUL.NEB IH SCH ×3 (09:46→19:46)
[2019-02-17] MEDS: BUDESONIDE 0.5 MG/2 ML NEBU IH SCH ×2 (09:46→19:46)
[2019-02-17 10:25] LABS: Basophils % (Auto) 0.2 % (0.0-1.8); Eosinophils # (Auto) 0.2 K/mm3 (0.0-0.4); Eosinophils % (Auto) 2.5 % (0.0-4.3); Hematocrit 39.8 % (35.5-45.6); Lymphocytes # (Auto) 0.9 K/mm3 (1.2-5.4); Lymphocytes % (Auto) 12.7 % (13.4-35.0); Mean Corpuscular HGB Conc 33 % (32-34); Mean Corpuscular Volume 85 fl (84-94); Monocytes # (Auto) 0.3 K/mm3 (0.0-0.8); Red Blood Count 4.71 M/mm3 (3.65-5.03); Red Cell Distribution Width 14.9 % (13.2-15.2)
[2019-02-17] MEDS: ASPIRIN 81 MG TAB CHEW PO SCH (10:34)
[2019-02-17] MEDS: DOCUSATE SODIUM 100 MG CAP PO SCH ×2 (10:34→21:28)
[2019-02-17] MEDS: VENLAFAXINE 25 MG TAB PO SCH ×2 (10:34→21:30)
[2019-02-17] MEDS: hydroCHLOROthiazide 25 MG TAB PO SCH (10:34)
[2019-02-17] MEDS: POTASSIUM CHLORIDE ER 20 MEQ TAB PO SCH (10:35)
[2019-02-17] MEDS: FAMOTIDINE 20 MG TAB PO SCH (10:35)
[2019-02-17] MEDS: POLYETHYLENE GLYCOL 3350 17 GM POWDER PO PRN (10:35)
[2019-02-17 11:12] LABS: BUN/Creatinine Ratio TNR; Blood Urea Nitrogen TNR mg/dL (9-20); Calcium TNR mg/dL (8.4-10.2)
[2019-02-17 11:13] LABS: Alanine Aminotransferase TNR units/L (7-56); Albumin TNR g/dL (3.9-5); Hemolysis Index TNR
[2019-02-17 11:14] LABS: Platelet Count 95 K/mm3 (140-440)
--- NOTE | 2019-02-17 12:26 | Progress Note ---
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 2) Acute renal failure: renally dose abx. Creatinine improving. 3) Rash? from Zosyn: given h/o Cefepime allergy. Improving. 4) Acute thrombocytopenia: ?sepsis related v/s h/o hairy cell leukemia. Monitor. Recs: - Continue Levofloxacin 750 mg q24 hrs, tentative end date 02/19/2019 - avoiding cefepime and zosyn due to rash Horace Davenport MD [facility] ([facility]) M: [phone] O: [phone] F: [phone] Subjective Date of service: 02/17/19 Principal diagnosis: low plt Interval history: No acute change. Objective - Exam Narrative Exam: Constitutional: Alert, cooperative. No acute distress Head, Ears, Nose: Normocephalic, atraumatic. External ears, nose normal Eyes: Conjunctivae/corneas clear. No icterus. No ptosis. Neck: Supple, no meningeal signs Oral: no thrush Cardiovascular: S1, S2 normal. Respiratory: Good air entry, clear to auscultation bilaterally GI: Soft, non-tender; bowel sounds normal. No peritoneal signs. Left nephrostomy tube +, Agarwal + with bloody urine Musculoskeletal: No pedal edema, no cyanosis. Skin: upper trunk rash improving. no abscess Hem/Lymphatic: No palpable cervical or supraclavicular nodes. No lymphangitis Psych: Mood ok. Affect normal Neurological: Awake, alert, oriented. No gross abnormality - Constitutional Vitals: Vital Signs Temp Pulse Resp BP Pulse Ox 98.3 F 99 H 18 122/69 96 02/17/19 12:02 02/17/19 12:02 02/17/19 12:02 02/17/19 12:02 02/17/19 12:02 Temperature -Last 24 Hours Temperature 98.3 F Temperature 97.5 F Temperature 98.2 F Temperature 98.3 F Temperature 98.2 F Temperature 97.9 F Temperature 97.9 F - Labs CBC & Chem 7: 02/17/19 09:15 02/17/19 09:15 Labs: Abnormal lab results 02/17/19 Range/Units 09:15 Plt Count 95 L (140-440) K/mm3 Lymph % (Auto) 12.7 L (13.4-35.0) % Lymph # 0.9 L (1.2-5.4) K/mm3 Seg Neutrophils % 80.6 H (40.0-70.0) %
[2019-02-17 16:27] LABS: Alanine Aminotransferase 21 units/L (7-56); Albumin 2.9 g/dL (3.9-5); BUN/Creatinine Ratio 24; Blood Urea Nitrogen 19 mg/dL (9-20); Hemolysis Index 16
[2019-02-17] MEDS: traZODone 100 MG TAB PO SCH (21:28)
[2019-02-17] MEDS: FINASTERIDE 5 MG TAB PO SCH (21:30)
--- NOTE | 2019-02-18 07:59 | Hem/Onc Progress Note ---
Assessment and Plan 1. h/o Thrombocytopenia. This may be secondary to consumption/infection. The patient was on pressors. Supportive care for now. No bleeding at this time. 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 Renal impairment, being followed by Nephrology. 3. Nephrolithiasis, status post nephrostomy tube placement, which was dislodged. Urology followup for the ureteral stent. 4. Seen by ID team and Nephrology team. 5. Radiologically, there is no mention of splenomegaly. 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 We will follow the patient during inpatient stay. Follow the trend and he would need to be followed in the outpatient setting. pt received 3 platelets transfusions clinically better - no bleeding plt better - Patient Problems (1) Thrombocytopenia Current Visit: Yes Status: Acute Subjective Date of service: 02/18/19 Principal diagnosis: low plt Interval history: feeling better- requesting laxative/enema Objective - Exam Narrative Exam: Pain - none now General appearance - awake Performance status limited self care - on o2 Eyes - no icterus ENT - no thrush LNs cervical not palpable Neck - no LN Respiratory Normal Breath sounds - CTA anteriorly CVS S1 S2 + Extremities no calf tenderness General GI Soft Rectal deferred male - deferred Skin warm Musculoskeletal moves limbs neuro - awake - Constitutional Vitals: Last Vital Signs Temp 98.1 F 02/18/19 04:04 Pulse 75 02/18/19 04:04 Resp 18 02/18/19 04:04 BP 106/71 02/18/19 04:04 Pulse Ox 97 02/18/19 04:04 - Labs Lab Results: Laboratory Results - last 24 hr 02/17/19 02/17/19 02/17/19 09:15 09:15 15:47 WBC 7.4 RBC 4.71 Hgb 13.0 Hct 39.8 MCV 85 MCH 28 MCHC 33 RDW 14.9 Plt Count 95 L Lymph % (Auto) 12.7 L Kimble % (Auto) 4.0 Eos % (Auto) 2.5 Baso % (Auto) 0.2 Lymph # 0.9 L Kimble # 0.3 Eos # 0.2 Baso # 0.0 Seg Neutrophils % 80.6 H Seg Neutrophils # 5.9 Sodium TNR 139 Potassium TNR 4.2 Chloride TNR 99.3 Carbon Dioxide TNR 29 Anion Gap TNR 15 BUN TNR 19 Creatinine TNR 0.8 Estimated GFR TNR > 60 BUN/Creatinine Ratio TNR 24 Glucose TNR 102 H Calcium TNR 9.0 Total Bilirubin TNR 0.60 AST TNR 24 ALT TNR 21 Alkaline Phosphatase TNR 59 Total Protein TNR 6.0 L Albumin TNR 2.9 L Albumin/Globulin Ratio TNR 0.9 Medications & Allergies - Medications Allergies/Adverse Reactions: Allergies cefepime Allergy (Verified 02/10/19 11:24) Rash Home Medications: Home Medications Medication Instructions Recorded Confirmed Last Taken Type Aspirin [Aspirin BABY CHEW TAB] 81 mg PO QDAY 02/09/19 02/09/19 02/09/19 History Desvenlafaxine Succinate 100 mg PO QDAY 02/09/19 02/09/19 02/09/19 History [Desvenlafaxine Succinate ER] Doxazosin Mesylate [Cardura] 2.5 mg PO DAILY 02/09/19 02/09/19 02/09/19 History Finasteride [Proscar] 5 mg PO QHS 02/09/19 02/09/19 02/09/19 History Propranolol HCl 20 mg PO QDAY 02/09/19 02/09/19 02/09/19 History Trazodone HCl 150 mg PO QHS 02/09/19 02/09/19 02/09/19 History Docusate Sodium [Colace] 100 mg PO QDAY 02/12/19 02/12/19 02/07/19 09:00 History Pravastatin [Pravachol] 20 mg PO QHS 02/13/19 02/13/19 02/08/19 History Active Medications: Generic Name Dose Route Start Last Admin Trade Name Freq PRN Reason Stop Dose Admin Acetaminophen 650 mg 02/09/19 14:29 02/11/19 16:52 Tylenol PO 650 mg Q4H PRN Administration Pain MILD(1-3)/Fever >100.5/KAMARA Albuterol 2.5 mg 02/17/19 08:00 Proventil IH Q4H PRN Shortness Of Breath Albuterol/Ipratropium 1 ampul 02/11/19 20:00 02/17/19 19:46 Duoneb *Not For Prn Use* IH 1 ampul TIDRT REY Administration Aspirin 81 mg 02/10/19 10:00 02/17/19 10:34 Baby Aspirin PO 81 mg QDAY REY Administration Budesonide 0.5 mg 02/14/19 20:00 02/17/19 19:46 Pulmicort IH 0.5 mg Q12HRT REY Administration Docusate Sodium 100 mg 02/12/19 12:00 02/17/19 21:28 Colace PO 100 mg BID REY Administration Famotidine 20 mg 02/17/19 10:00 02/17/19 10:35 Pepcid PO 20 mg DAILY REY Administration Finasteride 5 mg 02/09/19 22:00 02/17/19 21:30 Proscar PO 5 mg QHS REY Administration Hydrochlorothiazide 25 mg 02/15/19 12:00 02/17/19 10:34 Hctz PO 25 mg QDAY REY Administration Levofloxacin/Dextrose 750 mg in 150 mls @ 100 mls/hr 02/12/19 12:00 02/17/19 10:34 Levaquin 750mg/150ml IV 100 mls/hr Q24HR REY Administration Protocol Morphine Sulfate 2 mg 02/10/19 15:48 02/16/19 22:07 Morphine IV 2 mg Q4H PRN Administration Pain, Moderate (4-6) Ondansetron HCl 4 mg 02/09/19 14:29 02/09/19 20:27 Zofran IV 4 mg Q8H PRN Administration Nausea And Vomiting Polyethylene Glycol 17 gm 02/12/19 11:19 02/17/19 10:35 Miralax 3350 PO 17 gm QDAY PRN Administration Constipation Potassium Chloride 40 meq 02/15/19 12:00 02/17/19 10:35 K-Dur PO Not Given QDAY REY Sodium Biphosphate/Sodium Phosphate 133 ml 02/15/19 13:15 02/15/19 13:32 Fleet [place] 133 ml QDAY PRN Administration Bowel Movement Sodium Chloride 10 ml 02/09/19 22:00 02/17/19 21:30 Sodium Chloride Flush Syringe 10 Ml IV 10 ml BID REY Administration Sodium Chloride 10 ml 02/09/19 14:29 Sodium Chloride Flush Syringe 10 Ml IV PRN PRN LINE FLUSH Trazodone HCl 150 mg 02/09/19 22:00 02/17/19 21:28 Desyrel PO 150 mg QHS REY Administration Venlafaxine HCl 50 mg 02/12/19 11:00 02/17/19 21:30 Effexor PO 50 mg BID REY Administration
--- NOTE | 2019-02-18 09:18 | Progress Note ---
Assessment and Plan Sepsis due to complicated UTI Continue Levaquin ID Physician following Septic shock - resolved Now off Levophed KEVIN (acute kidney injury) due to ATN Now resolved IVF resuscitation therapy, Nephrology following, monitor uop q shift, urine electrolytes, Metabolic Acidosis due to KEVIN - resolved now resolved supportive care. Complicated UTI On Levaquin, Aztreonam Urinary obstruction 7MM Left UPJ obstructing stone with mild hydronephrosis, supportive care. IR consulted s/p left perc nephrostomy tube placement, Urology consulted did cystoscopy, RPG, bilat double j-stent placement MAT resolved Cardiomyopathy EF 45-50% patient does not have CHF Acute respiratory failure with hypoxia Oxygen buy NC NIPPV Pulm following Supplemental oxygen, ABG, pulse oximetry, NIPPV as clinically indicated, nebulizer therapy prn, Constipation: resolved Thrombocytopenia Dr. Tapia following Platelet transfused Debiliation PT eval fro [facility] DVT prophylaxis SCDs. No chemical anticoag because of low platelet Disposition: Will discharge to [facility]. Subjective Date of service: 02/17/19 Principal diagnosis: Sepsis Interval history: Patient is 68 YO Male with HTN, Obesity, Hairy Cell Leukemia(In remission) presented to ED for evaluation. He complained of shortness of breath for 3 days, subjective fever, and left flank pain. he also complained of nausea and multiple episodes of vomiting. EMS notified and upon arrival the patient found to be in distress and transported to [facility]. Pt seen and evaluated in ED and found to have Severe Sepsis complicated by Shock with blood pressure of 68/41. Pt initiated on sepsis protocol. Pt treated with IVF resuscitation as well as pressor support. Pt found to have worsening dypsnea after fluid resuscitation which resulted in Acute Hypoxemic Respiratory Failure. Pt initiated on NIPPV and admitted to ICU. CT Abdomen revealed bilateral nephrolithiasis and 7-8mm left ureteropelvic junction stone. He was started on iv Antibiotic and admitted. ID physician, pulmonology, interventional radiology, nephrology and vascular surgery were consulted. IR placed a left percutaneous nephrostomy tube on 02/09/2019. On following day, 02/10, Dr. Perez, Urology did cystoscopy , retrograde pyelogram and bilateral double J stent placement. Creatinine level improved and now normal. He was initially placed on Levaquin and Aztreonam. Blood cultures and Urine cultures grew Escherichia coli and Aztreonam was discontinued. He was on Levophed for several days was discontinued 02/13/2019 and he was transferred to telemetry. Waiting for placement Objective - Constitutional Vitals: Vital Signs - 12hr 02/17/19 02/17/19 02/18/19 23:00 23:26 04:04 Temperature 98.4 F 98.1 F Pulse Rate 84 85 75 Respiratory 18 18 Rate Blood Pressure 104/72 106/71 O2 Sat by Pulse 97 97 Oximetry General appearance: Present: no acute distress, well-nourished - EENT Eyes: PERRL, EOM intact ENT: hearing intact, clear oral mucosa Ears: bilateral: normal - Neck Neck: supple, normal ROM - Respiratory Respiratory effort: normal Respiratory: bilateral: CTA - Breasts Breasts: normal - Cardiovascular Rhythm: regular Heart Sounds: Present: S1 & S2. Absent: gallop, rub Extremities: pulses intact, No edema, normal color, Full ROM - Gastrointestinal General gastrointestinal: Present: soft, non-tender, non-distended, normal bowel sounds - Genitourinary Male genitourinary: normal - Integumentary Integumentary: clear, warm, dry - Musculoskeletal Musculoskeletal: 1, strength equal bilaterally - Neurologic Neurologic: moves all extremities - Psychiatric Psychiatric: memory intact, appropriate mood/affect, intact judgment & insight - Labs CBC & Chem 7: 02/17/19 09:15 02/17/19 15:47 Labs: Abnormal lab results 02/17/19 02/17/19 Range/Units 09:15 15:47 Plt Count 95 L (140-440) K/mm3 Lymph % (Auto) 12.7 L (13.4-35.0) % Lymph # 0.9 L (1.2-5.4) K/mm3 Seg Neutrophils % 80.6 H (40.0-70.0) % Glucose 102 H (75-100) mg/dL Total Protein 6.0 L (6.3-8.2) g/dL Albumin 2.9 L (3.9-5) g/dL
[2019-02-18] MEDS: BUDESONIDE 0.5 MG/2 ML NEBU IH SCH ×3 (10:35→21:52)
[2019-02-18] MEDS: IPRATROPIUM/ALBUTEROL SULFATE 3 ML AMPUL.NEB IH SCH ×4 (10:48→21:52)
[2019-02-18] MEDS: VENLAFAXINE 25 MG TAB PO SCH ×2 (11:01→21:53)
[2019-02-18] MEDS: FAMOTIDINE 20 MG TAB PO SCH (11:01)
[2019-02-18] MEDS: DOCUSATE SODIUM 100 MG CAP PO SCH ×2 (11:09→21:54)
[2019-02-18] MEDS: POTASSIUM CHLORIDE ER 20 MEQ TAB PO SCH (11:09)
[2019-02-18] MEDS: ASPIRIN 81 MG TAB CHEW PO SCH (11:10)
[2019-02-18] MEDS: hydroCHLOROthiazide 25 MG TAB PO SCH (11:10)
--- NOTE | 2019-02-18 14:24 | Progress Note ---
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 2) Acute renal failure: renally dose abx. Creatinine improving. 3) Rash? from Zosyn: given h/o Cefepime allergy. Improving. 4) Acute thrombocytopenia: ?sepsis related v/s h/o hairy cell leukemia. Monitor. Recs: - Continue Levofloxacin 750 mg q24 hrs, tentative end date 02/19/2019 - avoiding cefepime and zosyn due to rash Horace Davenport MD [facility] ([facility]) M: [phone] O: [phone] F: [phone] Subjective Date of service: 02/18/19 Principal diagnosis: low plt Interval history: No acute change. Objective - Exam Narrative Exam: Constitutional: Alert, cooperative. No acute distress Head, Ears, Nose: Normocephalic, atraumatic. External ears, nose normal Eyes: Conjunctivae/corneas clear. No icterus. No ptosis. Neck: Supple, no meningeal signs Oral: no thrush Cardiovascular: S1, S2 normal. Respiratory: Good air entry, clear to auscultation bilaterally GI: Soft, non-tender; bowel sounds normal. No peritoneal signs. Left nephrostomy tube +, Agarwal + with bloody urine Musculoskeletal: No pedal edema, no cyanosis. Skin: upper trunk rash improving. no abscess Hem/Lymphatic: No palpable cervical or supraclavicular nodes. No lymphangitis Psych: Mood ok. Affect normal Neurological: Awake, alert, oriented. No gross abnormality - Constitutional Vitals: Vital Signs Temp Pulse Resp BP Pulse Ox 98.1 F 75 18 106/71 97 02/18/19 04:04 02/18/19 04:04 02/18/19 04:04 02/18/19 04:04 02/18/19 04:04 Temperature -Last 24 Hours Temperature 98.1 F Temperature 98.4 F Temperature 98.0 F - Labs CBC & Chem 7: 02/17/19 09:15 02/17/19 15:47 Labs: Abnormal lab results 02/17/19 Range/Units 15:47 Glucose 102 H (75-100) mg/dL Total Protein 6.0 L (6.3-8.2) g/dL Albumin 2.9 L (3.9-5) g/dL
[2019-02-18] MEDS: traZODone 100 MG TAB PO SCH (21:54)
[2019-02-18] MEDS: FINASTERIDE 5 MG TAB PO SCH (21:55)
[2019-02-18] MEDS: FLEET ENEMA PR PRN (21:59)
--- NOTE | 2019-02-19 07:13 | Hem/Onc Progress Note ---
Assessment and Plan 1. h/o Thrombocytopenia. This may be secondary to consumption/infection. The patient was on pressors. Supportive care for now. No bleeding at this time. 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 Renal impairment, being followed by Nephrology. 3. Nephrolithiasis, status post nephrostomy tube placement, which was dislodged. Urology followup for the ureteral stent. 4. Seen by ID team and Nephrology team. 5. Radiologically, there is no mention of splenomegaly. 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 We will follow the patient during inpatient stay. Follow the trend and he would need to be followed in the outpatient setting. pt received 3 platelets transfusions clinically better - no bleeding plt better will follow labs pt has palma - Patient Problems (1) Thrombocytopenia Current Visit: Yes Status: Acute Subjective Date of service: 02/19/19 Principal diagnosis: low plt Interval history: feeling better Objective - Exam Narrative Exam: Pain - none now General appearance - awake Performance status limited self care - on o2 Eyes - no icterus ENT - no thrush LNs cervical not palpable Neck - no LN Respiratory Normal Breath sounds - CTA anteriorly CVS S1 S2 + Extremities no calf tenderness General GI Soft Rectal deferred male - deferred Skin warm Musculoskeletal moves limbs neuro - awake - Constitutional Vitals: Last Vital Signs Temp 98.3 F 02/19/19 03:32 Pulse 78 02/19/19 03:32 Resp 24 02/19/19 03:32 BP 131/70 02/19/19 03:32 Pulse Ox 96 02/19/19 03:32 Medications & Allergies - Medications Allergies/Adverse Reactions: Allergies cefepime Allergy (Verified 02/10/19 11:24) Rash Home Medications: Home Medications Medication Instructions Recorded Confirmed Last Taken Type Aspirin [Aspirin BABY CHEW TAB] 81 mg PO QDAY 02/09/19 02/09/19 02/09/19 History Desvenlafaxine Succinate 100 mg PO QDAY 02/09/19 02/09/19 02/09/19 History [Desvenlafaxine Succinate ER] Doxazosin Mesylate [Cardura] 2.5 mg PO DAILY 02/09/19 02/09/19 02/09/19 History Finasteride [Proscar] 5 mg PO QHS 02/09/19 02/09/19 02/09/19 History Propranolol HCl 20 mg PO QDAY 02/09/19 02/09/19 02/09/19 History Trazodone HCl 150 mg PO QHS 02/09/19 02/09/19 02/09/19 History Docusate Sodium [Colace] 100 mg PO QDAY 02/12/19 02/12/19 02/07/19 09:00 History Pravastatin [Pravachol] 20 mg PO QHS 02/13/19 02/13/19 02/08/19 History Active Medications: Generic Name Dose Route Start Last Admin Trade Name Freq PRN Reason Stop Dose Admin Acetaminophen 650 mg 02/09/19 14:29 02/11/19 16:52 Tylenol PO 650 mg Q4H PRN Administration Pain MILD(1-3)/Fever >100.5/KAMARA Albuterol 2.5 mg 02/17/19 08:00 Proventil IH Q4H PRN Shortness Of Breath Albuterol/Ipratropium 1 ampul 02/11/19 20:00 02/18/19 21:52 Duoneb *Not For Prn Use* IH 1 ampul TIDRT REY Administration Aspirin 81 mg 02/10/19 10:00 02/18/19 11:10 Baby Aspirin PO 81 mg QDAY REY Administration Budesonide 0.5 mg 02/14/19 20:00 02/18/19 21:52 Pulmicort IH 0.5 mg Q12HRT REY Administration Docusate Sodium 100 mg 02/12/19 12:00 02/18/19 21:54 Colace PO 100 mg BID REY Administration Famotidine 20 mg 02/17/19 10:00 02/18/19 11:01 Pepcid PO 20 mg DAILY REY Administration Finasteride 5 mg 02/09/19 22:00 02/18/19 21:55 Proscar PO 5 mg QHS REY Administration Hydrochlorothiazide 25 mg 02/15/19 12:00 02/18/19 11:10 Hctz PO Not Given QDAY REY Levofloxacin/Dextrose 750 mg in 150 mls @ 100 mls/hr 02/12/19 12:00 02/18/19 11:10 Levaquin 750mg/150ml IV 100 mls/hr Q24HR REY Administration Protocol Morphine Sulfate 2 mg 02/10/19 15:48 02/16/19 22:07 Morphine IV 2 mg Q4H PRN Administration Pain, Moderate (4-6) Ondansetron HCl 4 mg 02/09/19 14:29 02/09/19 20:27 Zofran IV 4 mg Q8H PRN Administration Nausea And Vomiting Polyethylene Glycol 17 gm 02/12/19 11:19 02/17/19 10:35 Miralax 3350 PO 17 gm QDAY PRN Administration Constipation Potassium Chloride 40 meq 02/15/19 12:00 02/18/19 11:09 K-Dur PO 40 meq QDAY REY Administration Sodium Biphosphate/Sodium Phosphate 133 ml 02/15/19 13:15 02/18/19 21:59 Fleet [place] 133 ml QDAY PRN Administration Bowel Movement Sodium Chloride 10 ml 02/09/19 22:00 02/18/19 21:55 Sodium Chloride Flush Syringe 10 Ml IV 10 ml BID REY Administration Sodium Chloride 10 ml 02/09/19 14:29 Sodium Chloride Flush Syringe 10 Ml IV PRN PRN LINE FLUSH Trazodone HCl 150 mg 02/09/19 22:00 02/18/19 21:54 Desyrel PO 150 mg QHS REY Administration Venlafaxine HCl 50 mg 02/12/19 11:00 02/18/19 21:53 Effexor PO 50 mg BID REY Administration
[2019-02-19] MEDS: IPRATROPIUM/ALBUTEROL SULFATE 3 ML AMPUL.NEB IH SCH ×3 (07:42→22:26)
[2019-02-19] MEDS: BUDESONIDE 0.5 MG/2 ML NEBU IH SCH ×2 (07:43→22:25)
--- NOTE | 2019-02-19 07:46 | Progress Note ---
Assessment and Plan Sepsis due to complicated UTI Continue Levaquin ID Physician following Septic shock - resolved Now off Levophed KEVIN (acute kidney injury) due to ATN Now resolved IVF resuscitation therapy, Nephrology following, monitor uop q shift, urine electrolytes, Metabolic Acidosis due to KEVIN - resolved now resolved supportive care. Complicated UTI On Levaquin, Aztreonam Urinary obstruction 7MM Left UPJ obstructing stone with mild hydronephrosis, supportive care. IR consulted s/p left perc nephrostomy tube placement, Urology consulted did cystoscopy, RPG, bilat double j-stent placement MAT resolved Cardiomyopathy EF 45-50% patient does not have CHF Acute respiratory failure with hypoxia Oxygen buy NC NIPPV Pulm following Supplemental oxygen, ABG, pulse oximetry, NIPPV as clinically indicated, nebulizer therapy prn, Constipation: resolved Thrombocytopenia Dr. Tapia following Platelet transfused Debiliation PT eval fro [facility] DVT prophylaxis SCDs. No chemical anticoag because of low platelet Disposition: Will discharge to [facility]. Subjective Date of service: 02/17/19 Principal diagnosis: Sepsis Interval history: Patient is 68 YO Male with HTN, Obesity, Hairy Cell Leukemia(In remission) presented to ED for evaluation. He complained of shortness of breath for 3 days, subjective fever, and left flank pain. he also complained of nausea and multiple episodes of vomiting. EMS notified and upon arrival the patient found to be in distress and transported to [facility]. Pt seen and evaluated in ED and found to have Severe Sepsis complicated by Shock with blood pressure of 68/41. Pt initiated on sepsis protocol. Pt treated with IVF resuscitation as well as pressor support. Pt found to have worsening dypsnea after fluid resuscitation which resulted in Acute Hypoxemic Respiratory Failure. Pt initiated on NIPPV and admitted to ICU. CT Abdomen revealed bilateral nephrolithiasis and 7-8mm left ureteropelvic junction stone. He was started on iv Antibiotic and admitted. ID physician, pulmonology, interventional radiology, nephrology and vascular surgery were consulted. IR placed a left percutaneous nephrostomy tube on 02/09/2019. On following day, 02/10, Dr. Perez, Urology did cystoscopy , retrograde pyelogram and bilateral double J stent placement. Creatinine level improved and now normal. He was initially placed on Levaquin and Aztreonam. Blood cultures and Urine cultures grew Escherichia coli and Aztreonam was discontinued. He was on Levophed for several days was discontinued 02/13/2019 and he was transferred to telemetry. Waiting for placement Objective - Constitutional Vitals: Vital Signs - 12hr 02/18/19 02/18/19 02/18/19 21:20 21:44 21:53 Temperature 98.5 F Pulse Rate 83 Pulse Rate [ 92 H Posterior Bilateral Throughout] Respiratory 20 Rate Respiratory 18 Rate [Posterior Bilateral Throughout] Blood Pressure 134/84 O2 Sat by Pulse 96 94 Oximetry 02/18/19 02/19/19 02/19/19 23:32 00:00 03:32 Temperature 97.6 F 98.3 F Pulse Rate 89 80 78 Pulse Rate [ Posterior Bilateral Throughout] Respiratory 18 24 Rate Respiratory Rate [Posterior Bilateral Throughout] Blood Pressure 119/71 131/70 O2 Sat by Pulse 95 96 Oximetry General appearance: Present: no acute distress, well-nourished - EENT Eyes: PERRL, EOM intact ENT: hearing intact, clear oral mucosa Ears: bilateral: normal - Neck Neck: supple, normal ROM - Respiratory Respiratory effort: normal Respiratory: bilateral: CTA - Breasts Breasts: normal - Cardiovascular Rhythm: regular Heart Sounds: Present: S1 & S2. Absent: gallop, rub Extremities: pulses intact, No edema, normal color, Full ROM - Gastrointestinal General gastrointestinal: Present: soft, non-tender, non-distended, normal bowel sounds - Genitourinary Male genitourinary: normal - Integumentary Integumentary: clear, warm, dry - Musculoskeletal Musculoskeletal: 1, strength equal bilaterally - Neurologic Neurologic: moves all extremities - Psychiatric Psychiatric: memory intact, appropriate mood/affect, intact judgment & insight - Labs CBC & Chem 7: 02/17/19 09:15 02/17/19 15:47
[2019-02-19 08:12] LABS: Basophils % (Auto) 0.5 % (0.0-1.8); Eosinophils # (Auto) 0.1 K/mm3 (0.0-0.4); Eosinophils % (Auto) 2.2 % (0.0-4.3); Hematocrit 39.7 % (35.5-45.6); Hemoglobin 12.9 gm/dl (11.8-15.2); Lymphocytes % (Auto) 16.4 % (13.4-35.0); Mean Corpuscular HGB Conc 33 % (32-34); Mean Corpuscular Volume 86 fl (84-94); Monocytes # (Auto) 0.5 K/mm3 (0.0-0.8); Monocytes % (Auto) 8.8 % (0.0-7.3); Platelet Count 116 K/mm3 (140-440); Red Blood Count 4.64 M/mm3 (3.65-5.03); Red Cell Distribution Width 15.1 % (13.2-15.2)
[2019-02-19 08:37] LABS: Alanine Aminotransferase 19 units/L (7-56); BUN/Creatinine Ratio 29; Blood Urea Nitrogen 20 mg/dL (9-20); Calcium 8.5 mg/dL (8.4-10.2); Hemolysis Index 4
[2019-02-19] MEDS: ASPIRIN 81 MG TAB CHEW PO SCH (09:43)
[2019-02-19] MEDS: POTASSIUM CHLORIDE ER 20 MEQ TAB PO SCH (09:43)
[2019-02-19] MEDS: FAMOTIDINE 20 MG TAB PO SCH (09:43)
[2019-02-19] MEDS: VENLAFAXINE 25 MG TAB PO SCH ×2 (09:43→21:34)
[2019-02-19] MEDS: hydroCHLOROthiazide 25 MG TAB PO SCH (09:44)
[2019-02-19] MEDS: DOCUSATE SODIUM 100 MG CAP PO SCH ×2 (09:50→21:35)
[2019-02-19] MEDS: ACETAMINOPHEN 325 MG TAB PO PRN (09:51)
--- NOTE | 2019-02-19 12:08 | Progress Note ---
Assessment and Plan Assessment and plan: Sepsis due to complicated UTI Continue Levaquin with end date today ID Physician following Septic shock. Resolved. Off pressors. E.coli bacteremia, UTI, left hydronephrosis: s/p L nephrostomy by IR on 02/09/2019 which got displaced, then s/p b/l stents by Urology. 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 KEVIN (acute kidney injury) due to ATN Now resolved IVF resuscitation therapy, Nephrology following, monitor uop q shift, urine electrolytes, Metabolic Acidosis due to KEVIN - resolved now resolved supportive care. Complicated UTI As above. Urinary obstruction 7MM Left UPJ obstructing stone with mild hydronephrosis, supportive care. IR consulted s/p left perc nephrostomy tube placement, Urology consulted did cystoscopy, RPG, bilat double j-stent placement MAT resolved Cardiomyopathy EF 45-50% patient does not have CHF Acute respiratory failure with hypoxia Oxygen buy NC NIPPV Pulm following Supplemental oxygen, ABG, pulse oximetry, NIPPV as clinically indicated, nebulizer therapy prn, Constipation: resolved Thrombocytopenia Dr. Tapia following Platelet transfused Debiliation PT eval fro SNF DVT prophylaxis SCDs. No chemical anticoag because of low platelet Disposition. Await rehabilitation placement. History Interval history: No new issues overnight. Hospitalist Physical - Constitutional Vitals: Temp Pulse Resp BP Pulse Ox 98.0 F 97 H 18 123/71 95 02/19/19 11:32 02/19/19 11:32 02/19/19 11:32 02/19/19 11:32 02/19/19 11:32 General appearance: Present: no acute distress, well-nourished - EENT Eyes: Present: PERRL, EOM intact ENT: hearing intact, clear oral mucosa, dentition normal - Neck Neck: Present: supple, normal ROM - Respiratory Respiratory effort: normal Respiratory: bilateral: CTA - Cardiovascular Rhythm: regular Heart Sounds: Present: S1 & S2. Absent: gallop, rub - Extremities Extremities: no ischemia, No edema, Full ROM - Abdominal General gastrointestinal: soft, non-tender, non-distended, normal bowel sounds - Integumentary Integumentary: Present: clear, warm, dry - Neurologic Neurologic: CNII-XII intact, moves all extremities Results - Labs CBC & Chem 7: 02/19/19 08:00 02/19/19 08:00 Labs: Laboratory Last Values WBC 6.1 K/mm3 (4.5-11.0) 02/19/19 08:00 RBC 4.64 M/mm3 (3.65-5.03) 02/19/19 08:00 Hgb 12.9 gm/dl (11.8-15.2) 02/19/19 08:00 Hct 39.7 % (35.5-45.6) 02/19/19 08:00 MCV 86 fl (84-94) 02/19/19 08:00 MCH 28 pg (28-32) 02/19/19 08:00 MCHC 33 % (32-34) 02/19/19 08:00 RDW 15.1 % (13.2-15.2) 02/19/19 08:00 Plt Count 116 K/mm3 (140-440) L 02/19/19 08:00 Lymph % (Auto) 16.4 % (13.4-35.0) 02/19/19 08:00 [place] % (Auto) 8.8 % (0.0-7.3) H 02/19/19 08:00 Eos % (Auto) 2.2 % (0.0-4.3) 02/19/19 08:00 Baso % (Auto) 0.5 % (0.0-1.8) 02/19/19 08:00 Lymph # 1.0 K/mm3 (1.2-5.4) L 02/19/19 08:00 [place] # 0.5 K/mm3 (0.0-0.8) 02/19/19 08:00 Eos # 0.1 K/mm3 (0.0-0.4) 02/19/19 08:00 Baso # 0.0 K/mm3 (0.0-0.1) 02/19/19 08:00 Add Manual Diff Complete 02/10/19 04:30 Total Counted 100 02/10/19 04:30 Seg Neutrophils % 72.1 % (40.0-70.0) H 02/19/19 08:00 Seg Neuts % (Manual) 75.0 % (40.0-70.0) H 02/10/19 04:30 Band Neutrophils % 13.0 % 02/10/19 04:30 Lymphocytes % (Manual) 5.0 % (13.4-35.0) L 02/10/19 04:30 Reactive Lymphs % (Man) 0 % 02/10/19 04:30 Monocytes % (Manual) 7.0 % (0.0-7.3) 02/10/19 04:30 Eosinophils % (Manual) 0 % (0.0-4.3) 02/10/19 04:30 Basophils % (Manual) 0 % (0.0-1.8) 02/10/19 04:30 Metamyelocytes % 0 % 02/10/19 04:30 Myelocytes % 0 % 02/10/19 04:30 Promyelocytes % 0 % 02/10/19 04:30 Blast Cells % 0 % 02/10/19 04:30 Nucleated RBC % Not Reportable 02/10/19 04:30 Seg Neutrophils # 4.4 K/mm3 (1.8-7.7) 02/19/19 08:00 Seg Neutrophils # Man 5.6 K/mm3 (1.8-7.7) 02/10/19 04:30 Band Neutrophils # 1.0 K/mm3 02/10/19 04:30 Lymphocytes # (Manual) 0.4 K/mm3 (1.2-5.4) L 02/10/19 04:30 Abs React Lymphs (Man) 0.0 K/mm3 02/10/19 04:30 Monocytes # (Manual) 0.5 K/mm3 (0.0-0.8) 02/10/19 04:30 Eosinophils # (Manual) 0.0 K/mm3 (0.0-0.4) 02/10/19 04:30 Basophils # (Manual) 0.0 K/mm3 (0.0-0.1) 02/10/19 04:30 Metamyelocytes # 0.0 K/mm3 02/10/19 04:30 Myelocytes # 0.0 K/mm3 02/10/19 04:30 Promyelocytes # 0.0 K/mm3 02/10/19 04:30 Blast Cells # 0.0 K/mm3 02/10/19 04:30 WBC Morphology Not Reportable 02/10/19 04:30 Hypersegmented Neuts Not Reportable 02/10/19 04:30 Hyposegmented Neuts Not Reportable 02/10/19 04:30 Hypogranular Neuts Not Reportable 02/10/19 04:30 Smudge Cells Not Reportable 02/10/19 04:30 Toxic Granulation Not Reportable 02/10/19 04:30 Toxic Vacuolation Not Reportable 02/10/19 04:30 Dohle Bodies Not Reportable 02/10/19 04:30 Pel[place]-Huet Anomaly Not Reportable 02/10/19 04:30 Jagdish Rods Not Reportable 02/10/19 04:30 Platelet Estimate Appears decreased 02/10/19 04:30 Clumped Platelets Not Reportable 02/10/19 04:30 Plt Clumps, EDTA Not Reportable 02/10/19 04:30 Large Platelets 1+ 02/10/19 04:30 Giant Platelets Not Reportable 02/10/19 04:30 Platelet Satelliting Not Reportable 02/10/19 04:30 Plt Morphology Comment Not Reportable 02/10/19 04:30 RBC Morphology Normal 02/10/19 04:30 Dimorphic RBCs Not Reportable 02/10/19 04:30 Polychromasia Not Reportable 02/10/19 04:30 Hypochromasia Not Reportable 02/10/19 04:30 Poikilocytosis Not Reportable 02/10/19 04:30 Anisocytosis Not Reportable 02/10/19 04:30 Microcytosis Not Reportable 02/10/19 04:30 Macrocytosis Not Reportable 02/10/19 04:30 Spherocytes Not Reportable 02/10/19 04:30 Pappenheimer Bodies Not Reportable 02/10/19 04:30 Sickle Cells Not Reportable 02/10/19 04:30 Target Cells Not Reportable 02/10/19 04:30 Tear Drop Cells Not Reportable 02/10/19 04:30 Ovalocytes Not Reportable 02/10/19 04:30 Helmet Cells Not Reportable 02/10/19 04:30 [place] Bodies Not Reportable 02/10/19 04:30 [place] Rings Not Reportable 02/10/19 04:30 [place] Cells Not Reportable 02/10/19 04:30 Bite Cells Not Reportable 02/10/19 04:30 Crenated Cell Not Reportable 02/10/19 04:30 Elliptocytes Not Reportable 02/10/19 04:30 Acanthocytes (Spur) Not Reportable 02/10/19 04:30 Rouleaux Not Reportable 02/10/19 04:30 Hemoglobin C Crystals Not Reportable 02/10/19 04:30 Schistocytes Not Reportable 02/10/19 04:30 Malaria parasites Not Reportable 02/10/19 04:30 [place] Bodies Not Reportable 02/10/19 04:30 Hem Pathologist Commnt No 02/10/19 04:30 PT 15.8 Sec. (12.2-14.9) H 02/09/19 Unknown INR 1.29 (0.87-1.13) H 02/09/19 Unknown POC ABG pH 7.356 (7.35-7.45) 02/09/19 17:29 POC ABG pCO2 37.1 (35-45) 02/09/19 17:29 POC ABG pO2 97 (80-105) 02/09/19 17:29 POC ABG HCO3 20.8 (22-26 mml/L) 02/09/19 17:29 POC ABG Total CO2 22 (23-27mmol/L) 02/09/19 17:29 POC ABG O2 Sat 97 02/09/19 17:29 POC ABG Base Excess -5 ((-2) - (+3)mmol/L) 02/09/19 17:29 VBG pH 7.379 (7.320-7.420) 02/09/19 11:45 FiO2 28 % 02/09/19 17:29 Sodium 143 mmol/L (137-145) 02/19/19 08:00 Potassium 4.1 mmol/L (3.6-5.0) 02/19/19 08:00 Chloride 102.9 mmol/L (98-107) 02/19/19 08:00 Carbon Dioxide 29 mmol/L (22-30) 02/19/19 08:00 Anion Gap 15 mmol/L 02/19/19 08:00 BUN 20 mg/dL (9-20) 02/19/19 08:00 Creatinine 0.7 mg/dL (0.8-1.5) L 02/19/19 08:00 Estimated GFR > 60 ml/min 02/19/19 08:00 BUN/Creatinine Ratio 29 % 02/19/19 08:00 Glucose 113 mg/dL (75-100) H 10/31/19 08:00 POC Glucose 146 (70-105) H 02/11/19 12:05 Lactic Acid 2.50 mmol/L (0.7-2.0) H* 02/10/19 08:44 Calcium 8.5 mg/dL (8.4-10.2) 02/19/19 08:00 Phosphorus 3.90 mg/dL (2.5-4.5) 02/11/19 04:55 Magnesium 1.80 mg/dL (1.7-2.3) 02/11/19 04:55 Total Bilirubin 0.60 mg/dL (0.1-1.2) 02/19/19 08:00 AST 18 units/L (5-40) 02/19/19 08:00 ALT 19 units/L (7-56) 02/19/19 08:00 Alkaline Phosphatase 59 units/L (35-129) 02/19/19 08:00 Troponin T 0.017 ng/mL (0.00-0.029) 02/09/19 Unknown NT-Pro-B Natriuret Pep 6998 pg/mL (0-900) H 02/09/19 Unknown Total Protein 6.3 g/dL (6.3-8.2) 02/19/19 08:00 Albumin 3.0 g/dL (3.9-5) L 02/19/19 08:00 Albumin/Globulin Ratio 0.9 % 02/19/19 08:00 Urine Color [place] (Yellow) 02/09/19 07:28 Urine Turbidity Cloudy (Clear) 02/09/19 07:28 Urine pH 5.0 (5.0-7.0) 02/09/19 07:28 Ur Specific [place] 1.019 (1.003-1.030) 02/09/19 07:28 Urine Protein 100 mg/dl mg/dL (Negative) 02/09/19 07:28 Urine Glucose (UA) Neg mg/dL (Negative) 02/09/19 07:28 Urine Ketones Neg mg/dL (Negative) 02/09/19 07:28 Urine Blood Lg (Negative) 02/09/19 07:28 Urine Nitrite Neg (Negative) 02/09/19 07:28 Urine Bilirubin Neg (Negative) 02/09/19 07:28 Urine Urobilinogen 4.0 mg/dL (<2.0) 02/09/19 07:28 Ur Leukocyte Esterase Mod (Negative) 02/09/19 07:28 Urine WBC (Auto) 35.0 /HPF (0.0-6.0) H 02/09/19 07:28 Urine RBC (Auto) > 182.0 /HPF (0.0-6.0) 02/09/19 07:28 U Epithel Cells (Auto) 1.0 /HPF (0-13.0) 02/09/19 07:28 Urine Bacteria (Auto) 1+ /HPF (Negative) 02/09/19 07:28 Urine Creatinine 350.2 mg/dL (0.1-20.0) H 02/09/19 15:20 Urine Sodium 46 mmol/L 02/09/19 15:20 Blood Type A NEGATIVE 02/09/19 17:15 Antibody Screen Negative 02/09/19 17:15 Active Medications - Current Medications Current Medications: Generic Name Dose Route Start Last Admin Trade Name Freq PRN Reason Stop Dose Admin Acetaminophen 650 mg 02/09/19 14:29 02/19/19 09:51 Tylenol PO 650 mg Q4H PRN Administration Pain MILD(1-3)/Fever >100.5/KAMARA Albuterol 2.5 mg 02/17/19 08:00 Proventil IH Q4H PRN Shortness Of Breath Albuterol/Ipratropium 1 ampul 02/11/19 20:00 02/19/19 07:42 Duoneb *Not For Prn Use* IH 1 ampul TIDRT REY Administration Aspirin 81 mg 02/10/19 10:00 02/19/19 09:43 Baby Aspirin PO 81 mg QDAY REY Administration Budesonide 0.5 mg 02/14/19 20:00 02/19/19 07:43 Pulmicort IH 0.5 mg Q12HRT REY Administration Docusate Sodium 100 mg 02/12/19 12:00 02/19/19 09:50 Colace PO 100 mg BID REY Administration Famotidine 20 mg 02/17/19 10:00 02/19/19 09:43 Pepcid PO 20 mg DAILY REY Administration Finasteride 5 mg 02/09/19 22:00 02/18/19 21:55 Proscar PO 5 mg QHS REY Administration Hydrochlorothiazide 25 mg 10/27/19 12:00 02/19/19 09:44 Hctz PO 25 mg QDAY REY Administration Levofloxacin/Dextrose 750 mg in 150 mls @ 100 mls/hr 02/12/19 12:00 02/19/19 09:44 Levaquin 750mg/150ml IV 100 mls/hr Q24HR REY Administration Protocol Morphine Sulfate 2 mg 02/10/19 15:48 02/16/19 22:07 Morphine IV 2 mg Q4H PRN Administration Pain, Moderate (4-6) Ondansetron HCl 4 mg 02/09/19 14:29 02/09/19 20:27 Zofran IV 4 mg Q8H PRN Administration Nausea And Vomiting Polyethylene Glycol 17 gm 02/12/19 11:19 02/17/19 10:35 Miralax 3350 PO 17 gm QDAY PRN Administration Constipation Potassium Chloride 40 meq 02/15/19 12:00 02/19/19 09:43 K-Dur PO 40 meq QDAY REY Administration Sodium Biphosphate/Sodium Phosphate 133 ml 02/15/19 13:15 02/18/19 21:59 [place] 133 ml QDAY PRN Administration Bowel Movement Sodium Chloride 10 ml 02/09/19 22:00 02/19/19 09:45 Sodium Chloride Flush Syringe 10 Ml IV 10 ml BID REY Administration Sodium Chloride 10 ml 02/09/19 14:29 Sodium Chloride Flush Syringe 10 Ml IV PRN PRN LINE FLUSH Trazodone HCl 150 mg 02/09/19 22:00 02/18/19 21:54 Desyrel PO 150 mg QHS REY Administration Venlafaxine HCl 50 mg 02/12/19 11:00 02/19/19 09:43 Effexor PO 50 mg BID REY Administration Nutrition/Malnutrition Assess - Dietary Evaluation Nutrition/Malnutrition Findings: Nutrition Notes Start: 02/16/19 13:46 Freq: Status: Active Protocol: Document 02/16/19 13:46 OH (Rec: 02/16/19 13:55 OH [id number]) Nutrition Notes Need for Assessment generated from: LOS Initial or Follow up Assessment Current Diagnosis Hypertension Other Pertinent Diagnosis obesity;sepsis; hx leukemia Current Diet cardiac Labs/Tests Reviewed Pertinent Medications Reviewed Height 5 ft 7 in Weight 105.7 kg [place] Body Weight (kg) 67.27 BMI 36.5 Intake Prior to Admission Fair Weight Status Morbidly Obese Subjective/Other Information Pt. assessed secondary to LOS. Pt. lying in bed. Pt. requests assistance w/setting up his meal tray. Percent of energy/protein needs met: 75/75% Burn Absent Trauma Absent GI Symptoms None Current % PO Fair (50-74%) Minimum of two criteria No physical signs of malnutrition #1 Nutrition Diagnosis Inadequate oral intake Etiology low appetite As Evidenced by Signs and Symptoms consuming <75% meal tray Diagnosis Progress(for reassessment Continues documentation) Is patient on ventilator? No Is Patient Ambulatory and/or Out of Bed No REE-([place]-confined to bed) [phone] Additional Notes PRO: 1-1.2 g/kg/IBW 67-81 G/ DAY FLUID: 1 ml/kcal Nutrition Intervention Change Diet Order: Cont cardiac diet Add Supplement/Snack (indicate name/kcal ensure enlive q day /protein ) Provides kCal: 350 Provides Protein (gm) 20 Goal #1 po intakes to exceed 75% at meals Goal #2 Monitor tolerance of ONS Anticipated Discharge Needs: To be determined Follow-Up By: 02/19/19
--- NOTE | 2019-02-19 12:19 | Progress Note ---
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 2) Acute renal failure: renally dose abx. Creatinine improving. 3) Rash? from Zosyn: given h/o Cefepime allergy. Improving. 4) Acute thrombocytopenia: ?sepsis related v/s h/o hairy cell leukemia. Monitor. Recs: - Continue Levofloxacin 750 mg q24 hrs, end date 02/19/2019 - avoiding cefepime and zosyn due to rash Horace Davenport MD [facility] ([facility]) M: [phone] O: [phone] F: [phone] Subjective Date of service: 02/19/19 Principal diagnosis: low plt Interval history: No acute change. Objective - Exam Narrative Exam: Constitutional: Alert, cooperative. No acute distress Head, Ears, Nose: Normocephalic, atraumatic. External ears, nose normal Eyes: Conjunctivae/corneas clear. No icterus. No ptosis. Neck: Supple, no meningeal signs Oral: no thrush Cardiovascular: S1, S2 normal. Respiratory: Good air entry, clear to auscultation bilaterally GI: Soft, non-tender; bowel sounds normal. No peritoneal signs. Left nephrostomy tube +, [place] + with bloody urine Musculoskeletal: No pedal edema, no cyanosis. Skin: upper trunk rash improving. no abscess Hem/Lymphatic: No palpable cervical or supraclavicular nodes. No lymphangitis Psych: Mood ok. Affect normal Neurological: Awake, alert, oriented. No gross abnormality - Constitutional Vitals: Vital Signs Temp Pulse Resp BP Pulse Ox 98.0 F 97 H 18 123/71 95 02/19/19 11:32 02/19/19 11:32 02/19/19 11:32 02/19/19 11:32 02/19/19 11:32 Temperature -Last 24 Hours Temperature 98.0 F Temperature 98.0 F Temperature 98.3 F Temperature 97.6 F Temperature 98.5 F - Labs CBC & Chem 7: 02/19/19 08:00 02/19/19 08:00 Labs: Abnormal lab results 02/19/19 02/19/19 Range/Units 08:00 08:00 Plt Count 116 L (140-440) K/mm3 [place] % (Auto) 8.8 H (0.0-7.3) % Lymph # 1.0 L (1.2-5.4) K/mm3 Seg Neutrophils % 72.1 H (40.0-70.0) % Creatinine 0.7 L (0.8-1.5) mg/dL Glucose 113 H (75-100) mg/dL Albumin 3.0 L (3.9-5) g/dL
[2019-02-19] MEDS: traZODone 100 MG TAB PO SCH (21:34)
[2019-02-19] MEDS: FINASTERIDE 5 MG TAB PO SCH (21:35)
[2019-02-20 05:41] LABS: Basophils % (Auto) 0.9 % (0.0-1.8); Eosinophils # (Auto) 0.1 K/mm3 (0.0-0.4); Eosinophils % (Auto) 2.3 % (0.0-4.3); Hemoglobin 12.6 gm/dl (11.8-15.2); Lymphocytes # (Auto) 1.1 K/mm3 (1.2-5.4); Lymphocytes % (Auto) 19.1 % (13.4-35.0); Mean Corpuscular HGB Conc 32 % (32-34); Mean Corpuscular Volume 86 fl (84-94); Monocytes # (Auto) 0.6 K/mm3 (0.0-0.8); Monocytes % (Auto) 10.4 % (0.0-7.3); Platelet Count 121 K/mm3 (140-440); Red Blood Count 4.54 M/mm3 (3.65-5.03)
[2019-02-20 05:57] LABS: Alanine Aminotransferase 19 units/L (7-56); Albumin 3.3 g/dL (3.9-5); BUN/Creatinine Ratio 24; Blood Urea Nitrogen 19 mg/dL (9-20); Calcium 8.9 mg/dL (8.4-10.2); Hemolysis Index 7; Iron 57 ug/dL (49-181); Total Iron Binding Capacity 215 mcg/dL (250-450)
--- NOTE | 2019-02-20 06:45 | Hem/Onc Progress Note ---
Assessment and Plan 1. h/o Thrombocytopenia. This may be secondary to consumption/infection. The patient was on pressors. Supportive care for now. No bleeding at this time. 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 Renal impairment, being followed by Nephrology. 3. Nephrolithiasis, status post nephrostomy tube placement, which was dislodged. Urology followup for the ureteral stent. 4. Seen by ID team and Nephrology team. 5. Radiologically, there is no mention of splenomegaly. 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 We will follow the patient during inpatient stay. Follow the trend and he would need to be followed in the outpatient setting. pt had received 3 platelets transfusions when plt were 30s - ordered by other drs clinically better - no bleeding plt better OP follow up an option from hem perspective - Patient Problems (1) Thrombocytopenia Current Visit: Yes Status: Acute Subjective Date of service: 02/20/19 Principal diagnosis: low plt Interval history: feeling better - walking with PT as per pt Objective - Exam Narrative Exam: Pain - none now General appearance - awake Performance status limited self care - on o2 Eyes - no icterus ENT - no thrush LNs cervical not palpable Neck - no LN Respiratory Normal Breath sounds - CTA anteriorly CVS S1 S2 + Extremities no calf tenderness General GI Soft Rectal deferred male - deferred Skin warm Musculoskeletal moves limbs neuro - awake - Constitutional Vitals: Last Vital Signs Temp 98.5 F 02/19/19 19:32 Pulse 83 02/20/19 03:00 Resp 18 02/19/19 22:23 BP 126/82 02/19/19 19:32 Pulse Ox 97 02/19/19 22:00 - Labs Lab Results: Laboratory Results - last 24 hr 02/19/19 02/19/19 02/20/19 08:00 08:00 04:54 WBC 6.1 5.6 RBC 4.64 4.54 Hgb 12.9 12.6 Hct 39.7 39.0 MCV 86 86 MCH 28 28 MCHC 33 32 RDW 15.1 15.0 Plt Count 116 L 121 L Lymph % (Auto) 16.4 19.1 [place] % (Auto) 8.8 H 10.4 H Eos % (Auto) 2.2 2.3 Baso % (Auto) 0.5 0.9 Lymph # 1.0 L 1.1 L [place] # 0.5 0.6 Eos # 0.1 0.1 Baso # 0.0 0.0 Seg Neutrophils % 72.1 H 67.3 Seg Neutrophils # 4.4 3.7 Sodium 143 Potassium 4.1 Chloride 102.9 Carbon Dioxide 29 Anion Gap 15 BUN 20 Creatinine 0.7 L Estimated GFR > 60 BUN/Creatinine Ratio 29 Glucose 113 H Calcium 8.5 Iron TIBC Ferritin Total Bilirubin 0.60 AST 18 ALT 19 Alkaline Phosphatase 59 Total Protein 6.3 Albumin 3.0 L Albumin/Globulin Ratio 0.9 Vitamin B12 Folate 02/20/19 02/20/19 02/20/19 04:54 04:54 04:54 WBC RBC Hgb Hct MCV MCH MCHC RDW Plt Count Lymph % (Auto) [place] % (Auto) Eos % (Auto) Baso % (Auto) Lymph # [place] # Eos # Baso # Seg Neutrophils % Seg Neutrophils # Sodium 138 Potassium 4.4 Chloride 98.7 Carbon Dioxide 31 H Anion Gap 13 BUN 19 Creatinine 0.8 Estimated GFR > 60 BUN/Creatinine Ratio 24 Glucose 105 H Calcium 8.9 Iron 57 TIBC 215 L Ferritin 405.1 H Total Bilirubin 0.60 AST 17 ALT 19 Alkaline Phosphatase 61 Total Protein 6.8 Albumin 3.3 L Albumin/Globulin Ratio 0.9 Vitamin B12 1355 H Folate 02/20/19 04:54 WBC RBC Hgb Hct MCV MCH MCHC RDW Plt Count Lymph % (Auto) [place] % (Auto) Eos % (Auto) Baso % (Auto) Lymph # [place] # Eos # Baso # Seg Neutrophils % Seg Neutrophils # Sodium Potassium Chloride Carbon Dioxide Anion Gap BUN Creatinine Estimated GFR BUN/Creatinine Ratio Glucose Calcium Iron TIBC Ferritin Total Bilirubin AST ALT Alkaline Phosphatase Total Protein Albumin Albumin/Globulin Ratio Vitamin B12 Folate 7.77 Medications & Allergies - Medications Allergies/Adverse Reactions: Allergies cefepime Allergy (Verified 02/10/19 11:24) Rash Home Medications: Home Medications Medication Instructions Recorded Confirmed Last Taken Type Aspirin [Aspirin BABY CHEW TAB] 81 mg PO QDAY 02/09/19 02/09/19 02/09/19 History Desvenlafaxine Succinate 100 mg PO QDAY 02/09/19 02/09/19 02/09/19 History [Desvenlafaxine Succinate ER] Doxazosin Mesylate [Cardura] 2.5 mg PO DAILY 02/09/19 02/09/1919 History Finasteride [Proscar] 5 mg PO QHS 02/09/19 02/09/19 02/09/19 History Propranolol HCl 20 mg PO QDAY 02/09/19 02/09/19 02/09/19 History Trazodone HCl 150 mg PO QHS 02/09/19 02/09/19 02/09/19 History Docusate Sodium [Colace] 100 mg PO QDAY 02/12/19 02/12/19 02/07/19 09:00 History Pravastatin [Pravachol] 20 mg PO QHS 02/13/19 02/13/19 02/08/19 History Active Medications: Generic Name Dose Route Start Last Admin Trade Name Freq PRN Reason Stop Dose Admin Acetaminophen 650 mg 02/09/19 14:29 02/19/19 09:51 Tylenol PO 650 mg Q4H PRN Administration Pain MILD(1-3)/Fever >100.5/KAMARA Albuterol 2.5 mg 02/17/19 08:00 Proventil IH Q4H PRN Shortness Of Breath Albuterol/Ipratropium 1 ampul 02/11/19 20:00 02/19/19 22:26 Duoneb *Not For Prn Use* IH 1 ampul TIDRT REY Administration Aspirin 81 mg 02/10/19 10:00 02/19/19 09:43 Baby Aspirin PO 81 mg QDAY REY Administration Budesonide 0.5 mg 02/14/19 20:00 02/19/19 22:25 Pulmicort IH 0.5 mg Q12HRT REY Administration Docusate Sodium 100 mg 02/12/19 12:00 02/19/19 21:35 Colace PO 100 mg BID REY Administration Famotidine 20 mg 02/17/19 10:00 02/19/19 09:43 Pepcid PO 20 mg DAILY REY Administration Finasteride 5 mg 02/09/19 22:00 02/19/19 21:35 Proscar PO 5 mg QHS REY Administration Hydrochlorothiazide 25 mg 02/15/19 12:00 02/19/19 09:44 Hctz PO 25 mg QDAY REY Administration Levofloxacin/Dextrose 750 mg in 150 mls @ 100 mls/hr 02/12/19 12:00 02/19/19 09:44 Levaquin 750mg/150ml IV 100 mls/hr Q24HR REY Administration Protocol Morphine Sulfate 2 mg 02/10/19 15:48 02/16/19 22:07 Morphine IV 2 mg Q4H PRN Administration Pain, Moderate (4-6) Ondansetron HCl 4 mg 02/09/19 14:29 02/09/19 20:27 Zofran IV 4 mg Q8H PRN Administration Nausea And Vomiting Polyethylene Glycol 17 gm 02/12/19 11:19 02/17/19 10:35 Miralax 3350 PO 17 gm QDAY PRN Administration Constipation Potassium Chloride 40 meq 02/15/19 12:00 02/19/19 09:43 K-Dur PO 40 meq QDAY REY Administration Sodium Biphosphate/Sodium Phosphate 133 ml 02/15/19 13:15 02/18/19 21:59 [place] 133 ml QDAY PRN Administration Bowel Movement Sodium Chloride 10 ml 02/09/19 22:00 02/19/19 21:36 Sodium Chloride Flush Syringe 10 Ml IV 10 ml BID REY Administration Sodium Chloride 10 ml 02/09/19 14:29 Sodium Chloride Flush Syringe 10 Ml IV PRN PRN LINE FLUSH Trazodone HCl 150 mg 02/09/19 22:00 02/19/19 21:34 Desyrel PO 150 mg QHS REY Administration Venlafaxine HCl 50 mg 02/12/19 11:00 02/19/19 21:34 Effexor PO 50 mg BID REY Administration
[2019-02-20] MEDS: IPRATROPIUM/ALBUTEROL SULFATE 3 ML AMPUL.NEB IH SCH ×3 (09:13→23:28)
[2019-02-20] MEDS: BUDESONIDE 0.5 MG/2 ML NEBU IH SCH ×2 (09:14→23:28)
[2019-02-20] MEDS: FAMOTIDINE 20 MG TAB PO SCH (11:25)
[2019-02-20] MEDS: hydroCHLOROthiazide 25 MG TAB PO SCH (11:25)
[2019-02-20] MEDS: ASPIRIN 81 MG TAB CHEW PO SCH (11:26)
[2019-02-20] MEDS: POTASSIUM CHLORIDE ER 20 MEQ TAB PO SCH (11:26)
[2019-02-20] MEDS: DOCUSATE SODIUM 100 MG CAP PO SCH ×2 (11:26→21:44)
[2019-02-20] MEDS: VENLAFAXINE 25 MG TAB PO SCH ×2 (11:31→21:45)
[2019-02-20] MEDS: ACETAMINOPHEN 325 MG TAB PO PRN ×2 (12:22→23:37)
--- NOTE | 2019-02-20 13:02 | Progress Note ---
Assessment and Plan Assessment and plan: Sepsis due to complicated UTI Antibiotics completed ID Physician following Septic shock. Resolved. Off pressors. E.coli bacteremia, UTI, left hydronephrosis: s/p L nephrostomy by IR on 02/09/2019 which got displaced, then s/p b/l stents by Urology. 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 KEVIN (acute kidney injury) due to ATN Now resolved IVF resuscitation therapy, Nephrology following, monitor uop q shift, urine electrolytes, Metabolic Acidosis due to KEVIN - resolved now resolved supportive care. Complicated UTI As above. Urinary obstruction 7MM Left UPJ obstructing stone with mild hydronephrosis, supportive care. IR consulted s/p left perc nephrostomy tube placement, Urology consulted did cystoscopy, RPG, bilat double j-stent placement MAT resolved Cardiomyopathy EF 45-50% patient does not have CHF Acute respiratory failure with hypoxia Oxygen buy NC NIPPV Pulm following Supplemental oxygen, ABG, pulse oximetry, NIPPV as clinically indicated, nebulizer therapy prn, Constipation: resolved Thrombocytopenia Dr. Tapia following Platelet transfused Debility SNF placement DVT prophylaxis SCDs. No chemical anticoag because of low platelet Disposition. Await rehabilitation placement. History Interval history: No new issues overnight. Hospitalist Physical - Constitutional Vitals: Temp Pulse Resp BP Pulse Ox 98.8 F 95 H 18 110/63 96 02/20/19 12:07 02/20/19 12:07 02/20/19 12:07 02/20/19 12:07 02/20/19 12:07 General appearance: Present: no acute distress, well-nourished - EENT Eyes: Present: PERRL, EOM intact ENT: hearing intact, clear oral mucosa, dentition normal - Neck Neck: Present: supple, normal ROM - Respiratory Respiratory effort: normal Respiratory: bilateral: CTA - Cardiovascular Rhythm: regular Heart Sounds: Present: S1 & S2. Absent: gallop, rub - Extremities Extremities: no ischemia, No edema, Full ROM - Abdominal General gastrointestinal: soft, non-tender, non-distended, normal bowel sounds - Integumentary Integumentary: Present: clear, warm, dry - Neurologic Neurologic: CNII-XII intact, moves all extremities Results - Labs CBC & Chem 7: 02/20/19 04:54 02/20/19 04:54 Labs: Laboratory Last Values WBC 5.6 K/mm3 (4.5-11.0) 02/20/19 04:54 RBC 4.54 M/mm3 (3.65-5.03) 02/20/19 04:54 Hgb 12.6 gm/dl (11.8-15.2) 02/20/19 04:54 Hct 39.0 % (35.5-45.6) 02/20/19 04:54 MCV 86 fl (84-94) 02/20/19 04:54 MCH 28 pg (28-32) 02/20/19 04:54 MCHC 32 % (32-34) 02/20/19 04:54 RDW 15.0 % (13.2-15.2) 02/20/19 04:54 Plt Count 121 K/mm3 (140-440) L 02/20/19 04:54 Lymph % (Auto) 19.1 % (13.4-35.0) 02/20/19 04:54 [place] % (Auto) 10.4 % (0.0-7.3) H 02/20/19 04:54 Eos % (Auto) 2.3 % (0.0-4.3) 02/20/19 04:54 Baso % (Auto) 0.9 % (0.0-1.8) 02/20/19 04:54 Lymph # 1.1 K/mm3 (1.2-5.4) L 02/20/19 04:54 [place] # 0.6 K/mm3 (0.0-0.8) 02/20/19 04:54 Eos # 0.1 K/mm3 (0.0-0.4) 02/20/19 04:54 Baso # 0.0 K/mm3 (0.0-0.1) 02/20/19 04:54 Add Manual Diff Complete 02/10/19 04:30 Total Counted 100 02/10/19 04:30 Seg Neutrophils % 67.3 % (40.0-70.0) 02/20/19 04:54 Seg Neuts % (Manual) 75.0 % (40.0-70.0) H 02/10/19 04:30 Band Neutrophils % 13.0 % 02/10/19 04:30 Lymphocytes % (Manual) 5.0 % (13.4-35.0) L 02/10/19 04:30 Reactive Lymphs % (Man) 0 % 02/10/19 04:30 Monocytes % (Manual) 7.0 % (0.0-7.3) 02/10/19 04:30 Eosinophils % (Manual) 0 % (0.0-4.3) 02/10/19 04:30 Basophils % (Manual) 0 % (0.0-1.8) 02/10/19 04:30 Metamyelocytes % 0 % 02/10/19 04:30 Myelocytes % 0 % 02/10/19 04:30 Promyelocytes % 0 % 02/10/19 04:30 Blast Cells % 0 % 02/10/19 04:30 Nucleated RBC % Not Reportable 02/10/19 04:30 Seg Neutrophils # 3.7 K/mm3 (1.8-7.7) 02/20/19 04:54 Seg Neutrophils # Man 5.6 K/mm3 (1.8-7.7) 02/10/19 04:30 Band Neutrophils # 1.0 K/mm3 02/10/19 04:30 Lymphocytes # (Manual) 0.4 K/mm3 (1.2-5.4) L 02/10/19 04:30 Abs React Lymphs (Man) 0.0 K/mm3 02/10/19 04:30 Monocytes # (Manual) 0.5 K/mm3 (0.0-0.8) 02/10/19 04:30 Eosinophils # (Manual) 0.0 K/mm3 (0.0-0.4) 02/10/19 04:30 Basophils # (Manual) 0.0 K/mm3 (0.0-0.1) 02/10/19 04:30 Metamyelocytes # 0.0 K/mm3 02/10/19 04:30 Myelocytes # 0.0 K/mm3 02/10/19 04:30 Promyelocytes # 0.0 K/mm3 02/10/19 04:30 Blast Cells # 0.0 K/mm3 02/10/19 04:30 WBC Morphology Not Reportable 02/10/19 04:30 Hypersegmented Neuts Not Reportable 02/10/19 04:30 Hyposegmented Neuts Not Reportable 02/10/19 04:30 Hypogranular Neuts Not Reportable 02/10/19 04:30 Smudge Cells Not Reportable 02/10/19 04:30 Toxic Granulation Not Reportable 02/10/19 04:30 Toxic Vacuolation Not Reportable 02/10/19 04:30 Dohle Bodies Not Reportable 02/10/19 04:30 Pelger-Huet Anomaly Not Reportable 02/10/19 04:30 Jagdish Rods Not Reportable 02/10/19 04:30 Platelet Estimate Appears decreased 02/10/19 04:30 Clumped Platelets Not Reportable 02/10/19 04:30 Plt Clumps, EDTA Not Reportable 02/10/19 04:30 Large Platelets 1+ 02/10/19 04:30 Giant Platelets Not Reportable 02/10/19 04:30 Platelet Satelliting Not Reportable 02/10/19 04:30 Plt Morphology Comment Not Reportable 02/10/19 04:30 RBC Morphology Normal 02/10/19 04:30 Dimorphic RBCs Not Reportable 02/10/19 04:30 Polychromasia Not Reportable 02/10/19 04:30 Hypochromasia Not Reportable 02/10/19 04:30 Poikilocytosis Not Reportable 02/10/19 04:30 Anisocytosis Not Reportable 02/10/19 04:30 Microcytosis Not Reportable 02/10/19 04:30 Macrocytosis Not Reportable 02/10/19 04:30 Spherocytes Not Reportable 02/10/19 04:30 Pappenheimer Bodies Not Reportable 02/10/19 04:30 Sickle Cells Not Reportable 02/10/19 04:30 Target Cells Not Reportable 02/10/19 04:30 Tear Drop Cells Not Reportable 02/10/19 04:30 Ovalocytes Not Reportable 02/10/19 04:30 Helmet Cells Not Reportable 02/10/19 04:30 [place] Bodies Not Reportable 02/10/19 04:30 [place] Rings Not Reportable 02/10/19 04:30 Nathan Cells Not Reportable 02/10/19 04:30 Bite Cells Not Reportable 02/10/19 04:30 Crenated Cell Not Reportable 02/10/19 04:30 Elliptocytes Not Reportable 02/10/19 04:30 Acanthocytes (Spur) Not Reportable 02/10/19 04:30 Rouleaux Not Reportable 02/10/19 04:30 Hemoglobin C Crystals Not Reportable 02/10/19 04:30 Schistocytes Not Reportable 02/10/19 04:30 Malaria parasites Not Reportable 02/10/19 04:30 Arnie Bodies Not Reportable 02/10/19 04:30 Hem Pathologist Commnt No 02/10/19 04:30 PT 15.8 Sec. (12.2-14.9) H 02/09/19 Unknown INR 1.29 (0.87-1.13) H 02/09/19 Unknown POC ABG pH 7.356 (7.35-7.45) 02/09/19 17:29 POC ABG pCO2 37.1 (35-45) 02/09/19 17:29 POC ABG pO2 97 (80-105) 02/09/19 17:29 POC ABG HCO3 20.8 (22-26 mml/L) 02/09/19 17:29 POC ABG Total CO2 22 (23-27mmol/L) 02/09/19 17:29 POC ABG O2 Sat 97 02/09/19 17:29 POC ABG Base Excess -5 ((-2) - (+3)mmol/L) 02/09/19 17:29 VBG pH 7.379 (7.320-7.420) 02/09/19 11:45 FiO2 28 % 02/09/19 17:29 Sodium 138 mmol/L (137-145) 02/20/19 04:54 Potassium 4.4 mmol/L (3.6-5.0) 02/20/19 04:54 Chloride 98.7 mmol/L (98-107) 02/20/19 04:54 Carbon Dioxide 31 mmol/L (22-30) H 02/20/19 04:54 Anion Gap 13 mmol/L 02/20/19 04:54 BUN 19 mg/dL (9-20) 02/20/19 04:54 Creatinine 0.8 mg/dL (0.8-1.5) 02/20/19 04:54 Estimated GFR > 60 ml/min 02/20/19 04:54 BUN/Creatinine Ratio 24 % 02/20/19 04:54 Glucose 105 mg/dL (75-100) H 02/20/19 04:54 POC Glucose 146 (70-105) H 02/11/19 12:05 Lactic Acid 2.50 mmol/L (0.7-2.0) H* 02/10/19 08:44 Calcium 8.9 mg/dL (8.4-10.2) 02/20/19 04:54 Phosphorus 3.90 mg/dL (2.5-4.5) 02/11/19 04:55 Magnesium 1.80 mg/dL (1.7-2.3) 02/11/19 04:55 Iron 57 ug/dL (49-181) 02/20/19 04:54 TIBC 215 mcg/dL (250-450) L 02/20/19 04:54 Ferritin 405.1 ng/mL (13.0-400.0) H 02/20/19 04:54 Total Bilirubin 0.60 mg/dL (0.1-1.2) 02/20/19 04:54 AST 17 units/L (5-40) 02/20/19 04:54 ALT 19 units/L (7-56) 02/20/19 04:54 Alkaline Phosphatase 61 units/L (35-129) 02/20/19 04:54 Troponin T 0.017 ng/mL (0.00-0.029) 02/09/19 Unknown NT-Pro-B Natriuret Pep 6998 pg/mL (0-900) H 02/09/19 Unknown Total Protein 6.8 g/dL (6.3-8.2) 02/20/19 04:54 Albumin 3.3 g/dL (3.9-5) L 02/20/19 04:54 Albumin/Globulin Ratio 0.9 % 02/20/19 04:54 Vitamin B12 1355 pg/mL (211-911) H 02/20/19 04:54 Folate 7.77 ng/mL (7.3-26.0) 02/20/19 04:54 Urine Color [place] (Yellow) 02/09/19 07:28 Urine Turbidity Cloudy (Clear) 02/09/19 07:28 Urine pH 5.0 (5.0-7.0) 02/09/19 07:28 Ur Specific [place] 1.019 (1.003-1.030) 02/09/19 07:28 Urine Protein 100 mg/dl mg/dL (Negative) 02/09/19 07:28 Urine Glucose (UA) Neg mg/dL (Negative) 02/09/19 07:28 Urine Ketones Neg mg/dL (Negative) 02/09/19 07:28 Urine Blood Lg (Negative) 02/09/19 07:28 Urine Nitrite Neg (Negative) 02/09/19 07:28 Urine Bilirubin Neg (Negative) 02/09/19 07:28 Urine Urobilinogen 4.0 mg/dL (<2.0) 02/09/19 07:28 Ur Leukocyte Esterase Mod (Negative) 02/09/19 07:28 Urine WBC (Auto) 35.0 /HPF (0.0-6.0) H 02/09/19 07:28 Urine RBC (Auto) > 182.0 /HPF (0.0-6.0) 02/09/19 07:28 U Epithel Cells (Auto) 1.0 /HPF (0-13.0) 02/09/19 07:28 Urine Bacteria (Auto) 1+ /HPF (Negative) 02/09/19 07:28 Urine Creatinine 350.2 mg/dL (0.1-20.0) H 02/09/19 15:20 Urine Sodium 46 mmol/L 02/09/19 15:20 Blood Type A NEGATIVE 02/09/19 17:15 Antibody Screen Negative 02/09/19 17:15 Active Medications - Current Medications Current Medications: Generic Name Dose Route Start Last Admin Trade Name Freq PRN Reason Stop Dose Admin Acetaminophen 650 mg 02/09/19 14:29 02/20/19 12:22 Tylenol PO 650 mg Q4H PRN Administration Pain MILD(1-3)/Fever >100.5/KAMARA Albuterol 2.5 mg 02/17/19 08:00 Proventil IH Q4H PRN Shortness Of Breath Albuterol/Ipratropium 1 ampul 02/11/19 20:00 02/20/19 09:13 Duoneb *Not For Prn Use* IH 1 ampul TIDRT REY Administration Aspirin 81 mg 02/10/19 10:00 02/20/19 11:26 Baby Aspirin PO 81 mg QDAY REY Administration Budesonide 0.5 mg 02/14/19 20:00 02/20/19 09:14 Pulmicort IH 0.5 mg Q12HRT REY Administration Docusate Sodium 100 mg 02/12/19 12:00 02/20/19 11:26 Colace PO 100 mg BID REY Administration Famotidine 20 mg 02/17/19 10:00 02/20/19 11:25 Pepcid PO 20 mg DAILY REY Administration Finasteride 5 mg 02/09/19 22:00 02/19/19 21:35 Proscar PO 5 mg QHS REY Administration Hydrochlorothiazide 25 mg 02/15/19 12:00 02/20/19 11:25 Hctz PO 25 mg QDAY REY Administration Morphine Sulfate 2 mg 02/10/19 15:48 02/16/19 22:07 Morphine IV 2 mg Q4H PRN Administration Pain, Moderate (4-6) Ondansetron HCl 4 mg 02/09/19 14:29 02/09/19 20:27 Zofran IV 4 mg Q8H PRN Administration Nausea And Vomiting Polyethylene Glycol 17 gm 02/12/19 11:19 02/17/19 10:35 Miralax 3350 PO 17 gm QDAY PRN Administration Constipation Potassium Chloride 40 meq 02/15/19 12:00 02/20/19 11:26 K-Dur PO 40 meq QDAY REY Administration Sodium Biphosphate/Sodium Phosphate 133 ml 02/15/19 13:15 02/18/19 21:59 Fleet SC 133 ml QDAY PRN Administration Bowel Movement Sodium Chloride 10 ml 02/09/19 22:00 02/20/19 11:27 Sodium Chloride Flush Syringe 10 Ml IV 10 ml BID REY Administration Sodium Chloride 10 ml 02/09/19 14:29 Sodium Chloride Flush Syringe 10 Ml IV PRN PRN LINE FLUSH Trazodone HCl 150 mg 02/09/19 22:00 02/19/19 21:34 Desyrel PO 150 mg QHS REY Administration Venlafaxine HCl 50 mg 02/12/19 11:00 02/20/19 11:31 Effexor PO 50 mg BID REY Administration Nutrition/Malnutrition Assess - Dietary Evaluation Nutrition/Malnutrition Findings: Nutrition Notes Start: 02/16/19 13:46 Freq: Status: Active Protocol: Document 02/19/19 14:29 DW (Rec: 02/19/19 14:42 JARAD [id number]) Co-Sign 02/19/19 14:29 KH Nutrition Notes Initial or Follow up Reassessment Current Diagnosis Hypertension Other Pertinent Diagnosis obesity;sepsis; hx leukemia Current Diet cardiac Labs/Tests Cr: 0.7 Pertinent Medications Colace Height 5 ft 7 in Weight 105.7 kg [place] Body Weight (kg) 67.27 BMI 36.5 Subjective/Other Information Pt stated he has been eating an average of 60% of his meals because he does not care for the bland taste and 100% ONS. Pt also stated his appetite is average and has been improving. Percent of energy/protein needs met: 89%/81% Burn Absent Trauma Absent GI Symptoms None Current % PO Good (75-100%) Minimum of two criteria No physical signs of malnutrition #1 Nutrition Diagnosis Inadequate oral intake As Evidenced by Signs and Symptoms Pt consuming 89% of kcal needs and 81% of PRO needs Diagnosis Progress(for reassessment Resolved documentation) Is patient on ventilator? No Is Patient Ambulatory and/or Out of Bed No REE-([address]-[place]-confined to bed) 2136.204 Kcal/Kg value to use for calculation 17 Approximate Energy Requirements Using 1797 kcal/Kg Calculation Used for Recommendations Kcal/kg Additional Notes PRO needs: 86-103 g (1-1.2 g/ kg AjdBW 86kg) Fluid needs: 1 mL/kcal Nutrition Intervention Change Diet Order: Continue Current Diet Add Supplement/Snack (indicate name/kcal Ensure Enlive once daily /protein ) Provides kCal: 350 Provides Protein (gm) 20 Goal #1 Continue to meet 75% of kcal/ PRO needs via PO and ONS Anticipated Discharge Needs: Cardiac Diet Revisit per MD consult or patient Sign Off request:
--- NOTE | 2019-02-20 14:40 | Progress Note ---
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 2) Acute renal failure: renally dose abx. Creatinine improving. 3) Rash? from Zosyn: given h/o Cefepime allergy. Improving. 4) Acute thrombocytopenia: ?sepsis related v/s h/o hairy cell leukemia. Monitor. Recs: - Off antibiotics now, continue to monitor. Horace Davenport MD [facility] ([facility]) M: [phone] O: [phone] F: [phone] Subjective Date of service: 02/20/19 Principal diagnosis: low plt Interval history: No acute change. Objective - Exam Narrative Exam: Constitutional: Alert, cooperative. No acute distress Head, Ears, Nose: Normocephalic, atraumatic. External ears, nose normal Eyes: Conjunctivae/corneas clear. No icterus. No ptosis. Neck: Supple, no meningeal signs Oral: no thrush Cardiovascular: S1, S2 normal. Respiratory: Good air entry, clear to auscultation bilaterally GI: Soft, non-tender; bowel sounds normal. No peritoneal signs. Left nephrostomy tube +, Agarwal + with bloody urine Musculoskeletal: No pedal edema, no cyanosis. Skin: upper trunk rash improving. no abscess Hem/Lymphatic: No palpable cervical or supraclavicular nodes. No lymphangitis Psych: Mood ok. Affect normal Neurological: Awake, alert, oriented. No gross abnormality - Constitutional Vitals: Vital Signs Temp Pulse Resp BP Pulse Ox 98.8 F 95 H 18 110/63 96 02/20/19 12:07 02/20/19 12:07 02/20/19 12:07 02/20/19 12:07 02/20/19 12:07 Temperature -Last 24 Hours Temperature 98.8 F Temperature 97.4 F Temperature 98.2 F Temperature 97.7 F Temperature 98.5 F Temperature 98.6 F - Labs CBC & Chem 7: 02/20/19 04:54 02/20/19 04:54 Labs: Abnormal lab results 02/20/19 02/20/19 02/20/19 Range/Units 04:54 04:54 04:54 Plt Count 121 L (140-440) K/mm3 [place] % (Auto) 10.4 H (0.0-7.3) % Lymph # 1.1 L (1.2-5.4) K/mm3 Carbon Dioxide 31 H (22-30) mmol/L Glucose 105 H (75-100) mg/dL TIBC 215 L (250-450) mcg/dL Ferritin 405.1 H (13.0-400.0) ng/mL Albumin 3.3 L (3.9-5) g/dL Vitamin B12 (211-911) pg/mL 02/20/19 Range/Units 04:54 Plt Count (140-440) K/mm3 [place] % (Auto) (0.0-7.3) % Lymph # (1.2-5.4) K/mm3 Carbon Dioxide (22-30) mmol/L Glucose (75-100) mg/dL TIBC (250-450) mcg/dL Ferritin (13.0-400.0) ng/mL Albumin (3.9-5) g/dL Vitamin B12 1355 H (211-911) pg/mL
[2019-02-20] MEDS: FINASTERIDE 5 MG TAB PO SCH (21:45)
[2019-02-20] MEDS: traZODone 100 MG TAB PO SCH (21:46)
[2019-02-21] MEDS: ACETAMINOPHEN 325 MG TAB PO PRN ×2 (09:22→22:14)
[2019-02-21] MEDS: POTASSIUM CHLORIDE ER 20 MEQ TAB PO SCH (09:26)
[2019-02-21] MEDS: ASPIRIN 81 MG TAB CHEW PO SCH (09:26)
[2019-02-21] MEDS: DOCUSATE SODIUM 100 MG CAP PO SCH ×2 (09:27→22:16)
[2019-02-21] MEDS: hydroCHLOROthiazide 25 MG TAB PO SCH (09:27)
[2019-02-21] MEDS: FAMOTIDINE 20 MG TAB PO SCH (09:27)
[2019-02-21] MEDS: VENLAFAXINE 25 MG TAB PO SCH ×2 (09:27→22:16)
[2019-02-21] MEDS: BUDESONIDE 0.5 MG/2 ML NEBU IH SCH ×2 (10:47→19:07)
[2019-02-21] MEDS: IPRATROPIUM/ALBUTEROL SULFATE 3 ML AMPUL.NEB IH SCH ×3 (10:47→19:07)
--- NOTE | 2019-02-21 12:13 | Progress Note ---
Assessment and Plan Assessment and plan: Sepsis due to complicated UTI Antibiotics completed ID Physician following Septic shock. Resolved. Off pressors. E.coli bacteremia, UTI, left hydronephrosis: s/p L nephrostomy by IR on 02/09/2019 which got displaced, then s/p b/l stents by Urology. 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 KEVIN (acute kidney injury) due to ATN Now resolved IVF resuscitation therapy, Nephrology following, monitor uop q shift, urine electrolytes, Metabolic Acidosis due to KEVIN - resolved now resolved supportive care. Complicated UTI As above. Urinary obstruction 7MM Left UPJ obstructing stone with mild hydronephrosis, supportive care. IR consulted s/p left perc nephrostomy tube placement, Urology consulted did cystoscopy, RPG, bilat double j-stent placement MAT resolved Cardiomyopathy EF 45-50% patient does not have CHF Acute respiratory failure with hypoxia Oxygen buy NC NIPPV Pulm following Supplemental oxygen, ABG, pulse oximetry, NIPPV as clinically indicated, nebulizer therapy prn, Constipation: resolved Thrombocytopenia Dr. Tapia following Platelet transfused Debility SNF placement DVT prophylaxis SCDs. No chemical anticoag because of low platelet Disposition. Await rehabilitation placement. History Interval history: No new issues overnight. Hospitalist Physical - Constitutional Vitals: Temp Pulse Resp BP Pulse Ox 98.4 F 83 18 120/73 92 02/21/19 07:56 02/21/19 07:56 02/21/19 07:56 02/21/19 07:56 02/21/19 07:56 General appearance: Present: no acute distress, well-nourished - EENT Eyes: Present: PERRL, EOM intact ENT: hearing intact, clear oral mucosa, dentition normal - Neck Neck: Present: supple, normal ROM - Respiratory Respiratory effort: normal Respiratory: bilateral: CTA - Cardiovascular Rhythm: regular Heart Sounds: Present: S1 & S2. Absent: gallop, rub - Extremities Extremities: no ischemia, No edema, Full ROM - Abdominal General gastrointestinal: soft, non-tender, non-distended, normal bowel sounds - Integumentary Integumentary: Present: clear, warm, dry - Neurologic Neurologic: CNII-XII intact, moves all extremities Results - Labs CBC & Chem 7: 02/20/19 04:54 02/20/19 04:54 Labs: Laboratory Last Values WBC 5.6 K/mm3 (4.5-11.0) 02/20/19 04:54 RBC 4.54 M/mm3 (3.65-5.03) 02/20/19 04:54 Hgb 12.6 gm/dl (11.8-15.2) 02/20/19 04:54 Hct 39.0 % (35.5-45.6) 02/20/19 04:54 MCV 86 fl (84-94) 02/20/19 04:54 MCH 28 pg (28-32) 02/20/19 04:54 MCHC 32 % (32-34) 02/20/19 04:54 RDW 15.0 % (13.2-15.2) 02/20/19 04:54 Plt Count 121 K/mm3 (140-440) L 02/20/19 04:54 Lymph % (Auto) 19.1 % (13.4-35.0) 02/20/19 04:54 [place] % (Auto) 10.4 % (0.0-7.3) H 02/20/19 04:54 Eos % (Auto) 2.3 % (0.0-4.3) 02/20/19 04:54 Baso % (Auto) 0.9 % (0.0-1.8) 02/20/19 04:54 Lymph # 1.1 K/mm3 (1.2-5.4) L 02/20/19 04:54 Frederick # 0.6 K/mm3 (0.0-0.8) 02/20/19 04:54 Eos # 0.1 K/mm3 (0.0-0.4) 02/20/19 04:54 Baso # 0.0 K/mm3 (0.0-0.1) 02/20/19 04:54 Add Manual Diff Complete 02/10/19 04:30 Total Counted 100 02/10/19 04:30 Seg Neutrophils % 67.3 % (40.0-70.0) 02/20/19 04:54 Seg Neuts % (Manual) 75.0 % (40.0-70.0) H 02/10/19 04:30 Band Neutrophils % 13.0 % 02/10/19 04:30 Lymphocytes % (Manual) 5.0 % (13.4-35.0) L 02/10/19 04:30 Reactive Lymphs % (Man) 0 % 02/10/19 04:30 Monocytes % (Manual) 7.0 % (0.0-7.3) 02/10/19 04:30 Eosinophils % (Manual) 0 % (0.0-4.3) 02/10/19 04:30 Basophils % (Manual) 0 % (0.0-1.8) 02/10/19 04:30 Metamyelocytes % 0 % 02/10/19 04:30 Myelocytes % 0 % 02/10/19 04:30 Promyelocytes % 0 % 02/10/19 04:30 Blast Cells % 0 % 02/10/19 04:30 Nucleated RBC % Not Reportable 02/10/19 04:30 Seg Neutrophils # 3.7 K/mm3 (1.8-7.7) 02/20/19 04:54 Seg Neutrophils # Man 5.6 K/mm3 (1.8-7.7) 02/10/19 04:30 Band Neutrophils # 1.0 K/mm3 02/10/19 04:30 Lymphocytes # (Manual) 0.4 K/mm3 (1.2-5.4) L 02/10/19 04:30 Abs React Lymphs (Man) 0.0 K/mm3 02/10/19 04:30 Monocytes # (Manual) 0.5 K/mm3 (0.0-0.8) 02/10/19 04:30 Eosinophils # (Manual) 0.0 K/mm3 (0.0-0.4) 02/10/19 04:30 Basophils # (Manual) 0.0 K/mm3 (0.0-0.1) 02/10/19 04:30 Metamyelocytes # 0.0 K/mm3 02/10/19 04:30 Myelocytes # 0.0 K/mm3 02/10/19 04:30 Promyelocytes # 0.0 K/mm3 02/10/19 04:30 Blast Cells # 0.0 K/mm3 02/10/19 04:30 WBC Morphology Not Reportable 02/10/19 04:30 Hypersegmented Neuts Not Reportable 02/10/19 04:30 Hyposegmented Neuts Not Reportable 02/10/19 04:30 Hypogranular Neuts Not Reportable 02/10/19 04:30 Smudge Cells Not Reportable 02/10/19 04:30 Toxic Granulation Not Reportable 02/10/19 04:30 Toxic Vacuolation Not Reportable 02/10/19 04:30 Dohle Bodies Not Reportable 02/10/19 04:30 Pelger-Huet Anomaly Not Reportable 02/10/19 04:30 Jagdish Rods Not Reportable 02/10/19 04:30 Platelet Estimate Appears decreased 02/10/19 04:30 Clumped Platelets Not Reportable 02/10/19 04:30 Plt Clumps, EDTA Not Reportable 02/10/19 04:30 Large Platelets 1+ 02/10/19 04:30 Giant Platelets Not Reportable 02/10/19 04:30 Platelet Satelliting Not Reportable 02/10/19 04:30 Plt Morphology Comment Not Reportable 02/10/19 04:30 RBC Morphology Normal 02/10/19 04:30 Dimorphic RBCs Not Reportable 02/10/19 04:30 Polychromasia Not Reportable 02/10/19 04:30 Hypochromasia Not Reportable 02/10/19 04:30 Poikilocytosis Not Reportable 02/10/19 04:30 Anisocytosis Not Reportable 02/10/19 04:30 Microcytosis Not Reportable 02/10/19 04:30 Macrocytosis Not Reportable 02/10/19 04:30 Spherocytes Not Reportable 02/10/19 04:30 Pappenheimer Bodies Not Reportable 02/10/19 04:30 Sickle Cells Not Reportable 02/10/19 04:30 Target Cells Not Reportable 02/10/19 04:30 Tear Drop Cells Not Reportable 02/10/19 04:30 Ovalocytes Not Reportable 02/10/19 04:30 Helmet Cells Not Reportable 02/10/19 04:30 [place] Bodies Not Reportable 02/10/19 04:30 Melfa Rings Not Reportable 02/10/19 04:30 Nathan Cells Not Reportable 02/10/19 04:30 Bite Cells Not Reportable 02/10/19 04:30 Crenated Cell Not Reportable 02/10/19 04:30 Elliptocytes Not Reportable 02/10/19 04:30 Acanthocytes (Spur) Not Reportable 02/10/19 04:30 Rouleaux Not Reportable 02/10/19 04:30 Hemoglobin C Crystals Not Reportable 02/10/19 04:30 Schistocytes Not Reportable 02/10/19 04:30 Malaria parasites Not Reportable 02/10/19 04:30 Arnie Bodies Not Reportable 02/10/19 04:30 Hem Pathologist Commnt No 02/10/19 04:30 PT 15.8 Sec. (12.2-14.9) H 02/09/19 Unknown INR 1.29 (0.87-1.13) H 02/09/19 Unknown POC ABG pH 7.356 (7.35-7.45) 02/09/19 17:29 POC ABG pCO2 37.1 (35-45) 02/09/19 17:29 POC ABG pO2 97 (80-105) 02/09/19 17:29 POC ABG HCO3 20.8 (22-26 mml/L) 02/09/19 17:29 POC ABG Total CO2 22 (23-27mmol/L) 02/09/19 17:29 POC ABG O2 Sat 97 02/09/19 17:29 POC ABG Base Excess -5 ((-2) - (+3)mmol/L) 02/09/19 17:29 VBG pH 7.379 (7.320-7.420) 02/09/19 11:45 FiO2 28 % 02/09/19 17:29 Sodium 138 mmol/L (137-145) 02/20/19 04:54 Potassium 4.4 mmol/L (3.6-5.0) 02/20/19 04:54 Chloride 98.7 mmol/L (98-107) 02/20/19 04:54 Carbon Dioxide 31 mmol/L (22-30) H 02/20/19 04:54 Anion Gap 13 mmol/L 02/20/19 04:54 BUN 19 mg/dL (9-20) 02/20/19 04:54 Creatinine 0.8 mg/dL (0.8-1.5) 02/20/19 04:54 Estimated GFR > 60 ml/min 02/20/19 04:54 BUN/Creatinine Ratio 24 % 02/20/19 04:54 Glucose 105 mg/dL (75-100) H 02/20/19 04:54 POC Glucose 146 (70-105) H 02/11/19 12:05 Lactic Acid 2.50 mmol/L (0.7-2.0) H* 02/10/19 08:44 Calcium 8.9 mg/dL (8.4-10.2) 02/20/19 04:54 Phosphorus 3.90 mg/dL (2.5-4.5) 02/11/19 04:55 Magnesium 1.80 mg/dL (1.7-2.3) 02/11/19 04:55 Iron 57 ug/dL (49-181) 02/20/19 04:54 TIBC 215 mcg/dL (250-450) L 02/20/19 04:54 Ferritin 405.1 ng/mL (13.0-400.0) H 02/20/19 04:54 Total Bilirubin 0.60 mg/dL (0.1-1.2) 02/20/19 04:54 AST 17 units/L (5-40) 02/20/19 04:54 ALT 19 units/L (7-56) 02/20/19 04:54 Alkaline Phosphatase 61 units/L (35-129) 02/20/19 04:54 Troponin T 0.017 ng/mL (0.00-0.029) 02/09/19 Unknown NT-Pro-B Natriuret Pep 6998 pg/mL (0-900) H 02/09/19 Unknown Total Protein 6.8 g/dL (6.3-8.2) 02/20/19 04:54 Albumin 3.3 g/dL (3.9-5) L 02/20/19 04:54 Albumin/Globulin Ratio 0.9 % 02/20/19 04:54 Vitamin B12 1355 pg/mL (211-911) H 02/20/19 04:54 Folate 7.77 ng/mL (7.3-26.0) 02/20/19 04:54 Urine Color Madeline (Yellow) 02/09/19 07:28 Urine Turbidity Cloudy (Clear) 02/09/19 07:28 Urine pH 5.0 (5.0-7.0) 02/09/19 07:28 Ur Specific [place] 1.019 (1.003-1.030) 02/09/19 07:28 Urine Protein 100 mg/dl mg/dL (Negative) 02/09/19 07:28 Urine Glucose (UA) Neg mg/dL (Negative) 02/09/19 07:28 Urine Ketones Neg mg/dL (Negative) 02/09/19 07:28 Urine Blood Lg (Negative) 02/09/19 07:28 Urine Nitrite Neg (Negative) 02/09/19 07:28 Urine Bilirubin Neg (Negative) 02/09/19 07:28 Urine Urobilinogen 4.0 mg/dL (<2.0) 02/09/19 07:28 Ur Leukocyte Esterase Mod (Negative) 02/09/19 07:28 Urine WBC (Auto) 35.0 /HPF (0.0-6.0) H 02/09/19 07:28 Urine RBC (Auto) > 182.0 /HPF (0.0-6.0) 02/09/19 07:28 U Epithel Cells (Auto) 1.0 /HPF (0-13.0) 02/09/19 07:28 Urine Bacteria (Auto) 1+ /HPF (Negative) 02/09/19 07:28 Urine Creatinine 350.2 mg/dL (0.1-20.0) H 02/09/19 15:20 Urine Sodium 46 mmol/L 02/09/19 15:20 Blood Type A NEGATIVE 02/09/19 17:15 Antibody Screen Negative 02/09/19 17:15 Active Medications - Current Medications Current Medications: Generic Name Dose Route Start Last Admin Trade Name Freq PRN Reason Stop Dose Admin Acetaminophen 650 mg 02/09/19 14:29 02/21/19 09:22 Tylenol PO 650 mg Q4H PRN Administration Pain MILD(1-3)/Fever >100.5/KAMARA Albuterol 2.5 mg 02/17/19 08:00 Proventil IH Q4H PRN Shortness Of Breath Albuterol/Ipratropium 1 ampul 02/11/19 20:00 02/21/19 10:47 Duoneb *Not For Prn Use* IH 1 ampul TIDRT REY Administration Aspirin 81 mg 02/10/19 10:00 02/21/19 09:26 Baby Aspirin PO 81 mg QDAY REY Administration Budesonide 0.5 mg 02/14/19 20:00 02/21/19 10:47 Pulmicort IH 0.5 mg Q12HRT REY Administration Docusate Sodium 100 mg 02/12/19 12:00 02/21/19 09:27 Colace PO 100 mg BID REY Administration Famotidine 20 mg 02/17/19 10:00 02/21/19 09:27 Pepcid PO 20 mg DAILY REY Administration Finasteride 5 mg 02/09/19 22:00 02/20/19 21:45 Proscar PO 5 mg QHS REY Administration Hydrochlorothiazide 25 mg 02/15/19 12:00 02/21/19 09:27 Hctz PO 25 mg QDAY REY Administration Morphine Sulfate 2 mg 02/10/19 15:48 02/16/19 22:07 Morphine IV 2 mg Q4H PRN Administration Pain, Moderate (4-6) Ondansetron HCl 4 mg 02/09/19 14:29 02/09/19 20:27 Zofran IV 4 mg Q8H PRN Administration Nausea And Vomiting Polyethylene Glycol 17 gm 02/12/19 11:19 02/17/19 10:35 Miralax 3350 PO 17 gm QDAY PRN Administration Constipation Potassium Chloride 40 meq 02/15/19 12:00 02/21/19 09:26 K-Dur PO 40 meq QDAY REY Administration Sodium Biphosphate/Sodium Phosphate 133 ml 02/15/19 13:15 02/18/19 21:59 Fleet [place] 133 ml QDAY PRN Administration Bowel Movement Sodium Chloride 10 ml 02/09/19 22:00 02/21/19 09:27 Sodium Chloride Flush Syringe 10 Ml IV 10 ml BID REY Administration Sodium Chloride 10 ml 02/09/19 14:29 Sodium Chloride Flush Syringe 10 Ml IV PRN PRN LINE FLUSH Trazodone HCl 150 mg 02/09/19 22:00 02/20/19 21:46 Desyrel PO 150 mg QHS REY Administration Venlafaxine HCl 50 mg 02/12/19 11:00 02/21/19 09:27 Effexor PO 50 mg BID REY Administration Nutrition/Malnutrition Assess - Dietary Evaluation Nutrition/Malnutrition Findings: Nutrition Notes Start: 02/16/19 1 3:46 Freq: Status: Active Protocol: Document 02/19/19 14:29 JARAD (Rec: 02/19/19 14:42 JARAD [id number]) Co-Sign 02/19/19 14:29 KH Nutrition Notes Initial or Follow up Reassessment Current Diagnosis Hypertension Other Pertinent Diagnosis obesity;sepsis; hx leukemia Current Diet cardiac Labs/Tests Cr: 0.7 Pertinent Medications Colace Height 5 ft 7 in Weight 105.7 kg [place] Body Weight (kg) 67.27 BMI 36.5 Subjective/Other Information Pt stated he has been eating an average of 60% of his meals because he does not care for the bland taste and 100% ONS. Pt also stated his appetite is average and has been improving. Percent of energy/protein needs met: 89%/81% Burn Absent Trauma Absent GI Symptoms None Current % PO Good (75-100%) Minimum of two criteria No physical signs of malnutrition #1 Nutrition Diagnosis Inadequate oral intake As Evidenced by Signs and Symptoms Pt consuming 89% of kcal needs and 81% of PRO needs Diagnosis Progress(for reassessment Resolved documentation) Is patient on ventilator? No Is Patient Ambulatory and/or Out of Bed No REE-([place]-St. Jeor-confined to bed) 2136.204 Kcal/Kg value to use for calculation 17 Approximate Energy Requirements Using 1797 kcal/Kg Calculation Used for Recommendations Kcal/kg Additional Notes PRO needs: 86-103 g (1-1.2 g/ kg AjdBW 86kg) Fluid needs: 1 mL/kcal Nutrition Intervention Change Diet Order: Continue Current Diet Add Supplement/Snack (indicate name/kcal Ensure Enlive once daily /protein ) Provides kCal: 350 Provides Protein (gm) 20 Goal #1 Continue to meet 75% of kcal/ PRO needs via PO and ONS Anticipated Discharge Needs: Cardiac Diet Revisit per MD consult or patient Sign Off request:
[2019-02-21] MEDS: FINASTERIDE 5 MG TAB PO SCH (22:17)
[2019-02-21] MEDS: traZODone 100 MG TAB PO SCH (22:17)
[2019-02-22 05:06] LABS: Basophils # (Auto) 0.1 K/mm3 (0.0-0.1); Basophils % (Auto) 1.4 % (0.0-1.8); Eosinophils # (Auto) 0.1 K/mm3 (0.0-0.4); Eosinophils % (Auto) 1.6 % (0.0-4.3); Hematocrit 39.7 % (35.5-45.6); Hemoglobin 13.1 gm/dl (11.8-15.2); Lymphocytes % (Auto) 16.9 % (13.4-35.0); Mean Corpuscular HGB Conc 33 % (32-34); Mean Corpuscular Volume 84 fl (84-94); Monocytes # (Auto) 0.6 K/mm3 (0.0-0.8); Monocytes % (Auto) 10.2 % (0.0-7.3); Platelet Count 134 K/mm3 (140-440); Red Blood Count 4.71 M/mm3 (3.65-5.03)
[2019-02-22 05:30] LABS: BUN/Creatinine Ratio 30; Blood Urea Nitrogen 24 mg/dL (9-20); Calcium 9.1 mg/dL (8.4-10.2); Hemolysis Index 10
[2019-02-22] MEDS: BUDESONIDE 0.5 MG/2 ML NEBU IH SCH ×2 (08:40→19:02)
[2019-02-22] MEDS: IPRATROPIUM/ALBUTEROL SULFATE 3 ML AMPUL.NEB IH SCH ×3 (08:40→19:02)
--- NOTE | 2019-02-22 10:22 | Progress Note ---
Assessment and Plan Assessment and plan: Sepsis due to complicated UTI Antibiotics completed ID Physician following Septic shock. Resolved. Off pressors. E.coli bacteremia, UTI, left hydronephrosis: s/p L nephrostomy by IR on 02/09/2019 which got displaced, then s/p b/l stents by Urology. 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 KEVIN (acute kidney injury) due to ATN Now resolved IVF resuscitation therapy, Nephrology following, monitor uop q shift, urine electrolytes, Metabolic Acidosis due to KEVIN - resolved now resolved supportive care. Complicated UTI As above. Urinary obstruction 7MM Left UPJ obstructing stone with mild hydronephrosis, supportive care. IR consulted s/p left perc nephrostomy tube placement, Urology consulted did cystoscopy, RPG, bilat double j-stent placement MAT resolved Cardiomyopathy EF 45-50% patient does not have CHF Acute respiratory failure with hypoxia Pulm following Supplemental oxygen, ABG, pulse oximetry, NIPPV as clinically indicated, nebulizer therapy prn, Constipation. Resolved Thrombocytopenia Dr. Tapia following Platelet transfused Debility SNF placement DVT prophylaxis SCDs. No chemical anticoag because of low platelet Disposition. Await rehabilitation placement. History Interval history: No new issues overnight. Hospitalist Physical - Constitutional Vitals: Temp Pulse Resp BP Pulse Ox 98.6 F 84 20 140/85 95 02/22/19 08:04 02/22/19 08:43 02/22/19 08:43 02/22/19 08:04 02/22/19 08:45 General appearance: Present: no acute distress, well-nourished - EENT Eyes: Present: PERRL, EOM intact ENT: hearing intact, clear oral mucosa, dentition normal - Neck Neck: Present: supple, normal ROM - Respiratory Respiratory effort: normal Respiratory: bilateral: CTA - Cardiovascular Rhythm: regular Heart Sounds: Present: S1 & S2. Absent: gallop, rub - Extremities Extremities: no ischemia, No edema, Full ROM - Abdominal General gastrointestinal: soft, non-tender, non-distended, normal bowel sounds - Integumentary Integumentary: Present: clear, warm, dry - Neurologic Neurologic: CNII-XII intact, moves all extremities Results - Labs CBC & Chem 7: 02/22/19 04:42 02/22/19 04:42 Labs: Laboratory Last Values WBC 5.7 K/mm3 (4.5-11.0) 02/22/19 04:42 RBC 4.71 M/mm3 (3.65-5.03) 02/22/19 04:42 Hgb 13.1 gm/dl (11.8-15.2) 02/22/19 04:42 Hct 39.7 % (35.5-45.6) 02/22/19 04:42 MCV 84 fl (84-94) 02/22/19 04:42 MCH 28 pg (28-32) 02/22/19 04:42 MCHC 33 % (32-34) 02/22/19 04:42 RDW 15.0 % (13.2-15.2) 02/22/19 04:42 Plt Count 134 K/mm3 (140-440) L 02/22/19 04:42 Lymph % (Auto) 16.9 % (13.4-35.0) 02/22/19 04:42 [place] % (Auto) 10.2 % (0.0-7.3) H 02/22/19 04:42 Eos % (Auto) 1.6 % (0.0-4.3) 02/22/19 04:42 Baso % (Auto) 1.4 % (0.0-1.8) 02/22/19 04:42 Lymph # 1.0 K/mm3 (1.2-5.4) L 02/22/19 04:42 [place] # 0.6 K/mm3 (0.0-0.8) 02/22/19 04:42 Eos # 0.1 K/mm3 (0.0-0.4) 02/22/19 04:42 Baso # 0.1 K/mm3 (0.0-0.1) 02/22/19 04:42 Add Manual Diff Complete 02/10/19 04:30 Total Counted 100 02/10/19 04:30 Seg Neutrophils % 69.9 % (40.0-70.0) 02/22/19 04:42 Seg Neuts % (Manual) 75.0 % (40.0-70.0) H 02/10/19 04:30 Band Neutrophils % 13.0 % 02/10/19 04:30 Lymphocytes % (Manual) 5.0 % (13.4-35.0) L 02/10/19 04:30 Reactive Lymphs % (Man) 0 % 02/10/19 04:30 Monocytes % (Manual) 7.0 % (0.0-7.3) 02/10/19 04:30 Eosinophils % (Manual) 0 % (0.0-4.3) 02/10/19 04:30 Basophils % (Manual) 0 % (0.0-1.8) 02/10/19 04:30 Metamyelocytes % 0 % 02/10/19 04:30 Myelocytes % 0 % 02/10/19 04:30 Promyelocytes % 0 % 02/10/19 04:30 Blast Cells % 0 % 02/10/19 04:30 Nucleated RBC % Not Reportable 02/10/19 04:30 Seg Neutrophils # 4.0 K/mm3 (1.8-7.7) 02/22/19 04:42 Seg Neutrophils # Man 5.6 K/mm3 (1.8-7.7) 02/10/19 04:30 Band Neutrophils # 1.0 K/mm3 02/10/19 04:30 Lymphocytes # (Manual) 0.4 K/mm3 (1.2-5.4) L 02/10/19 04:30 Abs React Lymphs (Man) 0.0 K/mm3 02/10/19 04:30 Monocytes # (Manual) 0.5 K/mm3 (0.0-0.8) 02/10/19 04:30 Eosinophils # (Manual) 0.0 K/mm3 (0.0-0.4) 02/10/19 04:30 Basophils # (Manual) 0.0 K/mm3 (0.0-0.1) 02/10/19 04:30 Metamyelocytes # 0.0 K/mm3 02/10/19 04:30 Myelocytes # 0.0 K/mm3 02/10/19 04:30 Promyelocytes # 0.0 K/mm3 02/10/19 04:30 Blast Cells # 0.0 K/mm3 02/10/19 04:30 WBC Morphology Not Reportable 02/10/19 04:30 Hypersegmented Neuts Not Reportable 02/10/19 04:30 Hyposegmented Neuts Not Reportable 02/10/19 04:30 Hypogranular Neuts Not Reportable 02/10/19 04:30 Smudge Cells Not Reportable 02/10/19 04:30 Toxic Granulation Not Reportable 02/10/19 04:30 Toxic Vacuolation Not Reportable 02/10/19 04:30 Dohle Bodies Not Reportable 02/10/19 04:30 Pelger-Huet Anomaly Not Reportable 02/10/19 04:30 Jagdish Rods Not Reportable 02/10/19 04:30 Platelet Estimate Appears decreased 02/10/19 04:30 Clumped Platelets Not Reportable 02/10/19 04:30 Plt Clumps, EDTA Not Reportable 02/10/19 04:30 Large Platelets 1+ 02/10/19 04:30 Giant Platelets Not Reportable 02/10/19 04:30 Platelet Satelliting Not Reportable 02/10/19 04:30 Plt Morphology Comment Not Reportable 02/10/19 04:30 RBC Morphology Normal 02/10/19 04:30 Dimorphic RBCs Not Reportable 02/10/19 04:30 Polychromasia Not Reportable 02/10/19 04:30 Hypochromasia Not Reportable 02/10/19 04:30 Poikilocytosis Not Reportable 02/10/19 04:30 Anisocytosis Not Reportable 02/10/19 04:30 Microcytosis Not Reportable 02/10/19 04:30 Macrocytosis Not Reportable 02/10/19 04:30 Spherocytes Not Reportable 02/10/19 04:30 Pappenheimer Bodies Not Reportable 02/10/19 04:30 Sickle Cells Not Reportable 02/10/19 04:30 Target Cells Not Reportable 02/10/19 04:30 Tear Drop Cells Not Reportable 02/10/19 04:30 Ovalocytes Not Reportable 02/10/19 04:30 Helmet Cells Not Reportable 02/10/19 04:30 [place] Bodies Not Reportable 02/10/19 04:30 [place] Rings Not Reportable 02/10/19 04:30 Nathan Cells Not Reportable 02/10/19 04:30 Bite Cells Not Reportable 02/10/19 04:30 Crenated Cell Not Reportable 02/10/19 04:30 Elliptocytes Not Reportable 02/10/19 04:30 Acanthocytes (Spur) Not Reportable 02/10/19 04:30 Rouleaux Not Reportable 02/10/19 04:30 Hemoglobin C Crystals Not Reportable 02/10/19 04:30 Schistocytes Not Reportable 02/10/19 04:30 Malaria parasites Not Reportable 02/10/19 04:30 Arnie Bodies Not Reportable 02/10/19 04:30 Hem Pathologist Commnt No 02/10/19 04:30 PT 15.8 Sec. (12.2-14.9) H 02/09/19 Unknown INR 1.29 (0.87-1.13) H 02/09/19 Unknown POC ABG pH 7.356 (7.35-7.45) 02/09/19 17:29 POC ABG pCO2 37.1 (35-45) 02/09/19 17:29 POC ABG pO2 97 (80-105) 02/09/19 17:29 POC ABG HCO3 20.8 (22-26 mml/L) 02/09/19 17:29 POC ABG Total CO2 22 (23-27mmol/L) 02/09/19 17:29 POC ABG O2 Sat 97 02/09/19 17:29 POC ABG Base Excess -5 ((-2) - (+3)mmol/L) 02/09/19 17:29 VBG pH 7.379 (7.320-7.420) 02/09/19 11:45 FiO2 28 % 02/09/19 17:29 Sodium 138 mmol/L (137-145) 02/22/19 04:42 Potassium 4.6 mmol/L (3.6-5.0) 02/22/19 04:42 Chloride 98.3 mmol/L (98-107) 02/22/19 04:42 Carbon Dioxide 27 mmol/L (22-30) 02/22/19 04:42 Anion Gap 17 mmol/L 02/22/19 04:42 BUN 24 mg/dL (9-20) H 02/22/19 04:42 Creatinine 0.8 mg/dL (0.8-1.5) 02/22/19 04:42 Estimated GFR > 60 ml/min 02/22/19 04:42 BUN/Creatinine Ratio 30 % 02/22/19 04:42 Glucose 124 mg/dL (75-100) H 02/22/19 04:42 POC Glucose 146 (70-105) H 02/11/19 12:05 Lactic Acid 2.50 mmol/L (0.7-2.0) H* 02/10/19 08:44 Calcium 9.1 mg/dL (8.4-10.2) 02/22/19 04:42 Phosphorus 3.90 mg/dL (2.5-4.5) 02/11/19 04:55 Magnesium 1.80 mg/dL (1.7-2.3) 02/11/19 04:55 Iron 57 ug/dL (49-181) 02/20/19 04:54 TIBC 215 mcg/dL (250-450) L 02/20/19 04:54 Ferritin 405.1 ng/mL (13.0-400.0) H 02/20/19 04:54 Total Bilirubin 0.60 mg/dL (0.1-1.2) 02/20/19 04:54 AST 17 units/L (5-40) 02/20/19 04:54 ALT 19 units/L (7-56) 02/20/19 04:54 Alkaline Phosphatase 61 units/L (35-129) 02/20/19 04:54 Troponin T 0.017 ng/mL (0.00-0.029) 02/09/19 Unknown NT-Pro-B Natriuret Pep 6998 pg/mL (0-900) H 02/09/19 Unknown Total Protein 6.8 g/dL (6.3-8.2) 02/20/19 04:54 Albumin 3.3 g/dL (3.9-5) L 02/20/19 04:54 Albumin/Globulin Ratio 0.9 % 02/20/19 04:54 Vitamin B12 1355 pg/mL (211-911) H 02/20/19 04:54 Folate 7.77 ng/mL (7.3-26.0) 02/20/19 04:54 Urine Color [place] (Yellow) 02/09/19 07:28 Urine Turbidity Cloudy (Clear) 02/09/19 07:28 Urine pH 5.0 (5.0-7.0) 02/09/19 07:28 Ur Specific [place] 1.019 (1.003-1.030) 02/09/19 07:28 Urine Protein 100 mg/dl mg/dL (Negative) 02/09/19 07:28 Urine Glucose (UA) Neg mg/dL (Negative) 02/09/19 07:28 Urine Ketones Neg mg/dL (Negative) 02/09/19 07:28 Urine Blood Lg (Negative) 02/09/19 07:28 Urine Nitrite Neg (Negative) 02/09/19 07:28 Urine Bilirubin Neg (Negative) 02/09/19 07:28 Urine Urobilinogen 4.0 mg/dL (<2.0) 02/09/19 07:28 Ur Leukocyte Esterase Mod (Negative) 02/09/19 07:28 Urine WBC (Auto) 35.0 /HPF (0.0-6.0) H 02/09/19 07:28 Urine RBC (Auto) > 182.0 /HPF (0.0-6.0) 02/09/19 07:28 U Epithel Cells (Auto) 1.0 /HPF (0-13.0) 02/09/19 07:28 Urine Bacteria (Auto) 1+ /HPF (Negative) 02/09/19 07:28 Urine Creatinine 350.2 mg/dL (0.1-20.0) H 02/09/19 15:20 Urine Sodium 46 mmol/L 02/09/19 15:20 Blood Type A NEGATIVE 02/09/19 17:15 Antibody Screen Negative 02/09/19 17:15 Active Medications - Current Medications Current Medications: Generic Name Dose Route Start Last Admin Trade Name Freq PRN Reason Stop Dose Admin Acetaminophen 650 mg 02/09/19 14:29 02/21/19 22:14 Tylenol PO 650 mg Q4H PRN Administration Pain MILD(1-3)/Fever >100.5/KAMARA Albuterol 2.5 mg 02/17/19 08:00 Proventil IH Q4H PRN Shortness Of Breath Albuterol/Ipratropium 1 ampul 02/11/19 20:00 02/22/19 08:40 Duoneb *Not For Prn Use* IH 1 ampul TIDRT REY Administration Aspirin 81 mg 02/10/19 10:00 02/21/19 09:26 Baby Aspirin PO 81 mg QDAY REY Administration Budesonide 0.5 mg 02/14/19 20:00 02/22/19 08:40 Pulmicort IH 0.5 mg Q12HRT REY Administration Docusate Sodium 100 mg 02/12/19 12:00 02/21/19 22:16 Colace PO 100 mg BID REY Administration Famotidine 20 mg 02/17/19 10:00 02/21/19 09:27 Pepcid PO 20 mg DAILY REY Administration Finasteride 5 mg 02/09/19 22:00 02/21/19 22:17 Proscar PO 5 mg QHS REY Administration Hydrochlorothiazide 25 mg 02/15/19 12:00 02/21/19 09:27 Hctz PO 25 mg QDAY REY Administration Morphine Sulfate 2 mg 02/10/19 15:48 02/16/19 22:07 Morphine IV 2 mg Q4H PRN Administration Pain, Moderate (4-6) Ondansetron HCl 4 mg 02/09/19 14:29 02/09/19 20:27 Zofran IV 4 mg Q8H PRN Administration Nausea And Vomiting Polyethylene Glycol 17 gm 02/12/19 11:19 02/17/19 10:35 Miralax 3350 PO 17 gm QDAY PRN Administration Constipation Potassium Chloride 40 meq 02/15/19 12:00 02/21/19 09:26 K-Dur PO 40 meq QDAY REY Administration Sodium Biphosphate/Sodium Phosphate 133 ml 02/15/19 13:15 02/18/19 21:59 [place] 133 ml QDAY PRN Administration Bowel Movement Sodium Chloride 10 ml 02/09/19 22:00 02/21/19 22:23 Sodium Chloride Flush Syringe 10 Ml IV 10 ml BID REY Administration Sodium Chloride 10 ml 02/09/19 14:29 Sodium Chloride Flush Syringe 10 Ml IV PRN PRN LINE FLUSH Trazodone HCl 150 mg 02/09/19 22:00 02/21/19 22:17 Desyrel PO 150 mg QHS REY Administration Venlafaxine HCl 50 mg 02/12/19 11:00 02/21/19 22:16 Effexor PO 50 mg BID REY Administration Nutrition/Malnutrition Assess - Dietary Evaluation Nutrition/Malnutrition Findings: Nutrition Notes Start: 02/16/19 13:46 Freq: Status: Active Protocol: Document 02/19/19 14:29 DW (Rec: 02/19/19 14:42 DW [id number]) Co-Sign 02/19/19 14:29 KH Nutrition Notes Initial or Follow up Reassessment Current Diagnosis Hypertension Other Pertinent Diagnosis obesity;sepsis; hx leukemia Current Diet cardiac Labs/Tests Cr: 0.7 Pertinent Medications Colace Height 5 ft 7 in Weight 105.7 kg [place] Body Weight (kg) 67.27 BMI 36.5 Subjective/Other Information Pt stated he has been eating an average of 60% of his meals because he does not care for the bland taste and 100% ONS. Pt also stated his appetite is average and has been improving. Percent of energy/protein needs met: 89%/81% Burn Absent Trauma Absent GI Symptoms None Current % PO Good (75-100%) Minimum of two criteria No physical signs of malnutrition #1 Nutrition Diagnosis Inadequate oral intake As Evidenced by Signs and Symptoms Pt consuming 89% of kcal needs and 81% of PRO needs Diagnosis Progress(for reassessment Resolved documentation) Is patient on ventilator? No Is Patient Ambulatory and/or Out of Bed No REE-([place]-St. Jeor-confined to bed) 2136.204 Kcal/Kg value to use for calculation 17 Approximate Energy Requirements Using 1797 kcal/Kg Calculation Used for Recommendations Kcal/kg Additional Notes PRO needs: 86-103 g (1-1.2 g/ kg AjdBW 86kg) Fluid needs: 1 mL/kcal Nutrition Intervention Change Diet Order: Continue Current Diet Add Supplement/Snack (indicate name/kcal Ensure Enlive once daily /protein ) Provides kCal: 350 Provides Protein (gm) 20 Goal #1 Continue to meet 75% of kcal/ PRO needs via PO and ONS Anticipated Discharge Needs: Cardiac Diet Revisit per MD consult or patient Sign Off request:
[2019-02-22] MEDS: POTASSIUM CHLORIDE ER 20 MEQ TAB PO SCH (10:42)
[2019-02-22] MEDS: hydroCHLOROthiazide 25 MG TAB PO SCH (10:42)
[2019-02-22] MEDS: ASPIRIN 81 MG TAB CHEW PO SCH (10:42)
[2019-02-22] MEDS: DOCUSATE SODIUM 100 MG CAP PO SCH ×2 (10:42→23:12)
[2019-02-22] MEDS: FAMOTIDINE 20 MG TAB PO SCH (10:43)
[2019-02-22] MEDS: VENLAFAXINE 25 MG TAB PO SCH ×2 (10:47→23:12)
[2019-02-22] MEDS: MORPHINE 2 MG/1 ML INJ IV PRN (18:58)
[2019-02-22] MEDS: FINASTERIDE 5 MG TAB PO SCH (23:12)
[2019-02-22] MEDS: traZODone 100 MG TAB PO SCH (23:13)
--- NOTE | 2019-02-23 06:49 | Hem/Onc Progress Note ---
Assessment and Plan 1. h/o Thrombocytopenia. This may be secondary to consumption/infection. The patient was on pressors. Supportive care for now. No bleeding at this time. 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 Renal impairment, being followed by Nephrology. 3. Nephrolithiasis, status post nephrostomy tube placement, which was dislodged. Urology followup for the ureteral stent. 4. Seen by ID team and Nephrology team. 5. Radiologically, there is no mention of splenomegaly. 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 We will follow the patient during inpatient stay. Follow the trend and he would need to be followed in the outpatient setting. pt had received 3 platelets transfusions when plt were 30s - ordered by other drs clinically better - no bleeding plt better on o2 - still has foleys cath - Patient Problems (1) Thrombocytopenia Current Visit: Yes Status: Acute Subjective Date of service: 02/23/19 Principal diagnosis: low platelets Interval history: walking with walker - still has foleys - on o2 Objective - Exam Narrative Exam: Pain - none now General appearance - awake Performance status limited self care - on o2 Eyes - no icterus ENT - no thrush LNs cervical not palpable Neck - no LN Respiratory Normal Breath sounds - CTA anteriorly CVS S1 S2 + Extremities no calf tenderness General GI Soft Rectal deferred male - deferred Skin warm Musculoskeletal moves limbs neuro - awake - Constitutional Vitals: Last Vital Signs Temp 97.4 F L 02/23/19 03:53 Pulse 70 02/23/19 03:53 Resp 18 02/23/19 03:53 BP 139/81 02/23/19 03:53 Pulse Ox 94 02/23/19 03:53 Medications & Allergies - Medications Allergies/Adverse Reactions: Allergies cefepime Allergy (Verified 02/10/19 11:24) Rash Home Medications: Home Medications Medication Instructions Recorded Confirmed Last Taken Type Aspirin [Aspirin BABY CHEW TAB] 81 mg PO QDAY 02/09/19 02/09/19 02/09/19 History Desvenlafaxine Succinate 100 mg PO QDAY 02/09/19 02/09/19 02/09/19 History [Desvenlafaxine Succinate ER] Doxazosin Mesylate [Cardura] 2.5 mg PO DAILY 02/09/19 02/09/19 02/09/19 History Finasteride [Proscar] 5 mg PO QHS 02/09/19 02/09/19 02/09/19 History Propranolol HCl 20 mg PO QDAY 02/09/19 02/09/19 02/09/19 History Trazodone HCl 150 mg PO QHS 02/09/19 02/09/19 02/09/19 History Docusate Sodium [Colace] 100 mg PO QDAY 02/12/19 02/12/19 02/07/19 09:00 History Pravastatin [Pravachol] 20 mg PO QHS 02/13/19 02/13/19 02/08/19 History Active Medications: Generic Name Dose Route Start Last Admin Trade Name Freq PRN Reason Stop Dose Admin Acetaminophen 650 mg 02/09/19 14:29 02/21/19 22:14 Tylenol PO 650 mg Q4H PRN Administration Pain MILD(1-3)/Fever >100.5/KAMARA Albuterol 2.5 mg 02/17/19 08:00 Proventil IH Q4H PRN Shortness Of Breath Albuterol/Ipratropium 1 ampul 02/11/19 20:00 02/22/19 19:02 Duoneb *Not For Prn Use* IH 1 ampul TIDRT REY Administration Aspirin 81 mg 02/10/19 10:00 02/22/19 10:42 Baby Aspirin PO 81 mg QDAY REY Administration Budesonide 0.5 mg 02/14/19 20:00 02/22/19 19:02 Pulmicort IH 0.5 mg Q12HRT REY Administration Docusate Sodium 100 mg 02/12/19 12:00 02/22/19 23:12 Colace PO 100 mg BID REY Administration Famotidine 20 mg 02/17/19 10:00 02/22/19 10:43 Pepcid PO 20 mg DAILY REY Administration Finasteride 5 mg 02/09/19 22:00 02/22/19 23:12 Proscar PO 5 mg QHS REY Administration Hydrochlorothiazide 25 mg 02/15/19 12:00 02/22/19 10:42 Hctz PO 25 mg QDAY REY Administration Morphine Sulfate 2 mg 02/10/19 15:48 02/22/19 18:58 Morphine IV 2 mg Q4H PRN Administration Pain, Moderate (4-6) Ondansetron HCl 4 mg 02/09/19 14:29 02/09/19 20:27 Zofran IV 4 mg Q8H PRN Administration Nausea And Vomiting Polyethylene Glycol 17 gm 02/12/19 11:19 02/17/19 10:35 Miralax 3350 PO 17 gm QDAY PRN Administration Constipation Potassium Chloride 40 meq 02/15/19 12:00 02/22/19 10:42 K-Dur PO 40 meq QDAY REY Administration Sodium Biphosphate/Sodium Phosphate 133 ml 02/15/19 13:15 02/18/19 21:59 [place] 133 ml QDAY PRN Administration Bowel Movement Sodium Chloride 10 ml 02/09/19 22:00 02/22/19 23:17 Sodium Chloride Flush Syringe 10 Ml IV 10 ml BID REY Administration Sodium Chloride 10 ml 02/09/19 14:29 Sodium Chloride Flush Syringe 10 Ml IV PRN PRN LINE FLUSH Trazodone HCl 150 mg 02/09/19 22:00 02/22/19 23:13 Desyrel PO 150 mg QHS REY Administration Venlafaxine HCl 50 mg 02/12/19 11:00 02/22/19 23:12 Effexor PO 50 mg BID REY Administration
[2019-02-23] MEDS: FAMOTIDINE 20 MG TAB PO SCH (10:03)
[2019-02-23] MEDS: DOCUSATE SODIUM 100 MG CAP PO SCH ×2 (10:03→22:00)
[2019-02-23] MEDS: hydroCHLOROthiazide 25 MG TAB PO SCH (10:03)
[2019-02-23] MEDS: POTASSIUM CHLORIDE ER 20 MEQ TAB PO SCH (10:03)
[2019-02-23] MEDS: VENLAFAXINE 25 MG TAB PO SCH ×2 (10:04→22:00)
[2019-02-23] MEDS: ASPIRIN 81 MG TAB CHEW PO SCH (10:04)
[2019-02-23] MEDS: BUDESONIDE 0.5 MG/2 ML NEBU IH SCH ×2 (10:53→21:22)
[2019-02-23] MEDS: IPRATROPIUM/ALBUTEROL SULFATE 3 ML AMPUL.NEB IH SCH ×3 (10:53→21:22)
[2019-02-23] MEDS: FLEET ENEMA PR PRN (11:18)
--- NOTE | 2019-02-23 12:17 | Progress Note ---
Assessment and Plan Assessment and plan: Sepsis due to complicated UTI Antibiotics completed ID Physician following Septic shock. Resolved. Off pressors. E.coli bacteremia, UTI, left hydronephrosis: s/p L nephrostomy by IR on 02/09/2019 which got displaced, then s/p b/l stents by Urology. 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 KEVIN (acute kidney injury) due to ATN Now resolved IVF resuscitation therapy, Nephrology following, monitor uop q shift, urine electrolytes, Metabolic Acidosis due to KEVIN - resolved now resolved supportive care. Complicated UTI As above. Urinary obstruction 7MM Left UPJ obstructing stone with mild hydronephrosis, supportive care. IR consulted s/p left perc nephrostomy tube placement, Urology consulted did cystoscopy, RPG, bilat double j-stent placement MAT resolved Cardiomyopathy EF 45-50% patient does not have CHF Acute respiratory failure with hypoxia Pulm following Supplemental oxygen, ABG, pulse oximetry, NIPPV as clinically indicated, nebulizer therapy prn, Constipation. Resolved Thrombocytopenia Dr. Tapia following Platelets transfused Debility SNF placement DVT prophylaxis SCDs. No chemical anticoag because of low platelet Disposition. Await rehabilitation placement. History Interval history: No new issues overnight. Hospitalist Physical - Constitutional Vitals: Temp Pulse Resp BP Pulse Ox 98.0 F 86 20 118/79 93 02/23/19 08:20 02/23/19 10:51 02/23/19 10:51 02/23/19 08:20 02/23/19 10:54 General appearance: Present: no acute distress, well-nourished - EENT Eyes: Present: PERRL, EOM intact ENT: hearing intact, clear oral mucosa, dentition normal - Neck Neck: Present: supple, normal ROM - Respiratory Respiratory effort: normal Respiratory: bilateral: CTA - Cardiovascular Rhythm: regular Heart Sounds: Present: S1 & S2. Absent: gallop, rub - Extremities Extremities: no ischemia, No edema, Full ROM - Abdominal General gastrointestinal: soft, non-tender, non-distended, normal bowel sounds - Integumentary Integumentary: Present: clear, warm, dry - Neurologic Neurologic: CNII-XII intact, moves all extremities Results - Labs CBC & Chem 7: 02/22/19 04:42 02/22/19 04:42 Labs: Laboratory Last Values WBC 5.7 K/mm3 (4.5-11.0) 02/22/19 04:42 RBC 4.71 M/mm3 (3.65-5.03) 02/22/19 04:42 Hgb 13.1 gm/dl (11.8-15.2) 02/22/19 04:42 Hct 39.7 % (35.5-45.6) 02/22/19 04:42 MCV 84 fl (84-94) 02/22/19 04:42 MCH 28 pg (28-32) 02/22/19 04:42 MCHC 33 % (32-34) 02/22/19 04:42 RDW 15.0 % (13.2-15.2) 02/22/19 04:42 Plt Count 134 K/mm3 (140-440) L 02/22/19 04:42 Lymph % (Auto) 16.9 % (13.4-35.0) 02/22/19 04:42 [place] % (Auto) 10.2 % (0.0-7.3) H 02/22/19 04:42 Eos % (Auto) 1.6 % (0.0-4.3) 02/22/19 04:42 Baso % (Auto) 1.4 % (0.0-1.8) 02/22/19 04:42 Lymph # 1.0 K/mm3 (1.2-5.4) L 02/22/19 04:42 [place] # 0.6 K/mm3 (0.0-0.8) 02/22/19 04:42 Eos # 0.1 K/mm3 (0.0-0.4) 02/22/19 04:42 Baso # 0.1 K/mm3 (0.0-0.1) 02/22/19 04:42 Add Manual Diff Complete 02/10/19 04:30 Total Counted 100 02/10/19 04:30 Seg Neutrophils % 69.9 % (40.0-70.0) 02/22/19 04:42 Seg Neuts % (Manual) 75.0 % (40.0-70.0) H 02/10/19 04:30 Band Neutrophils % 13.0 % 02/10/19 04:30 Lymphocytes % (Manual) 5.0 % (13.4-35.0) L 02/10/19 04:30 Reactive Lymphs % (Man) 0 % 02/10/19 04:30 Monocytes % (Manual) 7.0 % (0.0-7.3) 02/10/19 04:30 Eosinophils % (Manual) 0 % (0.0-4.3) 02/10/19 04:30 Basophils % (Manual) 0 % (0.0-1.8) 02/10/19 04:30 Metamyelocytes % 0 % 02/10/19 04:30 Myelocytes % 0 % 02/10/19 04:30 Promyelocytes % 0 % 02/10/19 04:30 Blast Cells % 0 % 02/10/19 04:30 Nucleated RBC % Not Reportable 02/10/19 04:30 Seg Neutrophils # 4.0 K/mm3 (1.8-7.7) 02/22/19 04:42 Seg Neutrophils # Man 5.6 K/mm3 (1.8-7.7) 02/10/19 04:30 Band Neutrophils # 1.0 K/mm3 02/10/19 04:30 Lymphocytes # (Manual) 0.4 K/mm3 (1.2-5.4) L 02/10/19 04:30 Abs React Lymphs (Man) 0.0 K/mm3 02/10/19 04:30 Monocytes # (Manual) 0.5 K/mm3 (0.0-0.8) 02/10/19 04:30 Eosinophils # (Manual) 0.0 K/mm3 (0.0-0.4) 02/10/19 04:30 Basophils # (Manual) 0.0 K/mm3 (0.0-0.1) 02/10/19 04:30 Metamyelocytes # 0.0 K/mm3 02/10/19 04:30 Myelocytes # 0.0 K/mm3 02/10/19 04:30 Promyelocytes # 0.0 K/mm3 02/10/19 04:30 Blast Cells # 0.0 K/mm3 02/10/19 04:30 WBC Morphology Not Reportable 02/10/19 04:30 Hypersegmented Neuts Not Reportable 02/10/19 04:30 Hyposegmented Neuts Not Reportable 02/10/19 04:30 Hypogranular Neuts Not Reportable 02/10/19 04:30 Smudge Cells Not Reportable 02/10/19 04:30 Toxic Granulation Not Reportable 02/10/19 04:30 Toxic Vacuolation Not Reportable 02/10/19 04:30 Dohle Bodies Not Reportable 02/10/19 04:30 Pelger-Huet Anomaly Not Reportable 02/10/19 04:30 Jagdish Rods Not Reportable 02/10/19 04:30 Platelet Estimate Appears decreased 02/10/19 04:30 Clumped Platelets Not Reportable 02/10/19 04:30 Plt Clumps, EDTA Not Reportable 02/10/19 04:30 Large Platelets 1+ 02/10/19 04:30 Giant Platelets Not Reportable 02/10/19 04:30 Platelet Satelliting Not Reportable 02/10/19 04:30 Plt Morphology Comment Not Reportable 02/10/19 04:30 RBC Morphology Normal 02/10/19 04:30 Dimorphic RBCs Not Reportable 02/10/19 04:30 Polychromasia Not Reportable 02/10/19 04:30 Hypochromasia Not Reportable 02/10/19 04:30 Poikilocytosis Not Reportable 02/10/19 04:30 Anisocytosis Not Reportable 02/10/19 04:30 Microcytosis Not Reportable 02/10/19 04:30 Macrocytosis Not Reportable 02/10/19 04:30 Spherocytes Not Reportable 02/10/19 04:30 Pappenheimer Bodies Not Reportable 02/10/19 04:30 Sickle Cells Not Reportable 02/10/19 04:30 Target Cells Not Reportable 02/10/19 04:30 Tear Drop Cells Not Reportable 02/10/19 04:30 Ovalocytes Not Reportable 02/10/19 04:30 Helmet Cells Not Reportable 02/10/19 04:30 Payton-Agenda Bodies Not Reportable 02/10/19 04:30 Nicasio Rings Not Reportable 02/10/19 04:30 Nathan Cells Not Reportable 02/10/19 04:30 Bite Cells Not Reportable 02/10/19 04:30 Crenated Cell Not Reportable 02/10/19 04:30 Elliptocytes Not Reportable 02/10/19 04:30 Acanthocytes (Spur) Not Reportable 02/10/19 04:30 Rouleaux Not Reportable 02/10/19 04:30 Hemoglobin C Crystals Not Reportable 02/10/19 04:30 Schistocytes Not Reportable 02/10/19 04:30 Malaria parasites Not Reportable 02/10/19 04:30 Arnie Bodies Not Reportable 02/10/19 04:30 Hem Pathologist Commnt No 02/10/19 04:30 PT 15.8 Sec. (12.2-14.9) H 02/09/19 Unknown INR 1.29 (0.87-1.13) H 02/09/19 Unknown POC ABG pH 7.356 (7.35-7.45) 02/09/19 17:29 POC ABG pCO2 37.1 (35-45) 02/09/19 17:29 POC ABG pO2 97 (80-105) 02/09/19 17:29 POC ABG HCO3 20.8 (22-26 mml/L) 02/09/19 17:29 POC ABG Total CO2 22 (23-27mmol/L) 02/09/19 17:29 POC ABG O2 Sat 97 02/09/19 17:29 POC ABG Base Excess -5 ((-2) - (+3)mmol/L) 02/09/19 17:29 VBG pH 7.379 (7.320-7.420) 02/09/19 11:45 FiO2 28 % 02/09/19 17:29 Sodium 138 mmol/L (137-145) 02/22/19 04:42 Potassium 4.6 mmol/L (3.6-5.0) 02/22/19 04:42 Chloride 98.3 mmol/L (98-107) 02/22/19 04:42 Carbon Dioxide 27 mmol/L (22-30) 02/22/19 04:42 Anion Gap 17 mmol/L 02/22/19 04:42 BUN 24 mg/dL (9-20) H 02/22/19 04:42 Creatinine 0.8 mg/dL (0.8-1.5) 02/22/19 04:42 Estimated GFR > 60 ml/min 02/22/19 04:42 BUN/Creatinine Ratio 30 % 02/22/19 04:42 Glucose 124 mg/dL (75-100) H 02/22/19 04:42 POC Glucose 146 (70-105) H 02/11/19 12:05 Lactic Acid 2.50 mmol/L (0.7-2.0) H* 02/10/19 08:44 Calcium 9.1 mg/dL (8.4-10.2) 02/22/19 04:42 Phosphorus 3.90 mg/dL (2.5-4.5) 02/11/19 04:55 Magnesium 1.80 mg/dL (1.7-2.3) 02/11/19 04:55 Iron 57 ug/dL (49-181) 02/20/19 04:54 TIBC 215 mcg/dL (250-450) L 02/20/19 04:54 Ferritin 405.1 ng/mL (13.0-400.0) H 02/20/19 04:54 Total Bilirubin 0.60 mg/dL (0.1-1.2) 02/20/19 04:54 AST 17 units/L (5-40) 02/20/19 04:54 ALT 19 units/L (7-56) 02/20/19 04:54 Alkaline Phosphatase 61 units/L (35-129) 02/20/19 04:54 Troponin T 0.017 ng/mL (0.00-0.029) 02/09/19 Unknown NT-Pro-B Natriuret Pep 6998 pg/mL (0-900) H 02/09/19 Unknown Total Protein 6.8 g/dL (6.3-8.2) 02/20/19 04:54 Albumin 3.3 g/dL (3.9-5) L 02/20/19 04:54 Albumin/Globulin Ratio 0.9 % 02/20/19 04:54 Vitamin B12 1355 pg/mL (211-911) H 02/20/19 04:54 Folate 7.77 ng/mL (7.3-26.0) 02/20/19 04:54 Urine Color [place] (Yellow) 02/09/19 07:28 Urine Turbidity Cloudy (Clear) 02/09/19 07:28 Urine pH 5.0 (5.0-7.0) 02/09/19 07:28 Ur Specific [place] 1.019 (1.003-1.030) 02/09/19 07:28 Urine Protein 100 mg/dl mg/dL (Negative) 02/09/19 07:28 Urine Glucose (UA) Neg mg/dL (Negative) 02/09/19 07:28 Urine Ketones Neg mg/dL (Negative) 02/09/19 07:28 Urine Blood Lg (Negative) 02/09/19 07:28 Urine Nitrite Neg (Negative) 02/09/19 07:28 Urine Bilirubin Neg (Negative) 02/09/19 07:28 Urine Urobilinogen 4.0 mg/dL (<2.0) 02/09/19 07:28 Ur Leukocyte Esterase Mod (Negative) 02/09/19 07:28 Urine WBC (Auto) 35.0 /HPF (0.0-6.0) H 02/09/19 07:28 Urine RBC (Auto) > 182.0 /HPF (0.0-6.0) 02/09/19 07:28 U Epithel Cells (Auto) 1.0 /HPF (0-13.0) 02/09/19 07:28 Urine Bacteria (Auto) 1+ /HPF (Negative) 02/09/19 07:28 Urine Creatinine 350.2 mg/dL (0.1-20.0) H 02/09/19 15:20 Urine Sodium 46 mmol/L 02/09/19 15:20 Blood Type A NEGATIVE 02/09/19 17:15 Antibody Screen Negative 02/09/19 17:15 Active Medications - Current Medications Current Medications: Generic Name Dose Route Start Last Admin Trade Name Freq PRN Reason Stop Dose Admin Acetaminophen 650 mg 02/09/19 14:29 02/21/19 22:14 Tylenol PO 650 mg Q4H PRN Administration Pain MILD(1-3)/Fever >100.5/KAMARA Albuterol 2.5 mg 02/17/19 08:00 Proventil IH Q4H PRN Shortness Of Breath Albuterol/Ipratropium 1 ampul 02/11/19 20:00 02/23/19 10:53 Duoneb *Not For Prn Use* IH 1 ampul TIDRT REY Administration Aspirin 81 mg 02/10/19 10:00 02/23/19 10:04 Baby Aspirin PO 81 mg QDAY REY Administration Budesonide 0.5 mg 02/14/19 20:00 02/23/19 10:53 Pulmicort IH 0.5 mg Q12HRT REY Administration Docusate Sodium 100 mg 02/12/19 12:00 02/23/19 10:03 Colace PO 100 mg BID REY Administration Famotidine 20 mg 02/17/19 10:00 02/23/19 10:03 Pepcid PO 20 mg DAILY REY Administration Finasteride 5 mg 02/09/19 22:00 02/22/19 23:12 Proscar PO 5 mg QHS REY Administration Hydrochlorothiazide 25 mg 02/15/19 12:00 02/23/19 10:03 Hctz PO 25 mg QDAY REY Administration Morphine Sulfate 2 mg 02/10/19 15:48 02/22/19 18:58 Morphine IV 2 mg Q4H PRN Administration Pain, Moderate (4-6) Ondansetron HCl 4 mg 02/09/19 14:29 02/09/19 20:27 Zofran IV 4 mg Q8H PRN Administration Nausea And Vomiting Polyethylene Glycol 17 gm 02/12/19 11:19 02/17/19 10:35 Miralax 3350 PO 17 gm QDAY PRN Administration Constipation Potassium Chloride 40 meq 02/15/19 12:00 02/23/19 10:03 K-Dur PO 40 meq QDAY REY Administration Sodium Biphosphate/Sodium Phosphate 133 ml 02/15/19 13:15 02/23/19 11:18 Fleet PA 133 ml QDAY PRN Administration Bowel Movement Sodium Chloride 10 ml 02/09/19 22:00 02/23/19 10:04 Sodium Chloride Flush Syringe 10 Ml IV 10 ml BID REY Administration Sodium Chloride 10 ml 02/09/19 14:29 Sodium Chloride Flush Syringe 10 Ml IV PRN PRN LINE FLUSH Trazodone HCl 150 mg 02/09/19 22:00 02/22/19 23:13 Desyrel PO 150 mg QHS REY Administration Venlafaxine HCl 50 mg 02/12/19 11:00 02/23/19 10:04 Effexor PO 50 mg BID REY Administration Nutrition/Malnutrition Assess - Dietary Evaluation Nutrition/Malnutrition Findings: Nutrition Notes Start: 02/16/19 13:46 Freq: Status: Active Protocol: Document 02/19/19 14:29 DW (Rec: 02/19/19 14:42 DW [id number]) Co-Sign 02/19/19 14:29 KH Nutrition Notes Initial or Follow up Reassessment Current Diagnosis Hypertension Other Pertinent Diagnosis obesity;sepsis; hx leukemia Current Diet cardiac Labs/Tests Cr: 0.7 Pertinent Medications Colace Height 5 ft 7 in Weight 105.7 kg [place] Body Weight (kg) 67.27 BMI 36.5 Subjective/Other Information Pt stated he has been eating an average of 60% of his meals because he does not care for the bland taste and 100% ONS. Pt also stated his appetite is average and has been improving. Percent of energy/protein needs met: 89%/81% Burn Absent Trauma Absent GI Symptoms None Current % PO Good (75-100%) Minimum of two criteria No physical signs of malnutrition #1 Nutrition Diagnosis Inadequate oral intake As Evidenced by Signs and Symptoms Pt consuming 89% of kcal needs and 81% of PRO needs Diagnosis Progress(for reassessment Resolved documentation) Is patient on ventilator? No Is Patient Ambulatory and/or Out of Bed No REE-(Gonzales-St. Jeor-confined to bed) 2136.204 Kcal/Kg value to use for calculation 17 Approximate Energy Requirements Using 1797 kcal/Kg Calculation Used for Recommendations Kcal/kg Additional Notes PRO needs: 86-103 g (1-1.2 g/ kg AjdBW 86kg) Fluid needs: 1 mL/kcal Nutrition Intervention Change Diet Order: Continue Current Diet Add Supplement/Snack (indicate name/kcal Ensure Enlive once daily /protein ) Provides kCal: 350 Provides Protein (gm) 20 Goal #1 Continue to meet 75% of kcal/ PRO needs via PO and ONS Anticipated Discharge Needs: Cardiac Diet Revisit per MD consult or patient Sign Off request:
--- NOTE | 2019-02-23 15:38 | Progress Note ---
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 2) Acute renal failure: renally dose abx. Creatinine improving. 3) Rash? from Zosyn: given h/o Cefepime allergy. Improving. 4) Acute thrombocytopenia: ?sepsis related v/s h/o hairy cell leukemia. Monitor. Recs: - Off antibiotics now, continue to monitor. Horace Davenport MD [facility] ([facility]) M: [phone] O: [phone] F: [phone] Subjective Date of service: 02/23/19 Principal diagnosis: low platelets Interval history: No acute change. Objective - Exam Narrative Exam: Constitutional: Alert, cooperative. No acute distress Head, Ears, Nose: Normocephalic, atraumatic. External ears, nose normal Eyes: Conjunctivae/corneas clear. No icterus. No ptosis. Neck: Supple, no meningeal signs Oral: no thrush Cardiovascular: S1, S2 normal. Respiratory: Good air entry, clear to auscultation bilaterally GI: Soft, non-tender; bowel sounds normal. No peritoneal signs. Left nephrostomy tube +, Agarwal + with bloody urine Musculoskeletal: No pedal edema, no cyanosis. Skin: upper trunk rash improving. no abscess Hem/Lymphatic: No palpable cervical or supraclavicular nodes. No lymphangitis Psych: Mood ok. Affect normal Neurological: Awake, alert, oriented. No gross abnormality - Constitutional Vitals: Vital Signs Temp Pulse Resp BP Pulse Ox 98.0 F 86 20 118/79 93 02/23/19 08:20 02/23/19 10:51 02/23/19 10:51 02/23/19 08:20 02/23/19 10:54 Temperature -Last 24 Hours Temperature 98.0 F Temperature 97.4 F Temperature 98.4 F Temperature 99.5 F Temperature 98.4 F - Labs CBC & Chem 7: 02/22/19 04:42 02/22/19 04:42
[2019-02-23] MEDS: FINASTERIDE 5 MG TAB PO SCH (22:00)
[2019-02-23] MEDS: traZODone 100 MG TAB PO SCH (22:00)
[2019-02-24 06:00] LABS: Basophils # (Auto) 0.1 K/mm3 (0.0-0.1); Basophils % (Auto) 1.1 % (0.0-1.8); Eosinophils # (Auto) 0.1 K/mm3 (0.0-0.4); Eosinophils % (Auto) 2.1 % (0.0-4.3); Hematocrit 39.7 % (35.5-45.6); Lymphocytes # (Auto) 1.1 K/mm3 (1.2-5.4); Mean Corpuscular HGB Conc 33 % (32-34); Mean Corpuscular Volume 84 fl (84-94); Monocytes # (Auto) 0.7 K/mm3 (0.0-0.8); Monocytes % (Auto) 12.3 % (0.0-7.3); Platelet Count 134 K/mm3 (140-440); Red Blood Count 4.71 M/mm3 (3.65-5.03); Red Cell Distribution Width 14.5 % (13.2-15.2)
[2019-02-24 06:26] LABS: BUN/Creatinine Ratio 35; Blood Urea Nitrogen 28 mg/dL (9-20); Calcium 9.2 mg/dL (8.4-10.2); Hemolysis Index 14
--- NOTE | 2019-02-24 06:37 | Hem/Onc Progress Note ---
Assessment and Plan 1. h/o Thrombocytopenia. This may be secondary to consumption/infection. The patient was on pressors. Supportive care for now. No bleeding at this time. 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 Renal impairment, being followed by Nephrology. 3. Nephrolithiasis, status post nephrostomy tube placement, which was dislodged. Urology followup for the ureteral stent. 4. Seen by ID team and Nephrology team. 5. Radiologically, there is no mention of splenomegaly. 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 We will follow the patient during inpatient stay. Follow the trend and he would need to be followed in the outpatient setting. pt had received 3 platelets transfusions when plt were 30s - ordered by other drs clinically better - no bleeding plt better on o2 - still has foleys cath pt ambulated - eating better - had BMs - Patient Problems (1) Thrombocytopenia Current Visit: Yes Status: Acute Subjective Date of service: 02/24/19 Principal diagnosis: low plt Interval history: feeling better- walked with PT Objective - Exam Narrative Exam: Pain - none now General appearance - awake Performance status limited self care - on o2 Eyes - no icterus ENT - no thrush LNs cervical not palpable Neck - no LN Respiratory Normal Breath sounds - CTA anteriorly CVS S1 S2 + Extremities no calf tenderness General GI Soft Rectal deferred male - deferred Skin warm Musculoskeletal moves limbs neuro - awake - Constitutional Vitals: Last Vital Signs Temp 97.6 F 02/24/19 03:50 Pulse 76 02/24/19 03:50 Resp 18 02/24/19 03:50 BP 137/83 02/24/19 03:50 Pulse Ox 95 02/24/19 03:50 - Labs Lab Results: Laboratory Results - last 24 hr 02/24/19 02/24/19 04:53 04:53 WBC 5.5 RBC 4.71 Hgb 13.0 Hct 39.7 MCV 84 MCH 28 MCHC 33 RDW 14.5 Plt Count 134 L Lymph % (Auto) 20.0 [place] % (Auto) 12.3 H Eos % (Auto) 2.1 Baso % (Auto) 1.1 Lymph # 1.1 L [place] # 0.7 Eos # 0.1 Baso # 0.1 Seg Neutrophils % 64.5 Seg Neutrophils # 3.6 Sodium 138 Potassium 4.0 Chloride 98.4 Carbon Dioxide 27 Anion Gap 17 BUN 28 H Creatinine 0.8 Estimated GFR > 60 BUN/Creatinine Ratio 35 Glucose 107 H Calcium 9.2 Medications & Allergies - Medications Allergies/Adverse Reactions: Allergies cefepime Allergy (Verified 02/10/19 11:24) Rash Home Medications: Home Medications Medication Instructions Recorded Confirmed Last Taken Type Aspirin [Aspirin BABY CHEW TAB] 81 mg PO QDAY 02/09/19 02/09/19 02/09/19 History Desvenlafaxine Succinate 100 mg PO QDAY 02/09/19 02/09/19 02/09/19 History [Desvenlafaxine Succinate ER] Doxazosin Mesylate [Cardura] 2.5 mg PO DAILY 02/09/19 02/09/19 02/09/19 History Finasteride [Proscar] 5 mg PO QHS 02/09/19 02/09/19 02/09/19 History Propranolol HCl 20 mg PO QDAY 02/09/19 02/09/19 02/09/19 History Trazodone HCl 150 mg PO QHS 02/09/19 02/09/19 02/09/19 History Docusate Sodium [Colace] 100 mg PO QDAY 02/12/19 02/12/19 02/07/19 09:00 History Pravastatin [Pravachol] 20 mg PO QHS 02/13/19 02/13/19 02/08/19 History Active Medications: Generic Name Dose Route Start Last Admin Trade Name Freq PRN Reason Stop Dose Admin Acetaminophen 650 mg 02/09/19 14:29 02/21/19 22:14 Tylenol PO 650 mg Q4H PRN Administration Pain MILD(1-3)/Fever >100.5/KAMARA Albuterol 2.5 mg 02/17/19 08:00 Proventil IH Q4H PRN Shortness Of Breath Albuterol/Ipratropium 1 ampul 02/11/19 20:00 02/23/19 21:22 Duoneb *Not For Prn Use* IH 1 ampul TIDRT REY Administration Aspirin 81 mg 02/10/19 10:00 02/23/19 10:04 Baby Aspirin PO 81 mg QDAY REY Administration Budesonide 0.5 mg 02/14/19 20:00 02/23/19 21:22 Pulmicort IH 0.5 mg Q12HRT REY Administration Docusate Sodium 100 mg 02/12/19 12:00 02/23/19 22:00 Colace PO 100 mg BID REY Administration Famotidine 20 mg 02/17/19 10:00 02/23/19 10:03 Pepcid PO 20 mg DAILY REY Administration Finasteride 5 mg 02/09/19 22:00 02/23/19 22:00 Proscar PO 5 mg QHS REY Administration Hydrochlorothiazide 25 mg 02/15/19 12:00 02/23/19 10:03 Hctz PO 25 mg QDAY REY Administration Morphine Sulfate 2 mg 02/10/19 15:48 02/22/19 18:58 Morphine IV 2 mg Q4H PRN Administration Pain, Moderate (4-6) Ondansetron HCl 4 mg 02/09/19 14:29 02/09/19 20:27 Zofran IV 4 mg Q8H PRN Administration Nausea And Vomiting Polyethylene Glycol 17 gm 02/12/19 11:19 02/17/19 10:35 Miralax 3350 PO 17 gm QDAY PRN Administration Constipation Potassium Chloride 40 meq 02/15/19 12:00 02/23/19 10:03 K-Dur PO 40 meq QDAY REY Administration Sodium Biphosphate/Sodium Phosphate 133 ml 02/15/19 13:15 02/23/19 11:18 Fleet [place] 133 ml QDAY PRN Administration Bowel Movement Sodium Chloride 10 ml 02/09/19 22:00 02/23/19 22:01 Sodium Chloride Flush Syringe 10 Ml IV 10 ml BID REY Administration Sodium Chloride 10 ml 02/09/19 14:29 Sodium Chloride Flush Syringe 10 Ml IV PRN PRN LINE FLUSH Trazodone HCl 150 mg 02/09/19 22:00 02/23/19 22:00 Desyrel PO 150 mg QHS REY Administration Venlafaxine HCl 50 mg 02/12/19 11:00 02/23/19 22:00 Effexor PO 50 mg BID REY Administration
[2019-02-24] MEDS: IPRATROPIUM/ALBUTEROL SULFATE 3 ML AMPUL.NEB IH SCH ×3 (09:09→21:59)
[2019-02-24] MEDS: BUDESONIDE 0.5 MG/2 ML NEBU IH SCH ×2 (09:09→21:59)
[2019-02-24] MEDS: FAMOTIDINE 20 MG TAB PO SCH (10:01)
[2019-02-24] MEDS: POTASSIUM CHLORIDE ER 20 MEQ TAB PO SCH (10:01)
[2019-02-24] MEDS: hydroCHLOROthiazide 25 MG TAB PO SCH (10:01)
[2019-02-24] MEDS: VENLAFAXINE 25 MG TAB PO SCH ×2 (10:01→21:48)
[2019-02-24] MEDS: DOCUSATE SODIUM 100 MG CAP PO SCH ×2 (10:02→21:50)
[2019-02-24] MEDS: ASPIRIN 81 MG TAB CHEW PO SCH (10:02)
--- NOTE | 2019-02-24 14:36 | Progress Note ---
Assessment and Plan 68 year old male with left UPJ obstruction s/p L PCN with displacement requiring ureteral stent placement by urology. Area was cleaned and under sterile conditions, the left nephrostomy tube was removed without issue. Bandage applied. Keep bandage changed daily until no further drainage from the nephrostomy tube site. Follow-up with urology. Subjective Date of service: 02/24/19 Principal diagnosis: sepsis Interval history: There was pink tinged urine in the bag suggesting that at least part of the nephrostomy tube was draining. Discussed with the patient that we can remove the nephrostomy tube as the patient has had the tube for 2 weeks. Objective - Constitutional Vitals: Vital Signs - 12hr 02/24/19 02/24/19 02/24/19 03:50 08:24 08:47 Temperature 97.6 F 98.3 F Pulse Rate 76 97 H Pulse Rate [ Posterior Bilateral Throughout] Respiratory 18 18 18 Rate Respiratory Rate [Posterior Bilateral Throughout] Blood Pressure 137/83 124/78 O2 Sat by Pulse 95 91 Oximetry 02/24/19 02/24/19 09:11 13:56 Temperature Pulse Rate Pulse Rate [ 77 78 Posterior Bilateral Throughout] Respiratory Rate Respiratory 18 16 Rate [Posterior Bilateral Throughout] Blood Pressure O2 Sat by Pulse 95 Oximetry General appearance: Present: no acute distress - EENT Eyes: EOM intact ENT: hearing intact - Respiratory Respiratory effort: accessory muscle use - Gastrointestinal General gastrointestinal: Present: other (some discomfort at the nephrostomy tube entry site.) - Labs CBC & Chem 7: 02/24/19 04:53 02/24/19 04:53 Labs: Abnormal lab results 02/24/19 02/24/19 Range/Units 04:53 04:53 Plt Count 134 L (140-440) K/mm3 [place] % (Auto) 12.3 H (0.0-7.3) % Lymph # 1.1 L (1.2-5.4) K/mm3 BUN 28 H (9-20) mg/dL Glucose 107 H (75-100) mg/dL Medications & Allergies - Medications Allergies/Adverse Reactions: Allergies cefepime Allergy (Verified 02/10/19 11:24) Rash Home Medications: Home Medications Medication Instructions Recorded Confirmed Last Taken Type Aspirin [Aspirin BABY CHEW TAB] 81 mg PO QDAY 02/09/19 02/09/19 02/09/19 History Desvenlafaxine Succinate 100 mg PO QDAY 02/09/19 02/09/19 02/09/19 History [Desvenlafaxine Succinate ER] Doxazosin Mesylate [Cardura] 2.5 mg PO DAILY 02/09/19 02/09/19 02/09/19 History Finasteride [Proscar] 5 mg PO QHS 02/09/19 02/09/19 02/09/19 History Propranolol HCl 20 mg PO QDAY 02/09/19 02/09/19 02/09/19 History Trazodone HCl 150 mg PO QHS 02/09/19 02/09/19 02/09/19 History Docusate Sodium [Colace] 100 mg PO QDAY 02/12/19 02/12/19 02/07/19 09:00 History Pravastatin [Pravachol] 20 mg PO QHS 02/13/19 02/13/19 02/08/19 History Active Medications: Generic Name Dose Route Start Last Admin Trade Name Freq PRN Reason Stop Dose Admin Acetaminophen 650 mg 02/09/19 14:29 02/21/19 22:14 Tylenol PO 650 mg Q4H PRN Administration Pain MILD(1-3)/Fever >100.5/KAMARA Albuterol 2.5 mg 02/17/19 08:00 Proventil IH Q4H PRN Shortness Of Breath Albuterol/Ipratropium 1 ampul 02/11/19 20:00 02/24/19 13:53 Duoneb *Not For Prn Use* IH 1 ampul TIDRT REY Administration Aspirin 81 mg 02/10/19 10:00 02/24/19 10:02 Baby Aspirin PO 81 mg QDAY REY Administration Budesonide 0.5 mg 02/14/19 20:00 02/24/19 09:09 Pulmicort IH 0.5 mg Q12HRT REY Administration Docusate Sodium 100 mg 02/12/19 12:00 02/24/19 10:02 Colace PO 100 mg BID REY Administration Famotidine 20 mg 02/17/19 10:00 02/24/19 10:01 Pepcid PO 20 mg DAILY REY Administration Finasteride 5 mg 02/09/19 22:00 02/23/19 22:00 Proscar PO 5 mg QHS REY Administration Hydrochlorothiazide 25 mg 02/15/19 12:00 02/24/19 10:01 Hctz PO 25 mg QDAY REY Administration Morphine Sulfate 2 mg 02/10/19 15:48 02/22/19 18:58 Morphine IV 2 mg Q4H PRN Administration Pain, Moderate (4-6) Ondansetron HCl 4 mg 02/09/19 14:29 02/09/19 20:27 Zofran IV 4 mg Q8H PRN Administration Nausea And Vomiting Polyethylene Glycol 17 gm 02/12/19 11:19 02/17/19 10:35 Miralax 3350 PO 17 gm QDAY PRN Administration Constipation Potassium Chloride 40 meq 02/15/19 12:00 02/24/19 10:01 K-Dur PO 40 meq QDAY REY Administration Sodium Biphosphate/Sodium Phosphate 133 ml 02/15/19 13:15 02/23/19 11:18 Fleet DE 133 ml QDAY PRN Administration Bowel Movement Sodium Chloride 10 ml 02/09/19 22:00 02/24/19 10:03 Sodium Chloride Flush Syringe 10 Ml IV 10 ml BID REY Administration Sodium Chloride 10 ml 02/09/19 14:29 Sodium Chloride Flush Syringe 10 Ml IV PRN PRN LINE FLUSH Trazodone HCl 150 mg 02/09/19 22:00 02/23/19 22:00 Desyrel PO 150 mg QHS REY Administration Venlafaxine HCl 50 mg 02/12/19 11:00 02/24/19 10:01 Effexor PO 50 mg BID REY Administration
--- NOTE | 2019-02-24 15:15 | Progress Note ---
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 2) Acute renal failure: renally dose abx. Creatinine improving. 3) Rash? from Zosyn: given h/o Cefepime allergy. Improving. 4) Acute thrombocytopenia: ?sepsis related v/s h/o hairy cell leukemia. Monitor. Recs: - Off antibiotics now, continue to monitor. Horace Davenport MD [facility] ([facility]) M: [phone] O: [phone] F: [phone] Subjective Date of service: 02/24/19 Principal diagnosis: sepsis Interval history: L nephrostomy tube removed Objective - Exam Narrative Exam: Constitutional: Alert, cooperative. No acute distress Head, Ears, Nose: Normocephalic, atraumatic. External ears, nose normal Eyes: Conjunctivae/corneas clear. No icterus. No ptosis. Neck: Supple, no meningeal signs Oral: no thrush Cardiovascular: S1, S2 normal. Respiratory: Good air entry, clear to auscultation bilaterally GI: Soft, non-tender; bowel sounds normal. No peritoneal signs. Left nephrostomy tube +, Agarwal + with bloody urine Musculoskeletal: No pedal edema, no cyanosis. Skin: upper trunk rash improving. no abscess Hem/Lymphatic: No palpable cervical or supraclavicular nodes. No lymphangitis Psych: Mood ok. Affect normal Neurological: Awake, alert, oriented. No gross abnormality - Constitutional Vitals: Vital Signs Temp Pulse Resp BP Pulse Ox 98.3 F 78 16 124/78 95 02/24/19 08:47 02/24/19 13:56 02/24/19 13:56 02/24/19 08:47 02/24/19 09:11 Temperature -Last 24 Hours Temperature 98.3 F Temperature 97.6 F Temperature 97.8 F Temperature 98.7 F Temperature 97.2 F - Labs CBC & Chem 7: 02/24/19 04:53 02/24/19 04:53 Labs: Abnormal lab results 02/24/19 02/24/19 Range/Units 04:53 04:53 Plt Count 134 L (140-440) K/mm3 [place] % (Auto) 12.3 H (0.0-7.3) % Lymph # 1.1 L (1.2-5.4) K/mm3 BUN 28 H (9-20) mg/dL Glucose 107 H (75-100) mg/dL
--- NOTE | 2019-02-24 15:20 | Discharge Summary ---
Providers - Providers Date of Admission: 02/09/19 14:29 Date of discharge: 02/25/19 Attending physician: MARIA E STEELE MD 02/09/19 14:36 Consult to Physician [CONS] Routine Comment: Consulting Provider: SKYE LAUREN Physician Instructions: Reason For Exam: kevin 02/09/19 18:23 Consult to Interventional Radiology [CONS] Stat Consulting Provider: MARILIN DAVIDSON Reason For Exam: Perc Nephrostomy tube placement Place consult to:: IR Notified:: Dr. Davidson Was contact made?: Yes If yes, spoke with:: Dr. Davidson Consult to Physician [CONS] Routine Comment: Consulting Provider: KEVIN SINGLETON Physician Instructions: Reason For Exam: urinary obstruction 02/10/19 08:47 Consult to Physician [CONS] Routine Comment: Consulting Provider: ALEXANDR TAPIA Physician Instructions: Reason For Exam: Thrombocytopenia, history of Hairy cell leukemia 02/10/19 11:28 Consult to Physician [CONS] Routine Comment: Consulting Provider: SEBAS ALBARADO Physician Instructions: Reason For Exam: Sepsis, Septic shock, Complicated UTI 02/13/19 12:13 Occupational Therapy Evaluate and Treat [CONS] Routine Comment: Reason For Exam: Debility Physical Therapy Evaluation and Treat [CONS] Routine Comment: Reason For Exam: Debility 02/24/19 14:36 Consult to Case Management [CONS] Routine Services Needed at Discharge: Other Comment:: follow up with Dr. Perez in 2 weeks, needs appointment. Primary care physician: OSWALDO DOHERTY Hospitalization Reason for admission: septic shock, bilateral hydronephrosis, Condition: Stable Hospital course: 68 YO Male with HTN, Obesity, Hairy Cell Leukemia(In remission) presents to ED for evaluatio. Pt on NIPPV and unable to provide history at time of my evaluation. Pt history taken from ED staff as medical record. As per staff, patient reports shortness of breath over the past 3 days with persistent symptoms over the same time frame. pt also reports subjective fever, and abdominal pain. Pt localized left flank as source of pain. Pain is associated with nausea and multiple episodes of vomiting. EMS notified and upon arrival the patient found to be in distress and transported to [facility]. Pt seen and evaluated in ED and found to have Severe Sepsis complicated by Shock with blood pressure of 68/41. Pt initiated on sepsis protocol. Pt treated with IVF resuscitation as well as pressor support. Pt found to have worsening dypsnea after fluid resuscitation which resulted in Acute Hypoxemic Respiratory Failure. Pt initiated on NIPPV and admitted to ICU. No further history obtainable. All listed medication reconciled at time of admission. No further history obtainable. Sepsis due to complicated UTI Antibiotics completed ID Physician following Septic shock. Resolved. Off pressors. E.coli bacteremia, UTI, left hydronephrosis: s/p L nephrostomy by IR on 02/09/2019 which got displaced, then s/p b/l stents by Urology. 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 KEVIN (acute kidney injury) due to ATN Now resolved IVF resuscitation therapy, Nephrology following, monitor uop q shift, urine electrolytes, Metabolic Acidosis due to KEVIN - resolved now resolved supportive care. Complicated UTI As above. Urinary obstruction 7MM Left UPJ obstructing stone with mild hydronephrosis, supportive care. IR consulted s/p left perc nephrostomy tube placement, nephrostomy tube removed at the time of discharge. Urology consulted did cystoscopy, RPG, bilat double j-stent placement MAT resolved Cardiomyopathy EF 45-50% patient does not have CHF Acute respiratory failure with hypoxia; resolved Constipation. Resolved Thrombocytopenia Dr. Tapia following Platelets transfused Debility; PT evaluated and recommended to discharge home Discharge home with home health Disposition: [id number] HOME UNDER HOME HLTH - Discharge Diagnoses (1) Septic shock due to Escherichia coli Status: Acute (2) Acidosis Status: Acute (3) Acute renal failure Status: Acute (4) Acute respiratory failure with hypoxia Status: Acute (5) Hypotension Status: Acute (6) Lactic acidosis Status: Acute (7) Multifocal atrial tachycardia Status: Acute (8) Thrombocytopenia Status: Acute (9) UTI (urinary tract infection) Status: Acute Qualifiers: Encounter type: initial encounter (10) Urinary obstruction Status: Acute Core Measure Documentation - Palliative Care Palliative Care/ Comfort Measures: Not Applicable - Core Measures Any of the following diagnoses?: none Exam - Physical Exam Narrative exam: Not in cardiopulmonary distress. The patient appeared well nourished and normally developed. Vital signs as documented. Head exam is unremarkable. No scleral icterus . Neck is without jugular venous distension, thyromegaly, or carotid bruits. Lungs are clear to auscultation. Cardiac exam reveals regular rate and Rhythm. First and second heart sounds normal. No murmurs, rubs or gallops. Abdominal exam reveals normal bowel sounds, no masses, no organomegaly and no aortic enlargement. Extremities are nonedematous and both femoral and pedal pulses are normal. LADLE MECH[employer]IC: Alert and oriented 3. No focal weakness. - Constitutional Vitals: Temp Pulse Resp BP Pulse Ox 98.3 F 78 16 124/78 95 02/24/19 08:47 02/24/19 13:56 02/24/19 13:56 02/24/19 08:47 02/24/19 09:11 Plan Activity: advance as tolerated Weight Bearing Status: Weight Bear as Tolerated Diet: regular Follow up with: PRIMARY CARE, [Referring] - 3-5 Days TAVO PARIKH MD [Staff Physician] - 7 Days MONIE PEREZ MD [Staff Physician] - 7 Days Prescriptions: Nebulizer [Aeroneb Go Nebulizer] 1 each MC BID #1 each Budesonide [Pulmicort Respules] 0.5 mg IH Q12HRT #60 nebu
[2019-02-24] MEDS: traZODone 100 MG TAB PO SCH (21:48)
[2019-02-24] MEDS: FINASTERIDE 5 MG TAB PO SCH (21:49)
[2019-02-25 05:15] VITALS: BP 136/80
--- NOTE | 2019-02-25 07:30 | Hem/Onc Progress Note ---
Assessment and Plan 1. h/o Thrombocytopenia. This may be secondary to consumption/infection. The patient was on pressors. Supportive care for now. No bleeding at this time. 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 Renal impairment, being followed by Nephrology. 3. Nephrolithiasis, status post nephrostomy tube placement, which was dislodged. Urology followup for the ureteral stent. 4. Seen by ID team and Nephrology team. 5. Radiologically, there is no mention of splenomegaly. 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 We will follow the patient during inpatient stay. Follow the trend and he would need to be followed in the outpatient setting. pt had received 3 platelets transfusions when plt were 30s - ordered by other drs clinically better - no bleeding plt better on o2 - still has foleys cath pt ambulated - eating better - had BMs discharge planning - Patient Problems (1) Thrombocytopenia Current Visit: Yes Status: Acute Subjective Date of service: 02/25/19 Principal diagnosis: low plt Interval history: off o2 - going home today Objective - Exam Narrative Exam: Pain - none now General appearance - awake Performance status limited self care - on o2 Eyes - no icterus ENT - no thrush LNs cervical not palpable Neck - no LN Respiratory Normal Breath sounds - CTA anteriorly CVS S1 S2 + Extremities no calf tenderness General GI Soft Rectal deferred male - deferred Skin warm Musculoskeletal moves limbs neuro - awake - Constitutional Vitals: Last Vital Signs Temp 97.4 F L 02/25/19 04:04 Pulse 73 02/25/19 04:04 Resp 20 02/25/19 04:04 BP 136/80 02/25/19 04:04 Pulse Ox 96 02/25/19 04:04 Medications & Allergies - Medications Allergies/Adverse Reactions: Allergies cefepime Allergy (Verified 02/10/19 11:24) Rash Home Medications: Home Medications Medication Instructions Recorded Confirmed Last Taken Type Aspirin [Aspirin BABY CHEW TAB] 81 mg PO QDAY 02/09/19 02/09/19 02/09/19 History Desvenlafaxine Succinate 100 mg PO QDAY 02/09/19 02/09/19 02/09/19 History [Desvenlafaxine Succinate ER] Doxazosin Mesylate [Cardura] 2.5 mg PO DAILY 02/09/19 02/09/19 02/09/19 History Finasteride [Proscar] 5 mg PO QHS 02/09/19 02/09/19 02/09/19 History Propranolol HCl 20 mg PO QDAY 02/09/19 02/09/19 02/09/19 History Trazodone HCl 150 mg PO QHS 02/09/19 02/09/19 02/09/19 History Docusate Sodium [Colace CAP] 100 mg PO QDAY 02/12/19 02/12/19 02/07/19 09:00 History Pravastatin [Pravachol] 20 mg PO QHS 02/13/19 02/13/19 02/08/19 History Budesonide [Pulmicort Respules] 0.5 mg IH Q12HRT #60 nebu 02/24/19 Unknown Rx Nebulizer [Aeroneb Go Nebulizer] 1 each MC BID #1 each 02/24/19 Unknown Rx Active Medications: Generic Name Dose Route Start Last Admin Trade Name Freq PRN Reason Stop Dose Admin Acetaminophen 650 mg 02/09/19 14:29 02/21/19 22:14 Tylenol PO 650 mg Q4H PRN Administration Pain MILD(1-3)/Fever >100.5/KAMARA Albuterol 2.5 mg 02/17/19 08:00 Proventil IH Q4H PRN Shortness Of Breath Albuterol/Ipratropium 1 ampul 02/11/19 20:00 02/24/19 21:59 Duoneb *Not For Prn Use* IH 1 ampul TIDRT REY Administration Aspirin 81 mg 02/10/19 10:00 02/24/19 10:02 Baby Aspirin PO 81 mg QDAY REY Administration Budesonide 0.5 mg 02/14/19 20:00 02/24/19 21:59 Pulmicort IH 0.5 mg Q12HRT REY Administration Docusate Sodium 100 mg 02/12/19 12:00 02/24/19 21:50 Colace PO 100 mg BID REY Administration Famotidine 20 mg 02/17/19 10:00 02/24/19 10:01 Pepcid PO 20 mg DAILY REY Administration Finasteride 5 mg 02/09/19 22:00 02/24/19 21:49 Proscar PO 5 mg QHS REY Administration Hydrochlorothiazide 25 mg 02/15/19 12:00 02/24/19 10:01 Hctz PO 25 mg QDAY REY Administration Morphine Sulfate 2 mg 02/10/19 15:48 02/22/19 18:58 Morphine IV 2 mg Q4H PRN Administration Pain, Moderate (4-6) Ondansetron HCl 4 mg 02/09/19 14:29 02/09/19 20:27 Zofran IV 4 mg Q8H PRN Administration Nausea And Vomiting Polyethylene Glycol 17 gm 02/12/19 11:19 02/17/19 10:35 Miralax 3350 PO 17 gm QDAY PRN Administration Constipation Potassium Chloride 40 meq 02/15/19 12:00 02/24/19 10:01 K-Dur PO 40 meq QDAY REY Administration Sodium Biphosphate/Sodium Phosphate 133 ml 02/15/19 13:15 02/23/19 11:18 Fleet PA 133 ml QDAY PRN Administration Bowel Movement Sodium Chloride 10 ml 02/09/19 22:00 02/24/19 21:51 Sodium Chloride Flush Syringe 10 Ml IV 10 ml BID REY Administration Sodium Chloride 10 ml 02/09/19 14:29 Sodium Chloride Flush Syringe 10 Ml IV PRN PRN LINE FLUSH Trazodone HCl 150 mg 02/09/19 22:00 02/24/19 21:48 Desyrel PO 150 mg QHS REY Administration Venlafaxine HCl 50 mg 02/12/19 11:00 02/24/19 21:48 Effexor PO 50 mg BID REY Administration
[2019-02-25] MEDS: BUDESONIDE 0.5 MG/2 ML NEBU IH SCH (07:55)
[2019-02-25] MEDS: IPRATROPIUM/ALBUTEROL SULFATE 3 ML AMPUL.NEB IH SCH (07:55)
[2019-02-25] MEDS: hydroCHLOROthiazide 25 MG TAB PO SCH (10:40)
[2019-02-25] MEDS: VENLAFAXINE 25 MG TAB PO SCH (10:40)
[2019-02-25] MEDS: ASPIRIN 81 MG TAB CHEW PO SCH (10:40)
[2019-02-25] MEDS: POTASSIUM CHLORIDE ER 20 MEQ TAB PO SCH (10:40)
[2019-02-25] MEDS: FAMOTIDINE 20 MG TAB PO SCH (10:40)
[2019-02-25] MEDS: DOCUSATE SODIUM 100 MG CAP PO SCH (10:40)
--- NOTE | 2019-02-26 16:50 | Progress Note ---
Assessment and Plan Assessment and plan: Sepsis due to complicated UTI Antibiotics completed ID Physician following Septic shock. Resolved. Off pressors. E.coli bacteremia, UTI, left hydronephrosis: s/p L nephrostomy by IR on 02/09/2019 which got displaced, then s/p b/l stents by Urology. 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 KEVIN (acute kidney injury) due to ATN Now resolved IVF resuscitation therapy, Nephrology following, monitor uop q shift, urine electrolytes, Metabolic Acidosis due to KEVIN - resolved now resolved supportive care. Complicated UTI As above. Urinary obstruction 7MM Left UPJ obstructing stone with mild hydronephrosis, supportive care. IR consulted s/p left perc nephrostomy tube placement, Urology consulted did cystoscopy, RPG, bilat double j-stent placement MAT resolved Cardiomyopathy EF 45-50% patient does not have CHF Acute respiratory failure with hypoxia Pulm following Supplemental oxygen, ABG, pulse oximetry, NIPPV as clinically indicated, nebulizer therapy prn, Constipation. Resolved Thrombocytopenia Dr. Tapia following Platelets transfused Debility SNF placement DVT prophylaxis SCDs. No chemical anticoag because of low platelet Disposition. Patient will go home with home health. - Patient Problems (1) Septic shock due to Escherichia coli Status: Acute (2) Acidosis Status: Acute (3) Acute renal failure Status: Acute (4) Acute respiratory failure with hypoxia Status: Acute (5) Hypotension Status: Acute (6) Lactic acidosis Status: Acute (7) Multifocal atrial tachycardia Status: Acute (8) Thrombocytopenia Status: Acute (9) UTI (urinary tract infection) Status: Acute Qualifiers: Encounter type: initial encounter (10) Urinary obstruction Status: Acute History Interval history: Patient was seen and evaluated this morning, patient said he is feeling good Hospitalist Physical - Physical exam Narrative exam: Not in cardiopulmonary distress. The patient appeared well nourished and normally developed. Vital signs as documented. Head exam is unremarkable. No scleral icterus . Neck is without jugular venous distension, thyromegaly, or carotid bruits. Lungs are clear to auscultation. Cardiac exam reveals regular rate and Rhythm. First and second heart sounds normal. No murmurs, rubs or gallops. Abdominal exam reveals normal bowel sounds, no masses, no organomegaly and no aortic enlargement. Extremities are nonedematous and both femoral and pedal pulses are normal. catheter in place. 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 No focal weakness. - Constitutional Vitals: Temp Pulse Resp BP Pulse Ox 97.4 F L 87 18 136/80 94 02/25/19 04:04 02/25/19 08:00 02/25/19 08:00 02/25/19 04:04 02/25/19 10:00 General appearance: Present: no acute distress Results - Labs CBC & Chem 7: 02/24/19 04:53 02/24/19 04:53 Labs: Laboratory Last Values WBC 5.5 K/mm3 (4.5-11.0) 02/24/19 04:53 RBC 4.71 M/mm3 (3.65-5.03) 02/24/19 04:53 Hgb 13.0 gm/dl (11.8-15.2) 02/24/19 04:53 Hct 39.7 % (35.5-45.6) 02/24/19 04:53 MCV 84 fl (84-94) 02/24/19 04:53 MCH 28 pg (28-32) 02/24/19 04:53 MCHC 33 % (32-34) 02/24/19 04:53 RDW 14.5 % (13.2-15.2) 02/24/19 04:53 Plt Count 134 K/mm3 (140-440) L 02/24/19 04:53 Lymph % (Auto) 20.0 % (13.4-35.0) 02/24/19 04:53 Robertson % (Auto) 12.3 % (0.0-7.3) H 02/24/19 04:53 Eos % (Auto) 2.1 % (0.0-4.3) 02/24/19 04:53 Baso % (Auto) 1.1 % (0.0-1.8) 02/24/19 04:53 Lymph # 1.1 K/mm3 (1.2-5.4) L 02/24/19 04:53 Robertson # 0.7 K/mm3 (0.0-0.8) 02/24/19 04:53 Eos # 0.1 K/mm3 (0.0-0.4) 02/24/19 04:53 Baso # 0.1 K/mm3 (0.0-0.1) 02/24/19 04:53 Add Manual Diff Complete 02/10/19 04:30 Total Counted 100 02/10/19 04:30 Seg Neutrophils % 64.5 % (40.0-70.0) 02/24/19 04:53 Seg Neuts % (Manual) 75.0 % (40.0-70.0) H 02/10/19 04:30 Band Neutrophils % 13.0 % 02/10/19 04:30 Lymphocytes % (Manual) 5.0 % (13.4-35.0) L 02/10/19 04:30 Reactive Lymphs % (Man) 0 % 02/10/19 04:30 Monocytes % (Manual) 7.0 % (0.0-7.3) 02/10/19 04:30 Eosinophils % (Manual) 0 % (0.0-4.3) 02/10/19 04:30 Basophils % (Manual) 0 % (0.0-1.8) 02/10/19 04:30 Metamyelocytes % 0 % 02/10/19 04:30 Myelocytes % 0 % 02/10/19 04:30 Promyelocytes % 0 % 02/10/19 04:30 Blast Cells % 0 % 02/10/19 04:30 Nucleated RBC % Not Reportable 02/10/19 04:30 Seg Neutrophils # 3.6 K/mm3 (1.8-7.7) 02/24/19 04:53 Seg Neutrophils # Man 5.6 K/mm3 (1.8-7.7) 02/10/19 04:30 Band Neutrophils # 1.0 K/mm3 02/10/19 04:30 Lymphocytes # (Manual) 0.4 K/mm3 (1.2-5.4) L 02/10/19 04:30 Abs React Lymphs (Man) 0.0 K/mm3 02/10/19 04:30 Monocytes # (Manual) 0.5 K/mm3 (0.0-0.8) 02/10/19 04:30 Eosinophils # (Manual) 0.0 K/mm3 (0.0-0.4) 02/10/19 04:30 Basophils # (Manual) 0.0 K/mm3 (0.0-0.1) 02/10/19 04:30 Metamyelocytes # 0.0 K/mm3 02/10/19 04:30 Myelocytes # 0.0 K/mm3 02/10/19 04:30 Promyelocytes # 0.0 K/mm3 02/10/19 04:30 Blast Cells # 0.0 K/mm3 02/10/19 04:30 WBC Morphology Not Reportable 02/10/19 04:30 Hypersegmented Neuts Not Reportable 02/10/19 04:30 Hyposegmented Neuts Not Reportable 02/10/19 04:30 Hypogranular Neuts Not Reportable 02/10/19 04:30 Smudge Cells Not Reportable 02/10/19 04:30 Toxic Granulation Not Reportable 02/10/19 04:30 Toxic Vacuolation Not Reportable 02/10/19 04:30 Dohle Bodies Not Reportable 02/10/19 04:30 Pelger-Huet Anomaly Not Reportable 02/10/19 04:30 Jagdish Rods Not Reportable 02/10/19 04:30 Platelet Estimate Appears decreased 02/10/19 04:30 Clumped Platelets Not Reportable 02/10/19 04:30 Plt Clumps, EDTA Not Reportable 02/10/19 04:30 Large Platelets 1+ 02/10/19 04:30 Giant Platelets Not Reportable 02/10/19 04:30 Platelet Satelliting Not Reportable 02/10/19 04:30 Plt Morphology Comment Not Reportable 02/10/19 04:30 RBC Morphology Normal 02/10/19 04:30 Dimorphic RBCs Not Reportable 02/10/19 04:30 Polychromasia Not Reportable 02/10/19 04:30 Hypochromasia Not Reportable 02/10/19 04:30 Poikilocytosis Not Reportable 02/10/19 04:30 Anisocytosis Not Reportable 02/10/19 04:30 Microcytosis Not Reportable 02/10/19 04:30 Macrocytosis Not Reportable 02/10/19 04:30 Spherocytes Not Reportable 02/10/19 04:30 Pappenheimer Bodies Not Reportable 02/10/19 04:30 Sickle Cells Not Reportable 02/10/19 04:30 Target Cells Not Reportable 02/10/19 04:30 Tear Drop Cells Not Reportable 02/10/19 04:30 Ovalocytes Not Reportable 02/10/19 04:30 Helmet Cells Not Reportable 02/10/19 04:30 [place] Bodies Not Reportable 02/10/19 04:30 [place] Rings Not Reportable 02/10/19 04:30 [place] Cells Not Reportable 02/10/19 04:30 Bite Cells Not Reportable 02/10/19 04:30 Crenated Cell Not Reportable 02/10/19 04:30 Elliptocytes Not Reportable 02/10/19 04:30 Acanthocytes (Spur) Not Reportable 02/10/19 04:30 Rouleaux Not Reportable 02/10/19 04:30 Hemoglobin C Crystals Not Reportable 02/10/19 04:30 Schistocytes Not Reportable 02/10/19 04:30 Malaria parasites Not Reportable 02/10/19 04:30 Arnie Bodies Not Reportable 02/10/19 04:30 Hem Pathologist Commnt No 02/10/19 04:30 PT 15.8 Sec. (12.2-14.9) H 02/09/19 Unknown INR 1.29 (0.87-1.13) H 02/09/19 Unknown POC ABG pH 7.356 (7.35-7.45) 02/09/19 17:29 POC ABG pCO2 37.1 (35-45) 02/09/19 17:29 POC ABG pO2 97 (80-105) 02/09/19 17:29 POC ABG HCO3 20.8 (22-26 mml/L) 02/09/19 17:29 POC ABG Total CO2 22 (23-27mmol/L) 02/09/19 17:29 POC ABG O2 Sat 97 02/09/19 17:29 POC ABG Base Excess -5 ((-2) - (+3)mmol/L) 02/09/19 17:29 VBG pH 7.379 (7.320-7.420) 02/09/19 11:45 FiO2 28 % 02/09/19 17:29 Sodium 138 mmol/L (137-145) 02/24/19 04:53 Potassium 4.0 mmol/L (3.6-5.0) 02/24/19 04:53 Chloride 98.4 mmol/L (98-107) 02/24/19 04:53 Carbon Dioxide 27 mmol/L (22-30) 02/24/19 04:53 Anion Gap 17 mmol/L 02/24/19 04:53 BUN 28 mg/dL (9-20) H 02/24/19 04:53 Creatinine 0.8 mg/dL (0.8-1.5) 02/24/19 04:53 Estimated GFR > 60 ml/min 02/24/19 04:53 BUN/Creatinine Ratio 35 % 02/24/19 04:53 Glucose 107 mg/dL (75-100) H 02/24/19 04:53 POC Glucose 146 (70-105) H 02/11/19 12:05 Lactic Acid 2.50 mmol/L (0.7-2.0) H* 02/10/19 08:44 Calcium 9.2 mg/dL (8.4-10.2) 02/24/19 04:53 Phosphorus 3.90 mg/dL (2.5-4.5) 02/11/19 04:55 Magnesium 1.80 mg/dL (1.7-2.3) 02/11/19 04:55 Iron 57 ug/dL (49-181) 02/20/19 04:54 TIBC 215 mcg/dL (250-450) L 02/20/19 04:54 Ferritin 405.1 ng/mL (13.0-400.0) H 02/20/19 04:54 Total Bilirubin 0.60 mg/dL (0.1-1.2) 02/20/19 04:54 AST 17 units/L (5-40) 02/20/19 04:54 ALT 19 units/L (7-56) 02/20/19 04:54 Alkaline Phosphatase 61 units/L (35-129) 02/20/19 04:54 Troponin T 0.017 ng/mL (0.00-0.029) 02/09/19 Unknown NT-Pro-B Natriuret Pep 6998 pg/mL (0-900) H 02/09/19 Unknown Total Protein 6.8 g/dL (6.3-8.2) 02/20/19 04:54 Albumin 3.3 g/dL (3.9-5) L 02/20/19 04:54 Albumin/Globulin Ratio 0.9 % 02/20/19 04:54 Vitamin B12 1355 pg/mL (211-911) H 02/20/19 04:54 Folate 7.77 ng/mL (7.3-26.0) 02/20/19 04:54 Urine Color Madeline (Yellow) 02/09/19 07:28 Urine Turbidity Cloudy (Clear) 02/09/19 07:28 Urine pH 5.0 (5.0-7.0) 02/09/19 07:28 Ur Specific [place] 1.019 (1.003-1.030) 02/09/19 07:28 Urine Protein 100 mg/dl mg/dL (Negative) 02/09/19 07:28 Urine Glucose (UA) Neg mg/dL (Negative) 02/09/19 07:28 Urine Ketones Neg mg/dL (Negative) 02/09/19 07:28 Urine Blood Lg (Negative) 02/09/19 07:28 Urine Nitrite Neg (Negative) 02/09/19 07:28 Urine Bilirubin Neg (Negative) 02/09/19 07:28 Urine Urobilinogen 4.0 mg/dL (<2.0) 02/09/19 07:28 Ur Leukocyte Esterase Mod (Negative) 02/09/19 07:28 Urine WBC (Auto) 35.0 /HPF (0.0-6.0) H 02/09/19 07:28 Urine RBC (Auto) > 182.0 /HPF (0.0-6.0) 02/09/19 07:28 U Epithel Cells (Auto) 1.0 /HPF (0-13.0) 02/09/19 07:28 Urine Bacteria (Auto) 1+ /HPF (Negative) 02/09/19 07:28 Urine Creatinine 350.2 mg/dL (0.1-20.0) H 02/09/19 15:20 Urine Sodium 46 mmol/L 02/09/19 15:20 Blood Type A NEGATIVE 02/09/19 17:15 Antibody Screen Negative 02/09/19 17:15 Nutrition/Malnutrition Assess - Dietary Evaluation Nutrition/Malnutrition Findings: Nutrition Notes Start: 02/16/19 13:46 Freq: Status: Discharge Protocol: Document 02/19/19 14:29 DW (Rec: 02/19/19 14:42 DW [id number]) Co-Sign 02/19/19 14:29 KH Nutrition Notes Initial or Follow up Reassessment Current Diagnosis Hypertension Other Pertinent Diagnosis obesity;sepsis; hx leukemia Current Diet cardiac Labs/Tests Cr: 0.7 Pertinent Medications Colace Height 5 ft 7 in Weight 105.7 kg [place] Body Weight (kg) 67.27 BMI 36.5 Subjective/Other Information Pt stated he has been eating an average of 60% of his meals because he does not care for the bland taste and 100% ONS. Pt also stated his appetite is average and has been improving. Percent of energy/protein needs met: 89%/81% Burn Absent Trauma Absent GI Symptoms None Current % PO Good (75-100%) Minimum of two criteria No physical signs of malnutrition #1 Nutrition Diagnosis Inadequate oral intake As Evidenced by Signs and Symptoms Pt consuming 89% of kcal needs and 81% of PRO needs Diagnosis Progress(for reassessment Resolved documentation) Is patient on ventilator? No Is Patient Ambulatory and/or Out of Bed No REE-([facility]-confined to bed) 2136.204 Kcal/Kg value to use for calculation 17 Approximate Energy Requirements Using 1797 kcal/Kg Calculation Used for Recommendations Kcal/kg Additional Notes PRO needs: 86-103 g (1-1.2 g/ kg AjdBW 86kg) Fluid needs: 1 mL/kcal Nutrition Intervention Change Diet Order: Continue Current Diet Add Supplement/Snack (indicate name/kcal Ensure Enlive once daily /protein ) Provides kCal: 350 Provides Protein (gm) 20 Goal #1 Continue to meet 75% of kcal/ PRO needs via PO and ONS Anticipated Discharge Needs: Cardiac Diet Revisit per MD consult or patient Sign Off request:
== END 2019-02-25 11:40 | disposition home health service (06) | DRG 853 ==
LOC: ED 10:57 → CC1 14:29 → 4A 02-13 14:31
PROVIDERS: ADMIT Internal Medicine; ATTEND Internal Medicine
PROC: 06HY33Z Insertion of Infusion Device into Lower Vein, Percutaneous Approach (ICD-10-PCS; 2019-02-09)
PROC: 0T9430Z Drainage of Left Kidney Pelvis with Drainage Device, Percutaneous Approach (ICD-10-PCS; 2019-02-09)
PROC: 4A033R1 Measurement of Arterial Saturation, Peripheral, Percutaneous Approach (ICD-10-PCS; 2019-02-09)
PROC: 5A09357 Assistance with Respiratory Ventilation, Less than 24 Consecutive Hours, Continuous Positive Airway Pressure (ICD-10-PCS; 2019-02-09)
PROC: 0T788DZ Dilation of Bilateral Ureters with Intraluminal Device, Via Natural or Artificial Opening Endoscopic (ICD-10-PCS; principal; 2019-02-10)
PROC: BT141ZZ Fluoroscopy of Kidneys, Ureters and Bladder using Low Osmolar Contrast (ICD-10-PCS; 2019-02-10)
PROC: 30233R1 Transfusion of Nonautologous Platelets into Peripheral Vein, Percutaneous Approach (ICD-10-PCS; 2019-02-10)
PROC: 5A09357 Assistance with Respiratory Ventilation, Less than 24 Consecutive Hours, Continuous Positive Airway Pressure (ICD-10-PCS; 2019-02-10)
PROC: 5A09357 Assistance with Respiratory Ventilation, Less than 24 Consecutive Hours, Continuous Positive Airway Pressure (ICD-10-PCS; 2019-02-11)
PROC: 5A09357 Assistance with Respiratory Ventilation, Less than 24 Consecutive Hours, Continuous Positive Airway Pressure (ICD-10-PCS; 2019-02-12)
PROC: 5A09357 Assistance with Respiratory Ventilation, Less than 24 Consecutive Hours, Continuous Positive Airway Pressure (ICD-10-PCS; 2019-02-13)
PROC: 5A09357 Assistance with Respiratory Ventilation, Less than 24 Consecutive Hours, Continuous Positive Airway Pressure (ICD-10-PCS; 2019-02-16)
PROC: 5A09357 Assistance with Respiratory Ventilation, Less than 24 Consecutive Hours, Continuous Positive Airway Pressure (ICD-10-PCS; 2019-02-24)
DX: A41.51 Sepsis due to Escherichia coli [E. coli] (principal); R65.21 Severe sepsis with septic shock; J96.01 Acute respiratory failure with hypoxia; N17.0 Acute kidney failure with tubular necrosis; E87.2 Acidosis; C91.40 Hairy cell leukemia not having achieved remission; I42.9 Cardiomyopathy, unspecified; N13.6 Pyonephrosis; I47.1 Supraventricular tachycardia; I50.9 Heart failure, unspecified; K59.00 Constipation, unspecified; N40.0 Benign prostatic hyperplasia without lower urinary tract symptoms; D69.6 Thrombocytopenia, unspecified; I11.0 Hypertensive heart disease with heart failure; Z88.8 Allergy status to other drugs, medicaments and biological substances; Z79.82 Long term (current) use of aspirin; Z68.32 Body mass index [BMI] 32.0-32.9, adult; Z87.442 Personal history of urinary calculi
CPT/HCPCS: 36415; 36600; 50432; 71045; 71250; 74018; 74176; 74420; 76770; 76937; 78582; 80048; 80053; 81001; 82140; 82570; 82607; 82728; 82747; 82803; 82805; 82962; 83550; 83735; 83880; 84100; 84300; 84484; 85007; 85025; 85027; 85610; 86850; 86900; 86901; 87040; 87076; 87086; 87116; 87186; 93005; 93010; 93306; 94640; 94660; 94760; 96374; G0378; A4217; A9540; A9558; C1729; C1751; C1758; C1769; C2617; J0278; J0690; J1100; J1644; J1956; J2250; J2270; J2405; J2543; J2597; J2704; J3010; J3370; J7030; J7040; J7050; P9035; Q9967

== ENCOUNTER 2019-03-10 15:42 | Emergency (ER) | payer MEDICARE ==
[~2019-03-10 15:42] MED LIST: EPINEPHrine 1:10,000 1 MG/10 ML SYRINGE ONE
--- NOTE | 2019-03-10 15:58 | Emergency Department Report ---
ED CPR HPI - General Stated Complaint: CARDIAC ARREST Time Seen by Provider: 03/10/19 15:51 Source: EMS - History of Present Illness Initial Comments: 68-year-old male presents to ED via EMS in cardiac arrest. EMS reports they we re called by patient's home health nurse. She stated that patient went into the bathroom and then collapsed. She reports that she started chest compressions at 3 PM. Upon EMS arrival, patient was pulseless and apneic. He was intubated and ACLS initiated. Patient has been given epi 5. Initial rhythm was asystole, but is currently PEA. EMS states they have been working the patient for approx imately 20 minutes, with no return of circulation. MD Complaint: other (collapsed) Onset/Timin -: minute(s) Place: home Bystander CPR Performed: Yes Downtime Before ACLS Arrival (mins): 10 Initial Findings in the Field: unresponsive, no respirations, no pulse ROSC in the Field: No Treatments Prior to Arrival: intubation, chest compressions, epinephrine mgs # (5) - Related Data Home Medications Medication Instructions Recorded Confirmed Last Taken Aspirin [Aspirin BABY CHEW TAB] 81 mg PO QDAY 02/09/19 02/09/19 02/09/19 Desvenlafaxine Succinate 100 mg PO QDAY 02/09/19 02/09/19 02/09/19 [Desvenlafaxine Succinate ER] Doxazosin Mesylate [Cardura] 2.5 mg PO DAILY 02/09/19 02/09/19 02/09/19 Finasteride [Proscar] 5 mg PO QHS 02/09/19 02/09/19 02/09/19 Propranolol HCl 20 mg PO QDAY 02/09/19 02/09/19 02/09/19 Trazodone HCl 150 mg PO QHS 02/09/19 02/09/19 02/09/19 Docusate Sodium [Colace CAP] 100 mg PO QDAY 02/12/19 02/12/19 02/07/19 09:00 Pravastatin [Pravachol] 20 mg PO QHS 02/13/19 02/13/19 02/08/19 Previous Rx's Medication Instructions Recorded Last Taken Type Budesonide [Pulmicort Respules] 0.5 mg IH Q12HRT #60 nebu 02/24/19 Unknown Rx Nebulizer [Aeroneb Go Nebulizer] 1 each MC BID #1 each 02/24/19 Unknown Rx Allergies Allergy/AdvReac Type Severity Reaction Status Date / Time cefepime Allergy Rash Verified 02/10/19 11:24 ED Review of Systems ROS: Stated complaint: CARDIAC ARREST Other details as noted in HPI Comment: Unobtainable due to pts medical conditions ED Past Medical Hx - Past Medical History Hx Hypertension: Yes Hx Renal Disease: Yes (BPH; Hx. 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, OAB, enlarged prostate, - Social History Smoking Status: Unknown if ever smoked Substance Use Type: None - Medications Home Medications: Home Medications Medication Instructions Recorded Confirmed Last Taken Type Aspirin [Aspirin BABY CHEW TAB] 81 mg PO QDAY 02/09/19 02/09/19 02/09/19 History Desvenlafaxine Succinate 100 mg PO QDAY 02/09/19 02/09/19 02/09/19 History [Desvenlafaxine Succinate ER] Doxazosin Mesylate [Cardura] 2.5 mg PO DAILY 02/09/19 02/09/19 02/09/19 History Finasteride [Proscar] 5 mg PO QHS 02/09/19 02/09/19 02/09/19 History Propranolol HCl 20 mg PO QDAY 02/09/19 02/09/19 02/09/19 History Trazodone HCl 150 mg PO QHS 02/09/19 02/09/19 02/09/19 History Docusate Sodium [Colace CAP] 100 mg PO QDAY 02/12/19 02/12/19 02/07/19 09:00 History Pravastatin [Pravachol] 20 mg PO QHS 02/13/19 02/13/19 02/08/19 History Budesonide [Pulmicort Respules] 0.5 mg IH Q12HRT #60 nebu 02/24/19 Unknown Rx Nebulizer [Aeroneb Go Nebulizer] 1 each MC BID #1 each 02/24/19 Unknown Rx ED Physical Exam - Head Head exam: Present: atraumatic, normocephalic - Eye Eye exam: Present: normal appearance - ENT ENT exam: Present: other (ET tube in place) - Neck Neck exam: Present: normal inspection - Respiratory Respiratory exam: Present: normal lung sounds bilaterally - Cardiovascular Cardiovascular Exam: Present: other (no palpable pulse) - GI/Abdominal GI/Abdominal exam: Present: distended - Extremities Exam Extremities exam: Present: normal inspection - Neurological Exam Neurological exam: Present: other (GCS=3) - Skin Skin exam: Present: warm, dry, intact, other ED Medical Decision Making - Medical Decision Making 68-year-old male presents to ED in cardiac arrest. Patient has been down for 30 minutes prior to ED arrival. Patient presented PEA. ACLS was continued according to guidelines, however, no regained pulses. Time of was called at 15:43. Family has been notified. - Differential Diagnosis ACS, arrythmia, PE, aortic dissection Critical care attestation.: If time is entered above; I have spent that time in minutes in the direct care of this critically ill patient, excluding procedure time. ED Disposition Clinical Impression: Cardiac arrest Disposition: DC-20 Is pt being admited?: No Condition: Stable Referrals: PRIMARY CARE, [Primary Care Provider] - 3-5 Days
== END 2019-03-10 19:21 ==
LOC: ED 15:42
DX: I46.9 Cardiac arrest, cause unspecified (principal); I10 Essential (primary) hypertension; Z87.442 Personal history of urinary calculi; Z79.899 Other long term (current) drug therapy; Z88.8 Allergy status to other drugs, medicaments and biological substances
CPT/HCPCS: 92950; 99285; J0171